=== PATIENT | male | born 1955 | race Caucasian/White ===

== ENCOUNTER 2023-10-25 12:51 | Observation (INO) | payer MEDICARE, SELFPAY ==
[2023-10-25 12:29] VITALS: BP 168/101; PULSE 71; TEMP 36.7; O2SAT 99; BMI 27.2
--- NOTE | 2023-10-25 13:00 | XR_ITS ---
[address] [address] Patient Name: ELVER MENA MRN: [id number] date: 1955 Sex: M Assigned Patient Location: ER Current Patient Location: ER Accession/Order Number: [id number] Exam Date: 10/25/2023 13:39 Report Date: 10/25/2023 14:30 At the request of: HANNAH PETERS Procedure: XR hip RT 2V w/ pelvis IMAGES REVIEWED: XR hip RT 2V w/ pelvis COMPARISON: None available. CLINICAL INDICATION: pain FINDINGS/IMPRESSION: 1. No radiographic evidence of acute osseous abnormality of the right hip/pelvis. 2. Mild degenerative change bilateral hips. Electronically authenticated by: DAVID JOSEPH Date: 10/25/2023 14:30
--- NOTE | 2023-10-25 13:46 | ED.GENADUL1 ---
HPI HPI - General Adult General Chief complaint: Fall Time Seen by Provider: 10/25/23 12:55 Source: patient Mode of arrival: ambulance History of Present Illness HPI narrative: Patient presents to ED complaining of right hip and pelvic pain. He has a history of Parkinson's for the past 15 years. He said his Parkinson's has been worsening recently and he has had multiple falls recently. He has had 3 falls in the past couple of days. He complains of right hip pain. He says he has not been medicated for his noon meds yet and his tremors are little bit worse right now. He is alert and oriented at this time. He also reports some constipation which is chronic but seems worse recently. He also has trouble urinating but this is also a chronic issue.No fever Related Data Home Medications ?Medication ?Instructions ?Recorded ?Confirmed carbidopa ER 25 mg-levodopa 100 mg tab PO 10/25/23 tablet,extended release Allergies Allergy/AdvReac Type Severity Reaction Status Date / Time No Known Drug Allergies Allergy Verified 10/25/23 12:31 Opioid HPI Opioid Management Most Recent Opioid Data: No Data to Display Review of Systems ROS Status of ROS 10 or more systems reviewed and unremarkable except as noted in history and below Exam Narrative Exam Narrative: General: alert, no acute distress Cardiovascular: regular rate and rhythm, normal peripheral perfusion. Respiratory: Lungs CTA, respirations non labored. Extremities: no deformity, Mild pain to palpation in the right hip mild pain with internal/external rotation right hip. Neurological: oriented x 4, LOC appropriate for age. Abdomen soft nontender nondistended no acute abdominal signs Constitutional Vital Signs, click to edit/add: Last Vital Signs Temp 98.1 F 10/25/23 12:29 Pulse 71 10/25/23 12:29 Resp 18 10/25/23 12:29 BP 168/101 H 10/25/23 12:29 Pulse Ox 99 10/25/23 12:29 O2 Del Method Room Air 10/25/23 12:29 Course Vital Signs Vital signs: Vital Signs Temperature 98.1 F 10/25/23 12:29 Pulse Rate 71 10/25/23 12:29 Respiratory Rate 18 10/25/23 12:29 Blood Pressure 168/101 H 10/25/23 12:29 Pulse Oximetry 99 10/25/23 12:29 Oxygen Delivery Method Room Air 10/25/23 12:29 Temperature 98.1 F 10/25/23 12:29 Pulse Rate 71 10/25/23 12:29 Respiratory Rate 18 10/25/23 12:29 Blood Pressure 168/101 H 10/25/23 12:29 Pulse Oximetry 99 10/25/23 12:29 Oxygen Delivery Method Room Air 10/25/23 12:29 Medical Decision Making MDM Narrative Medical decision making narrative: Patient reports that he is only in assisted living and they do not help him much at all. He is very tremorous and says he cannot take care of himself in the assisted living. He said he needs a higher level of care. He has had 3 or more falls in the past 24 hours. With the state of his tremors I do not think he should go home to try and care for himself. I spoke to Dr. Basilio who will admit him for PT eval and also possibly high school social studies teacher case management involvement for discharge planning. No acute fracture seen on x-ray. Patient is comfortable care plan for admission. Differential Diagnosis Differential Diagnosis: Multiple falls, fracture, strain, worsening Parkinson's Medical Records Medical records reviewed: Yes I reviewed the patient's medical records Discharge Plan Discharge Chief Complaint: Fall Clinical Impression: Fall, Parkinson disease Patient Disposition: Admitted as Observation Time of Disposition Decision: 15:22 Condition: Fair Prescriptions / Home Meds: No Action carbidopa-levodopa 25-100 mg tablet extended release PO Print Language: Faroese Referrals: ANDREA MCGUIRE DO [Primary Care Provider] - 1 week
[2023-10-25] MEDS: CARBIDOPA/LEVODOPA CR 25-100 MG TABLET 2 TAB PO ×3 (13:51→21:17)
[2023-10-25 15:16] LABS: Basophils Percent Auto 0.3 % (0.2-2.0); Eosinophils Absolute Auto 0.2 10^3/uL (0.0-0.7); Eosinophils Percent Auto 1.5 % (0.9-7.0); Hematocrit 42.1 % (42.0-54.0); Hemoglobin 14.4 g/dL (14.0-18.0); Immature Granulocytes Abs Auto 0.03 10^3/uL (0.00-0.03); Immature Granulocytes Pct Auto 0.3 % (0.0-0.5); Lymphocytes Absolute Auto 1.4 10^3/uL (1.2-3.8); Lymphocytes Percent Auto 12.7 % (20.5-60.0); Mean Corpuscular HGB Conc 34.2 g/dL (29.9-35.2); Mean Corpuscular Hemoglobin 32.9 pg (25.9-34.0); Mean Corpuscular Volume 96.1 fL (80.0-94.0); Monocytes Absolute Auto 0.9 10^3/uL (0.3-0.8); Monocytes Percent Auto 8.3 % (1.7-12.0); Neutrophils Absolute Auto 8.3 10^3/uL (1.4-6.5); Neutrophils Percent Auto 76.9 % (43.0-75.0); Platelet Count 222 10^3/uL (150-450); Red Blood Count 4.38 10^6/uL (4.70-6.10); Red Cell Distribution Width 12.1 % (11.0-15.0); White Blood Count 10.8 10^3/uL (4.0-11.0)
[2023-10-25 15:22] VITALS: BP 146/81; PULSE 64; O2SAT 94
[2023-10-25] MEDS: ACETAMINOPHEN 325 MG TABLET 650 MG PO (15:27)
[2023-10-25 15:30] LABS: Alanine Aminotransferase 9 U/L (16-63); Albumin Level 3.8 g/dL (3.4-5.0); Alkaline Phosphatase 74 U/L (46-116); Anion Gap 12.2; Aspartate Amino Transferase 14 U/L (15-37); BUN Creatinine Ratio 18.5; Bilirubin Total 0.7 mg/dL (0.2-1.0); Chloride 104 mmol/L (98-107); Estimated GFR (African America >60 (>=60); Estimated GFR (Non-African Ame >60 (>=60); Globulin 3.8 g/dL; Glucose 127 mg/dL (74-106); Potassium 4.2 mmol/L (3.5-5.1); Sodium 141 mmol/L (136-145); Total Protein 7.6 g/dL (6.4-8.2)
[2023-10-25 16:56] VITALS: BP 132/85; PULSE 72; TEMP 36.6; O2SAT 93; BMI 27.2
[2023-10-25] MEDS: BUSPIRONE HCL 10 MG TABLET 5 MG PO ×2 (18:19→21:16)
[2023-10-25] MEDS: ENTACAPONE 200 MG TABLET PO ×2 (18:19→21:16)
[2023-10-25] MEDS: ROPINIROLE HCL 1 MG TABLET PO ×2 (18:20→21:17)
[2023-10-25 21:25] VITALS: BP 105/57; PULSE 78; TEMP 35.9; O2SAT 91
[2023-10-26] MEDS: CARBIDOPA/LEVODOPA CR 25-100 MG TABLET 2 TAB PO ×6 (01:54→21:22)
[2023-10-26] MEDS: ROPINIROLE HCL 1 MG TABLET PO ×6 (01:54→21:22)
[2023-10-26] MEDS: BUSPIRONE HCL 10 MG TABLET 5 MG PO ×6 (01:54→21:21)
[2023-10-26] MEDS: ENTACAPONE 200 MG TABLET PO ×6 (01:54→21:22)
[2023-10-26 05:45] VITALS: BP 111/70; PULSE 60; TEMP 36.8; O2SAT 94
[2023-10-26 05:47] LABS: Basophils Percent Auto 0.4 % (0.2-2.0); Eosinophils Absolute Auto 0.2 10^3/uL (0.0-0.7); Hematocrit 40.1 % (42.0-54.0); Hemoglobin 13.3 g/dL (14.0-18.0); Immature Granulocytes Abs Auto 0.02 10^3/uL (0.00-0.03); Immature Granulocytes Pct Auto 0.3 % (0.0-0.5); Lymphocytes Absolute Auto 1.6 10^3/uL (1.2-3.8); Lymphocytes Percent Auto 19.4 % (20.5-60.0); Mean Corpuscular HGB Conc 33.2 g/dL (29.9-35.2); Mean Corpuscular Hemoglobin 32.6 pg (25.9-34.0); Mean Corpuscular Volume 98.3 fL (80.0-94.0); Mean Platelet Volume 9.5 fL (9.5-13.5); Monocytes Absolute Auto 0.8 10^3/uL (0.3-0.8); Monocytes Percent Auto 10.3 % (1.7-12.0); Neutrophils Absolute Auto 5.4 10^3/uL (1.4-6.5); Neutrophils Percent Auto 67.6 % (43.0-75.0); Platelet Count 189 10^3/uL (150-450); Red Blood Count 4.08 10^6/uL (4.70-6.10); Red Cell Distribution Width 12.5 % (11.0-15.0)
[2023-10-26 06:04] LABS: Anion Gap 11.7; BUN Creatinine Ratio 20.8; Calcium 8.7 mg/dL (8.5-10.1); Carbon Dioxide 27.2 mmol/L (21.0-32.0); Chloride 107 mmol/L (98-107); Estimated GFR (African America >60 (>=60); Estimated GFR (Non-African Ame >60 (>=60); Glucose 135 mg/dL (74-106); Potassium 3.9 mmol/L (3.5-5.1); Sodium 142 mmol/L (136-145)
[2023-10-26] MEDS: ESCITALOPRAM 10 MG TABLET 5 MG PO (08:35)
[2023-10-26] MEDS: PROPRANOLOL HCL 80 MG CAP.24H PO (08:35)
[2023-10-26] MEDS: KETOROLAC TROMETHAMINE 30 MG/ML VIAL IVP ×3 (11:13→23:37)
[2023-10-26] MEDS: ORPHENADRINE 60 MG/ 2 ML VIAL IV ×2 (11:13→23:37)
--- NOTE | 2023-10-26 11:40 | P.HP_ITS ---
HPI H&P: HPI History of Present Illness Chief complaint: PARKINSON FALLS Hip Pain Narrative: 68 y/o male with history of Parkinson's presents to ER with worsening symptoms and increased falls. Currently at assisted living and having a harder time. Parkinson's declining and patient with increased off episodes where legs don't work and can't move them. Falling more and has fallen 3 times in past day. Increased pain in hip and pelvis. C/o severe pain and spasms. To ER and x-ray normal. Patient not able to ambulate and admitted. At time of exam not able to move legs and severe tremor. Reports sometimes his medication doesn't work. C/o severe spasms. Opioid HPI Opioid Management Most Recent Opioid Data: Last Pain Scale 5 10/26/23 11:00 Last Pain Assessment 10/26/23 11:00 Last ORT Total Score 3 10/25/23 16:56 Last ORT Risk Category Low Risk 10/25/23 16:56 Review of Systems ROS Constitutional Denies: fever, chills or fatigue Cardiovascular Denies: chest pain, palpitations or edema Respiratory Denies: shortness of breath, cough or wheezing Gastrointestinal Denies: abdominal pain, nausea, vomiting or diarrhea Genitourinary Denies: painful urination Musculoskeletal Reports: muscle cramps PFSH PFSH Medical History (Updated 10/26/23 @ 09:23 by Pierre Cormier MD) Anxiety ?F41.9 - Anxiety disorder, unspecified (ICD-10) Depression ?F32.A - Depression, unspecified (ICD-10) GERD (gastroesophageal reflux disease) ?K21.9 - Gastro-esophageal reflux disease without esophagitis (ICD-10) Surgical History (Updated 10/25/23 @ 17:31 by Saloni Rodriguez) H/O hernia repair ?Z98.890 - Other specified postprocedural states (ICD-10) ?Z87.19 - Personal history of other diseases of the digestive system (ICD-10) History of bowel resection ?Z90.49 - Acquired absence of other specified parts of digestive tract (ICD- 10) Family History (Updated 10/25/23 @ 17:32 by Saloni Rodriguez) Father Family history of myocardial infarction Family history of hypertension Family history of cancer Family history of COPD (chronic obstructive pulmonary disease) Family history of CHF (congestive heart failure) Mother Family history of stroke Family history of hypertension Social History (Updated 10/25/23 @ 17:34 by Saloni Rodriguez) Within the past year, how often did you have a drink containing alcohol: 2-4 times a month Within the past year, how often did you have six or more drinks on one occasion: never Smoking status: Former smoker Non-prescribed substance use: denies use Previous occupational history: disabled Highest level of school completed/degree received: 11th grade Are you now , , , , never or living with a partner: Little interest or pleasure in doing things: not at all Feeling down, depressed, or hopeless: not at all Feel stressed/tense/nervous/anxious/difficulty sleeping: only a little Life stressor details: increased tremors are very bothersome Meds Home Medications and Allergies Home Medications ?Medication ?Instructions ?Recorded ?Confirmed ?Type buspirone 5 mg tablet 5 mg PO Q4H 10/25/23 10/25/23 History carbidopa ER 25 mg-levodopa 100 mg 2 tab PO Q4H 10/25/23 10/25/23 History tablet,extended release entacapone 200 mg tablet 200 mg PO Q4H 10/25/23 10/25/23 History escitalopram oxalate 5 mg tablet 5 mg PO DAILY 10/25/23 10/25/23 History (Lexapro) meclizine 25 mg tablet 25 mg PO Q8H PRN dizziness 10/25/23 10/25/23 History pimavanserin 34 mg capsule 34 mg PO Q24H 10/25/23 10/25/23 History (Nuplazid) propranolol 80 mg capsule,24 80 mg PO DAILY 10/25/23 10/25/23 History hr,extended release ropinirole 1 mg tablet 1 mg PO Q4H 10/25/23 10/25/23 History Allergies Allergy/AdvReac Type Severity Reaction Status Date / Time No Known Drug Allergies Allergy Verified 10/25/23 12:31 Exam Constitutional Vital Signs, click to edit/add: Last Vital Signs Temp 98.2 F 10/26/23 05:45 Pulse 60 10/26/23 05:45 Resp 18 10/26/23 05:45 BP 111/70 10/26/23 05:45 Pulse Ox 94 L 10/26/23 05:45 O2 Del Method Room Air 10/26/23 05:45 Documenting provider has reviewed patient's vital signs: yes Common normals: no apparent distress, oriented x3 and alert HENMT Common normals: normocephalic Eye Common normals: PERRL and EOMs intact bilaterally Respiratory Common normals: normal respiratory effort and clear to auscultation bilaterally Cardio Common normals: regular rate, regular rhythm, no gallops, no murmurs and no rub GI Common normals: Normal to inspection, nondistended, normoactive bowel sounds present and non-tender Extremity Common normals: no pedal edema Results Labs Labs: Short CBC 10/25/23 10/26/23 Range/Units 15:10 04:52 WBC 10.8 8.0 (4.0-11.0) 10^3/uL Hgb 14.4 13.3 L (14.0-18.0) g/dL Hct 42.1 40.1 L (42.0-54.0) % Plt Count 222 189 (150-450) 10^3/uL BMP 10/25/23 10/26/23 15:10 04:52 Sodium 141 142 Potassium 4.2 3.9 Chloride 104 107 Carbon Dioxide 29.0 27.2 BUN 17.0 20.0 H Creatinine 0.92 0.96 Glucose 127 H 135 H Calcium 9.0 8.7 Liver Function 10/25/23 Range/Units 15:10 Total Bilirubin 0.7 (0.2-1.0) mg/dL AST 14 L (15-37) U/L ALT 9 L (16-63) U/L Alkaline Phosphatase 74 (46-116) U/L Albumin 3.8 (3.4-5.0) g/dL Assessment and Plan Assessment and Plan (1) Acute right hip pain: (2) Fall: (3) Unsteady gait: (4) Parkinson disease: (5) High blood pressure: Plan Worsening Parkinson's symptoms and problems walking. Increased falls and pain in hip and pelvis. Reports pain from spasms and Parkinson's and not falls. Start toradol and norflex. Use tramadol PRN. Resume home medication. Start PT/OT. Consult high school social studies tutor.
[2023-10-26 13:11] VITALS: BP 126/73; PULSE 68; TEMP 36.6; O2SAT 94
[2023-10-26] MEDS: MECLIZINE HCL 12.5 MG TABLET 25 MG PO (20:16)
[2023-10-26] MEDS: TRAMADOL HCL 50 MG TABLET PO (20:17)
[2023-10-26 20:31] VITALS: BP 122/66; PULSE 81; TEMP 36.8; O2SAT 95
[2023-10-27] MEDS: ENTACAPONE 200 MG TABLET PO ×4 (01:22→14:20)
[2023-10-27] MEDS: CARBIDOPA/LEVODOPA CR 25-100 MG TABLET 2 TAB PO ×4 (01:22→14:19)
[2023-10-27] MEDS: BUSPIRONE HCL 10 MG TABLET 5 MG PO ×4 (01:22→14:19)
[2023-10-27] MEDS: ROPINIROLE HCL 1 MG TABLET PO ×4 (01:22→14:19)
[2023-10-27 04:23] VITALS: BP 134/76; PULSE 57; TEMP 36.7; O2SAT 94
[2023-10-27 05:07] LABS: Basophils Percent Auto 0.3 % (0.2-2.0); Eosinophils Absolute Auto 0.2 10^3/uL (0.0-0.7); Eosinophils Percent Auto 2.3 % (0.9-7.0); Hematocrit 37.4 % (42.0-54.0); Hemoglobin 12.6 g/dL (14.0-18.0); Immature Granulocytes Abs Auto 0.02 10^3/uL (0.00-0.03); Immature Granulocytes Pct Auto 0.3 % (0.0-0.5); Lymphocytes Absolute Auto 1.9 10^3/uL (1.2-3.8); Lymphocytes Percent Auto 27.1 % (20.5-60.0); Mean Corpuscular HGB Conc 33.7 g/dL (29.9-35.2); Mean Corpuscular Hemoglobin 33.1 pg (25.9-34.0); Mean Corpuscular Volume 98.2 fL (80.0-94.0); Mean Platelet Volume 9.6 fL (9.5-13.5); Monocytes Absolute Auto 0.7 10^3/uL (0.3-0.8); Monocytes Percent Auto 9.4 % (1.7-12.0); Neutrophils Absolute Auto 4.2 10^3/uL (1.4-6.5); Neutrophils Percent Auto 60.6 % (43.0-75.0); Platelet Count 174 10^3/uL (150-450); Red Blood Count 3.81 10^6/uL (4.70-6.10); Red Cell Distribution Width 12.6 % (11.0-15.0); White Blood Count 6.9 10^3/uL (4.0-11.0)
[2023-10-27 05:24] LABS: Anion Gap 10.9; BUN Creatinine Ratio 29.9; Calcium 8.6 mg/dL (8.5-10.1); Carbon Dioxide 28.9 mmol/L (21.0-32.0); Chloride 106 mmol/L (98-107); Estimated GFR (African America >60 (>=60); Estimated GFR (Non-African Ame >60 (>=60); Glucose 117 mg/dL (74-106); Potassium 3.8 mmol/L (3.5-5.1); Sodium 142 mmol/L (136-145)
[2023-10-27] MEDS: KETOROLAC TROMETHAMINE 30 MG/ML VIAL IVP ×2 (05:24→11:28)
[2023-10-27] MEDS: TRAMADOL HCL 50 MG TABLET PO ×2 (05:25→14:19)
[2023-10-27] MEDS: PROPRANOLOL HCL 80 MG CAP.24H PO (09:42)
[2023-10-27] MEDS: ACETAMINOPHEN 500 MG TABLET 1000 MG PO (09:42)
[2023-10-27] MEDS: ESCITALOPRAM 10 MG TABLET 5 MG PO (09:43)
--- NOTE | 2023-10-27 10:05 | SWNOTE1 ---
Pt is from [facility]. He is new to them. PITO did speak with Braden from [facility] and they are looking in to increasing his level of care at [facility] and they are trying to become familiar with pt and what ADL's pt can do and needs help with. Ana did request palliative consult due to pt's Parkinson's and tremors he has from Parkinson's. PITO updated case management who is with doctor.
--- NOTE | 2023-10-27 11:27 | CM.NOTE ---
Rounds made with Dr. Cormier. Dr. Cormier discussed progression of symptoms and potential need for increase in services at Assisted Living. Plan for discharge today.
[2023-10-27] MEDS: ORPHENADRINE 60 MG/ 2 ML VIAL IV (11:28)
--- NOTE | 2023-10-27 12:23 | PC.NURSE ---
Patient's niece, Valerie, called and patient gave verbal OK to speak with her. Valerie was made aware that patient would be going back to [facility] today with increased LOC. Can Coverer explained that patient's disease is unfortunately progressing and there is nothing more we can do inside the hospital for. She is understanding.
[2023-10-27 13:28] VITALS: BP 125/74; PULSE 90; TEMP 36.4; O2SAT 94
--- NOTE | 2023-10-27 14:15 | PC.NURSE ---
Load Planner called Devika at [facility] and gave phone report.
--- NOTE | 2023-10-27 14:21 | SWNOTE1 ---
[facility] is going to increase pt's level of care at the [facility] for now. They are able to accept him back. Nursing spoke with niece and niece is alright with him returning. PITO set up trips for 2:30 for pt to return to [facility]. PITO placed packet on med/surge floor. PITO sent over updates and dc med rec to [facility]. PITO informed [facility] of time.
--- NOTE | 2023-10-27 17:44 | PM.DS1 ---
DS: Providers Provider Date of admission: 10/25/23 16:50 Primary care physician: ANDREA MCGUIRE DO Consults: 10/25/23 Consult to Dietitian Routine Reason for consultation: poor appetite/ weight loss Has provider been notified: No 10/25/23 16:52 Occupational Therapy Eval and Treat Routine Reason for consultation: Unsteady gait, Parkinson's Physical Therapy Eval and Treat Routine Reason for consultation: Unsteady gait, Parkinson's DS: Diagnosis Discharge Diagnosis (1) Acute right hip pain: (2) Fall: (3) Unsteady gait: (4) Parkinson disease: (5) High blood pressure: DS: Summary Hospital Course Hospital Course: Reason for admission: See H&P for details. 68 y/o male with history of Parkinson's presents to ER with worsening symptoms and increased falls. Currently at assisted living and having a harder time. Parkinson's declining and patient with increased off episodes where legs don't work and can't move them. Falling more and has fallen 3 times in past day. Increased pain in hip and pelvis. C/o severe pain and spasms. To ER and x-ray normal. Patient not able to ambulate and admitted. Hospital course: C/o severe tremor and pain in hip. Severe spasms and reports this is related to worsening Parkinson's. Seen by PT and severe weakness. Gave tramadol and norflex but continued pain. coordinator of genetic services consulted and discussed with his AL facility. Patient stable and symptoms related to worsening Parkinson's. Discussed Palliative care with patient and he will consider. Transferred back to [facility] and patient's family arranged for additional services. Resume medication as directed. Need to follow up with neurology to possibly adjust medication. Time Spent with Patient Time attestation: Total time spent providing and/or coordinating discharge services: Time spent: greater than 30 minutes Exam Constitutional Vital Signs, click to edit/add: Last Vital Signs Temp 97.6 F 10/27/23 13:28 Pulse 90 10/27/23 13:28 Resp 16 10/27/23 13:28 BP 125/74 10/27/23 13:28 Pulse Ox 94 L 10/27/23 13:28 O2 Del Method Room Air 10/27/23 13:28 Documenting provider has reviewed patient's vital signs: yes Common normals: no apparent distress, oriented x3 and alert HENMT Common normals: normocephalic Eye Common normals: PERRL and EOMs intact bilaterally Respiratory Common normals: normal respiratory effort and clear to auscultation bilaterally Cardio Common normals: regular rate, regular rhythm, no gallops, no murmurs and no rub GI Common normals: Normal to inspection, nondistended, normoactive bowel sounds present and non-tender Extremity Common normals: no pedal edema DS: Data Data Completed and Pending Labs on day of discharge: Labs from last 24 hours 10/27/23 04:30 WBC 6.9 RBC 3.81 L Hgb 12.6 L Hct 37.4 L MCV 98.2 H MCH 33.1 MCHC 33.7 RDW 12.6 Plt Count 174 MPV 9.6 Neut % (Auto) 60.6 Lymph % (Auto) 27.1 [place] % (Auto) 9.4 Eos % (Auto) 2.3 Baso % (Auto) 0.3 Neut # (Auto) 4.2 Lymph # (Auto) 1.9 [place] # (Auto) 0.7 Eos # (Auto) 0.2 Baso # (Auto) 0.0 Abs Immat Gran (auto) 0.02 Imm/Tot Granulo (auto) 0.3 Sodium 142 Potassium 3.8 Chloride 106 Carbon Dioxide 28.9 Anion Gap 10.9 BUN 29.0 H Creatinine 0.97 Est GFR ( Amer) >60 Est GFR (Non-Af Amer) >60 BUN/Creatinine Ratio 29.9 Glucose 117 H Calcium 8.6 Discharge Plan Discharge Disposition: Home, Self-Care Condition: Fair Discharge Medications: Continued carbidopa-levodopa 25-100 mg tablet extended release 2 tab PO Q4H buspirone 5 mg tablet 5 mg PO Q4H entacapone 200 mg tablet 200 mg PO Q4H meclizine 25 mg tablet 25 mg PO Q8H PRN (Reason: dizziness) Nuplazid 34 mg capsule 34 mg PO Q24H propranolol 80 mg capsule,extended release 24 hr 80 mg PO DAILY ropinirole 1 mg tablet 1 mg PO Q4H escitalopram oxalate [Lexapro] 5 mg tablet 5 mg PO DAILY Activity: increase activity as tolerated Diet: advance to your usual diet Print Language: Bulgarian Patient Instructions: Parkinson Disease (DC) Wind Energy Mechanic/Environmental Services Specialist Instructions: Discharge back to [facility]. Forms: Portal Instructions Follow Up Appointments: Please follow up with physicians at [facility]. Keep already scheduled neurology appointment Discharge Date/Time: 10/27/23 14:25
== END 2023-10-27 14:25 | disposition home or self-care (01) ==
LOC: ER 15:22 → MS 16:55
PROVIDERS: Admitting Provider Family Medicine; Emergency Provider Emergency Medicine; PCP Family Medicine; Visit Provider Family Medicine
DX: M25.551 Pain in right hip (principal); G20.A1 Parkinson's disease without dyskinesia, without mention of fluctuations; R26.81 Unsteadiness on feet; I10 Essential (primary) hypertension; Z91.81 History of falling
CPT/HCPCS: 36415; 73502; 80048; 80053; 85025; 96374; 96375; 96376; 97161; 97165; 99285; G0378

== ENCOUNTER 2023-12-20 08:58 | Observation (INO) | payer MEDICARE, SELFPAY ==
[2023-12-20] VITALS (53 sets, daily range): BP systolic 82–125; BP diastolic 48–80; PULSE 48–74; TEMP 36.3–36.7; O2SAT 83–98; BMI 24.7; BMI 25.5
--- NOTE | 2023-12-20 09:01 | ECG_ITS ---
The [facility] Test Date: 2023-12-20 Pat Name: ELVER MENA Department: Room: - Gender: Male [employer]: : 1955 Requested By: ANDREA MCGUIRE Order Number: [id number] Reading MD: DIANA WARD Measurements Intervals Vida Rate: 62 P: 26 CO: 148 QRS: 33 QRSD: 86 T: 36 QT: 420 QTc: 425 Interpretive Statements 1100 Sinus rhythm 9110 normal ECG No previous ECG available for comparison Electronically Signed On 12-21-2023 18:24:32 EDT by DIANA WARD
--- NOTE | 2023-12-20 09:02 | XR_ITS ---
The [address] [address] Patient Name: ELVER MENA MRN: [id number] date: 1955 Sex: M Assigned Patient Location: ER Current Patient Location: ED.MAIN Accession/Order Number: [id number] Exam Date: 12/20/2023 09:23 Report Date: 12/20/2023 09:41 At the request of: WALESKA ARIZMENDI Procedure: XR chest 1V EXAMINATION: XR chest 1V, 12/20/2023 9:23 AM EDT HISTORY: Chest pain COMPARISON: None. TECHNIQUE: AP portable view of the chest performed. FINDINGS: Medical devices: None. Cardiomediastinal silhouette is within normal limits. Mild relatively streaky bilateral basilar opacity favored atelectasis. No large pleural effusion, or pneumothorax. XR/XR chest 1V IMPRESSION: 1. Mild streaky bilateral basilar opacity favored atelectasis, infiltrate technically not excluded. Electronically authenticated by: MALENA MILLARD Date: 12/20/2023 09:41
--- NOTE | 2023-12-20 09:03 | ED_ITS ---
HPI - Chest Pain General Chief Complaint: Chest Pain Stated Complaint: CHEST PAIN Time Seen by Provider: 12/20/23 08:59 History of Present Illness HPI narrative: 68-year-old male presents for chest pain which she has had for about 1-1/2 hours. It began about 730 this morning to the sternal area and it sharp. It is continuous and it goes to his shoulders. He had a stress test 11 years ago, he has never had a heart catheterization. He states his breathing is not bad. No trauma. Related Data Home Medications ?Medication ?Instructions ?Recorded ?Confirmed buspirone 5 mg tablet 10 mg PO TID 10/25/23 12/20/23 carbidopa ER 25 mg-levodopa 100 mg 2 tab PO Q4H 10/25/23 12/20/23 tablet,extended release entacapone 200 mg tablet 200 mg PO Q4H 10/25/23 12/20/23 escitalopram oxalate 5 mg tablet 5 mg PO DAILY 10/25/23 12/20/23 (Lexapro) meclizine 25 mg tablet 25 mg PO Q8H PRN dizziness 10/25/23 12/20/23 pimavanserin 34 mg capsule 34 mg PO Q24H 10/25/23 12/20/23 (Nuplazid) propranolol 80 mg capsule,24 60 mg PO BID 10/25/23 12/20/23 hr,extended release ropinirole 1 mg tablet 1 mg PO Q4H 10/25/23 12/20/23 baclofen 5 mg tablet 5 mg PO TID 12/20/23 12/20/23 famotidine 20 mg tablet 20 mg PO DAILY 12/20/23 12/20/23 quetiapine 25 mg tablet (Seroquel) 25 mg PO BID 12/20/23 12/20/23 Allergies Allergy/AdvReac Type Severity Reaction Status Date / Time No Known Drug Allergies Allergy Verified 10/25/23 12:31 Review of Systems ROS Narrative A ten point review of systems is negative except as noted above. [facility] Medical History (Updated 12/20/23 @ 12:49 by Phillip Sheets MD) Unsteady gait ?R26.81 - Unsteadiness on feet (ICD-10) High blood pressure ?I10 - Essential (primary) hypertension (ICD-10) Parkinson disease ?G20.A1 - Parkinson's disease without dyskinesia, without mention of fluctuations (ICD-10) Anxiety ?F41.9 - Anxiety disorder, unspecified (ICD-10) Depression ?F32.A - Depression, unspecified (ICD-10) GERD (gastroesophageal reflux disease) ?K21.9 - Gastro-esophageal reflux disease without esophagitis (ICD-10) Surgical History (Updated 10/25/23 @ 17:31 by Saloni Rodriguez) H/O hernia repair ?Z98.890 - Other specified postprocedural states (ICD-10) ?Z87.19 - Personal history of other diseases of the digestive system (ICD-10) History of bowel resection ?Z90.49 - Acquired absence of other specified parts of digestive tract (ICD- 10) Family History (Updated 10/25/23 @ 17:32 by Saloni Rodriguez) Father Family history of myocardial infarction Family history of hypertension Family history of cancer Family history of COPD (chronic obstructive pulmonary disease) Family history of CHF (congestive heart failure) Mother Family history of stroke Family history of hypertension Social History (Updated 10/25/23 @ 17:34 by Saloni Rodriguez) Within the past year, how often did you have a drink containing alcohol: 2-4 times a month Within the past year, how often did you have six or more drinks on one occasion: never Smoking status: Former smoker Non-prescribed substance use: denies use Previous occupational history: disabled Highest level of school completed/degree received: 11th grade Are you now , , , , never or living with a partner: Little interest or pleasure in doing things: not at all Feeling down, depressed, or hopeless: not at all Feel stressed/tense/nervous/anxious/difficulty sleeping: only a little Life stressor details: increased tremors are very bothersome Exam Narrative Exam Narrative: Nurses note and vital signs reviewed and patient is not hypoxic. General: The patient appears in no apparent distress. Patient is resting comfortably on cart. He seems to prefer to keep his eyes closed. Skin: Warm, dry, no pallor noted. There is no rash noted. Head: Normocephalic, atraumatic Eye: Normal conjunctiva, no drainage Ears, Nose, Mouth, and Throat: oral mucosa is moist. Nares patent. Cardiovascular: Regular Rate and Rhythm Respiratory: Patient is in no distress, no accessory muscle use, lungs are clear to auscultation, no wheezing, rales or rhonchi Back: non-tender GI: Soft and nontender Musculoskeletal: The patient has no evidence of calf tenderness, no pitting edema, symmetrical pulses noted bilaterally Neurological: Awake alert and oriented. He has continuous tremors. Psychiatric: Cooperative Constitutional Vital Signs, click to edit/add: Last Vital Signs Temp 97.9 F 12/20/23 08:58 Pulse 51 L 12/20/23 12:30 Resp 18 12/20/23 12:30 BP 110/55 12/20/23 12:30 Pulse Ox 94 L 12/20/23 12:30 O2 Del Method Room Air 12/20/23 09:10 Course Vital Signs Vital signs: Vital Signs Temperature 97.9 F 12/20/23 08:58 Pulse Rate 66 12/20/23 08:58 Respiratory Rate 14 12/20/23 08:58 Blood Pressure 102/58 12/20/23 08:58 Pulse Oximetry 95 12/20/23 08:58 Oxygen Delivery Method Room Air 12/20/23 08:58 Temperature 97.9 F 12/20/23 08:58 Pulse Rate 51 L 12/20/23 12:30 Respiratory Rate 18 12/20/23 12:30 Blood Pressure 110/55 12/20/23 12:30 Pulse Oximetry 94 L 12/20/23 12:30 Oxygen Delivery Method Room Air 12/20/23 09:10 MDM - Chest Pain MDM Narrative Medical decision making narrative: 2 troponins are negative. CTA shows no pulmonary embolism and shows coronary artery calcifications. He was given aspirin and nitroglycerin here and is being admitted. Findings are discussed with the patient. Differential Diagnosis Differential diagnosis: Likely pneumothorax, unstable angina pectoris, atypical chest pain, st elevation myocardial infarction, chest pain and other (Pulmonary embolus) Lab Data Attestation: I reviewed the patient's lab results. Labs: Lab Results 12/20/23 12/20/23 Range/Units 09:00 10:33 WBC 6.2 (4.0-11.0) 10^3/uL RBC 4.02 L (4.70-6.10) 10^6/uL Hgb 13.4 L (14.0-18.0) g/dL Hct 40.0 L (42.0-54.0) % MCV 99.5 H (80.0-94.0) fL MCH 33.3 (25.9-34.0) pg MCHC 33.5 (29.9-35.2) g/dL RDW 12.9 (11.0-15.0) % Plt Count 256 (150-450) 10^3/uL MPV 9.3 L (9.5-13.5) fL Neut % (Auto) 65.2 (43.0-75.0) % Lymph % (Auto) 20.9 (20.5-60.0) % Ross % (Auto) 10.5 (1.7-12.0) % Eos % (Auto) 2.8 (0.9-7.0) % Baso % (Auto) 0.3 (0.2-2.0) % Neut # (Auto) 4.0 (1.4-6.5) 10^3/uL Lymph # (Auto) 1.3 (1.2-3.8) 10^3/uL Ross # (Auto) 0.7 (0.3-0.8) 10^3/uL Eos # (Auto) 0.2 (0.0-0.7) 10^3/uL Baso # (Auto) 0.0 (0.0-0.1) 10^3/uL Abs Immat Gran (auto) 0.02 (0.00-0.03) 10^3/uL Imm/Tot Granulo (auto) 0.3 (0.0-0.5) % Sodium 140 (136-145) mmol/L Potassium 3.9 (3.5-5.1) mmol/L Chloride 103 (98-107) mmol/L Carbon Dioxide 29.7 (21.0-32.0) mmol/L Anion Gap 11.2 BUN 22.0 H (7.0-18.0) mg/dL Creatinine 0.81 (0.70-1.30) mg/dL Est GFR ( Amer) >60 (>=60) Est GFR (Non-Af Amer) >60 (>=60) BUN/Creatinine Ratio 27.2 Glucose 137 H (74-106) mg/dL Calcium 9.0 (8.5-10.1) mg/dL Troponin I High Sens 16.6 15.9 (4.0-76.1) pg/mL Imaging Data Chest x-ray: Radiologist's impression: ITS Impressions Chest X-Ray 12/20/23 09:02 IMPRESSION: 1. Mild streaky bilateral basilar opacity favored atelectasis, infiltrate technically not excluded. Electronically authenticated by: MALENA MILLARD Date: 12/20/2023 09:41 Chest CTA 12/20/23 10:40 IMPRESSION: There is no pulmonary embolus. Severe multivessel coronary calcifications. Mild aortic valvular calcification and mild atheromatous calcification along the thoracic aorta and splenic artery. Mild consolidation at both posterior costophrenic angles which most likely is atelectasis. The bony structures appear osteopenic. There is mild dextroscoliosis and kyphosis of the thoracic spine. There is mild loss of height of a few mid thoracic vertebral bodies which most likely is chronic. There are mild discogenic degenerative changes at numerous levels along the spine. Electronically authenticated by: SP ANDREW Date: 12/20/2023 12:16 ECG Data Attestation: I personally reviewed and interpreted this ECG as follows: (EKG on my interpretation shows sinus rhythm with no acute change and rate of 62.) Heart Score History: Highly Suspicious ECG: Normal Age: >65 years Risk Factors: 1 or 2 Risk Factors Troponin: <Normal Limit Total Heart Score Recommendations & Risks:: 5 Discharge Plan Discharge Chief Complaint: Chest Pain Clinical Impression: Chest pain Patient Disposition: Admitted as Observation Time of Disposition Decision: 12:49 Condition: Fair Prescriptions / Home Meds: No Action carbidopa-levodopa 25-100 mg tablet extended release 2 tab PO Q4H buspirone 5 mg tablet 10 mg PO TID entacapone 200 mg tablet 200 mg PO Q4H meclizine 25 mg tablet 25 mg PO Q8H PRN (Reason: dizziness) Nuplazid 34 mg capsule 34 mg PO Q24H propranolol 80 mg capsule,extended release 24 hr 60 mg PO BID ropinirole 1 mg tablet 1 mg PO Q4H escitalopram oxalate [Lexapro] 5 mg tablet 5 mg PO DAILY famotidine 20 mg tablet 20 mg PO DAILY baclofen 5 mg tablet 5 mg PO TID quetiapine [Seroquel] 25 mg tablet 25 mg PO BID Print Language: Mongolian Referrals: ANDREA MCGUIRE DO [Primary Care Provider] - 1 week
[2023-12-20] MEDS: NITROGLYCERIN 0.4 MG BOTTLE SL ×2 (09:29→12:37)
[2023-12-20] MEDS: ASPIRIN 81 MG TAB.CHEW 324 MG PO (09:29)
[2023-12-20 09:43] LABS: Basophils Percent Auto 0.3 % (0.2-2.0); Eosinophils Absolute Auto 0.2 10^3/uL (0.0-0.7); Eosinophils Percent Auto 2.8 % (0.9-7.0); Hemoglobin 13.4 g/dL (14.0-18.0); Immature Granulocytes Abs Auto 0.02 10^3/uL (0.00-0.03); Immature Granulocytes Pct Auto 0.3 % (0.0-0.5); Lymphocytes Absolute Auto 1.3 10^3/uL (1.2-3.8); Lymphocytes Percent Auto 20.9 % (20.5-60.0); Mean Corpuscular HGB Conc 33.5 g/dL (29.9-35.2); Mean Corpuscular Hemoglobin 33.3 pg (25.9-34.0); Mean Corpuscular Volume 99.5 fL (80.0-94.0); Mean Platelet Volume 9.3 fL (9.5-13.5); Monocytes Absolute Auto 0.7 10^3/uL (0.3-0.8); Monocytes Percent Auto 10.5 % (1.7-12.0); Neutrophils Percent Auto 65.2 % (43.0-75.0); Platelet Count 256 10^3/uL (150-450); Red Blood Count 4.02 10^6/uL (4.70-6.10); Red Cell Distribution Width 12.9 % (11.0-15.0); White Blood Count 6.2 10^3/uL (4.0-11.0)
[2023-12-20 09:58] LABS: Troponin I High Sensitivity 16.6 pg/mL (4.0-76.1)
[2023-12-20 10:05] LABS: Anion Gap 11.2; BUN Creatinine Ratio 27.2; Carbon Dioxide 29.7 mmol/L (21.0-32.0); Chloride 103 mmol/L (98-107); Estimated GFR (African America >60 (>=60); Estimated GFR (Non-African Ame >60 (>=60); Glucose 137 mg/dL (74-106); Potassium 3.9 mmol/L (3.5-5.1); Sodium 140 mmol/L (136-145)
--- NOTE | 2023-12-20 10:40 | CT_ITS ---
The [address] [address] Patient Name: ELVER MENA MRN: [id number] date: 1955 Sex: M Assigned Patient Location: ER Current Patient Location: ER Accession/Order Number: [id number] Exam Date: 12/20/2023 11:06 Report Date: 12/20/2023 12:16 At the request of: WALESKA ARIZMENDI Procedure: CT angio chest EXAM: CT angio chest HISTORY: Chest pain ; technologist notes state sternal chest pain since 0730 hours today. COMPARISON: None. TECHNIQUE: Routine CTA chest with intravenous contrast. FINDINGS: There is contrast within the pulmonary arteries. There is no pulmonary embolus. The pulmonary trunk is normal size measuring 2.3 cm. There is no right heart strain. The heart size is upper limits of normal. There is severe multivessel coronary calcifications. There is mild aortic valvular calcification. There is mild atheromatous calcification along the thoracic aorta. There is mild atheromatous calcification along the splenic artery. There is mild consolidation of both posterior costophrenic angles which most likely is atelectasis. There is no pleural effusion. There are no suspicious masses or nodules within the lungs. There are no pathologically enlarged lymph nodes. The trachea, esophagus and imaged portions of the thyroid gland are unremarkable. No acute findings within the upper abdomen. The bony structures appear osteopenic. There is mild dextroscoliosis and kyphosis of the thoracic spine. There is mild loss of height of a few mid thoracic vertebral bodies which most likely is chronic. There are mild discogenic degenerative changes at numerous levels along the spine. CT/CT angio chest IMPRESSION: There is no pulmonary embolus. Severe multivessel coronary calcifications. Mild aortic valvular calcification and mild atheromatous calcification along the thoracic aorta and splenic artery. Mild consolidation at both posterior costophrenic angles which most likely is atelectasis. The bony structures appear osteopenic. There is mild dextroscoliosis and kyphosis of the thoracic spine. There is mild loss of height of a few mid thoracic vertebral bodies which most likely is chronic. There are mild discogenic degenerative changes at numerous levels along the spine. Electronically authenticated by: SP ANDREW Date: 12/20/2023 12:16
[2023-12-20 11:13] LABS: Troponin I High Sensitivity 15.9 pg/mL (4.0-76.1)
--- OUTSIDE RECORDS SUMMARY | 2023-12-20 14:08 | XMS_ITS | CCD ---
Author Organization [facility] Care Team Providers Care Pharmacovigilance Scientist Name Role Phone Charli Barrett Unavailable Unavailable Unavailable Bogdan LAUREN, Cat[place] Primary [facility] Provi dayana Unknown, Referring Provider Unavailable Unav ailable Arnold TOLENTINO, Dr. Charli Dominguez Referring Unavailable McGuinn II, Dr. Charli Dominguez Primary Care Unavailable Danielitouinn II, Dr. Charli Dominguez Attending Unavailable Danielitouinn II, Dr. Charli Dominguez Referring Unavailable McGuinn II, Dr. Charli Dominguez Primary Care Unavailable McGuinn II, Dr. Charli Dominguez Attending Unavailable Isabelle Julian Primary Care Physician [phone] Lila Noel Unavailable Unavailable Jorge Peralta Unavailable Unavailable NONE, XXXX Primary Care Physician Unavailab Johnathon Butcher Attending Unavailable Charli Hall Attending Unavailable DO Jesu BERNAL Admitting Unavaillast lozano Washington, Bo Consulting Unavailable Washington, Bo Consulting Unavailable Washington, Bo Consulting Unavailable Washington, Bo Consulting Unavailable Washington, Bo Consulting Unavailable Washington, Bo Consulting Unavailable Washington, Bo Consulting Unavailable Washington, Bo Consulting Unavailable Washington, Bo Consulting Unavailable Alberto GRAY Admitting Unavailable Washington, Bo Consulting Unavailable Josse GOEL Attending Unavailable Washington, Bo Consulting Unavailable Washington, Bo Consulting Unavailable Washington, Bo Consulting Unavailable Washington, Bo Consulting Unavailable Washington, Bo Consulting Unavailable Washington, Bo Consulting Unavailable Washington, Bo Consulting Unavailable Washington, Bo Consulting Unavailable Rick Sanchez Attending Unavailable Ramon Sykes Attending Unavailable Johnathon SIEGEL Attending Unavailable Johnathon SIEGEL Admitting Unavailable Johnathon SIEGEL Attending Unavailable Rick Sanchez Attending Unavailable Johnathon SIEGEL Attending Unavailable EDENILSON LIND Attending Unavailable Medications Current Medications Medication Drug Class(es) Dates Sig (Normalized) Sig (Original) acetaminophen 325 mg oral tablet (8 sources) Start: 09-25-2023 take 2 tablets by mouth every six hours as needed for pain acetaminophen 325 mg Tab 650 mg = 2 tab(s), Oral, q6hr, PRN Pain, Refills(s) 0 Start Date: 09/25/23 Status: Ordered Start: 09-19-2023 take 2 tablets by [facility] every six hours as needed for pain acetaminophen 325 mg Tab 650 mg = 2 tab(s), Oral, q6hr, PRN Pain, Refills(s) 0 Start Date: 09/19/23 Status: Ordered busPIRone hydrochloride 5 mg oral tablet (11 sources) Start: 09-19-2023 take 1 tablet by mouth every four hours busPIRone 5 mg Tab 5 mg = 1 tab(s), Oral, q4hr, # 90 tab(s), Refills(s) 0, Pharmacy: [facility] #[id number], 175, cm, 09/17/23 21:04:00 EDT, Height/Length Dosing, 94.8, kg, 09/17/23 21:04:00 EDT, Weight Dosing Start Date: 09/19/23 Status: Ordered Start: 09-19-2023 take 2 tablets by [facility] every eight hours busPIRone 5 mg Tab 10 mg = 2 tab(s), Oral, q8hr, # 90 tab(s), Refills(s) 0, Pharmacy: [facility] #[id number], 175, cm, 09/17/23 21:04:00 EDT, Height/Length Dosing, 94.8, kg, 09/17/23 21:04:00 EDT, Weight Dosing Start Date: 09/19/23 Status: Ordered busPIRone HCl - 5 MG Oral Tablet tale 1 tablet 6 times daily Quantity: 0 Refills: 0 Ordered: 12-Oct-2021 DO Active carbidopa 25 mg / levodopa 100 mg extended release oral tablet (11 sources) Aromatic Amino Acid Decarboxylation Inhibitor, Aromatic Amino Acid Start: 02-22-2022 take 2 tablets by mouth every four hours carbidopa-levodopa 25 mg-100 mg ER Tab 2 tab(s), Oral, q4hr, Refill(s) 0 Start Date: 02/22/22 Status: Ordered Carbidopa-Levodo pa ER 25-100 MG Oral Tablet Extended Release TAKE 2 TABLETS 6 TIMES DAILY Quantity: 0 Refills: 0 Ordered: 12-Oct-2021 DO Active cyclobenzaprine hydrochloride 5 mg oral tablet (2 sources) Muscle Relaxant Start: 09-19-2023 take 1 tablet by mouth three times daily cyclobenzaprine 5 mg Tab 5 mg = 1 tab(s), Oral, TID, # 15 tab(s), Refills(s) 0, Pharmacy: [facility] #[id number], 175, cm, 09/17/23 21:04:00 EDT, Height/Length Dosing, 94.8, kg, 09/17/23 21:04:00 EDT, Weight Dosing Start Date: 09/19/23 Status: Ordered docusate sodium 100 mg oral capsule (1 source) Start: 09-25-2023 take 2 capsules by mouth once daily docusate sodium 100 mg Cap 200 mg = 2 cap(s), Oral, Daily, Refills(s) 0 Start Date: 09/25/23 Status: Ordered entacapone 200 mg oral tablet (11 sources) Wwgjehrj-X-Ajrk yltransferase Inhibitor Start: 09-19-2023 take 1 tablet by mouth every four hours entacapone 200 mg Tab 200 mg = 1 tab(s), Oral, q4hr, Refills(s) 0 Start Date: 09/19/23 Status: Ordered Entacapone 200 M G Oral Tablet take 1 tablet 6 times daily Quantity: 0 Refills: 0 Ordered: 12-Oct-2021 DO Active escitalopram 5 mg oral tablet (2 sources) Serotonin Reuptake Inhibitor Start: 10-15-2023 take 2 tablets by mouth once daily in the evening escitalopram 5 mg oral tablet 10 mg = 2 tab(s), Oral, qPM, Refills(s) 0 Start Date: 10/15/23 Status: Ordered Milk of Magnesia 8% Susp-Oral (2 sources) Start: 10-15-2023 take 2.4 g by mouth once daily Milk of Magnesia 8% Susp-Oral 2.4 gm, 30 mL, Oral, Daily constipation, Refill(s) 0 Start Date: 10/15/23 Status: Ordered pimavanserin 34 mg oral capsule (9 sources) Atypical Antipsychotic Start: 09-18-2023 take 1 capsule by mouth once daily pimavanserin 34 mg oral capsule 34 mg = 1 cap(s), Oral, Daily, Refills(s) 0 Start Date: 09/18/23 Status: Ordered take 1 capsule by mouth once dixon ly Nuplazid 34 MG Oral Capsule 1 ab daily Quantity: 0 Refills: 0 Ordered: 24-Sep-2022 DO Active 24 hr propranolol hydrochloride 60 mg extended release oral capsule (11 sources) beta-Adrenergic Cain Start: 10-15-2023 take 1 capsule by mouth twice daily propranolol 60 mg Cap-ER 60 mg = 1 cap(s), Oral, BID, Refills(s) 0 Start Date: 10/15/23 Status: Ordered Start: 03-14-2021 take 1 capsule by [facility] once daily propranolol 80 mg Cap-ER 80 mg = 1 cap(s), Oral, Daily, Refills(s) 0 Start Date: 04/22/21 Status: Ordered rOPINIRole 1 mg oral tablet (11 sources) Nonergot Dopamine Agonist Start: 04-16-2021 take 1 tablet by mouth every four hours Requip 1 mg Tab 1 mg = 1 tab(s), Oral, q4hr, Refills(s) 0 Start Date: 04/16/21 Status: Ordered Start: 04-16-2021 [address] [facility] once daily Requip 1 mg Tab 1 mg = 1 tab(s), Oral, 6x/Day, Refills(s) 0 Start Date: 04/16/21 Status: Ordered rOPINIRole HCl - 1 MG Oral Tablet take 1 tablet 6 times daily Quantity: 0 Refills: 0 Ordered: 12-Oct-2021 DO Active Problems Active Problems Problem Classification Problem Date Documented Date Episodic/Chronic Anxiety disorders (20 sources) Anxiety disorder; Translations: [Other specified anxiety disorders] Onset: 09-18-2023 Chronic Esophageal disorders (9 sources) Gastroesophageal reflux disease without esophagitis; Translations: [Gastro-esophageal reflux disease without esophagitis] Onset: 09-18-2023 Chronic Essential hypertension (15 sources) Hypertensive disorder; Translations: [Unspecified essential hypertension] Onset: 09-18-2023 Chronic Genitourinary symptoms and ill-defined conditions (8 sources) Urinary catheter in situ 04-22-2021 Chronic Malaise and fatigue (1 source) Asthenia; Translations: [Weakness] Onset: 10-10-2023 Episodic Mood disorders (1 source) Depressive disorder; Translations: [Depression, unspecified] Onset: 09-23-2023 Chronic Nutritional deficiencies (8 sources) Vitamin D deficiency 04-22-2021 Chronic Nutritional deficiencies (8 sources) Cobalamin deficiency 04-22-2021 Episodic Other aftercare (1 source) Long-term current use of drug therapy; Translations: [Other shelter (current) drug therapy] Onset: 09-18-2023 Episodic Other connective tissue disease (1 source) Other symptoms and signs involving the musculoskeletal system; Translations: [Other symptoms and signs involving the musculoskeletal system] Onset: 09-23-2023 Episodic Other hereditary and degenerative nervous system conditions (8 sources) Resting tremor 07-30-2013 Chronic Other hereditary and degenerative nervous system conditions (11 sources) Restless legs; Translations: [Restless legs syndrome] Onset: 09-29-2023 04-16-2021 Chronic Other nervous system disorders (1 source) Walking disability; Translations: [Difficulty in walking, not elsewhere classified] Onset: 10-10-2023 Chronic Other nervous system disorders (3 sources) Tremor; Translations: [Abnormal involuntary movements] Episodic Other nutritional; endocrine; and metabolic disorders (4 sources) Obesity; Translations: [Obesity, unspecified] Onset: 09-18-2023 Chronic Other nutritional; endocrine; and metabolic disorders (1 source) Overweight in adulthood with body mass index of 25 or more but less than 30; Translations: [Overweight] Episodic Other skin disorders (16 sources) Impaired skin integrity Resolved: 08-30-2015 08-30-2015 Episodic Comment on above: Problem added on doc umentation of skin impairments. Parkinson`s disease (17 sources) Symptomatic parkinsonism; Translations: [Paralysis agitans] Onset: 09-17-2023 Chronic Residual codes; unclassified (3 sources) Edema of lower extremity; Translations: [Edema] Episodic Residual codes; unclassified (3 sources) Patient encounter status; Translations: [Other specified health status] Onset: 09-17-2023 Episodic Residual codes; unclassified (8 sources) Current drinker 04-22-2021 Episodic Residual codes; unclassified (1 source) Procedure carried out on subject; Translations: [Encounter for prophylactic measures, unspecified] Onset: 09-23-2023 Episodic Spondylosis; intervertebral disc disorders; other back problems (1 source) Spinal stenosis of lumbar region; Translations: [Spinal stenosis, lumbar region without neurogenic claudication] Onset: 09-23-2023 Episodic Unclassified (2 sources) Parkinson's disease; Translations: [Parkinson's disease without dyskinesia, without mention of fluctuations] Onset: 09-23-2023 Chronic Past or Other Problems Problem Classification Problem Date Documented Da te Episodic/Chronic Unclassified (3 sources) Never smoked tobacco; Translations: [Never a smoker] Results Test Name Value Interpretation Reference Range Facility [facility] 11-11 [facility] [id number]# 1.00TIFF Normal [facility] 10-29 [facility] [id number]# 1.00TIFF Normal [facility] Family Medicine Office/Clini c Noteon 10-15-2023 Family Medicine Office/Clinic Note History of Present Illness TCU ADMIT from ED 10/09. Was recently here (see next paragraph) and discharged home 10/05. he has bad days where locks up and cannot take care of self. When he is good, he is not too bad. Comes to ED for placement where they take care of Parkinson's patients . 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 Neighbor has bailed him out many times but says he just can't take care of self anymore. [place] [facility] neighbor called 911 because of his inability to take care of self, increasing tremors. Was hospitalized 09/16?3 for similar issues, was in a frozen state, then had rather dramatic spontaneous recovery and wanted to go home. During his present admission neurology recommended OP visit at [facility] to consider DBS as is maxed out on medications. He did well in PT and is admitted for rehab stay. 10/09 Hb 14.6 CR 0.9 PMHx- PD, HTN, anxiety, depression, GERD, remote alcohol use PCP Dr. Julian however she has relayed that she has never seen this patient even though assigned to her in 2021? Pt states doesn't see primary care Neurology Dr. 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 Was on high doses medication then. Prior to this was here in 2016 after umbilical hernia repair. Pt also reports stays at [facility] and [facility] / Lives near [place]. Physical Exam Seated at side of bed this evening, actually looking quite good at this time. (Is his on time ) No tremor noted, movements fluid, speech clear and very talkative. Lungs CTA Ht RRR wo murmur No distal edema no cogwheeling, no hypertonicity at present [2] Assessment/Plan 1. Parkinsons (G20: Parkinson's disease) Has had since 2015. He was progressed to very maximal doses of Sinemet in the ER version and is getting shorter on time periods through the day. Local neurology has recommended he go to [facility] for evaluation for DBS. He comes at this time on the same medications, looking for some type of placement to assist in his inability to care for self. park services specialist is looking at local LTC and assisted living. Pt very particular about how, when takes his meds- q4 hrs ATC. Sets his alarm at night otherwise will wake up off' and unable to move and take his meds. Similarly is very specific about his buspirone, requip through trial and error. Pt relates he gets about an hour of 'on time' with each med cycle and in total this gives him about 6 hours 'on time' each 24 hour period. Previously related he found the Nuplazid very helpful in reducing his visual, auditory and tactile hallucinations. Very manageable now. 2. BETTY (generalized anxiety disorder) (F41.1: Generalized anxiety disorder) Complains of increased anxiety which interferes with his tremors, ability to open and take his medications etc. He once tried increasing BuSpar but felt it interfered with his on time . He took hydroxyzine for a while but felt that it gave him sweats. When he started the propranolol for HTN he found it also helpful in reducing his anxiety state. He feels it wears off going into the evening. He has plenty of BP and HR so I suggest we give him a second evening dose. Will change his current propranolol ER 80 daily to propranolol ER 60 mg 1 bid Start escitalopram 5 mg. Dose in the evening. 3. Restless leg syndrome (G25.81: Restless legs syndrome) Continues on Requip 1 mg every 4 hours as previous Patient notes he did receive Prevnar 20 at his last stay here. Is not yet showing up in [facility] Follow-up No qualifying data available Problem List/Past Medical History Ongoing Alcohol use Anxiety Chronic GERD Depression with anxiety Mclaughlin catheter status BETTY (generalized anxiety disorder) Hypertension Parkinsons Resting tremor Restless leg syndrome Vitamin B12 deficiency Vitamin D deficiency Historical No qualifying data Procedure/Surgical History Hernia repair. Medications acetaminophen 325 mg Tab, 650 mg= 2 tab(s), Oral, q6hr, PRN busPIRone 5 mg Tab, 5 mg= 1 tab(s), Oral, q4hr carbidopa-levodopa 25 mg-100 mg ER Tab, 2 tab(s), Oral, q4hr entacapone 200 mg Tab, 200 mg= 1 tab(s), Oral, q4hr escitalopram 5 mg oral tablet, 10 mg= 2 tab(s), Oral, qPM Milk of Magnesia 8% Susp-Oral, 2.4 gm= 30 mL, Oral, Daily, PRN pimavanserin 34 mg oral capsule, 34 mg= 1 cap(s), Oral, Daily propranolol 60 mg Cap-ER, 60 mg= 1 cap(s), Oral, BID Requip 1 mg Tab, 1 mg= 1 tab(s), Oral, q4hr Allergies No Known Allergies Social History Alcohol - Denies Alcohol Use, 06/18/2021 Current, Beer, 1-2 times per week, Alcohol use interferes with work or home: No. Drinks more than intended: No. Others hurt by drinking: No. Ready to change: No. Household alcohol concerns: No., 06/18/2021 Current, Beer, Daily, 08/25/2015 Substance Abuse - Denies Substance Abuse, 08/25/2015 IV drug use: No. Drug use interferes with work/home: No. Ready to change: No. Household substance abuse co (more content not included)... Normal [facility] Comment on above: Result Comment: Elec tronically Signed By: LESLY LAUREN, Johnathon\.br\Date and Time Signed: 10/15/23 18:13 EDT [facility] 10-12 [facility] [id number] #1.00TIFF Normal [facility] BMPon 10-10-2023 Anion gap [Moles/Vol] 10 mmol/L Normal 6-16 [facility] Comment on above: Performed By: #### 2 [id number] #### [facility] [address] [place] [address] Calcium [Mass/Vol] 8.8 mg/dL Low 8.9-11.1 [facility] Comment on above: Performed By: #### 2 [id number] #### [facility] [address] [place] [address] Chloride [Moles/Vol] 106 mmol/L Normal 101-111 [facility] Comment on above: Performed By: #### 2 [id number] #### [facility] [address] [place] [address] CO2 [Moles/Vol] 26 mmol/L Normal 21-[address] [facility] Comment on above: Performed By: #### 2 [id number] #### [facility] [address] [place] [address] Creatinine [Mass/Vol] 0.9 mg/dL Normal 0.5-1.3 [facility] Comment on above: Performed By: #### 2 [id number] #### [facility] [address] [place] [address] Glucose [Mass/Vol] 112 mg/dL Normal 55-199 [facility] Comment on above: Performed By: #### 2 [id number] #### [facility] [address] [place] [address] Potassium [Moles/Vol] 3.8 mmol/L Normal 3.5-5.3 [facility] Comment on above: Performed By: #### 2 [id number] #### [facility] [address] [place] [address] Sodium [Moles/Vol] 138 mmol/L Normal 135-145 [facility] Comment on above: Performed By: #### 2 [id number] #### [facility] [address] [place] [address] Urea nitrogen [Mass/Vol] 19 mg/dL Normal 5-21 [facility] Comment on above: Performed By: #### 2 [id number] #### [facility] [address] [place] [address] Urea nitrogen/Creatinine [Mass ratio] 21 No Units High 10-20 [facility] Comment on above: Performed By: #### 2 [id number] #### [facility] [address] [place] [address] CBC w/ Auto Diffon 4 Basophils/100 WBC (Bld) 0.9 % Normal 0.0-2.0 [facility] Comment on above: Performed By: #### 2 [id number] #### [facility] [address] [place] [address] Basophils/Leukocytes Auto (Bld) [Pure # fraction] 0.1 E9/L Normal 0.0-0.2 [facility] Comment on above: Performed By: #### 2 [id number] #### [facility] [address] [place] [address] Eosinophils (Bld) [#/Vol] 0.2 E9/L Normal 0.0-0.5 [facility] Comment on above: Performed By: #### 2 [id number] #### [facility] [address] [place] [address] Eosinophils/100 WBC (Bld) 3.0 % Normal 0.0-8.0 [facility] Comment on above: Performed By: #### 2 [id number] #### [facility] [address] [place] [address] Erythrocyte distribution width (RBC) [Ratio] 13.2 % Normal 10.9-14.2 [facility] Comment on above: Performed By: #### 2 [id number] #### [facility] [address] [place] [address] Hematocrit (Bld) [Volume fraction] 42.2 % Normal 37.7-49.0 [facility] Comment on above: Performed By: #### 2 [id number] #### [facility] [address] [place] [address] Hemoglobin (Bld) [Mass/Vol] 14.6 g/dL Normal 13.5-17.5 [facility] Comment on above: Performed By: #### 2 [id number] #### [facility] [address] [place] [address] Lymphocytes (Bld) [#/Vol] 1.4 E9/L Normal 1.0-4.0 [facility] Comment on above: Performed By: #### 2 [id number] #### [facility] [address] [place] [address] Lymphocytes/100 WBC (Bld) 20.3 % Normal 14.0-50.0 [facility] Comment on above: Performed By: #### 2 134792 #### [facility] [address] [place] [address] MCH (RBC) [Entitic mass] 33.5 pg Normal 27.0-34.0 [facility] Comment on above: Performed By: #### 2 [id number] #### [facility] [address] [place] [address] MCHC (RBC) [Mass/Vol] 34.7 g/dL Normal 31.4-36.0 [facility] Comment on above: Performed By: #### 2 [id number] #### [facility] [address] [place] [address] MCV (RBC) [Entitic vol] 96.7 fL Normal 80.0-100.0 [facility] Comment on above: Performed By: #### 2 [id number] #### [facility] [address] [place] [address] Monocytes (Bld) [#/Vol] 0.6 E9/L Normal 0.2-1.0 [facility] Comment on above: Performed By: #### 2 [id number] #### [facility] [address] [place] [address] Neutrophils (Bld) [#/Vol] 4.8 E9/L Normal 2.0-7.5 [facility] Comment on above: Performed By: #### 2 [id number] #### [facility] [address] [place] [address] Neutrophils/100 WBC (Bld) 67.7 % Normal 36.0-75.0 [facility] Comment on above: Performed By: #### 2 [id number] #### [facility] [address] [place] [address] Platelet 227.0 E9/L Normal 150.0-500.0 [facility] Comment on above: Performed By: #### 2 [id number] #### [facility] [address] [place] [address] Platelet mean volume (Bld) [Entitic vol] 7.0 fL Normal 6.4-10.8 [facility] Comment on above: Performed By: #### 2 [id number] #### [facility] [address] [place] [address] RBC (Bld) [#/Vol] 4.4 E12/L Normal 4.3-5.9 [facility] Comment on above: Performed By: #### 2 [id number] #### [facility] [address] [place] [address] WBC corrected for nucl RBC Auto (Bld) [#/Vol] 7.0 E9/L Normal 4.0-11.0 [facility] Comment on above: Performed By: #### 2 [id number] #### [facility] [address] [place] [address] CHEMISTRYOrdered By: SYSTEM SYSTEM on 10-10-2023 Anion gap [Moles/Vol] 10 mmol/L Normal 6 - 16 mEq/L R emisol Chem Calcium [Mass/Vol] 8.8 mg/dL Low 8.9 - 11. 1 mg/dL [facility] Chloride [Moles/Vol] 106 mmol/L Normal 101 - 1 11 mmol/L [facility] CO2 [Moles/Vol] 26 mmol/L Normal 21 - 31 mmol/L [facility] Creatinine [Mass/Vol] 0.9 mg/dL Normal 0.5 - 1.3 mg/dL [facility] eGFR 93 mL/min/1.73 m2 Normal >=59mL/min /1 .73 m2 [facility] Glucose [Mass/Vol] 112 mg/dL Normal 55 - 199 mg/dL [facility] Potassium [Moles/Vol] 3.8 mmol/L Normal 3.5 - 5.3 mmol/L [facility] Sodium [Moles/Vol] 138 mmol/L Normal 135 - 145 mmol/L [facility] Urea nitrogen [Mass/Vol] 19 mg/dL Normal 5 - 21 mg/dL [facility] Urea nitrogen/Creatinine [Mass ratio] 21 mg/mg High 10 - 20 [facility] Consent for Treatmenton 09-17 Consent for Treatment [id number]# 1.00TIFF Normal [facility] ED Clinical Summaryon 2023 ED Clinical Summary [address] [address] ED Clinical Summary Person Information Name: ELVER MENA [facility] Age: 68 Years : 1955 Sex: Male Language: Samoan PCP: NONE, XXXX Marital Status: Phone: [phone] Visit Id: Visit Reason: Activity of daily living (ADL) alteration; Medical problem - minor; PARKINSON[place] FLARE UP Speciality: Acuity: 3 Enc Type: Emergency Med Service: Emergency Arrival: 10/10/2023 12:30:08 Discharge: 10/10/2023 16:34:35 LOS: 000 04:04 Checkin: 10/10/2023 12:30:08 Checkout: 10/10/2023 16:34:35 Dispo Type: Inpt Rehab Fac EVENTS: Event Name Event Status Request Date/Time Start Date/Time Complete Date/Time Arrive Complete 10/10/2023 12:30:08 10/10/2023 12:30:08 10/10/2023 12:30:08 Document Home Meds Request 10/10/2023 12:30:08 Triage Complete 10/10/2023 12:30:08 10/10/2023 12:39:55 10/10/2023 12:39:55 Dr Exam Complete 10/10/2023 12:34:08 10/10/2023 12:34:08 10/10/2023 12:34:08 Registration Complete 10/10/2023 12:34:08 10/10/2023 12:34:22 10/10/2023 13:12:31 Bed Assign Complete 10/10/2023 12:34:22 10/10/2023 12:34:22 10/10/2023 12:34:22 RN Exam Complete 10/10/2023 12:34:22 10/10/2023 12:58:32 10/10/2023 12:58:32 30 Day Return Request 10/10/2023 12:39:56 Fall Risk Request 10/10/2023 12:58:32 Pending Labs Request 10/10/2023 13:02:24 Lab Complete 10/10/2023 13:02:24 10/10/2023 13:38:34 EKG Complete 10/10/2023 13:02:24 10/10/2023 13:13:37 Reg Complete Request 10/10/2023 13:12:31 Reg Bed Request Complete 10/10/2023 13:12:31 10/10/2023 13:12:31 10/10/2023 13:12:31 Pending Labs Complete 10/10/2023 13:16:12 10/10/2023 13:16:12 10/10/2023 13:38:34 Lab Complete 10/10/2023 13:16:12 10/10/2023 13:16:12 10/10/2023 13:38:34 Pending Labs Complete 10/10/2023 13:21:40 10/10/2023 13:21:40 10/10/2023 13:21:41 Meds Admin Complete 10/10/2023 15:34:26 10/10/2023 16:00:11 Discharge Complete 10/10/2023 16:35:40 10/10/2023 16:35:40 10/10/2023 16:35:40 Transfer Complete 10/10/2023 16:35:40 10/10/2023 16:35:40 10/10/2023 16:35:40 ADDRESS: [address] [place] [id number] PHYS DOC NOTES: MEDICAL INFORMATION: Prescriptions Given: Medications to Continue with No Changes Other Medications acetaminophen (acetaminophen 325 mg Tab) 2 Tablets By Mouth every 6 hours as needed Pain. busPIRone (busPIRone 5 mg Tab) 1 Tablets By Mouth every 4 hours. Refills: 0. carbidopa-levodopa (carbidopa-levodopa 25 mg-100 mg ER Tab) 2 Tablets By Mouth every 4 hours. entacapone (entacapone 200 mg Tab) 1 Tablets By Mouth every 4 hours. pimavanserin (pimavanserin 34 mg oral capsule) 1 Capsules By Mouth every day. propranolol (propranolol 80 mg Cap-ER) 1 Capsules By Mouth every day. ropinirole (Requip 1 mg Tab) 1 Tablets By Mouth every 4 hours. PATIENT EDUCATION INFORMATION: Instructions: Follow up: DIAGNOSIS: Ambulatory dysfunction; Generalized weakness; Parkinsons disease; Unable to care for self Normal [facility] ED Note-Nursingon 10-10-2023 ED Note-Nursing report called to ISABELLA , RN. pt to go to [facility] 617 Normal [facility] ED Note-Physicianon 10-10-19 ED Note-Physician Basic Information Time Seen: Rick Sanchez DO 10/10/2023 12:34 Chief Complaint Patient [facility] Fridayand has worsened Parkinsons symptoms and verbalized unable to care for self at home. pt verbalized hallucinations History of Present Illness 68-year-old male to the emergency department chief complaint of unable to care for self at home. Patient reports that he has a history of severe Parkinson's disease which is becoming refractory to therapies. He reports that he takes his medications on a very carefully time schedule. He has been taking his medications. No missed doses. He denies any falls or injuries. He says that his Parkinson's symptoms have become so severe that he can no longer care for himself. He denies any fever, sweats, chills, chest pain, shortness of breath, abdominal pain, nausea, vomiting, diarrhea. He would like placed somewhere that can take care of Parkinson's patients . Review of Systems A 10 point review of systems is negative except as noted above. Medical and Surgical History: Reviewed and noted Social history: Lives at home Tobacco: Denies Physical Exam Vitals & Measurements T: 36.8 ?C(Oral) HR: 80(Peripheral) RR: 18 BP: 156/88 SpO2: 99% HT: 172.7 cm WT: 90.4 kg BMI: 30.31 VITALS: I have reviewed the triage vital signs. GENERAL: Disheveled male in no distress NEURO: Alert and oriented x3. Moves all extremities. Face is symmetric and expressive. Tremor. Rigidity. EYES: PERRL. No scleral icterus or conjunctival injection. No discharge. HENT: Normocephalic, atraumatic. Hearing is grossly intact. Nares grossly patent and without discharge. Mucous membranes moist. NECK: No JVD. Patient moves neck without restriction. CARDIO: Rhythm regular. Normal rate. No murmur, rub, or gallop. Pulses equal bilaterally in the upper and lower extremity. No lower extremity edema. PULM: Lungs clear to auscultation in all rodriguez. No wheezes, rales, or rhonchi. No conversational dyspnea. No splinting, stridor, or accessory muscle use. GI/: Abdomen is soft and non-tender. Normoactive bowel sounds. EXTREMITIES: Symmetric muscle bulk. No joint swelling. No clubbing, cyanosis, or deformity. SKIN: Warm and dry. Normal turgor. No rash or lesions appreciated. PSYCH: Mood, affect, and interaction is appropriate to the setting. Medical Decision Making 68-year-old male to the emergency department chief complaint of unable to care for self. Vital stable, the patient is afebrile. He has no new medical complaints today otherwise he cannot care for himself and has not been doing well since discharge from TCU. He has a tremor and some rigidity in the room. Basic labs are ordered. He reports that he needs placement. No major abnormalities in the CBC or chemistry. He is appropriate for placement at this time. Case management was consulted. Handoff was given to Meds to be given at 4 PM. He is accepted back to TCU. Handoff given to Lanette at TCU. Assessment/Plan Ambulatory dysfunction (R26.2: Difficulty in walking, not elsewhere classified) Generalized weakness (R53.1: Weakness) Parkinsons disease (G20.A1: Parkinson's disease without dyskinesia, without mention of fluctuations) Unable to care for self (Z78.9: Other specified health status) Orders: Basic Metabolic Panel CBC w/ Auto Diff ECG 12 Lead Adult eGFR Extra Blue Tube Extra SST Tube UA with Cult Rflx Disposition Plan Patient Discharge Condition Stable Discharge Disposition Placed at TCU Discharge Prescription List Prescriptions No active prescription medications Follow-up No qualifying data available Problem List/Past Medical History Ongoing Alcohol use Anxiety Chronic GERD Depression with anxiety Mclaughlin catheter status BETTY (generalized anxiety disorder) Hypertension Parkinsons Resting tremor Restless leg syndrome Vitamin B12 deficiency Vitamin D deficiency Historical No qualifying data Procedure/Surgical History Hernia repair. Medications Inpatient No active inpatient medications Home acetaminophen 325 mg Tab, 650 mg= 2 tab(s), Oral, q6hr, PRN busPIRone 5 mg Tab, 5 mg= 1 tab(s), Oral, q4hr carbidopa-levodopa 25 mg-100 mg ER Tab, 2 tab(s), Oral, q4hr entacapone 200 mg Tab, 200 mg= 1 tab(s), Oral, q4hr pimavanserin 34 mg oral capsule, 34 mg= 1 cap(s), Oral, Daily propranolol 80 mg Cap-ER, 80 mg= 1 cap(s), Oral, Daily Requip 1 mg Tab, 1 mg= 1 tab(s), Oral, q4hr Allergies No Known Allergies Social History Alcohol - Denies Alcohol Use, 06/18/2021 Current, Beer, 1-2 times per week, Alcohol use interferes with work or home: No. Drinks more than intended: No. Others hurt by drinking: No. Ready to change: No. Household alcohol concerns: No., 06/18/2021 Current, Beer, Daily, 08/25/2015 Substance Abuse - Denies Substance Abuse, 08/25/2015 IV drug use: No. Drug use interferes with work/home: No. Ready to change: No. Household substance abuse concerns: No., 06/18/2021 Tobacco - (more content not included)... Normal [facility] Comment on above: Result Comment: Elec tronically Signed By: Rick Sanchez DO\.br\Date and Time Signed: 10/10/23 15:58 EDT ED Patient Education Noteon 10-10-2023 ED Patient Education Note Normal [facility] ED Patient Summaryon 024 ED Patient Summary [address] [address] Patient Discharge Instructions Person Information Name: ELVER MENA Age: 68 Years Arrival Date: 10/10/2023 12:30:08 Discharge Diagnosis: Ambulatory dysfunction; Generalized weakness; Parkinsons disease; Unable to care for self Primary Care Physician: NONE, XXXX Provider Information Primary Provider: Rick Sanchez DO Advanced Hand Packer:None The exam and treatment you received in the Emergency Department were for an urgent problem and are not intended as complete care. It is important that you follow up with a doctor, nurse practitioner, or physician?s title assistant for ongoing care. If your symptoms become worse or you do not improve as expected and you are unable to reach your usual health care provider, you should return to the Emergency Department. We are available 24 hours a day. ELVER MENA has been given the following list of patient education materials, prescriptions and follow-up instructions: Follow-up Instructions: In the event that this physician does not participate in your insurance network, please consult with your insurance company to find a nearby participating provider. Patient Education Materials: A MESSAGE TO ALL PATIENTS REGARDING OPIOIDS PRESCRIPTION OPIOIDS: WHAT YOU NEED TO KNOW Prescription opioids can be used to help relieve lcrmtmyl-ve-fxlrtp pain and are often prescribed following a surgery or injury, or for certain health conditions. These medications can be an important part of the treatment but also come with serious risks. It is important to work with your healthcare provider to make sure you are getting the safest, most effective care. WHAT ARE THE RISKS AND SIDE EFFECTS OF OPIOID USE? Prescription opioids carry serious risks of addiction and overdose, especially with prolonged use. An opioid overdose, often marked by slowed breathing, can cause sudden . The use of prescription opioids can have a number of side effects as well, even when taken as directed: ? Tolerance?meaning you might need to take more of the medication for the same pain relief ? Physical dependence?meaning you have symptoms of withdrawal when a medication is stopped ? Increased sensitivity to pain ? Constipation ? Nausea, vomiting, and dry mouth ? Sleepiness and dizziness ? Confusion ? Depression ? Low levels of testosterone that can result in lower sex drive, energy, and strength ? Itching and sweating RISKS ARE GREATER WITH: ? History of drug misuse, substance use disorder, or overdose ? Mental health conditions (such as depression or anxiety) ? Sleep apnea ? Older age (65 years and older) ? Avoid alcohol while taking prescription opioids. Also, unless specifically advised by your health care provider, medications to avoid include: ? Benzodiazepines (such as Xanax or Valium) ? Muscle relaxants (such as Soma or Flexeril) ? Hypnotics (such as Ambien or Lunesta) ? Other prescription opioids KNOW YOUR OPTIONS Talk to your health care provider about ways to manage your pain that don?t involve prescription opioids. Some of these options may actually work better and have fewer risks and side effects. Options may include: ? Pain relievers such as acetaminophen, ibuprofen, and naproxen ? Some medication that are also used for depression or seizures ? Physical therapy and exercise ? Cognitive behavioral therapy, a psychological, goal-directed approach, in which patients learn how to modify physical, behavioral, and emotional triggers of pain and stress. IF YOU ARE PRESCRIBED OPIOIDS FOR PAIN: ? Never take opioids in greater amounts or more often than prescribed. ? Follow up with your primary health care provider. o Work together to create a plan on how to manage your pain. o Talk about ways to help manage your pain that don?t involve prescription opioids. o Talk about any and all concerns and side effects. ? Help prevent misuse and abuse o Never sell or share prescription opioids. o Never use another person?s prescription opioids. ? Store prescription opioids in a secure place and out of reach of others (this may include visitors, children, friends, and family). ? Safely dispose of unused prescription opioids: Find your community drug take-back program or your pharmacy mail-back program, or flush them down the toilet, following guidance from the Food and Drug Administration (www.fda.gov/Drugs/Re sourcesForYou). ? Visit www.cdc.gov/drugoverd ose to learn about the risks of opioids abuse and overdose. ? If you believe you may be struggling with addiction, tell your health manager care and ask for guidance or call [facility]?S National Helpline at 2-783-698-HUAC. t Source: [place] Department of Health and Human Services/Center for Disease Control & Prevention [facility] Medicati (more content not included)... Normal [facility] HEMATOLOGYOrdered By: SYSTEM SYSTEM on 10-10-2023 Basophils/100 WBC (Bld) 0.9 % Normal 0.0 - 2.0 % Remisol Heme Basophils/Leukocytes Auto (Bld) [Pure # fraction] 0.1 E9/L Normal 0.0 - 0.2 E9/L Remisol Heme Eosinophils (Bld) [#/Vol] 0.2 E9/L Normal 0.0 - 0.5 E9/L Remisol Heme Eosinophils/100 WBC (Bld) 3.0 % Normal 0.0 - 8.0 % Remisol Heme Erythrocyte distribution width (RBC) [Ratio] 13.2 % Normal 10.9 - 14.2 % Remisol Heme Hematocrit (Bld) [Volume fraction] 42.2 % Normal 37.7 - 49.0 % Remisol Heme Hemoglobin (Bld) [Mass/Vol] 14.6 g/dL Normal 13.5 - 17.5 gm/dL Remisol Heme Lymphocytes (Bld) [#/Vol] 1.4 E9/L Normal 1.0 - 4.0 E9/L Remisol Heme Lymphocytes/100 WBC (Bld) 20.3 % Normal 14.0 - 50.0 % Remisol Heme MCH (RBC) [Entitic mass] 33.5 pg Normal 27.0 - 34.0 pg Remisol Heme MCHC (RBC) [Mass/Vol] 34.7 g/dL Normal 31.4 - 36.0 gm/dL Remisol Heme MCV (RBC) [Entitic vol] 96.7 fL Normal 80.0 - 100.0 fL Remisol Heme Monocytes (Bld) [#/Vol] 0.6 E9/L Normal 0.2 - 1.0 E9/L Remisol Heme Monocytes/100 WBC (Bld) 8.1 % Normal 4.0 - 14.0 % Remisol Heme Neutrophils (Bld) [#/Vol] 4.8 E9/L Normal 2.0 - 7.5 E9/L Remisol Heme Neutrophils/100 WBC (Bld) 67.7 % Normal 36.0 - 75.0 % Remisol Heme Platelet 227.0 E9/L Normal 150.0 - 500.0 E9/L Remisol Heme Platelet mean volume (Bld) [Entitic vol] 7.0 fL Normal 6.4 - 10.8 fL Remisol Heme RBC (Bld) [#/Vol] 4.4 E12/L Normal 4.3 - 5.9 E12/L Remisol Heme WBC corrected for nucl RBC Auto (Bld) [#/Vol] 7.0 E9/L Normal 4.0 - 11.0 E9/L Remisol Heme Interdisciplinary Note - Soc ial Workeron 10-10-2023 Interdisciplinary Note - Station Cashier Consult from ED received for placement at TCU for patient. Patient left TCU a few days prior and has discovered he is not able to care for himself as of yet. Referral was made to TCU and patient was accepted for admission from ED. PAS completed. ED staff notified. SW will remain available. Normal [facility] Pre-Arrival Noteon Pre-Arrival Note Pre-Arrival Summary Name: , DARWIN Current Date: 10/10/2023 12:40:49 EDT Gender: Male Date of : Age: 68 Pre-Arrival Type: EMS ETA: 10/10/2023 12:53:00 EDT Primary Care Physician: Presenting Problem: unable to care for self Pre-Arrival User: Kalia MARIANO, Nathan Cline Referring Source: Location: PA Completion Date/Time: 10/10/2023 12:23:00 [facility] Emergency Department Pre-Hospital Report Form Vital Signs: Pre-Hospital Report: Treatment in Route: Response to Treatment: Misc. Issues: Normal [facility] Pre-Arrival Note Pre-Arrival Summary Name: Sharron Montgomery [facility] Patricia/ Paola Current Date: 10/10/2023 12:30:57 EDT Gender: Female Date of : 03/21/1987 Age: 36 years Pre-Arrival Type: EMS ETA: 10/10/2023 09:46:00 EDT Primary Care Physician: Presenting Problem: in restraints/ hearing things Pre-Arrival User: Nathan Motta RN Referring Source: Location: NM Completion Date/Time: 10/10/2023 09:16:00 [facility] Emergency Department Pre-Hospital Report Form Vital Signs: Pre-Hospital Report: Treatment in Route: Response to Treatment: Misc. Issues: Normal [facility] eGFRon 10-10-2023 eGFR 93 mL/min/1.73 m2 Normal >=59 [facility] Comment on above: Order Comment: Order added by Discern Expert. Performed By: #### 1 [id number] #### [facility] [address] [place] [address] Family Medicine Office/Clini c Noteon 10-03-2023 Family Medicine Office/Clinic Note History of Present Illness TCU DISCHARGE after TCU admit [place] [facility] [place]. His neighbor called 911 because of his inability to take care for self and increasing tremors. He was hospitalized 09/16?09/18 for similar issues. He was in a frozen state at that time and then had a rather dramatic spontaneous recovery and wanted to go home. During his present admission, neurology recommended OP visit at [facility] to consider DBS as he is maxed out on medications. He did well in PT and was admitted for ST rehab stay. Patient completed ST rehab stay. Plan to discharge on 10/04/2023. He will be discharging with orders for rollator. After patient sees PCP then PCP office will send a referral to [facility] for PT and RN. Hb 14.1 CR 0.9 PMHx- PD, HTN, anxiety, depression, GERD, remote alcohol use PCP Dr. Julian however she relayed to hospitalist that she has never seen this patient even though assigned to her in 2021. Pt states doesn't see primary care Neurology Dr. 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 He was on high doses medications then. Prior to this, he was admitted in 2016 after umbilical hernia repair. Pt also reports stays at [facility] and [facility]. Physical Exam GENERAL - __yo male sitting in recliner, A+O x3 LUNGS - CTA CARDIAC - RRR, No murmur appreciated ABD - BSP, Non-distended, NT EXT - No edema noted MUSCULOSKELETAL - good county engineer/push/pull, good plantar/dorsi flexion noted Seated at side of bed this evening, actually looking quite good at this time. (Is his on time ) No tremor noted, movements fluid, speech clear and very talkative. Lungs CTA Ht RRR wo murmur No distal edema no cogwheeling, no hypertonicity at present Assessment/Plan He had Pneumovax 23 in 2016, would like to update now that is >65 y/o. He had a one-time dose of Prevnar 20 while in TCU. 1. Parkinsons (G20: Parkinson's disease) Patient notes he takes his medications q4 hrs [id number]. He sets his alarm at night otherwise will wake up off cycle and unable to move and take his medications. Similarly, he is very specific about his buspirone and Requip through trial and error. Patient relates he gets about an hour of 'on time' with each med cycle and in total this gives him about 6 hours 'on time' each 24 hour period. Neurology has recommended that he see [facility] for possible DBS. However, patient is more interested in some type of ultrasound treatment based on his internet research. Patient will need to follow-up Dr Lind for referral Completed rehab stay as planned His medications were reviewed in detail by Dr. Siegel and were set up in TCU to patient's preference. Patient stated that the Nuplazid is very helpful in reducing his visual, auditory and tactile hallucinations. Very manageable now. 2. BETTY (generalized anxiety disorder) (F41.1: Generalized anxiety disorder) Patient prefers to spread his BuSpar out as 5 mg every 4 hours. He is on propranolol ER 80mg from Dr. Barrett for HTN but he has found medication to be also helpful in reducing his anxiety state. 3. Restless leg syndrome (G25.81: Restless legs syndrome) Patient prefers to spreads his Requip out every 4 hours as well. Code status: Full code Patient has a mobility limitation that impairs his ability to complete 1 or more MRADLs, namely bathing, dressing, grooming, toileting. He can safely use the rollator and the mobility deficit can be resolved with use of rollator. Patient would benefit form having a seat due to diagnosis of Parkinson's. Portions of this record may have been created with voice recognition artificial intelligence software, specifically [employer], [employer] and or [employer]. Occasional wrong-word or ?tqann-e-itai? substitutions may have occurred due to the inherent limitations of voice recognition and artificial intelligence software. Follow-up No qualifying data available Problem List/Past Medical History Ongoing Alcohol use Anxiety Chronic GERD Depression with anxiety Mclaughlin catheter status BETTY (generalized anxiety disorder) Hypertension Parkinsons Resting tremor Restless leg syndrome Vitamin B12 deficiency Vitamin D deficiency Historical No qualifying data Procedure/Surgical History Hernia repair. Medications acetaminophen 325 mg Tab, 650 mg= 2 tab(s), Oral, q6hr, PRN busPIRone 5 mg Tab, 5 mg= 1 tab(s), Oral, q4hr carbidopa-levodopa 25 mg-100 mg ER Tab, 2 tab(s), Oral, q4hr entacapone 200 mg Tab, 200 mg= 1 tab(s), Oral, q4hr pimavanserin 34 mg oral capsule, 34 mg= 1 cap(s), Oral, Daily propranolol 80 mg Cap-ER, 80 mg= 1 cap(s), Oral, Daily Requip 1 mg Tab, 1 mg= 1 tab(s), Oral, q4hr Allergies No Known Allergies Social History Alcohol - Denies Alcohol Use, 06/18/2021 Current, Beer, 1-2 times per week, Alcohol use interferes with work or home: No. Drinks more than intended: No. Others hurt by drinking: No. Ready to change: N (more content not included)... Normal [facility] Comment on above: Result Comment: Elec tronically Signed By: Clingman LEG ASSEMBLER-BC, Ramon Vazquez.radha\Date and Time Signed: 10/03/23 12:27 EDT Family Medicine Office/Clini c Noteon 09-29-2023 Family Medicine Office/Clinic Note History of Present Illness [place] [facility] [place] neighbor called 911 because of his inability to take care of self, increasing tremors. Was hospitalized 09/16?3 for similar issues, was in a frozen state, then had rather dramatic spontaneous recovery and wanted to go home. During his present admission neurology recommended OP visit at [facility] to consider DBS as is maxed out on medications. He did well in PT and is admitted for ST rehab stay. Hb 14.1 CR 0.9 PMHx- PD, HTN, anxiety, depression, GERD, remote alcohol use PCP Dr. Julian however she relayed to hospitalist that she has never seen this patient even though assigned to her in 2021? Pt states doesn't see primary care Neurology Dr. 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 Was on high doses medications then. Prior to this was here in 2015 after umbilical hernia repair. Pt also reports stays at [facility] and [facility] Physical Exam Seated at side of bed this evening, actually looking quite good at this time. (Is his on time ) No tremor noted, movements fluid, speech clear and very talkative. Lungs CTA Ht RRR wo murmur No distal edema no cogwheeling, no hypertonicity at present Assessment/Plan prevnar 20 1. Parkinsons (G20: Parkinson's disease) Pt notes he takes his meds q4 hrs ATC. Sets his alarm at night otherwise will wake up off' and unable to move and take his meds. Similarly is very specific about his buspirone, requip through trial and error. Pt relates he gets about an hour of 'on time' with each med cycle and in total this gives him about 6 hours 'on time' each 24 hour period. neuro has rec'd he see [facility] for possible DBS. However, pt is more interested in somet ype of ultrasound treatment based on his internet research? Pt will need to f/u as OP with Dr Lind for referral ST rehab stay planned Have gone thru each of his meds in detail and set up as he prefers to take at home. relates found the Nuplazid very helpful in reducing his visual, auditory and tactile hallucinations. Very manageable now. 2. BETTY (generalized anxiety disorder) (F41.1: Generalized anxiety disorder) Prefers to spread buspar out as 5 mg q4, feels if takes 10 q8 it interferes with his on time . Is on propranolol ER [address] Barrett for HTN but he has found also helpful in reducing his anxiety state. 3. Restless leg syndrome (G25.81: Restless legs syndrome) spreads his requip out q4 as well He had Pneumovax 23 in 2016, would like to update now that is >65 y/o. Advised now doing one-time dose of Prevnar 20- he would like to do while here. Order placed. Follow-up No qualifying data available Problem List/Past Medical History Ongoing Alcohol use Anxiety Chronic GERD Depression with anxiety Mcalughlin catheter status BETTY (generalized anxiety disorder) Hypertension Parkinsons Resting tremor Restless leg syndrome Vitamin B12 deficiency Vitamin D deficiency Historical No qualifying data Procedure/Surgical History Hernia repair. Medications acetaminophen 325 mg Tab, 650 mg= 2 tab(s), Oral, q6hr, PRN busPIRone 5 mg Tab, 5 mg= 1 tab(s), Oral, q4hr carbidopa-levodopa 25 mg-100 mg ER Tab, 2 tab(s), Oral, q4hr entacapone 200 mg Tab, 200 mg= 1 tab(s), Oral, q4hr pimavanserin 34 mg oral capsule, 34 mg= 1 cap(s), Oral, Daily propranolol 80 mg Cap-ER, 80 mg= 1 cap(s), Oral, Daily Requip 1 mg Tab, 1 mg= 1 tab(s), Oral, q4hr Allergies No Known Allergies Social History Alcohol - Denies Alcohol Use, 06/18/2021 Current, Beer, 1-2 times per week, Alcohol use interferes with work or home: No. Drinks more than intended: No. Others hurt by drinking: No. Ready to change: No. Household alcohol concerns: No., 06/18/2021 Current, Beer, Daily, 08/25/2015 Substance Abuse - Denies Substance Abuse, 08/25/2015 IV drug use: No. Drug use interferes with work/home: No. Ready to change: No. Household substance abuse concerns: No., 06/18/2021 Tobacco - Denies Tobacco Use, 08/25/2015 Family History Pancreas: Father. Peripheral vascular disease: Father. Immunizations Vaccine Date Status Comments influenza virus vaccine, inactivated 02/24/2022 Given Other (see comment) SARS-CoV-2 (COVID-19) mRNA-1273 vaccine 05/04/2021 Recorded SARS-CoV-2 (COVID-19) mRNA-1273 vaccine 04/19/2021 Recorded Normal [facility] Comment on above: Result Comment: Elec tronically Signed By: LESLY LAUREN, Johnathon\.br\Date and Time Signed: 09/29/23 21:40 EDT Discharge Instructionson Discharge Instructions [id number]# 1.00TIFF Normal [facility] Discharge Note-Nursingon Discharge Note-Nursing ELVER MENA :1955 Visit Date:09/22/2023 Inpatient Discharge Instructions Your Care Team Admitting Physician - Alberto GRAY DO Consulting Physician - Bo Rossi MD Reason for Your Visit I woke up and I could not control my body movement. They were violently shaking, I was cold and shaking. Your Diagnosis Lower extremity weakness Parkinson disease Neuroforaminal stenosis of lumbar spine Unable to care for self Anxiety and depression Hypertension Obesity Encounter for deep vein thrombosis (DVT) prophylaxis Depression, unspecified Medical problem - minor Tests Performed XR Chest Single View This Is Your Medications List acetaminophen (acetaminophen 325 mg Tab) busPIRone (busPIRone 5 mg Tab) carbidopa-levodopa (carbidopa-levodopa 25 mg-100 mg ER Tab) cyclobenzaprine (cyclobenzaprine 5 mg Tab) docusate (docusate sodium 100 mg Cap) entacapone (entacapone 200 mg Tab) pimavanserin (pimavanserin 34 mg oral capsule) propranolol (propranolol 80 mg Cap-ER) ropinirole (Requip 1 mg Tab) Procedure History Hernia repair. Discharge Vitals Temperature (Axillary) 36.3 ?C Heart Rate (Monitored) 81 Respiratory Rate 22 Blood Pressure 127/62 Weight 86.8 kg What to do next Instructions From Your Doctor Event Name Event Result Discharge Activity Ambulate as tolerated, Activity as tolerated Discharge Diet(s) Regular Pending Diagnostic Test Results None Pharmacy Information [facility] New Follow Up Appointments after Discharge Follow Up with Isabelle Julian When: Within 3 to 5 days Comments: After D/C from SNF , will need referral to [facility] Where: [address], [address] [place] [address]- Business (1) Follow Up with Flo LAUREN, YADI Soriano When: Within 2 to 4 weeks Where: [facility] [address] [place] [address]- Medications What How Much When Instructions Next Dose New docusate (docusate sodium 100 mg Cap) 2 Capsules By Mouth Every day 09/27/23/ Unchanged acetaminophen (acetaminophen 325 mg Tab) 2 Tablets By Mouth Every 6 hours as needed for Pain Take every 6 hours as needed for pain Unchanged busPIRone (busPIRone 5 mg Tab) 2 Tablets By Mouth Every 8 hours 2pm Unchanged carbidopa-levodopa (carbidopa-levodopa 25 mg-100 mg ER Tab) 2 Tablets By Mouth Every 4 hours 12pm Unchanged cyclobenzaprine (cyclobenzaprine 5 mg Tab) 1 Tablets By Mouth 3 times a day 2pm Unchanged entacapone (entacapone 200 mg Tab) 1 Tablets By Mouth Every 4 hours 12pm Unchanged pimavanserin (pimavanserin 34 mg oral capsule) 1 Capsules By Mouth Every day 09/27/23 Unchanged propranolol (propranolol 80 mg Cap-ER) 1 Capsules By Mouth Every day 09/27/23 Unchanged ropinirole (Requip 1 mg Tab) 1 Tablets By Mouth 6 times a day 12pm Test Results CBC BMP WBC: 5.7 E9/L (09/23/23 04:47:00) Glucose Lvl: 123 mg/dL (09/23/23 04:47:00) RBC: 4.1 E12/L Low (09/23/23 04:47:00) BUN: 20 mg/dL (09/23/23 04:47:00) HGB: 13.4 gm/dL Low (09/23/23 04:47:00) Creatinine: 0.9 mg/dL (09/23/23 04:47:00) Hct: 39.5 % (09/23/23 04:47:00) BUN/Creat Ratio: 22 High (09/23/23 04:47:00) MCV: 96 fL (09/23/23 04:47:00) Sodium Lvl: 139 mmol/L (09/23/23 04:47:00) MCH: 32.6 pg (09/23/23 04:47:00) Potassium Lvl: 3.7 mmol/L (09/23/23 04:47:00) MCHC: 34 gm/dL (09/23/23 04:47:00) Chloride: 106 mmol/L (09/23/23 04:47:00) RDW: 13.3 % (09/23/23 04:47:00) CO2: 27 mmol/L (09/23/23 04:47:00) Platelet: 195 E9/L (09/23/23 04:47:00) AGAP: 10 mEq/L (09/23/23 04:47:00) MPV: 7.5 fL (09/23/23 04:47:00) Calcium Lvl: 8.7 mg/dL Low (09/23/23 04:47:00) Allergies No Known Allergies Problems Ongoing - Any problem that you are currently receiving treatment for. Alcohol use Anxiety Chronic GERD Depression with anxiety Mclaughlin catheter status BETTY (generalized anxiety disorder) HTN (hypertension) Hypertension Parkinsons Restless leg syndrome Vitamin B12 deficiency Vitamin D deficiency Historical - Any problem that you are no longer receiving treatment for. Parkinson's disease Resting tremor Education Materials Managing Anxiety, Adult After being diagnosed with anxiety, you may be relieved to know why you have felt or behaved a certain way. You may also feel overwhelmed about the treatment ahead and what it will mean for your life. With care and support, you can manage this condition. How to manage lifestyle changes Managing stress and anxiety Stress is your body's reaction to life changes and events, both good and bad. Most stress will last just a few hours, but stress can be ongoing and can lead to more than just stress. Although stress can play a major role in anxiety, it is not the same as anxiety. Stress is usually caused by something external, such as a deadline, test, or competition. Stress normally passes (more content not included)... Normal [facility] Interdisciplinary Note - Skip e Manageron 09-26-2023 Interdisciplinary Note - Deboning Team Leader CRM to room to discuss DC planning. Patient is awake, alert and oriented. Patient is here with Tremors / worse Parkinson symptoms. Patient signed medicare form and this gets reviewed daily . Patient verified PCP, home DME and insurance. Patient is assigned to Dr Goel see notes. PT/OT recs SNF. [facility] accepted. Patient would need a 3 M stay. He can DC 09/25. Patient was provided CRM contact, gatito board updated. CRM following Claim aide is on case and helping with medicaid. [facility] stay. Patient will DC to TCU today [facility] Comment on above: Result Comment: Elec tronically Signed By: Adele Vasquez\.br\Date and Time Signed: 09/26/23 08:36 EDT Message from Medicareon 09-16 Message from Medicare [id number]# 1.00TIFF Normal [facility] Transfer Documentson 024 Transfer Documents [id number]# 1.00TIFF Normal [facility] UA with Cult Rflxon 09-26-19 Bilirubin Ql (U) Negative Normal Negative [facility] Comment on above: Performed By: #### 4 [id number] ####[facility] [address] [place] [address] Clarity (U) Clear Normal Clear [facility] Comment on above: Performed By: #### 4 [id number] ####[facility] [address] [place] [address] Color (U) Yellow Normal Yellow [facility] Comment on above: Result Comment: Micr oscopic readings are only performed on those samples that meet specific criteria set forth by [facility]. Performed By: #### 4 [id number] ####[facility] [address] [place] [address] Glucose Ql (U) Negative Normal Negative [facility] Comment on above: Performed By: #### 4 [id number] ####[place] [address] [facility] [place] [address] Hemoglobin Auto test strip (U) [Mass/Vol] Negative Normal Negative [facility] Comment on above: Performed By: #### 4 [id number] ####[address] [place] [address] Ketones Auto test strip Ql (U) Negative Normal Negative [facility] Comment on above: Performed By: #### 4 [id number] ####[address] [address] Leukocyte esterase Auto test strip Ql (U) Negative Normal Negative [facility] Comment on above: Performed By: #### 4 [id number] ####[address] [address] Nitrite Auto test strip Ql (U) Negative Normal Negative [facility] Comment on above: Performed By: #### 4 [id number] ####[address] [address] pH (U) 5.0 [pH] Invalid Interpretation Code 5.0-9.0 [facility] Comment on above: Performed By: #### 4 [id number] ####[address] [address] Protein Ql (U) Negative Normal Negative [facility] Comment on above: Performed By: #### 4 [id number] ####[address] [address] Specific gravity (U) [Rel density] 1.014 Invalid Interpretation Code 1.005-1.030 [facility] Comment on above: Performed By: #### 4 [id number] ####[address] [address] Urobilinogen (U) [Mass/Vol] Negative Normal Negative [facility] Comment on above: Performed By: #### 4 [id number] ####[facility] [address] [place] [address] URINALYSISOrdered By: SYSTEM SYSTEM on 09-26-2023 Bilirubin Ql (U) Negative Normal Negativemg/ d L [facility] UA Auto SS Clarity (U) Clear (09/26/23 1:27 AM) Normal Clear [facility] UA Auto SS Color (U) Yellow 1 (09/26/23 1:27 AM) Normal Yellow [facility] UA Auto SS Comment on above: Interpretive Data: M icroscopic readings are only performed on those samples that meet specific criteria set forth by [facility]. Glucose Ql (U) Negative Normal Negativemg/d L [facility] UA Auto SS Hemoglobin Auto test strip (U) [Mass/Vol] Negative Normal Negativemg/d L [facility] UA Auto SS Ketones Auto test strip Ql (U) Negative Normal Negativemg/d L [facility] UA Auto SS Leukocyte esterase Auto test strip Ql (U) Negative Normal NegativeLeu/ uL [facility] UA Auto SS Nitrite Auto test strip Ql (U) Negative Normal Negativemg/d L [facility] UA Auto SS pH (U) 5.0 *NA* (09/26/23 1:27 AM) Invalid Interpretation Code 5.0 - 9.0 [facility] UA Auto SS Protein Ql (U) Negative Normal Negativemg/d L [facility] UA Auto SS Specific gravity (U) [Rel density] 1.014 *NA* (09/26/23 1:27 AM) Invalid Interpretation Code 1.005 - 1.030 [facility] UA Auto SS Urobilinogen (U) [Mass/Vol] Negative Normal Negativemg/d L [facility] UA Auto SS URINALYSISOrdered By: Sky GRAY on 09-26-2023 UA Spec Desc Random Urine (09/26/23 1:27 AM) Normal [facility] UA Auto SS GetWell Education Videoon GetWell Education Video Avoiding Infections in the Hospital Patient Yes Normal [facility] Inpatient Clinical Summaryon 09-25-2023 Inpatient Clinical Summary [address] [address] Clinical Summary Person Information: Name: ELVER MENA Age: 68 Years : 1955 Sex: Male PCP: [facility] DO Marital Status: Phone: [phone] Race: White Ethnicity: Non- or Language: Samoan Visit Id: Visit Reason: Medical problem - minor; TREMORS Speciality: Acuity: Enc Type: Inpatient Med Service: Medical Arrival: 09/22/2023 22:39:13 Discharge: Dispo Type: Admitted as IP to this Hosp Address: [address] [place] [id number] Provider Notes: Diagnosis: 1:Lower extremity weakness; 2:Parkinson disease; 3:Neuroforaminal stenosis of lumbar spine; 4:Unable to care for self; 5:Anxiety and depression; 6:Hypertension; 7:Obesity; 8:Encounter for deep vein thrombosis (DVT) prophylaxis; Depression, unspecified Problems Active Hypertension Depression with anxiety Vitamin B12 deficiency Vitamin D deficiency BETTY (generalized anxiety disorder) Mclaughlin catheter status Alcohol use Parkinsons Anxiety Restless leg syndrome Chronic GERD HTN (hypertension) Smoking Status: Former Smoker Functional Status: Sensory Deficits: History of Falls: Mobility Assistance Prior to Admission: ADLs: Independent Current Level of Assistance for Self-Care/Mobility: Cognitive Status: Oriented x 3 Allergies No Known Allergies Measurements: Height: 172.72 cm Weight: 86.7 kg Blood Pressure: 108 mmHg / 63 mmHg BMI: 28.26 kg/m2 Procedures No Procedures Documented Immunizations No Immunizations Documented This Visit Final Med List: acetaminophen (acetaminophen 325 mg Tab) 2 Tablets By Mouth every 6 hours as needed Pain. busPIRone (busPIRone 5 mg Tab) 2 Tablets By Mouth every 8 hours. Refills: 0. carbidopa-levodopa (carbidopa-levodopa 25 mg-100 mg ER Tab) 2 Tablets By Mouth every 4 hours. cyclobenzaprine (cyclobenzaprine 5 mg Tab) 1 Tablets By Mouth 3 times a day. Refills: 0. docusate (docusate sodium 100 mg Cap) 2 Capsules By Mouth every day. entacapone (entacapone 200 mg Tab) 1 Tablets By Mouth every 4 hours. pimavanserin (pimavanserin 34 mg oral capsule) 1 Capsules By Mouth every day. propranolol (propranolol 80 mg Cap-ER) 1 Capsules By Mouth every day. ropinirole (Requip 1 mg Tab) 1 Tablets By Mouth 6 times a day. Care Team Members: Attending Physician: Alberto GRAY DO Consulting Physician: Bo Rossi MD Referring Physician: Follow up: With: Address: When: [facility] [address] [place] [address] Business (1) Within 3 to 5 days Comments: After D/C from SNF , will need referral to [facility] to consider deep brain [facility] With: Address: When: Flo LAUREN, Bo, [facility] [address] [place] [address] Within 2 to 4 weeks Patient Education Information: Normal [facility] Inpatient Patient Summaryon 09-25-2023 Inpatient Patient Summary [address] [address] Patient Discharge Instructions PERSON INFORMATION Name: ELVER MENA Date of : 1955 Current Date: 09/25/2023 17:08:51 PHYSICIANS Admitting Physician: Alberto GRAY DO Primary Care Physician: [facility] DO PCP Comment: Discharge Diagnosis: 1:Lower extremity weakness; 2:Parkinson disease; 3:Neuroforaminal stenosis of lumbar spine; 4:Unable to care for self; 5:Anxiety and depression; 6:Hypertension; 7:Obesity; 8:Encounter for deep vein thrombosis (DVT) prophylaxis; Depression, unspecified Condition at Discharge: Improved ELVER MENA has been given the following list of follow-up instructions, prescriptions, and patient education materials: PATIENT FOLLOW-UP INFORMATION Diet: Regular Discharge Activity: Ambulate as tolerated, Activity as tolerated Discharge Restrictions: Wound Care Instructions: Remove Your Dressing In Days Call Your Doctor For: IF UNABLE TO CONTACT YOUR PHYSICIAN AND YOU FEEL IT IS AN EMERGENCY, GO TO THE NEAREST EMERGENCY ROOM OR CALL 911 Home Treatment: Devices/Equipment: None Special Services: Additional Instructions: Primary Care Physician to provide the following pending test results: None Follow up: With: Address: When: Isabelle Julian [address] [place] [address] Business (1) Within 3 to 5 days Comments: After D/C from SNF , will need referral to [facility] to [facility] deep [facility] With: Address: When: Flo LAUREN, YADI Soriano[place] [address] [place] [address] Within 2 to 4 weeks In the event that this physician does not participate in your insurance network, please consult with your insurance company to find a nearby participating provider. Comment: RAJESH Linton KRIS, have received the attached patient education materials/instruction s and have verbalized understanding: Patient Signature Date Clinican/Nurse Signature Date HERE ARE THE MEDICATION CHANGES THAT OCCURRED DURING YOUR HOSPITAL STAY New Medications Other Medications docusate (docusate sodium 100 mg Cap) 2 Capsules By Mouth every day. Last Dose: ____Next Dose: ____ Medications to Continue with No Changes Other Medications acetaminophen (acetaminophen 325 mg Tab) 2 Tablets By Mouth every 6 hours as needed Pain. Last Dose: ____Next Dose: ____ busPIRone (busPIRone 5 mg Tab) 2 Tablets By Mouth every 8 hours. Refills: 0. Last Dose: ____Next Dose: ____ carbidopa-levodopa (carbidopa-levodopa 25 mg-100 mg ER Tab) 2 Tablets By Mouth every 4 hours. Last Dose: ____Next Dose: ____ cyclobenzaprine (cyclobenzaprine 5 mg Tab) 1 Tablets By Mouth 3 times a day. Refills: 0. Last Dose: ____Next Dose: ____ entacapone (entacapone 200 mg Tab) 1 Tablets By Mouth every 4 hours. Last Dose: ____Next Dose: ____ pimavanserin (pimavanserin 34 mg oral capsule) 1 Capsules By Mouth every day. Last Dose: ____Next Dose: ____ propranolol (propranolol 80 mg Cap-ER) 1 Capsules By Mouth every day. Last Dose: ____Next Dose: ____ ropinirole (Requip 1 mg Tab) 1 Tablets By Mouth 6 times a day. Last Dose: ____Next Dose: ____ Comment: MEDICATION LIST PROVIDED FOR YOU IS A LIST OF YOUR CURRENT MEDICATIONS. PLEASE CARRY THIS WITH YOU AT ALL TIMES. acetaminophen (acetaminophen 325 mg Tab) 2 Tablets By Mouth every 6 hours as needed Pain. busPIRone (busPIRone 5 mg Tab) 2 Tablets By Mouth every 8 hours. Refills: 0. carbidopa-levodopa (carbidopa-levodopa 25 mg-100 mg ER Tab) 2 Tablets By Mouth every 4 hours. cyclobenzaprine (cyclobenzaprine 5 mg Tab) 1 Tablets By Mouth 3 times a day. Refills: 0. docusate (docusate sodium 100 mg Cap) 2 Capsules By Mouth every day. entacapone (entacapone 200 mg Tab) 1 Tablets By Mouth every 4 hours. pimavanserin (pimavanserin 34 mg oral capsule) 1 Capsules By Mouth every day. propranolol (propranolol 80 mg Cap-ER) 1 Capsules By Mouth every day. ropinirole (Requip 1 mg Tab) 1 Tablets By Mouth 6 times a day. Pharmacy Information: [facility] Comment: PATIENT EDUCATION INFORMATION Instructions: Medication Leaflets: You may receive a survey from [employer] asking you to rate your care experience. Your feedback is important and will help us understand what we do well and how we can improve the quality of care we provide to you, your loved ones and our community. It?s an honor to serve you. (more content not included)... [facility] Interdisciplinary Note - Skip e Manageron 09-25-2023 Interdisciplinary Note - Deboning Team Leader CRM to room to discuss DC planning. Patient is awake, alert and oriented. Patient is here with Tremors / worse Parkinson symptoms. Patient signed medicare form. Patient verified PCP, home DME and insurance. Patient is assigned to Dr Goel see notes. PT/OT recs SNF. [facility]CU accepted. Patient would need a 3 M stay. He can DC 09/25. Patient was provided CRM contact, white board updated. CRM following Claim aide is on case and helping with medicaid. [facility] after [facility] stay. on 09/25 206-will go to room 621 at D/C. [facility] Comment on above: Result Comment: Elec tronically Signed By: Adele Vasquez\.br\Date and Time Signed: 09/25/23 11:19 EDT Interdisciplinary Note - Soc ial Workeron 09-25-2023 Interdisciplinary Note - Station Cashier This SW met with patient regarding lack of a PCP. Patient stated that he is only willing to see a [facility] physician. Patient stated that due to his hallucinations, that it is difficult to keep clothes on for long. SW asked if mornings or afternoons were better to schedule an appointment, based on his hallucinations. Patient requested that an appointment be scheduled for late afternoon, around 10am. PITO informed the patient that the soonest appointment in [place] would be on October 08, 2023. Patient declined stating that this appointment is too soon, that he didn't plan on leaving the house for a while once discharged. SW provided the patient with another options, however patient kicked SW out of room stating that he believes having a PCP appointment is a waste of time and money. SW will remain available as needed. Normal [facility] Progress Note-Physicianon Progress Note-Physician Assessment/Plan 68-year-old male with history of Parkinson's disease, hypertension, anxiety, depression, obesity and GERD who was recently discharged from the hospital for generalized weakness from Parkinson's disease with recommendations for placement in SNF?however patient refused and was discharged home, presented again with complaints of worsening Parkinson's symptoms with increased tremors, generalized body aches and pains and weakness and inability to care for self at home. 1. Lower extremity weakness (R29.898: Other symptoms and signs involving the musculoskeletal system) Secondary to generalized debility and advanced Parkinson's disease. Seen by neurologist. Continue with physical therapy. Awaiting precertification for placement in a residential facility. Ordered: Sbsq Hospital Care/Day Moderate 35 Minutes [id number] 2. Parkinson disease (G20.A1: Parkinson's disease without dyskinesia, without mention of fluctuations) Continue on Parkinson's medications. Seen by neurologist?no further recommendations. Patient may benefit from deep brain stimulator evaluation as outpatient. Ordered: Sbsq Hospital Care/Day Moderate 35 Minutes [id number] 3. Neuroforaminal stenosis of lumbar spine (M48.061: Spinal stenosis, lumbar region without neurogenic claudication) Supportive care. Ordered: Sbsq Hospital Care/Day Moderate 35 Minutes [id number] 4. Unable to care for self (Z78.9: Other specified health status) Secondary to physical deconditioning. Seen by physical therapist and recommends residential facility. Ordered: Sbsq Hospital Care/Day Moderate 35 Minutes [id number] 5. Anxiety and depression (F41.9: Anxiety disorder, unspecified) Continue on buspirone and propranolol. 6. Hypertension (I10: Essential (primary) hypertension) Blood pressure controlled. Continue on propranolol. 7. Obesity (E66.9: Obesity, unspecified) Recommend therapeutic lifestyle modification changes. 8. Encounter for deep vein thrombosis (DVT) prophylaxis (Z29.9: Encounter for prophylactic measures, unspecified) Heparin. Disposition: To residential facility in am. I discussed the diagnosis and plan of care with the patient at the bedside. Moderate level of MDM based on addressing above issues. This documentation was transcribed using voice recognition software. Several attempts were made to ensure accuracy. However inadvertent computerized fish house worker errors may be present. Josse Goel. Hospitalist. Depression, unspecified (F32.A: Depression, unspecified) Subjective Seen and examined. Still has tactile stimuli. Critters are crawling all over his body. Tremors have improved. Objective Vitals & Measurements T: 36.7 ?C(Oral) TMIN: 36.3 ?C(Axillary) TMAX: 36.7 ?C(Oral) HR: 71(Peripheral) RR: 20 BP: 108/63 SpO2: 95% WT: 86.7 kg Intake & Output This visit (24 hour periods starting at 07:00 EDT) 09/25/23 * 09/24/23 09/23/23 Total Summary Intake mL -- 360 -- Output mL -- 700 1,100 Fluid Balance -- -340 -1,100 Intake (1) Oral Intake mL -- 360 -- Total -- 360 -- Output (1) Urine Voided mL -- 700 1,100 Total -- 700 1,100 Counts (0) * This column has not completed the indicated time period. Physical Exam General: alert, no acute distress, comfortable in bed and eating breakfast. Skin: warm, dry Head: no trauma, normocephalic Neck: Trachea midline, no adenopathy, no tenderness Eye: normal conjunctiva, sclera clear ENMT: TM's clear, oral mucosa moist, no pharyngeal erythema or exudate Cardiovascular: regular rate and rhythm, normal peripheral perfusion Respiratory: Lungs CTA, respirations non labored Chest wall: no deformity. Gastrointestinal: soft, non distended, no tenderness, no guarding. Bowel sounds intact. Obese. Back: No tenderness, Normal ROM, Normal alignment. Extremities: no deformity, no trauma Neurological: oriented x 4, LOC appropriate for age, CN II-XII intact, mild upper extremity resting tremors. Psychiatric: cooperative, affect appropriate for age, normal judgement, normal psychiatric thoughts. Lab Results No qualifying data available. Problem List/Past Medical History Ongoing Alcohol use Anxiety Chronic GERD Depression with anxiety Mclaughlin catheter status BETTY (generalized anxiety disorder) HTN (hypertension) Hypertension Parkinsons Restless leg syndrome Vitamin B12 deficiency Vitamin D deficiency Historical Parkinson's disease Resting tremor Medications Inpatient acetaminophen 325 mg Tab, 650 mg= 2 tab(s), Oral, q6hr, PRN busPIRone 5 mg Tab, 10 mg= 2 tab(s), Oral, TID carbidopa-levodopa 25 mg-100 mg ER Tab, 2 tab(s), Oral, q4hr cyclobenzaprine 10 mg Tab, 5 mg= 0.5 tab(s), Oral, TID enoxaparin 40 mg/0.4 mL SC Natalia, 40 mg= 0.4 mL, SubCutaneous, Daily entacapone 200 mg Tab, 200 mg= 1 tab(s), Oral, q4hr hydrALAZINE 20 mg/mL Inj, 10 mg= 0.5 mL, IV Push, q6hr, PRN pimavanseri (more content not included)... [facility] Comment on above: Result Comment: Elec tronically Signed By: TONY LAUREN, Josse\.br\Date and Time Signed: 09/25/23 09:33 EDT Interdisciplinary Note - Skip e Manageron 09-24-2023 Interdisciplinary Note - Deboning Team Leader CRM to room to discuss DC planning. Patient is awake, alert and oriented. Patient is here with Tremors / worse Parkinson symptoms. Patient signed medicare form. Patient verified PCP, home DME and insurance. Patient is assigned to Dr Goel see notes. PT/OT recs SNF. [facility] accepted. Patient would need a 3 M stay. He can DC 5/10. Patient was provided CRM contact, white board updated. CRM following CRM emailed claim aide about possible medicaid or LTC policy for patient [facility] Comment on above: Result Comment: Elec tronically Signed By: Adele Vasquez\.radha\Date and Time Signed: 09/24/23 08:18 EDT Monitor Recordon 09-24-2023 Monitor Record [id number]# 1.00TIFF Normal [facility] Monitor Record [id number]# 1.00TIFF Normal [facility] Progress Note-Physicianon Progress Note-Physician Assessment/Plan 68-year-old male with history of Parkinson's disease, hypertension, anxiety, depression, obesity and GERD who was recently discharged from the hospital for generalized weakness from Parkinson's disease with recommendations for placement in SNF?however patient refused and was discharged home, presented again with complaints of worsening Parkinson's symptoms with increased tremors, generalized body aches and pains and weakness and inability to care for self at home. 1. Lower extremity weakness (R29.898: Other symptoms and signs involving the musculoskeletal system) Secondary to generalized debility and advanced Parkinson's disease. Neurology consult reviewed by me. I appreciate and agree to recommendations. Seen by physical therapist. Recommend residential facility. Awaiting precertification. Ordered: [facility] Care/Day Moderate 35 Minutes 09352 2. Parkinson disease (G20.A1: Parkinson's disease without dyskinesia, without mention of fluctuations) Continue on Parkinson's medications. Seen by neurologist?no further recommendations. Patient may benefit from deep brain stimulator evaluation as outpatient. Ordered: [facility] Care/Day Moderate 35 Minutes 38266 3. Neuroforaminal stenosis of lumbar spine (M48.061: Spinal stenosis, lumbar region without neurogenic claudication) Supportive care. Or[facility]: [facility] Care/Day Moderate 35 Minutes 80246 4. Unable to care for self (Z78.9: Other specified health status) Secondary to physical deconditioning. Seen by physical therapist and recommends residential facility. Ordered: [facility] Care/Day Moderate 35 Minutes 66784 5. Anxiety and depression (F41.9: Anxiety disorder, unspecified) Continue on buspirone and propranolol. Ordered: [facility] Care/Day Moderate 35 Minutes [id number] 6. Hypertension (I10: Essential (primary) hypertension) Blood pressure controlled. Continue on propranolol. 7. Obesity (E66.9: Obesity, unspecified) Recommend therapeutic lifestyle modification changes. 8. Encounter for deep vein thrombosis (DVT) prophylaxis (Z29.9: Encounter for prophylactic measures, unspecified) Heparin. Disposition: To residential facility pending precertification. I discussed the diagnosis and plan of care with the patient at the bedside. Moderate level of MDM based on addressing above issues. This documentation was transcribed using voice recognition software. Several attempts were made to ensure accuracy. However inadvertent computerized fish house worker errors may be present. Josse Goel. Hospitalist. Orders: potassium chloride, 40 mEq = 2 tab(s), Tab-ER, Oral, Once, Stop date 09/23/23 8:00:00 EDT, Routine, Start date 09/23/23 8:00:00 EDT, 09/23/23 7:08:00 EDT Referral to Resource Center Subjective Seen and examined. Complains of tactile hallucinations.?Critt ers are holding onto his feet and wrapping around his back. Objective Vitals & Measurements T: 36.7 ?C(Oral) TMIN: 36.7 ?C(Oral) TMAX: 36.9 ?C(Axillary) HR: 97(Monitored) RR: 16 BP: 109/66 SpO2: 91% WT: 85.1 kg Intake & Output This visit (24 hour periods starting at 07:00 EDT) 09/24/23 * 09/23/23 09/22/23 Total Summary Intake mL -- -- -- Output mL -- 1,100 -- Fluid Balance -- -1,100 -- Intake (0) Output (1) Urine Voided mL -- 1,100 -- Total -- 1,100 -- Counts (0) * This column has not completed the indicated time period. Physical Exam General: alert, no acute distress, comfortable in a chair. Skin: warm, dry Head: no trauma, normocephalic Neck: Trachea midline, no adenopathy, no tenderness Eye: normal conjunctiva, sclera clear ENMT: TM's clear, oral mucosa moist, no pharyngeal erythema or exudate Cardiovascular: regular rate and rhythm, normal peripheral perfusion Respiratory: Lungs CTA, respirations non labored Chest wall: no deformity. Gastrointestinal: soft, non distended, no tenderness, no guarding. Bowel sounds intact. Back: No tenderness, Normal ROM, Normal alignment. Extremities: no deformity, no trauma Neurological: oriented x 4, LOC appropriate for age, CN II-XII intact, resting upper extremity tremors. Reduced strength bilateral lower extremity. Psychiatric: cooperative, affect appropriate for age, normal judgement, normal psychiatric thoughts. Lab Results No qualifying data available. Problem List/Past Medical History Ongoing Alcohol use Anxiety Chronic GERD Depression with anxiety Mclaughlin catheter status BETTY (generalized anxiety disorder) HTN (hypertension) Hypertension Parkinsons Restless leg syndrome Vitamin B12 deficiency Vitamin D deficiency Historical Parkinson's disease Resting tremor Medications Inpatient acetaminophen 325 mg Tab, 650 mg= 2 tab(s), Oral, q6hr, PRN busPIRone 5 mg Tab, 10 mg= 2 tab(s), Oral, TID carbidopa-levodopa 25 mg-100 mg ER Tab, 2 tab(s), Oral, q4hr cyclobenzaprine 10 mg Tab, 5 mg= (more content not included)... Normal [facility] Comment on above: Result Comment: Elec tronically Signed By: TONY LAUREN, Paulinofo\.br\Date and Time Signed: 09/24/23 08:31 EDT BMPon 09-23-2023 Anion gap [Moles/Vol] 10 mmol/L Normal 6-16 Fis her [facility] Comment on above: Performed By: #### 2 362285, 8173577, 5233890, 0680246, 41807801, 97530335, 6185677, 30822794 ####[facility] [address] [place] [address] Calcium [Mass/Vol] 8.7 mg/dL Low 8.9-11.1 [facility] Comment on above: Performed By: #### 2 760298, 5850380, 3317714, 0448577, 91796492, 23678881, 4649461, 31853618 ####[facility] [address] [place] [address] Chloride [Moles/Vol] 106 mmol/L Normal 101-111 Fish er [facility] Comment on above: Performed By: #### 2 144744, 6988163, 4468423, 8031314, 14590679, 39256232, 3801626, 29638650 ####[facility] [address] [place] [address] CO2 [Moles/Vol] 27 mmol/L Normal 21-[address] [facility] Comment on above: Performed By: #### 2 191019, 3522339, 0384363, 9699715, 72580746, 48320562, 4667061, 15894853 ####[facility] [address] [place] [address] Creatinine [Mass/Vol] 0.9 mg/dL Normal 0.5-1.3 [facility] Comment on above: Performed By: #### 2 115487, 1087353, 6798407, 3861155, 79691809, 74075878, 3895596, 55284669 ####[facility] [address] [place] [address] Glucose [Mass/Vol] 123 mg/dL Normal 55-199 [facility] Comment on above: Performed By: #### 2 551059, 3627446, 1311503, 6942981, 35708254, 04480728, 2950517, 40223547 ####[facility] [address] [place] [address] Potassium [Moles/Vol] 3.7 mmol/L Normal 3.5-5.3 [facility] Comment on above: Performed By: #### 2 644575, 6898094, 3111504, 7617276, 18406323, 99057948, 3671836, 76483607 ####[facility] [address] [place] [address] Sodium [Moles/Vol] 139 mmol/L Normal 135-145 [facility] Comment on above: Performed By: #### 2 962667, 4353920, 7557332, 3144841, 93586780, 51913512, 1235041, 71447399 ####[facility] [address] [place] [address] Urea nitrogen [Mass/Vol] 20 mg/dL Normal 5-21 [facility] Comment on above: Performed By: #### 2 053874, 8594356, 0553593, 5242816, 99122681, 59987063, 7655873, 87445890 ####[facility] [address] [place] [address] Urea nitrogen/Creatinine [Mass ratio] 22 No Units High 10-20 [facility] Comment on above: Performed By: #### 2 270058, 5045180, 8389506, 1457038, 94353982, 34333498, 5006469, 90838158 ####[facility] [address] [place] [address] CBC w/ Auto Diffon 4 Basophils/100 WBC (Bld) 0.3 % Normal 0.0-2.0 [facility] Comment on above: Performed By: #### 2 871018, 4111661, 7680398, 2758363, 40623948, 42779019, 8215823, 24118499 ####[facility] [address] [place] [address] Basophils/Leukocytes Auto (Bld) [Pure # fraction] 0.0 E9/L Normal 0.0-0.2 [facility] Comment on above: Performed By: #### 2 362218, 0048324, 0739693, 8457790, 00111634, 55834740, 5544015, 64613100 ####[facility] [address] [place] [address] Eosinophils (Bld) [#/Vol] 0.3 E9/L Normal 0.0-0.5 [facility] Comment on above: Performed By: #### 2 803390, 1491880, 9648394, 2483008, 43437813, 87988489, 2589545, 95518894 ####[facility] [address] [place] [address] Eosinophils/100 WBC (Bld) 4.8 % Normal 0.0-8.0 [facility] Comment on above: Performed By: #### 2 722497, 0462325, 6727174, 6417774, 49799201, 28800116, 9766703, 41812773 ####[facility] [address] [place] [address] Erythrocyte distribution width (RBC) [Ratio] 13.3 % Normal 10.9-14.2 [facility] Comment on above: Performed By: #### 2 782724, 9663987, 4791078, 4781770, 17607762, 14055606, 8079298, 30549692 ####[address] [place] [address] Hematocrit (Bld) [Volume fraction] 39.5 % Normal 37.7-49.0 [facility] Comment on above: Performed By: #### 2 507191, 7705115, 9069057, 4273224, 50038454, 95225264, 2718653, 08003833 ####[address] [place] [address] Hemoglobin (Bld) [Mass/Vol] 13.4 g/dL Low 13.5-17.5 [facility] Comment on above: Performed By: #### 2 144190, 9899697, 4289078, 4383762, 57658673, 99582116, 6207206, 39052803 ####[address] [place] [address] Lymphocytes (Bld) [#/Vol] 1.5 E9/L Normal 1.0-4.0 [facility] Comment on above: Performed By: #### 2 743587, 9113818, 5533706, 8901165, 01433827, 80588919, 0249832, 30036542 ####[facility] [address] [place] [address] Lymphocytes/100 WBC (Bld) 26.3 % Normal 14.0-50.0 [facility] Comment on above: Performed By: #### 2 828161, 2686878, 0902929, 2025219, 43832994, 48506424, 0916852, 73361654 ####[address] [place] [address] MCH (RBC) [Entitic mass] 32.6 pg Normal 27.0-34.0 [facility] Comment on above: Performed By: #### 2 127963, 4990050, 4892832, 4123908, 73030891, 50200933, 3910808, 40675365 ####[address] [address] MCHC (RBC) [Mass/Vol] 34.0 g/dL Normal 31.4-36.0 [facility] Comment on above: Performed By: #### 2 969490, 7374023, 9369780, 8394036, 43045115, 92251996, 1089397, 87113303 ####[address] [address] MCV (RBC) [Entitic vol] 96.0 fL Normal 80.0-100.0 [facility] Comment on above: Performed By: #### 2 697390, 6581948, 9169504, 4262774, 12728246, 98589266, 9147357, 40348804 ####[address] [address] Monocytes (Bld) [#/Vol] 0.5 E9/L Normal 0.2-1.0 [facility] Comment on above: Performed By: #### 2 812383, 7263542, 6129945, 0495977, 70619127, 73857232, 1820403, 05424211 ####[address] [address] Neutrophils (Bld) [#/Vol] 3.4 E9/L Normal 2.0-7.5 [facility] Comment on above: Performed By: #### 2 691044, 1085022, 9115250, 6707967, 98542463, 76907981, 5929278, 29444735 ####[facility] [address] [place] [address] Neutrophils/100 WBC (Bld) 59.3 % Normal 36.0-75.0 [facility] Comment on above: Performed By: #### 2 639842, 7390986, 9352434, 5660939, 24879373, 22590834, 2805386, 85026146 ####[address] [place] [address] Platelet mean volume (Bld) [Entitic vol] 7.5 fL Normal 6.4-10.8 [facility] Comment on above: Performed By: #### 2 864620, 7769311, 6349311, 7362083, 67922015, 40003487, 7524334, 61317903 ####[address] [address] Platelets (Bld) [#/Vol] 195.0 E9/L Normal 150.0-500.0 [facility] Comment on above: Performed By: #### 2 877445, 5775065, 2345705, 2194023, 10974998, 13058711, 8509497, 36171357 ####[address] [place] [address] RBC (Bld) [#/Vol] 4.1 E12/L Low 4.3-5.9 [facility] Comment on above: Performed By: #### 2 366750, 8710208, 4728162, 1587508, 24222265, 29827685, 6271809, 10789246 ####[address] [place] [address] WBC corrected for nucl RBC Auto (Bld) [#/Vol] 5.7 E9/L Normal 4.0-11.0 [facility] Comment on above: Performed By: #### 2 888492, 0337834, 2000857, 3049126, 71070055, 30208209, 6604106, 41468121 ####[facility] [place] [address] CHEMISTRYOrdered By: SYSTEM SYSTEM on 09-23-2023 Anion gap [Moles/Vol] 10 mmol/L Normal 6 - 16 mEq/L R emisol Chem Calcium [Mass/Vol] 8.7 mg/dL Low 8.9 - 11. 1 mg/dL Remisol Chem Chloride [Moles/Vol] 106 mmol/L Normal 101 - 1 11 mmol/L Remisol Chem CO2 [Moles/Vol] 27 mmol/L Normal 21 - 31 mmol/L [facility] Chem Creatinine [Mass/Vol] 0.9 mg/dL Normal 0.5 - 1.3 mg/dL Remisol Chem CRP [Mass/Vol] 0.2 mg/dL Normal <=1.9mg/dL Remisol Ch em eGFR 93 mL/min/1.73 m2 Normal >=59mL/min /1 .73 m2 [facility] Chem Glucose [Mass/Vol] 123 mg/dL Normal 55 - 199 mg/dL [facility] Chem Magnesium [Mass/Vol] 2.0 mg/dL Normal 1.3 - 2 .4 mg/dL [facility] Chem Potassium [Moles/Vol] 3.7 mmol/L Normal 3.5 - 5.3 mmol/L Rem[facility] Chem Sodium [Moles/Vol] 139 mmol/L Normal 135 - 145 mmol/L Remisol Chem Total CK 173 [iU]/d Normal 14 - 261 Int._Unit/L Rem[facility] Chem Troponin 5.00 pg/mL Low 15.90 - 38.40 pg/mL [facility] Comment on above: Interpretive Data: T he 95% CI (Confidence Interval) PPV (Positive Predictive Value) for myocardial infarction in females is 38 pg/mL, in males 51 pg/mL. The results should be used in conjunction with clinical conditions of myocardial infarction. (Access High Sensitivity Troponin I Instructions For Use, Dariusz Promise, December 2017) TSH Qn 1.73 m[IU]/L Normal 0.34 - 5.60 mcIU/mL Remisol Chem Urea nitrogen [Mass/Vol] 20 mg/dL Normal 5 - 21 mg/dL Rem[facility] Chem Urea nitrogen/Creatinine [Mass ratio] 22 mg/mg High 10 - 20 Rem[facility] Chem Troponin 5.40 pg/mL Low 15.90 - 38.40 pg/mL [facility] Comment on above: Interpretive Data: T he 95% CI (Confidence Interval) PPV (Positive Predictive Value) for myocardial infarction in females is 38 pg/mL, in males 51 pg/mL. The results should be used in conjunction with clinical conditions of myocardial infarction. (Access High Sensitivity Troponin I Instructions For Use, Dariusz Promise, December 2017) CKon 09-23-2023 Total CK 173 Int._Unit/L Normal 14-[address] [facility] Comment on above: Performed By: #### 2 233291, 6038295, 7646593, 5723285, 10690009, 34174600, 5623649, 72040943 ####[facility] [address] [place] [address] CRPon 09-23-2023 CRP [Mass/Vol] 0.2 mg/dL Normal <=1.9 [facility] Comment on above: Performed By: #### 2 667478, 8747499, 1579278, 8316069, 75320526, 84956393, 1442413, 64785562 ####[facility] [address] [place] [address] Consultation Noteon 09-23-19 24 Consultation Note Chief Complaint I woke up and I could not control my body movement. They were violently shaking, I was cold and shaking. Reason for Consultation increasing weakness (BL LEs) advanced parkinsons History of Present Illness A 68-year-old male who I was asked to see in neurological consultation for increased weakness due to parkinson's reported to the emergency department via squad with chief complaint of increasing tremors. Reports his Parkinson's is worsening. Reports he was here last week and was seen due to the same reason. Reports that he had to have his neighbor called 911 because he cannot care for himself. Does not seem to be exhibiting akathisia despite all the movements. He sometimes misses doses if he sleeps in too late and definitely notices negative consequences of doing so. And sometimes when the tremors get really bad he takes an extra dose of a medication and it does seem to benefit him. With all the medication he was on, he was getting some hallucinations, and he thinks the pimavanserin has helped with that. He seems to have reached his ceiling in terms of dopaminergic medications, not tolerating higher doses. Review of Systems GEN: No fevers or chills. CV/PULM: No chest pain. No shortness of breath. No palpitations. NEURO: No headaches. No loss of vision. No double vision. No dysphagia. No speech changes. No focal weakness. No sensory loss. Physical Exam Vitals & Measurements T: 36.4 ?C(Oral) TMIN: 36 ?C(Oral) TMAX: 36.5 ?C(Oral) HR: 76(Peripheral) HR: 74(Monitored) RR: 18 BP: 145/76 SpO2: 97% HT: 172.72 cm WT: 84.3 kg GEN: General appearance normal. Well-kempt. No distress. No visualized deformities or trauma. CARDIO/VASC: Limbs without significant edema and appear well-perfused. PULM: Normal work of breathing. SKIN: Visualized skin is intact and without lesions aside from age-related findings. MS: Affect is normal. Patient is alert. Normal attention. LANG: Speech is fluent and non-dysarthric. EYES: Pupils equal/reactive/consen sual. Ocular motility full. No pathologic nystagmus. CN: Facial sensation normal. Hearing acuity normal. Face without droop and with normal motor function. MOTOR: Muscle bulk normal. Muscle tone is acceptable. Muscle strength normal. Bilateral upper extremity resting tremors, significant amplitude, mildly worse on the right, and persisting as postural tremors to a lesser extent. REFLEXES: Reflexes normoactive throughout. No pathologic reflexes. SENSORY: Light touch normal. Vibratory sensation intact in distal extremities. CEREBELLAR: No limb ataxia. Assessment/Plan ASSESSMENT: 68-year-old man with Parkinson's disease, 16 years in and cognitively doing very well, but with significant and debilitating resting tremors despite maximal medical therapy. PLAN: 1. Continue the home carbidopa levodopa 50-200 mg extended release every 4 hours of the waking day 2. Continue the entacapone 200 mg with each dose of the carbidopa?levodopa 3. Continue the ropinirole 1 mg every 4 hours of the waking day 4. Continue the pimavanserin 5. I recommend a movement disorder outpatient consultation at the [facility], as he might be a candidate for focused ultrasound or deep brain stimulation given that he is effectively maximally medicated. He says his right tremors are little worse than the left, but he was initially left hand dominant and would prefer the left-sided tremors to go away. 6. No other recommendations at this time. 1. Lower extremity weakness (R29.898: Other symptoms and signs involving the musculoskeletal system) 2. Parkinson disease (G20.A1: Parkinson's disease without dyskinesia, without mention of fluctuations) 3. Neuroforaminal stenosis of lumbar spine (M48.061: Spinal stenosis, lumbar region without neurogenic claudication) 4. Unable to care for self (Z78.9: Other specified health status) 5. Anxiety and depression (F41.9: Anxiety disorder, unspecified) 6. Hypertension (I10: Essential (primary) hypertension) 7. Obesity (E66.9: Obesity, unspecified) 8. Encounter for deep vein thrombosis (DVT) prophylaxis (Z29.9: Encounter for prophylactic measures, unspecified) Depression, unspecified (F32.A: Depression, unspecified) Problem List/Past Medical History Ongoing Alcohol use Anxiety Chronic GERD Depression with anxiety Mclaughlin catheter status BETTY (generalized anxiety disorder) HTN (hypertension) Hypertension Parkinsons Restless leg syndrome Vitamin B12 deficiency Vitamin D deficiency Historical Parkinson's disease Resting tremor Procedure/Surgical History Hernia repair. Medications Inpatient acetaminophen 325 mg Tab, 650 mg= 2 tab(s), Oral, q6hr, PRN busPIRone 5 mg Tab, 10 mg= 2 tab(s), Oral, TID carbidopa-levodopa 25 mg-100 mg ER Tab, 2 tab(s), Oral, q4hr cyclobenzaprine 10 mg Tab, 5 mg= 0.5 tab(s), Oral, TID enoxaparin 40 mg/0.4 mL SC Natalia, 40 mg= 0.4 mL, SubCutaneous, Daily entacapone 200 mg Tab, 200 mg= 1 tab(s), Oral, q4hr hydrALAZIN (more content not included)... Normal [facility] Comment on above: Result Comment: Elec tronically Signed By: Nedra Montalvo RN\.br\Date and Time Signed: 09/23/23 07:10 EDT\.br\Electronically Co-Signed By: Jack Ga DO\.br\Date and Time Co-Signed: 09/23/23 10:27 EDT ED Clinical Summaryon 2023 ED Clinical Summary [address] [address] ED Clinical Summary Person Information Name: ELVER MENA/New_Harris Age: 68 Years : 1955 Sex: Male Language: Samoan PCP: Isabelle Julian DO Marital Status: Phone: [phone] Visit Id: Visit Reason: Medical problem - minor; TREMORS Speciality: Acuity: 3 Enc Type: Inpatient Med Service: Emergency Arrival: 09/22/2023 22:39:13 Discharge: LOS: 000 02:27 Checkin: 09/22/2023 22:39:13 Checkout: 09/23/2023 01:06:36 Dispo Type: Admitted as IP to this [facility] EVENTS: Event Name Event Status Request Date/Time Start Date/Time Complete Date/Time Arrive Complete 09/22/2023 22:39:13 09/22/2023 22:39:13 09/22/2023 22:39:13 Document Home Meds Request 09/22/2023 22:39:13 Triage Complete 09/22/2023 22:39:13 09/22/2023 22:54:18 09/22/2023 22:54:18 Bed Assign Complete 09/22/2023 22:39:13 09/22/2023 22:39:13 09/22/2023 22:39:13 Dr Exam Complete 09/22/2023 22:39:13 09/22/2023 22:41:08 09/22/2023 22:41:08 RN Exam Complete 09/22/2023 22:39:13 09/22/2023 23:09:40 09/22/2023 23:09:40 Registration Complete 09/22/2023 22:41:08 09/22/2023 22:42:35 09/22/2023 22:42:35 Reg Complete Request 09/22/2023 22:42:35 Reg Bed Request Complete 09/22/2023 22:42:35 09/22/2023 22:42:35 09/22/2023 22:42:35 Dr Exam Complete 09/22/2023 22:45:10 09/22/2023 22:45:10 09/22/2023 22:45:10 Registration Complete 09/22/2023 22:45:10 09/23/2023 00:37:23 09/23/2023 00:37:23 30 Day Return Request 09/22/2023 22:54:19 EKG Complete 09/22/2023 22:59:48 09/22/2023 23:10:24 Pending Labs Request 09/22/2023 22:59:48 Lab Complete 09/22/2023 22:59:48 09/22/2023 23:38:05 Patient Care Request 09/22/2023 22:59:48 X-Ray Complete 09/22/2023 22:59:48 09/22/2023 23:16:24 09/22/2023 23:22:19 Pending Labs Complete 09/22/2023 23:20:05 09/22/2023 23:20:05 09/22/2023 23:38:05 Lab Complete 09/22/2023 23:20:05 09/22/2023 23:20:05 09/22/2023 23:38:05 Wet Read Request 09/22/2023 23:22:19 Consult Request 09/23/2023 00:25:21 Hospitalist Consult Request 09/23/2023 00:25:21 Bed Request Request 09/23/2023 00:35:01 Reg Bed Request Complete 09/23/2023 00:35:01 09/23/2023 00:37:23 09/23/2023 00:37:23 Admit Request 09/23/2023 00:35:01 Patient Care Request 09/23/2023 00:37:23 Patient Care Request 09/23/2023 00:37:23 Patient Care Request 09/23/2023 00:37:24 Patient Care Request 09/23/2023 00:37:24 Patient Care Request 09/23/2023 00:37:24 Patient Care Request 09/23/2023 00:37:25 Consult Request 09/23/2023 00:51:41 ADDRESS: [address] [place] [phone] PHYS DOC NOTES: MEDICAL INFORMATION: Prescriptions Given: Medications to Continue with No Changes Other Medications acetaminophen (acetaminophen 325 mg Tab) 2 Tablets By Mouth every 6 hours as needed Pain. busPIRone (busPIRone 5 mg Tab) 2 Tablets By Mouth every 8 hours. Refills: 0. carbidopa-levodopa (carbidopa-levodopa 25 mg-100 mg ER Tab) 2 Tablets By Mouth every 4 hours. cyclobenzaprine (cyclobenzaprine 5 mg Tab) 1 Tablets By Mouth 3 times a day. Refills: 0. entacapone (entacapone 200 mg Tab) 1 Tablets By Mouth every 4 hours. pimavanserin (pimavanserin 34 mg oral capsule) 1 Capsules By Mouth every day. propranolol (propranolol 80 mg Cap-ER) 1 Capsules By Mouth every day. ropinirole (Requip 1 mg Tab) 1 Tablets By Mouth 6 times a day. PATIENT EDUCATION INFORMATION: Instructions: Follow up: DIAGNOSIS: Parkinson disease; Unable to care for self [facility] ED Note-Physicianon 09-23-19 ED Note-Physician Basic Information Time Seen: Juan MARQUEZ, Baldo Maradiaga 09/22/2023 22:41 Chief Complaint Pt. arrived by squad reports increasing tremors, hx of Parkinsons. Pt. was seen here last week due to same reason. Neighbor called 911 because pt cant take care of himself and needs helps or possible placement. History of Present Illness A 68-year-old male reports to the emergency department via squad with chief complaint of increasing tremors. Reports his Parkinson's is worsening. Reports he was here last week and was seen due to the same reason. Reports that he had to have his neighbor called 911 because he cannot care for himself. Reports bilaterally he was admitted, decision was made to do home health, was not able to get this set up. He states that he believes he needs to be going to a nursing facility. He reports no other symptoms at this time. Review of Systems A 10 point review of systems is negative except as noted above. Medical and Surgical History: Reviewed and noted Social history: Lives at home Family History: Reviewed. Tobacco: Denies Physical Exam Vitals & Measurements T: 36.5 ?C(Oral) HR: 75(Monitored) RR: 21 BP: 128/83 SpO2: 90% HT: 172 cm WT: 85 kg BMI: 28.73 General: The patient appears well and in no apparent distress. Patient is resting comfortably on bed. Skin: Warm, dry, no pallor noted. Head: Normocephalic, atraumatic Neck: No JVD Eye: PERRLA, EOMI ENT: Moist mucus membranes Cardiovascular: Regular rate normal peripheral perfusion Respiratory: No respiratory distress no accessory muscle use no obvious audible wheezing Chest Wall: no deformity Musculoskeletal: normal ROM, no deformity, no swelling GI: No obvious distention soft nontender nondistended no guarding rebounding or rigidity Neurological: A&O moves all extremities equal strength and symmetry. Tremors noted of all extremities Psychiatric: Cooperative and appropriate Medical Decision Making MEDICAL DECISION MAKING Number and Complexity of Problems Differential Diagnosis: MDM Data External documents reviewed: [] My EKG interpretation: Reviewed My CT interpretation: [] My X-ray interpretation: Reviewed My Ultrasound interpretation: [] Decision rules/scores evaluated: [] Discussed with: [] Treatment and Disposition ED Course: 68-year-old male reports to the emergency department chief complaint of increasing symptoms of his Parkinson's disease. Reports unable to care himself for himself at this time. Reports he was recently admitted, and decision was made to do home health. Was not able to get this set up. Reports still not able to care for himself. States that he believes he needs to go to the nursing facility. If concerns, did get some basic lab work. Lab reviewed and noted. No acute changes seen. Due to patient's symptoms, discussed case with the hospitalist, who is agreeable with admission. Shared decision making: [] Code status: [] Assessment/Plan Parkinson disease (G20.A1: Parkinson's disease without dyskinesia, without mention of fluctuations) Unable to care for self (Z78.9: Other specified health status) Orders: Basic Metabolic Panel CBC w/ Auto Diff ECG 12 Lead Adult eGFR Saline Lock Insert Troponin 0 Hr. Troponin 1 Hr. Troponin 3 Hr. Troponin 6 Hr. UA with Cult Rflx XR Chest Single View Disposition Plan Patient Discharge Condition Stable Discharge Disposition To be admitted Discharge Prescription List Prescriptions No active prescription medications Follow-up No qualifying data available Attestation Patient seen and evaluated by the physician title assistant. Attending physician was present in the emergency department and supervised care. This visit was performed by both the physician and an APC. I performed all aspects of the MDM as documented. This report was transcribed using voice recognition software. Every effort was made to ensure accuracy, however, inadvertently computerized fish house worker mistakes may be present. Appropriate healthcare PPE was used in evaluating this patient. The patient was placed in a mask. The healthcare provider was wearing mask, gloves, and utilizing proper hand hygiene. All equipment was properly cleansed. I performed a substantive part of the MDM during the patient?s E/M visit. I personally made or approved the documented management plan and acknowledge its risk of complications. (Independent Interpretation) My (EKG/X-Ray/US/CT as applicable) interpretation as above. (Discussion) Management/test interpretation discussed with APC. Problem List/Past Medical History Ongoing Alcohol use Anxiety Chronic GERD Depression with anxiety Mclaughlin catheter status BETTY (generalized anxiety disorder) HTN (hypertension) Hypertension Parkinsons Restless leg syndrome Vitamin B12 deficiency Vitamin D deficiency Historical Parkinson's disease Resting tremor Procedure/Surgical History Hernia repair. Medications (more content not included)... [facility] Comment on above: Result Comment: Elec tronically Signed By: Baldo Martinez PA-C\.br\Date and Time Signed: 09/23/23 00:20 EDT\.br\Electronically Co-Signed By: Rick Sanchez DO\.br\Date and Time Co-Signed: 09/23/23 02:51 EDT ED Patient Education Noteon 09-23-2023 ED Patient Education Note [facility] ED Patient Summaryon 024 ED Patient Summary [address] [address] Patient Discharge Instructions Person Information Name: ELVER MENA Age: 68 Years Arrival Date: 09/22/2023 22:39:13 Discharge Diagnosis: Parkinson disease; Unable to care for self Primary Care Physician: Isabelle Julian DO Provider Information Primary Provider: Rick Sanchez DO Advanced Hand Packer:None The exam and treatment you received in the Emergency Department were for an urgent problem and are not intended as complete care. It is important that you follow up with a doctor, nurse practitioner, or physician?s title assistant for ongoing care. If your symptoms become worse or you do not improve as expected and you are unable to reach your usual health care provider, you should return to the Emergency Department. We are available 24 hours a day. RAJESH ELVER has been given the following list of patient education materials, prescriptions and follow-up instructions: Follow-up Instructions: In the event that this physician does not participate in your insurance network, please consult with your insurance company to find a nearby participating provider. Patient Education Materials: A MESSAGE TO ALL PATIENTS REGARDING OPIOIDS PRESCRIPTION OPIOIDS: WHAT YOU NEED TO KNOW Prescription opioids can be used to help relieve opcrwccp-cj-vzjjah pain and are often prescribed following a surgery or injury, or for certain health conditions. These medications can be an important part of the treatment but also come with serious risks. It is important to work with your healthcare provider to make sure you are getting the safest, most effective care. WHAT ARE THE RISKS AND SIDE EFFECTS OF OPIOID USE? Prescription opioids carry serious risks of addiction and overdose, especially with prolonged use. An opioid overdose, often marked by slowed breathing, can cause sudden . The use of prescription opioids can have a number of side effects as well, even when taken as directed: ? Tolerance?meaning you might need to take more of the medication for the same pain relief ? Physical dependence?meaning you have symptoms of withdrawal when a medication is stopped ? Increased sensitivity to pain ? Constipation ? Nausea, vomiting, and dry mouth ? Sleepiness and dizziness ? Confusion ? Depression ? Low levels of testosterone that can result in lower sex drive, energy, and strength ? Itching and sweating RISKS ARE GREATER WITH: ? History of drug misuse, substance use disorder, or overdose ? Mental health conditions (such as depression or anxiety) ? Sleep apnea ? Older age (65 years and older) ? Avoid alcohol while taking prescription opioids. Also, unless specifically advised by your health care provider, medications to avoid include: ? Benzodiazepines (such as Xanax or Valium) ? Muscle relaxants (such as Soma or Flexeril) ? Hypnotics (such as Ambien or Lunesta) ? Other prescription opioids KNOW YOUR OPTIONS Talk to your health care provider about ways to manage your pain that don?t involve prescription opioids. Some of these options may actually work better and have fewer risks and side effects. Options may include: ? Pain relievers such as acetaminophen, ibuprofen, and naproxen ? Some medication that are also used for depression or seizures ? Physical therapy and exercise ? Cognitive behavioral therapy, a psychological, goal-directed approach, in which patients learn how to modify physical, behavioral, and emotional triggers of pain and stress. IF YOU ARE PRESCRIBED OPIOIDS FOR PAIN: ? Never take opioids in greater amounts or more often than prescribed. ? Follow up with your primary health care provider. o Work together to create a plan on how to manage your pain. o Talk about ways to help manage your pain that don?t involve prescription opioids. o Talk about any and all concerns and side effects. ? Help prevent misuse and abuse o Never sell or share prescription opioids. o Never use another person?s prescription opioids. ? Store prescription opioids in a secure place and out of reach of others (this may include visitors, children, friends, and family). ? Safely dispose of unused prescription opioids: Find your community drug take-back program or your pharmacy mail-back program, or flush them down the toilet, following guidance from the Food and Drug Administration (www.fda.gov/Drugs/Re sourcesForYou). ? Visit www.cdc.gov/drugoverd ose to learn about the risks of opioids abuse and overdose. ? If you believe you may be struggling with addiction, tell your health manager care and ask for guidance or call [facility]?S National Helpline at 6-860-375-ZSRF. h Source: US Department of Health and Human Services/Center for Disease Control & Prevention [facility] Medications Given: Medication Dose Route No (more content not included)... [facility] EMS Documentationon 09-23-19 EMS Documentation Please click on link to see report [facility] Comment on above: Result Comment: Miss cruz Attachment - attachment exceeds size limitation [email or web address] Can be viewed in source system HEMATOLOGYOrdered By: SYSTEM SYSTEM on 09-23-2023 Basophils/100 WBC (Bld) 0.3 % Normal 0.0 - 2.0 % Remisol Heme Basophils/Leukocytes Auto (Bld) [Pure # fraction] 0.0 E9/L Normal 0.0 - 0.2 E9/L Remisol Heme Eosinophils (Bld) [#/Vol] 0.3 E9/L Normal 0.0 - 0.5 E9/L Remisol Heme Eosinophils/100 WBC (Bld) 4.8 % Normal 0.0 - 8.0 % Remisol Heme Erythrocyte distribution width (RBC) [Ratio] 13.3 % Normal 10.9 - 14.2 % Remisol Heme Hematocrit (Bld) [Volume fraction] 39.5 % Normal 37.7 - 49.0 % Remisol Heme Hemoglobin (Bld) [Mass/Vol] 13.4 g/dL Low 13.5 - 17.5 gm/dL Remisol Heme Lymphocytes (Bld) [#/Vol] 1.5 E9/L Normal 1.0 - 4.0 E9/L Remisol Heme Lymphocytes/100 WBC (Bld) 26.3 % Normal 14.0 - 50.0 % Remisol Heme MCH (RBC) [Entitic mass] 32.6 pg Normal 27.0 - 34.0 pg Remisol Heme MCHC (RBC) [Mass/Vol] 34.0 g/dL Normal 31.4 - 36.0 gm/dL Remisol Heme MCV (RBC) [Entitic vol] 96.0 fL Normal 80.0 - 100.0 fL Remisol Heme Monocytes (Bld) [#/Vol] 0.5 E9/L Normal 0.2 - 1.0 E9/L Remisol Heme Monocytes/100 WBC (Bld) 9.3 % Normal 4.0 - 14.0 % Remisol Heme Neutrophils (Bld) [#/Vol] 3.4 E9/L Normal 2.0 - 7.5 E9/L Remisol Heme Neutrophils/100 WBC (Bld) 59.3 % Normal 36.0 - 75.0 % Remisol Heme Platelet mean volume (Bld) [Entitic vol] 7.5 fL Normal 6.4 - 10.8 fL Remisol Heme Platelets (Bld) [#/Vol] 195.0 E9/L Normal 150.0 - 500.0 E9/L Remisol Heme RBC (Bld) [#/Vol] 4.1 E12/L Low 4.3 - 5.9 E12/L Remisol Heme WBC corrected for nucl RBC Auto (Bld) [#/Vol] 5.7 E9/L Normal 4.0 - 11.0 E9/L Remisol Heme Interdisciplinary Note - Skip e Manageron 09-23-2023 Interdisciplinary Note - Deboning Team Leader CRM to room to discuss DC planning. Patient is awake, alert and oriented. Patient is here with Tremors / worse Parkinson symptoms. Patient signed medicare form. Patient verified PCP, home DME and insurance. Patient is assigned to Dr Goel see notes. patient needs evaluated by PT/OT . [facility] choice [facility]. Patient would need a 3 M stay. Patient was provided CRM contact, white board updated. CRM following TCU accepted [facility] Comment on above: Result Comment: Elec tronically Signed By: Adele Vasquez\.br\Date and Time Signed: 09/23/23 12:16 EDT Interdisciplinary Note - Jamie n 09-23-2023 Interdisciplinary Note - OT OT AM-PAC six clicks score: 03/11=SNF. Main barriers towards Pt's safe and functional performance are generalized weakness, poor coordination, pain, and tremors. Pt requires max A x2 to complete ADL functional transfers and total A for lower body self care at time of eval. OT to follow daily, progressing as tolerates. SNF recommended at this time due to current level of assist with all I/ADL tasks. [facility] Interdisciplinary Note - Soc ial Workeron 09-23-2023 Interdisciplinary Note - Station Cashier This SW responded to a consult on [address] regarding a positive SDOH for transportation. It was stated that the patient has trouble getting to medical appointments and obtaining medication, as well as, trouble getting to work or other necessities. Patient is admitted for tremors / worse Parkinson symptoms. Patient stated that after speaking to neuro that he would like to go to a movement center at the [facility] to assist with his Parkinson symptoms. SW informed CRM of this, as the patient stated that he saw neuro after speaking to [facility]. Patient stated that in terms of transportation that he voluntarily gave his truck away and quit driving upon his Parkinson getting worse. Patient stated that he does have a friend who assists with transportation, but does not transportation himself due to Parkinson and hallucinations. Patient stated that he is able to get to where he needs to be, but that due to the above he self medicates himself with marijuana in order to go to the doctor, as an example. Patient denied any further needs or concerns for SW at this time. SW will remain available as needed. [facility] Magnesiumon 09-23-2023 Magnesium [Mass/Vol] 2.0 mg/dL Normal 1.3-2.4 [facility] Comment on above: Performed By: #### 2 [id number] ####[facility] [address] [place] [address] Message from Medicareon Message from Medicare [id number]# 1.00TIFF [facility] Monitor Recordon 09-23-2023 Monitor Record [id number]# 1.00TIFF Normal [facility] Monitor Record [id number]# 1.00TIFF Normal [facility] Progress Note-Physicianon Progress Note-Physician Assessment/Plan 68-year-old male with history of Parkinson's disease, hypertension, anxiety, depression, obesity and GERD who was recently discharged from the hospital for generalized weakness from Parkinson's disease with recommendations for placement in SNF?however patient refused and was discharged home, presented again with complaints of worsening Parkinson's symptoms with increased tremors, generalized body aches and pains and weakness and inability to care for self at home.. 1. Lower extremity weakness (R29.898: Other symptoms and signs involving the musculoskeletal system) Secondary to generalized debility, advanced Parkinson's disease. And lumbar degenerative disc disease Physical therapy evaluation pending. Neurology consult pending. Ordered: [facility] Care/Day Moderate 35 Minutes 04104 2. Parkinson disease (G20.A1: Parkinson's disease without dyskinesia, without mention of fluctuations) Neurology consult pending. Continue on Parkinson's medications?Sinemet, Requip, entacapone, Pimavanserine Ordered: [facility] Care/Day Moderate 35 Minutes 49017 3. Neuroforaminal stenosis of lumbar spine (M48.061: Spinal stenosis, lumbar region without neurogenic claudication) Supportive care. Neurology to follow. Ordered: [facility] Care/Day Moderate 35 Minutes 79141 4. Unable to care for self (Z78.9: Other specified health status) Secondary to physical deconditioning. Physical therapy evaluation pending. Patient likely will benefit from inpatient physical therapy before safely discharged home. Ordered: [facility] Care/Day Moderate 35 Minutes 92782 5. Anxiety and depression (F41.9: Anxiety disorder, unspecified) Continue on BuSpar, propranolol. Ordered: [facility] Care/Day Moderate 35 Minutes 34516 6. Hypertension (I10: Essential (primary) hypertension) Blood pressure fairly controlled. Continue on propranolol. 7. Obesity (E66.9: Obesity, unspecified) Recommend therapeutic lifestyle modification changes. 8. Encounter for deep vein thrombosis (DVT) prophylaxis (Z29.9: Encounter for prophylactic measures, unspecified) Heparin. Disposition: Pending neurology consult and physical therapy evaluation. I discussed the diagnosis and plan of care with the patient at the bedside. Moderate level of MDM based on addressing above issues. This documentation was transcribed using voice recognition software. Several attempts were made to ensure accuracy. However inadvertent computerized fish house worker errors may be present. Josse Goel. Hospitalist. Orders: potassium chloride, 40 mEq = 2 tab(s), Tab-ER, Oral, Once, Stop date 09/23/23 8:00:00 EDT, Routine, Start date 09/23/23 8:00:00 EDT, 09/23/23 7:08:00 EDT Subjective Seen and examined. Complains of generalized body weakness and aches and pains from tremors. Denies any nausea, vomiting. Denies any fever. Objective Vitals & Measurements T: 36.4 ?C(Oral) TMIN: 36 ?C(Oral) TMAX: 36.5 ?C(Oral) HR: 76(Peripheral) HR: 74(Monitored) RR: 18 BP: 145/76 SpO2: 97% HT: 172.72 cm WT: 84.3 kg Intake & Output No qualifying data available. Physical Exam General: alert, no acute distress Skin: warm, dry Head: no trauma, normocephalic Neck: Trachea midline, no adenopathy, no tenderness Eye: normal conjunctiva, sclera clear ENMT: TM's clear, oral mucosa moist, no pharyngeal erythema or exudate Cardiovascular: regular rate and rhythm, normal peripheral perfusion Respiratory: Lungs CTA, respirations non labored Chest wall: no deformity. Gastrointestinal: soft, non distended, no tenderness, no guarding. Bowel sounds intact. Back: No tenderness, Normal ROM, Normal alignment. Extremities: no deformity, no trauma Neurological: oriented x 4, LOC appropriate for age, CN II-XII intact, resting bilateral upper extremity tremors. Psychiatric: cooperative, affect appropriate for age, normal judgement, normal psychiatric thoughts. Lab Results WBC: 5.7 E9/L (09/23/23 04:47:00) RBC: 4.1 E12/L Low (09/23/23 04:47:00) HGB: 13.4 gm/dL Low (09/23/23 04:47:00) Hct: 39.5 % (09/23/23 04:47:00) MCV: 96 fL (09/23/23 04:47:00) MCH: 32.6 pg (09/23/23 04:47:00) MCHC: 34 gm/dL (09/23/23 04:47:00) RDW: 13.3 % (09/23/23 04:47:00) Platelet: 195 E9/L (09/23/23 04:47:00) MPV: 7.5 fL (09/23/23 04:47:00) Neutro Auto: 59.3 % (09/23/23 04:47:00) Lymph Auto: 26.3 % (09/23/23 04:47:00) Harvey Auto: 9.3 % (09/23/23 04:47:00) Eos Auto: 4.8 % (09/23/23 04:47:00) Basophil Auto: 0.3 % (09/23/23 04:47:00) Neutro Absolute: 3.4 E9/L (09/23/23 04:47:00) Lymph Absolute: 1.5 E9/L (09/23/23 04:47:00) Harvey Absolute: 0.5 E9/L (09/23/23 04:47:00) Eos Absolute: 0.3 E9/L (09/23/23 04:47:00) Basophil Absolute: 0 E9/L (09/23/23 04:47:00) Glucose Lvl: 123 mg/dL (09/23/23 04:47:00) BUN: 20 mg/dL (09/23/23 04:47:00) Creatinine: 0.9 mg/dL (09/23/23 04:47:00) eGFR: 93 mL/min/1.73 m2 (09/23/23 04:47:00) BUN/Creat Ratio: 22 High (09/23/23 04:47:00) Sodi (more content not included)... Normal [facility] Comment on above: Result Comment: Elec tronically Signed By: TONY LAUREN, Paulinofo\.br\Date and Time Signed: 09/23/23 08:43 EDT TSH With T4fr Reflexon 09-22 TSH Qn 1.73 m[IU]/L Normal 0.34-5.60 [facility] Comment on above: Performed By: #### 2 [id number] ####[facility] [address] [place] [address] Troponin 1 Hr.on 09-23-2023 Troponin 4.20 pg/mL Low 15.90-38.40 [facility] Comment on above: Result Comment: The 95% CI (Confidence Interval) PPV (Positive Predictive Value) for myocardial infarction in females is 38 pg/mL, in males 51 pg/mL. The results should be used in conjunction with clinical conditions of myocardial infarction. (Access High Sensitivity Troponin I Instructions For Use, [employer], December 2017) Performed By: #### 1 [id number] ####[facility] [address] [place] [address] Troponin 3 Hr.on 09-23-2023 Troponin 5.40 pg/mL Low 15.90-38.40 [facility] Comment on above: Result Comment: The 95% CI (Confidence Interval) PPV (Positive Predictive Value) for myocardial infarction in females is 38 pg/mL, in males 51 pg/mL. The results should be used in conjunction with clinical conditions of myocardial infarction. (Access High Sensitivity Troponin I Instructions For Use, [employer], December 2017) Performed By: #### 1 [id number] ####[facility] [address] [place] [address] Troponin 6 Hr.on 09-23-2023 Troponin 5.00 pg/mL Low 15.90-38.40 [facility] Comment on above: Result Comment: The 95% CI (Confidence Interval) PPV (Positive Predictive Value) for myocardial infarction in females is 38 pg/mL, in males 51 pg/mL. The results should be used in conjunction with clinical conditions of myocardial infarction. (Aphria High Sensitivity Troponin I Instructions For Use, [employer], December 2017) Performed By: #### 2 [id number] ####[facility] [address] [place] [address] UA with Cult Rflxon 09-23-19 24 Type of Urine collection method Random Urine Normal [facility] Comment on above: Performed By: #### 4 [id number] ####[facility] [address] [place] [address] XR Chest Single Viewon 09-22 XR Chest Single View Exam Date/Time: 09/22/2023 23:22 EDT Reason for Exam: Shortness of breath (SOB) Report IMPRESSION: MINIMAL ATELECTASIS RIGHT BASE. NO EVIDENCE OF CONSOLIDATED AIRSPACE OPACIFICATION. CLINICAL HISTORY: Shortness of breath (SOB). COMPARISON: 02/21/2022. COMMENT: AP portable. The heart is normal in size. The mediastinum is unremarkable. There is minimal atelectasis at the right lung base. No consolidated airspace opacification nor pleural effusion is evident. Ordering Provider: Baldo Martinez FINAL REPORT Dictated: 09/23/2023 10:52 am Charli Alexander M.D. Signed (Electronic Signature): 09/23/2023 10:52 am Signed by: Charli Alexander M.D. Transcribed by: KENNY Technologist: INDIRA Technical Comments Radiation Dose: Ka,r in mGy = na DAP = na Normal [facility] eGFRon 09-23-2023 eGFR 93 mL/min/1.73 m2 Normal >=59 [facility] Comment on above: Order Comment: Order added by Discern Expert. Performed By: #### 2 725448, 3991370, 2264068, 0421506, [id number], [id number], 8656521, [id number] ####[facility] [address] [place] [address] BMPon 09-22-2023 Anion gap [Moles/Vol] 9 mmol/L Normal 6-16 [facility] Comment on above: Performed By: #### 2 820289, 9573751, 75083176, [id number] ####[facility] [address] [place] [address] Calcium [Mass/Vol] 8.9 mg/dL Normal 8.9-11.1 [facility] Comment on above: Performed By: #### 2 820133, 2151059, 35207287, 10858113 ####[facility] [address] [place] [address] Chloride [Moles/Vol] 106 mmol/L Normal 101-111 [facility] Comment on above: Performed By: #### 2 687176, 0415221, 35575541, 24976027 ####[facility] [address] [place] [address] CO2 [Moles/Vol] 27 mmol/L Normal 21-[address] [facility] Comment on above: Performed By: #### 2 823019, 3209549, 96862716, 65086642 ####[facility] [address] [place] [address] Creatinine [Mass/Vol] 0.9 mg/dL Normal 0.5-1.3 [facility] Comment on above: Performed By: #### 2 236382, 1768349, 36253153, 25896751 ####[facility] [address] [place] [address] Glucose [Mass/Vol] 118 mg/dL Normal 55-199 [facility] Comment on above: Performed By: #### 2 427615, 7007367, 26052967, 47836458 ####[facility] [address] [place] [address] Potassium [Moles/Vol] 3.8 mmol/L Normal 3.5-5.3 [facility] Comment on above: Performed By: #### 2 487598, 0329336, 00393504, 50771141 ####[facility] [address] [place] [address] Sodium [Moles/Vol] 138 mmol/L Normal 135-145 [facility] Comment on above: Performed By: #### 2 947040, 1204546, 00921601, 58185857 ####[facility] [address] [place] [address] Urea nitrogen [Mass/Vol] 21 mg/dL Normal 5-21 [facility] Comment on above: Performed By: #### 2 236103, 2857669, 69573596, 34326026 ####[facility] [address] [place] [address] Urea nitrogen/Creatinine [Mass ratio] 23 No Units High 10-20 [facility] Comment on above: Performed By: #### 2 107709, 0644214, 25512620, 63019602 ####[address] [address] CBC w/ Auto Diffon 4 Basophils/100 WBC (Bld) 0.6 % Normal 0.0-2.0 [facility] Comment on above: Performed By: #### 2 487032, 6315661, 63709439, 07478279 ####[facility] [address] [place] [address] Basophils/Leukocytes Auto (Bld) [Pure # fraction] 0.0 E9/L Normal 0.0-0.2 [facility] Comment on above: Performed By: #### 2 512515, 9616845, 60937993, 72572188 ####[address] [place] [address] Eosinophils (Bld) [#/Vol] 0.3 E9/L Normal 0.0-0.5 [facility] Comment on above: Performed By: #### 2 769220, 7533012, 70029529, 18665667 ####[address] [address] Eosinophils/100 WBC (Bld) 3.9 % Normal 0.0-8.0 [facility] Comment on above: Performed By: #### 2 873718, 3799084, 09841863, 98653584 ####[address] [address] Erythrocyte distribution width (RBC) [Ratio] 13.3 % Normal 10.9-14.2 [facility] Comment on above: Performed By: #### 2 466127, 3917771, 62076962, 61268187 ####[address] [address] Hematocrit (Bld) [Volume fraction] 41.6 % Normal 37.7-49.0 [facility] Comment on above: Performed By: #### 2 686162, 9129497, 78134746, 82017313 ####[address] [address] Hemoglobin (Bld) [Mass/Vol] 14.1 g/dL Normal 13.5-17.5 [facility] Comment on above: Performed By: #### 2 222068, 0520576, 76063420, 78044240 ####[address] [address] Lymphocytes (Bld) [#/Vol] 1.4 E9/L Normal 1.0-4.0 [facility] Comment on above: Performed By: #### 2 156185, 5276975, 53974853, 16407262 ####[address] [address] Lymphocytes/100 WBC (Bld) 21.0 % Normal 14.0-50.0 [facility] Comment on above: Performed By: #### 2 705857, 0732666, 06942362, 11275177 ####[facility] [address] [place] [address] MCH (RBC) [Entitic mass] 32.8 pg Normal 27.0-34.0 [facility] Comment on above: Performed By: #### 2 196920, 6775976, 67330668, 54147711 ####[facility] [address] [place] [address] MCHC (RBC) [Mass/Vol] 34.0 g/dL Normal 31.4-36.0 [facility] Comment on above: Performed By: #### 2 852301, 4646993, 84231055, 33817489 ####[address] [address] MCV (RBC) [Entitic vol] 96.5 fL Normal 80.0-100.0 [facility] Comment on above: Performed By: #### 2 783116, 7347480, 59933082, 24884191 ####[address] [address] Monocytes (Bld) [#/Vol] 0.5 E9/L Normal 0.2-1.0 [facility] Comment on above: Performed By: #### 2 709663, 3322635, 60873419, 24434942 ####[facility] [address] [place] [address] Neutrophils (Bld) [#/Vol] 4.3 E9/L Normal 2.0-7.5 [facility] Comment on above: Performed By: #### 2 503473, 4305216, 73914008, 03028657 ####[address] [address] Neutrophils/100 WBC (Bld) 66.4 % Normal 36.0-75.0 [facility] Comment on above: Performed By: #### 2 126336, 2806624, 00940869, 67451433 ####[facility] [address] [place] [address] Platelet 203.0 E9/L Normal 150.0-500.0 [facility] Comment on above: Performed By: #### 2 455107, 7271269, 99653146, 30528907 ####[address] [place] [address] Platelet mean volume (Bld) [Entitic vol] 7.1 fL Normal 6.4-10.8 [facility] Comment on above: Performed By: #### 2 444927, 3104926, 98906013, 49020542 ####[address] [address] RBC (Bld) [#/Vol] 4.3 E12/L Normal 4.3-5.9 [facility] Comment on above: Performed By: #### 2 956516, 0314622, 86722573, 14848071 ####[address] [address] WBC corrected for nucl RBC Auto (Bld) [#/Vol] 6.5 E9/L Normal 4.0-11.0 [facility] Comment on above: Performed By: #### 2 448424, 7594710, 90571243, 32558230 ####[address] [address] CHEMISTRYOrdered By: SYSTEM SYSTEM on 09-22-2023 Troponin 4.20 pg/mL Low 15.90 - 38.40 pg/mL [facility] Comment on above: Interpretive Data: T he 95% CI (Confidence Interval) PPV (Positive Predictive Value) for myocardial infarction in females is 38 pg/mL, in males 51 pg/mL. The results should be used in conjunction with clinical conditions of myocardial infarction. (Access High Sensitivity Troponin I Instructions For Use, [employer], December 2017) Anion gap [Moles/Vol] 9 mmol/L Normal 6 - 16 mEq/L R emisol Chem Calcium [Mass/Vol] 8.9 mg/dL Normal 8.9 - 11. 1 mg/dL [facility] Chloride [Moles/Vol] 106 mmol/L Normal 101 - 1 11 mmol/L [facility] CO2 [Moles/Vol] 27 mmol/L Normal 21 - 31 mmol/L [facility] Creatinine [Mass/Vol] 0.9 mg/dL Normal 0.5 - 1.3 mg/dL [facility] eGFR 93 mL/min/1.73 m2 Normal >=59mL/min /1 .73 m2 [facility] Glucose [Mass/Vol] 118 mg/dL Normal 55 - 199 mg/dL [facility] Potassium [Moles/Vol] 3.8 mmol/L Normal 3.5 - 5.3 mmol/L [facility] Sodium [Moles/Vol] 138 mmol/L Normal 135 - 145 mmol/L [facility] Urea nitrogen [Mass/Vol] 21 mg/dL Normal 5 - 21 mg/dL [facility] Urea nitrogen/Creatinine [Mass ratio] 23 mg/mg High 10 - 20 [facility] Consent for Treatmenton Consent for Treatment [id number] .[id number] Normal [facility] HEMATOLOGYOrdered By: SYSTEM SYSTEM on 09-22-2023 Basophils/100 WBC (Bld) 0.6 % Normal 0.0 - 2.0 % [facility] Basophils/Leukocytes Auto (Bld) [Pure # fraction] 0.0 E9/L Normal 0.0 - 0.2 E9/L [facility] Eosinophils (Bld) [#/Vol] 0.3 E9/L Normal 0.0 - 0.5 E9/L [facility] Eosinophils/100 WBC (Bld) 3.9 % Normal 0.0 - 8.0 % [facility] Erythrocyte distribution width (RBC) [Ratio] 13.3 % Normal 10.9 - 14.2 % [facility] Hematocrit (Bld) [Volume fraction] 41.6 % Normal 37.7 - 49.0 % [facility] Hemoglobin (Bld) [Mass/Vol] 14.1 g/dL Normal 13.5 - 17.5 gm/dL [facility] Lymphocytes (Bld) [#/Vol] 1.4 E9/L Normal 1.0 - 4.0 E9/L [facility] Lymphocytes/100 WBC (Bld) 21.0 % Normal 14.0 - 50.0 % [facility] MCH (RBC) [Entitic mass] 32.8 pg Normal 27.0 - 34.0 pg [facility] MCHC (RBC) [Mass/Vol] 34.0 g/dL Normal 31.4 - 36.0 gm/dL [facility] MCV (RBC) [Entitic vol] 96.5 fL Normal 80.0 - 100.0 fL [facility] Monocytes (Bld) [#/Vol] 0.5 E9/L Normal 0.2 - 1.0 E9/L [facility] Monocytes/100 WBC (Bld) 8.1 % Normal 4.0 - 14.0 % [facility] Neutrophils (Bld) [#/Vol] 4.3 E9/L Normal 2.0 - 7.5 E9/L [facility] Neutrophils/100 WBC (Bld) 66.4 % Normal 36.0 - 75.0 % [facility] Platelet 203.0 E9/L Normal 150.0 - 500.0 E9/L [facility] Platelet mean volume (Bld) [Entitic vol] 7.1 fL Normal 6.4 - 10.8 fL [facility] RBC (Bld) [#/Vol] 4.3 E12/L Normal 4.3 - 5.9 E12/L [facility] WBC corrected for nucl RBC Auto (Bld) [#/Vol] 6.5 E9/L Normal 4.0 - 11.0 E9/L [facility] Pre-Arrival Noteon 4 Pre-Arrival Note Pre-Arrival Summary Name: , [facility] Current Date: 09/22/2023 22:39:41 EDT Gender: Male Date of : Age: 68 Pre-Arrival Type: EMS ETA: 09/22/2023 22:33:00 EDT Primary Care Physician: Presenting Problem: tremors Pre-Arrival User: Argentina Aden RN Referring Source: Location: [place] Completion Date/Time: 09/22/2023 22:29:00 [facility] Emergency Department Pre-Hospital Report Form Vital Signs:142/87 84 20 96%-room air Pre-Hospital Report:pt has parkinson's and tremors are worsening, pt lives alone and not able to care for himself Treatment in Route:20g L wrist Response to Treatment: Misc. Issues: Normal [facility] Troponin 0 Hr.on 09-22-2023 Troponin 4.20 pg/mL Low 15.90-38.40 [facility] Comment on above: Result Comment: The 95% CI (Confidence Interval) PPV (Positive Predictive Value) for myocardial infarction in females is 38 pg/mL, in males 51 pg/mL. The results should be used in conjunction with clinical conditions of myocardial infarction. (Access High Sensitivity Troponin I Instructions For Use, [employer], December 2017) Performed By: #### 2 556117, 4271314, 95922545, [id number] ####[facility] [address] [place] [address] eGFRon 09-22-2023 eGFR 93 mL/min/1.73 m2 Normal >=59 [facility] Comment on above: Order Comment: Order added by Discern Expert. Performed By: #### 2 384564, 1638730, 78187724, 90041400 ####[facility] [address] [place] [address] Discharge Instructionson Discharge Instructions [id number] Normal [facility] CHEMISTRYOrdered By: SYSTEM SYSTEM on 09-19-2023 Anion gap [Moles/Vol] 9 mmol/L Normal 6 - 16 mEq/L R emisol Chem Chloride [Moles/Vol] 106 mmol/L Normal 101 - 1 11 mmol/L [facility] CO2 [Moles/Vol] 28 mmol/L Normal 21 - 31 mmol/L [facility] Potassium [Moles/Vol] 3.8 mmol/L Normal 3.5 - 5.3 mmol/L [facility] Sodium [Moles/Vol] 139 mmol/L Normal 135 - 145 mmol/L [facility] Discharge Note-Nursingon Discharge Note-Nursing ELVER MENA :1955 Visit Date:09/17/2023 Inpatient Discharge Instructions Your Care Team Admitting Physician - Jesu BERNAL DO Consulting Physician - Bo Rossi MD Reason for Your Visit worsening parkinsons symptoms for last three months. auditory, visual, and tactile hallucinations. is also feeling anxious. pain in all my muscles and all my joints . came in he feels like parkinsons meds werent working Your Diagnosis Parkinsons disease Unable to care for self Anxiety HTN (hypertension) Chronic GERD Depression with anxiety Obesity On deep vein thrombosis (DVT) prophylaxis Anxiety Medical problem - minor Tests Performed MRI Spine Lumbar w/o Contrast MRI Spine Thoracic w/o Contrast This Is Your Medications List acetaminophen (acetaminophen 325 mg Tab) busPIRone (busPIRone 5 mg Tab) carbidopa-levodopa (carbidopa-levodopa 25 mg-100 mg ER Tab) cyclobenzaprine (cyclobenzaprine 5 mg Tab) entacapone (entacapone 200 mg Tab) pimavanserin (pimavanserin 34 mg oral capsule) propranolol (propranolol 80 mg Cap-ER) ropinirole (Requip 1 mg Tab) [Image Removed: STOP]Stop taking these medications hydrOXYzine (hydrOXYzine hydrochloride 25 mg Tab) Procedure History Hernia repair. Discharge Vitals Temperature (Axillary) 36.8 ?C Heart Rate (Monitored) 75 Blood Pressure 124/69 Weight 84.9 kg What to do next Instructions From Your Doctor Event Name Event Result Discharge Activity Ambulate as tolerated, Activity as tolerated Discharge Restrictions No driving Discharge Diet(s) Regular, Fat Modified- 50 gram, Low Sodium- 2000 mg Pending Diagnostic Test Results None Pharmacy Information [facility] Discharge Instructions Follow up appts as writtenPlease consider outpt. OPPT - if you change your mind please discuss with your PCP New Follow Up Appointments after Discharge Follow Up with Isabelle Julian When: Within 2 to 4 days Where: [address], [address] [place] [address]- Business (1) Follow Up with Flo LAUREN, YADI Soriano When: Within 2 to 4 weeks Where: [facility] [address] [place] [address]- Medications What How Much When Instructions Next Dose New acetaminophen (acetaminophen 325 mg Tab) 2 Tablets By Mouth Every 6 hours as needed for Pain 09/18 New cyclobenzaprine (cyclobenzaprine 5 mg Tab) 1 Tablets By Mouth 3 times a day [facility]up at [id number] 09/18 Changed busPIRone (busPIRone 5 mg Tab) 2 Tablets By Mouth Every 8 hours Pickup at [facility] #[id number] 09/18 @ 6pm Changed entacapone (entacapone 200 mg Tab) 1 Tablets By Mouth Every 4 hours 09/18 @ noon Unchanged carbidopa-levodopa (carbidopa-levodopa 25 mg-100 mg ER Tab) 2 Tablets By Mouth Every 4 hours 09/18 @ noon Unchanged pimavanserin (pimavanserin 34 mg oral capsule) 1 Capsules By Mouth Every day 09/19 @ 9am Unchanged propranolol (propranolol 80 mg Cap-ER) 1 Capsules By Mouth Every day 09/19 @ 9am Unchanged ropinirole (Requip 1 mg Tab) 1 Tablets By Mouth 6 times a day 09/18 @ noon Pharmacy Information [facility] #[id number]: [address] [place] [place], [place] [id number] [phone] What How Much When Comments Stop Taking hydrOXYzine (hydrOXYzine hydrochloride 25 mg Tab) 1 Tablets By Mouth 3 times a day as needed for Anxiety Test Results CBC BMP WBC: 5.8 E9/L (09/17/23 21:22:00) Glucose Lvl: 117 mg/dL (09/17/23 21:22:00) RBC: 4.3 E12/L (09/17/23 21:22:00) BUN: 26 mg/dL High (09/17/23 21:22:00) HGB: 14.4 gm/dL (09/17/23 21:22:00) Creatinine: 1 mg/dL (09/17/23 21:22:00) Hct: 42.4 % (09/17/23 21:22:00) BUN/Creat Ratio: 26 High (09/17/23 21:22:00) MCV: 97.5 fL (09/17/23 21:22:00) Sodium Lvl: 139 mmol/L (09/19/23 05:49:00) MCH: 33.1 pg (09/17/23:22:00) Potassium Lvl: 3.8 mmol/L (09/19/23 05:49:00) MCHC: 34 gm/dL (09/17/23:22:00) Chloride: 106 mmol/L (09/19/23 05:49:00) RDW: 13.2 % (09/17/23:22:00) CO2: 28 mmol/L (09/19/23 05:49:00) Platelet: 229 E9/L (09/17/23:22:00) AGAP: 9 mEq/L (09/19/23 05:49:00) MPV: 7.5 fL (09/17/23 21:22:00) Calcium Lvl: 9.1 mg/dL (09/17/23 21:22:00) Allergies No Known Allergies Problems Ongoing - Any problem that you are currently receiving treatment for. Alcohol use Anxiety Chronic GERD Depression with anxiety Mclaughlin catheter status BETTY (generalized anxiety disorder) HTN (hypertension) Hypertension Parkinsons Restless leg syndrome Vitamin B12 deficiency Vitamin D deficiency Historical - Any problem that you are no longer receiving treatment for. Parkinson's disease Resting tremor Education Materials Parkinson's Disease Parkinson's disease causes problems with movements. It makes it harder for you to walk or control your body. It is a long-term condition. It gets worse over time. What are the causes? This condition is caused by a loss of brain cells (more content not included)... Normal [facility] Inpatient Clinical Summaryon 09-19-2023 Inpatient Clinical Summary [address] [address] Clinical Summary Person Information: Name: ELVER MENA Age: 68 Years : 1955 Sex: Male PCP: Isabelle Julian DO Marital Status: Phone: [phone] Race: White Ethnicity: Non- or Language: Samoan Visit Id: Visit Reason: Medical problem - minor; Anxiety; ANXIETY Speciality: Acuity: Enc Type: Inpatient Med Service: Medical Arrival: 09/17/2023 20:56:13 Discharge: Dispo Type: Admitted as IP to this Hosp Address: [address] [place] [phone] Provider Notes: Diagnosis: 1:Parkinsons disease; 2:Unable to care for self; 3:Anxiety; 4:HTN (hypertension); 5:Chronic GERD; 6:Depression with anxiety; 7:Obesity; 8:On deep vein thrombosis (DVT) prophylaxis Problems Active Hypertension Depression with anxiety Vitamin B12 deficiency Vitamin D deficiency BETTY (generalized anxiety disorder) Mclaughlin catheter status Alcohol use Parkinsons Anxiety Restless leg syndrome Chronic GERD HTN (hypertension) Smoking Status: Never Smoker Functional Status: Sensory Deficits: History of Falls: Within last one year Mobility Assistance Prior to Admission: Independent ADLs: Moderate assistance Current Level of Assistance for Self-Care/Mobility: Cognitive Status: Oriented x 3 Allergies No Known Allergies Measurements: Height: 172.72 cm Weight: 84.9 kg Blood Pressure: 124 mmHg / 69 mmHg BMI: 30.24 kg/m2 Procedures No Procedures Documented Immunizations No Immunizations Documented This Visit Final Med List: acetaminophen (acetaminophen 325 mg Tab) 2 Tablets By Mouth every 6 hours as needed Pain. busPIRone (busPIRone 5 mg Tab) 2 Tablets By Mouth every 8 hours. Refills: 0. carbidopa-levodopa (carbidopa-levodopa 25 mg-100 mg ER Tab) 2 Tablets By Mouth every 4 hours. cyclobenzaprine (cyclobenzaprine 5 mg Tab) 1 Tablets By Mouth 3 times a day. Refills: 0. entacapone (entacapone 200 mg Tab) 1 Tablets By Mouth every 4 hours. pimavanserin (pimavanserin 34 mg oral capsule) 1 Capsules By Mouth every day. propranolol (propranolol 80 mg Cap-ER) 1 Capsules By Mouth every day. ropinirole (Requip 1 mg Tab) 1 Tablets By Mouth 6 times a day. Care Team Members: Attending Physician: Jesu BERNAL DO Consulting Physician: Bo Rossi MD Referring Physician: Follow up: With: Address: When: Isabellealvaro Julian [address] [place] [address] Business (1) Within 2 to 4 days With: Address: When: Bo Rossi MD, [facility] [address] [place] [address] Within 2 to 4 weeks Patient Education Information: Parkinson's Disease, Bkbl-oh-Ccpg Normal [facility] Inpatient Patient Summaryon 09-19-2023 Inpatient Patient Summary [address] [address] Patient Discharge Instructions PERSON INFORMATION Name: ELVER MENA Date of : 1955 Current Date: 09/19/2023 11:05:44 PHYSICIANS Admitting Physician: Jesu BERNAL DO Primary Care Physician: Isabelle Julian DO PCP Comment: Discharge Diagnosis: 1:Parkinsons disease; 2:Unable to care for self; 3:Anxiety; 4:HTN (hypertension); 5:Chronic GERD; 6:Depression with anxiety; 7:Obesity; 8:On deep vein thrombosis (DVT) prophylaxis Condition at Discharge: Stable ELVER MENA has been given the following list of follow-up instructions, prescriptions, and patient education materials: PATIENT FOLLOW-UP INFORMATION Diet: Regular, Fat Modified- 50 gram, Low Sodium- 2000 mg Discharge Activity: Ambulate as tolerated, Activity as tolerated Discharge Restrictions: No driving Wound Care Instructions: Remove Your Dressing In Days Call Your Doctor For: IF UNABLE TO CONTACT YOUR PHYSICIAN AND YOU FEEL IT IS AN EMERGENCY, GO TO THE NEAREST EMERGENCY ROOM OR CALL 911 Home Treatment: Devices/Equipment: Cane Special Services: Additional Instructions: Follow up appts as written Please consider outpt. OPPT - if you change your mind please discuss with your PCP Primary Care Physician to provide the following pending test results: None Follow up: With: Address: When: Isabelle Julian [address] [place] [address] Business (1) Within 2 to 4 days With: Address: When: Flo LAUREN, Bo [facility] [address] [place], [facility] Within 2 to 4 weeks In the event that this physician does not participate in your insurance network, please consult with your insurance company to find a nearby participating provider. Comment: RAJESH Linton KRIS, have received the attached patient education materials/instruction s and have verbalized understanding: Patient Signature Date Clinican/Nurse Signature Date HERE ARE THE MEDICATION CHANGES THAT OCCURRED DURING YOUR HOSPITAL STAY New Medications [facility] #[id number], [address] [place] [phone], [phone] cyclobenzaprine (cyclobenzaprine 5 mg Tab) 1 Tablets By Mouth 3 times a day. Refills: 0. Last Dose: ____Next Dose: ____ Other Medications acetaminophen (acetaminophen 325 mg Tab) 2 Tablets By Mouth every 6 hours as needed Pain. Last Dose: ____Next Dose: ____ Medications to Continue Taking That Have Changed [facility] [facility] [id number], [address] [place] [phone], [phone] START: busPIRone (busPIRone 5 mg Tab) 2 Tablets By Mouth every 8 hours. Refills: 0. Last Dose: ____Next Dose: ____ STOP: busPIRone (busPIRone 10 mg Tab) 0.5 Tablets By Mouth every 4 hours. STOP: busPIRone (busPIRone 5 mg Tab) 1 Tablets By Mouth every 4 hours. Other Medications START: entacapone (entacapone 200 mg Tab) 1 Tablets By Mouth every 4 hours. Last Dose: ____Next Dose: ____ STOP: entacapone (entacapone 200 mg Tab) 1 Tablets By Mouth 6 times a day. Medications to Continue with No Changes Other Medications carbidopa-levodopa (carbidopa-levodopa 25 mg-100 mg ER Tab) 2 Tablets By Mouth every 4 hours. Last Dose: ____Next Dose: ____ pimavanserin (pimavanserin 34 mg oral capsule) 1 Capsules By Mouth every day. Last Dose: ____Next Dose: ____ propranolol (propranolol 80 mg Cap-ER) 1 Capsules By Mouth every day. Last Dose: ____Next Dose: ____ ropinirole (Requip 1 mg Tab) 1 Tablets By Mouth 6 times a day. Last Dose: ____Next Dose: ____ No Longer Take the Following Medications hydrOXYzine (hydrOXYzine hydrochloride 25 mg Tab) 1 Tablets By Mouth 3 times a day as needed Anxiety. Comment: MEDICATION LIST PROVIDED FOR YOU IS A LIST OF YOUR CURRENT MEDICATIONS. PLEASE CARRY THIS WITH YOU AT ALL TIMES. acetaminophen (acetaminophen 325 mg Tab) 2 Tablets By Mouth every 6 hours as needed Pain. busPIRone (busPIRone 5 mg Tab) 2 Tablets By Mouth every 8 hours. Refills: 0. carbidopa-levodopa (carbidopa-levodopa 25 mg-100 mg ER Tab) 2 Tablets By Mouth every 4 hours. cyclobenzaprine (cyclobenzaprine 5 mg Tab) 1 Tablets By Mouth 3 times a day. Refills: 0. entacapone (entacapone 200 mg Tab) 1 Tablets By Mouth every 4 hours. pimavanserin (pimavanserin 34 mg oral capsule) 1 Capsules By Mouth every day. propranolol (propranolol 80 mg Cap-ER) 1 Capsules By Mouth every day. ropinirole (Requip 1 mg Tab) 1 Tablets By Mouth 6 times a day. Pharmacy Information: [facility] (more content not included)... [facility] Interdisciplinary Note - Skip e Manageron 09-19-2023 Interdisciplinary Note - Deboning Team Leader CRM spoke with patient in room. Patient is alert and oriented and participates in discharge planning. No family in room. Patient white board updated, and CRM contact information provided. Discussed CRM spoke with Karissa ALVAREZ who saw patient earlier today and was waiting PT recommendations today as he was up in room with walker alone and doing well. Per PT H/H at this time. Patient is agreeable and will cancel SNF referral to TCU. Discussed H/H agencies and he [place] [facility] [place] [facility] if [facility]. Will dc today. Patient denies any other needs at discharge. friend will transport. Reviewed Medicare rights, he denies any questions. Gave him a copy of signed form. [facility] had no opening until Friday, referral sent to [facility] H/h and patient is aware but does not want to wait for acceptance. CRM will call him with once known if [facility] accepts. 1203- [facility] H/H accepts and RN made aware. Patient was already discharged. CRM attempted to landon patient to let him know [facility] H/H accepted, no answer and left a voice message with this information and CRM contact #. [facility] Comment on above: Result Comment: Elec tronically Signed By: Khris MARIANO, Suha\.br\Date and Time Signed: 09/19/23 13:35 EDT Interdisciplinary Note - Deboning Team Leader CRM to room to discuss DC planning. Patient is awake, alert and oriented. Patient is here with Anxiety/ worse Parkinson symptoms. Patient signed medicare form. Patient verified PCP, home DME and insurance. Patient is assigned to Karissa LINEN FOLDER, see notes. Per Karissa med adjustments with neuro today. patient was evaluated by PT/OT with SNF recs. Patient choice is TCU. Patient was provided CRM contact, white board updated. CRM following Normal [facility] Comment on above: Result Comment: Elec tronically Signed By: Adele Vasquez\.br\Date and Time Signed: 09/19/23 07:17 EDT [place] 09-19-2023 Anion gap [Moles/Vol] 9 mmol/L Normal 6-16 [facility] Comment on above: Performed By: #### [id number] ####[facility] [address] [place] [address] Chloride [Moles/Vol] 106 mmol/L Normal 101-111 [facility] Comment on above: Performed By: #### 2 [id number] ####[facility] [address] [place] [address] CO2 [Moles/Vol] 28 mmol/L Normal 21-[address] [facility] Comment on above: Performed By: #### 2 [id number] ####[facility] [address] [place] [address] Potassium [Moles/Vol] 3.8 mmol/L Normal 3.5-5.3 [facility] Comment on above: Performed By: #### 2 [id number] ####[facility] [address] [place] [address] Sodium [Moles/Vol] 139 mmol/L Normal 135-145 [facility] Comment on above: Performed By: #### 2 [id number] ####[facility] [address] [place] [address] CHEMISTRYOrdered By: SYSTEM SYSTEM on 09-18-2023 Folate [Mass/Vol] 19.2 ng/mL Normal >=6.7ng/mL Remisol Chem Consultation Noteon 09-18-19 24 Consultation Note Chief Complaint worsening parkinsons symptoms for last three months. auditory, visual, and tactile hallucinations. is also feeling anxious. pain in all my muscles and all my joints . came in he feels like parkinsons meds werent working Reason for Consultation Exacerbation Parkinsons History of Present Illness Patient is a 68-year-old male who I was asked to see in neurological consultation for exacerbation Parkinsons. The patient has a past medical history of neurodegenerative disease diagnosis Parkinson's disease for the past 16 years, hypertension, and history of alcohol use. The patient sees Dr. Lind in the adult outpatient neurology clinic. The patient recently has had some adjustments to his medication. The patient currently takes Sinemet and Comtan 6 times daily in addition to Requip 6 times daily. The patient reports auditory, visual, and tactile hallucinations which have been improved with Nuplazid. The patient states that over the past 2 days he has had difficulty with ambulating due to loss of coordination and volitional movement of his legs. The patient does have a history of degenerative spine disease and history of compression fractures in the cervical spine. The patient denies any bowel or bladder symptoms. The patient denies any significant worsening of his tremors. The patient does have significant bilateral tremors. Review of Systems Constitutional: no fever, no chills, no sweats, no weakness Respiratory: no shortness of breath, no cough, no orthopnea, no wheezing Cardiovascular: no chest pain, no palpitations, no edema Additional ROS info: Except as noted in the above Review of Systems and in the History of Present Illness all other systems have been reviewed and are negative or noncontributory. Physical Exam Vitals & Measurements T: 36.3 ?C(Oral) TMIN: 36.3 ?C(Oral) TMAX: 36.6 ?C(Oral) HR: 72(Monitored) RR: 18 BP: 143/76 SpO2: 97% HT: 172.72 cm WT: 90.2 kg The patient is awake and alert. The patient is oriented x3. Language is intact including comprehension and fluency, fund of knowledge is intact, memory is intact. Cranial nerves: Pupils are equal round and reactive to light and accommodation, extraocular movements intact, visual rodriguez are full to confrontation, face is symmetric bilaterally, sensations intact in the face, palate elevates bilaterally, tongue protrudes midline, hearing is intact to finger rub, shoulder shrug is symmetric. Motor exam: Strength testing is 5 out of 5 MRC scale strength in all 4 extremities. Deep tendon reflexes are absent to the lower extremities 0 and symmetric. Tone is normal throughout. Plantar reflexes flexor bilaterally. Sensory exam: Sensations intact to light touch and pinprick sensation in all 4 extremities. Cerebellar exam: [id number] reveals no ataxia. Gait is deferred. Assessment/Plan The patient is a 68-year-old male with advanced Parkinson's disease on multiple medications for control of extraparametal symptoms who has developed increasing difficulty with ambulation predominantly due to incoordination with the lower extremities. The patient has absent reflexes in the lower extremities possibly due to a peripheral nerve process such as polyradiculopathy. The patient does have reported history of degenerative lumbar spine disease. I am concerned about an intraspinal canal lesion in the lumbar spine contributing to his current symptoms superimposed upon extraparametal symptoms with increased difficulty ambulating. I recommend obtaining an MRI of the lumbar spine to assess for degenerative spine disease. I will consider an MRI of the thoracic spine to assess for an intraspinal canal lesion which may affect the lower extremities. The patient would benefit from evaluation by physical therapy and Occupational Therapy to assess for therapy and rehab needs. I will continue the patient's current medications at the current doses. I will make further recommendations based upon clinical course and the above evaluation. 1. Parkinsons disease (G20: Parkinson's disease) 2. Unable to care for self (Z78.9: Other specified health status) 3. Anxiety (F41.9: Anxiety disorder, unspecified) 4. HTN (hypertension) (I10: Essential (primary) hypertension) 5. On deep vein thrombosis (DVT) prophylaxis (Z79.899: Other shelter (current) drug therapy) Problem List/Past Medical History Ongoing Alcohol use Anxiety Chronic GERD Depression with anxiety Mclaughlin catheter status BETTY (generalized anxiety disorder) HTN (hypertension) Hypertension Parkinsons Restless leg syndrome Vitamin B12 deficiency Vitamin D deficiency Historical Parkinson's disease Resting tremor Procedure/Surgical History Hernia repair. Medications Inpatient acetaminophen 325 mg Tab, 650 mg= 2 tab(s), Oral, q6hr, PRN Benadryl 25 mg Cap, 25 mg= 1 cap(s), Oral, q6hr, PRN busPIRone 5 mg Tab, 10 mg= 2 tab(s), Oral, q8hr carbidopa-levodopa 25 mg-100 mg ER Tab, 2 tab(s), Oral, q4hr cyclobenzaprine 10 mg T (more content not included)... Normal [facility] Comment on above: Result Comment: Elec tronically Signed By: Marta Delarosa RN\.br\Date and Time Signed: 09/18/23 11:18 EDT\.br\Electronically Co-Signed By: Bo Rossi MD\.br\Date and Time Co-Signed: 09/18/23 12:33 EDT ED Clinical Summaryon 2023 ED Clinical Summary [address] [address] ED Clinical Summary Person Information Name: ELVER MENA/[facility] Age: 68 Years : 1955 Sex: Male Language: Samoan PCP: Isabelle Julian DO Marital Status: Phone: [phone] Visit Id: Visit Reason: Medical problem - minor; Anxiety; ANXIETY Speciality: Acuity: 3 Enc Type: Inpatient Med Service: Emergency Arrival: 09/17/2023 20:56:13 Discharge: LOS: 000 03:30 Checkin: 09/17/2023 20:56:13 Checkout: 09/18/2023 00:26:26 Dispo Type: Admitted as IP to this [facility] EVENTS: Event Name Event Status Request Date/Time Start Date/Time Complete Date/Time Arrive Complete 09/17/2023 20:56:13 09/17/2023 20:56:13 09/17/2023 20:56:13 Document Home Meds Request 09/17/2023 20:56:13 Triage Complete 09/17/2023 20:56:13 09/17/2023 21:04:48 09/17/2023 21:04:48 Bed Assign Complete 09/17/2023 20:56:13 09/17/2023 20:56:13 09/17/2023 20:56:13 Dr Exam Complete 09/17/2023 20:56:13 09/17/2023 20:58:45 09/17/2023 20:58:45 RN Exam Complete 09/17/2023 20:56:13 09/17/2023 21:09:51 09/17/2023 21:09:51 Registration Complete 09/17/2023 20:58:45 09/17/2023 21:04:49 09/17/2023 21:04:49 Dr Exam Complete 09/17/2023 21:02:27 09/17/2023 21:02:27 09/17/2023 21:02:27 Reg Complete Request 09/17/2023 21:04:49 Reg Bed Request Complete 09/17/2023 21:04:50 09/17/2023 21:04:50 09/17/2023 21:04:50 Fall Risk Request 09/17/2023 21:09:52 Patient Care Complete 09/17/2023 21:10:15 09/17/2023 21:32:36 Pending Labs Complete 09/17/2023 21:10:15 09/17/2023 21:47:10 Lab Complete 09/17/2023 21:10:15 09/17/2023 21:47:10 Pending Labs Complete 09/17/2023 21:28:07 09/17/2023 21:28:07 09/17/2023 21:47:10 Lab Complete 09/17/2023 21:28:07 09/17/2023 21:28:07 09/17/2023 21:47:10 Pending Labs Complete 09/17/2023 21:29:03 09/17/2023 21:29:03 09/17/2023 21:29:04 Pending Labs Cancel 09/17/2023 22:22:33 09/17/2023 22:58:52 Lab Cancel 09/17/2023 22:22:33 09/17/2023 22:58:52 Meds Admin Complete 09/17/2023 22:22:59 09/17/2023 22:39:27 Consult Request 09/17/2023 22:53:19 Hospitalist Consult Request 09/17/2023 22:53:19 Pending Labs Cancel 09/17/2023 22:54:27 09/17/2023 22:58:52 Lab Cancel 09/17/2023 22:54:27 09/17/2023 22:58:52 Bed Request Request 09/17/2023 22:56:08 Reg Bed Request Complete 09/17/2023 22:56:08 09/17/2023 23:04:03 09/17/2023 23:04:03 Admit Request 09/17/2023 22:56:08 Pending Labs Complete 09/17/2023 23:00:07 09/17/2023 23:00:07 09/17/2023 23:51:20 Lab Complete 09/17/2023 23:00:07 09/17/2023 23:00:07 09/17/2023 23:51:20 Patient Care Request 09/17/2023 23:04:03 Patient Care Request 09/17/2023 23:04:03 Patient Care Request 09/17/2023 23:04:03 Patient Care Request 09/17/2023 23:04:04 Patient Care Request 09/17/2023 23:04:04 Patient Care Request 09/17/2023 23:04:04 Meds Admin Request 09/17/2023 23:16:18 ADDRESS: [address] [place] [phone] [facility] DOC NOTES: MEDICAL INFORMATION: Prescriptions Given: Medications to Continue with No Changes Other Medications busPIRone (busPIRone 10 mg Tab) 0.5 Tablets By Mouth every 4 hours. carbidopa-levodopa (carbidopa-levodopa 25 mg-100 mg ER Tab) 2 Tablets By Mouth every 4 hours. entacapone (entacapone 200 mg Tab) 1 Tablets By Mouth 6 times a day. hydrOXYzine (hydrOXYzine hydrochloride 25 mg Tab) 1 Tablets By Mouth 3 times a day as needed Anxiety. propranolol (propranolol 80 mg Cap-ER) 1 Capsules By Mouth every day. ropinirole (Requip 1 mg Tab) 1 Tablets By Mouth 6 times a day. PATIENT EDUCATION INFORMATION: Instructions: Follow up: DIAGNOSIS: 1:Parkinsons disease; 2:Unable to care for self Normal [facility] ED Note-Physicianon 09-18-19 ED Note-Physician Basic Information Time Seen: Sabrina Bermudez PA-C 09/17/2023 20:58 Chief Complaint worsening parkinsons symptoms for last three months. auditory, visual, and tactile hallucinations. is also feeling anxious. pain in all my muscles and all my joints . came in he feels like parkinsons meds werent working History of Present Illness 68-year-old male past medical history of Parkinson's disease presents by squad because his medications did not last long enough and he is in a frozen episode earlier than expected. He states that this created anxiety. He states that he can only move his left arm not his right arm or legs. He states usually when he is in an unfrozen episode, he can move all extremities. He does suffer from hallucinations. He is not having any new symptoms. He sees Dr. Lind for neurologist. Denies weakness, abdominal or back pain, n/v/d, dysuria, shortness of breath or chest pain Review of Systems Review of systems negative unless otherwise stated in HPI Physical Exam Vitals & Measurements T: 36.6 ?C(Oral) HR: 75(Peripheral) RR: 18 BP: 122/83 SpO2: 91% HT: 175 cm WT: 94.8 kg BMI: 30.96 GENERAL: ALERT, NO ACUTE DISTRESS, talking in full complete sentences SKIN: WARM, DRY, INTACT; NO CYANOSIS, NO RASH HEAD: NORMOCEPHALIC, ATRAUMATIC ENT: EYE: PERRL, EOMI, NORMAL CONJUNCTIVA, NO DISCHARGE, NO NYSTAGMUS NOSE: NARES PATENT MOUTH: ORAL MUCOSA MOIST THROAT: NO STRIDOR NECK: SUPPLE, TRACHEA MIDLINE, FROM without pain CARDIOVASCULAR: RRR, NO MURMUR, +S1, +S2 RESPIRATORY: LUNGS CTA, NON-LABORED RESPIRATIONS, BS EQUAL, SYMMETRICAL EXPANSION, NO RHONCHI, WHEEZES, RALES, NO STRIDOR, NO RETRACTIONS EXTREMITIES: FROM LUE, resting tremor NEUROLOGICAL: A&OX3 PSYCHIATRIC: COOPERATIVE, APPROPRIATE MOOD AND AFFECT Medical Decision Making No significant lab normalities. Patient states that he usually just sits at home until the freezing episodes wear off. He states that since his medications arent allowing him to have off periods, he cannot take care of himself and wishes to be admitted to the hospitalist. Case discussed with the hospitalist who will come down and see the patient prior to accepting. Hospitalist accepts patient for admission. Vitamin B12 and magnesium pending at time of admission. Assessment/Plan 1. Parkinsons disease (G20: Parkinson's disease) 2. Unable to care for self (Z78.9: Other specified health status) Orders: ketorolac, 15 mg = 1 mL, Injection, IV Push, Once, Stop date 09/17/23 22:22:00 EDT, STAT, Start date 09/17/23 22:22:00 EDT, 09/17/23 22:22:00 EDT orphenadrine, 60 mg = 2 mL, Injection, IV Push, Once, Stop date 09/17/23 22:22:00 EDT, STAT, Start date 09/17/23 22:22:00 EDT, 09/17/23 22:22:00 EDT Basic Metabolic Panel CBC w/ Auto Diff ED Physician consult Hospitalist for continued care eGFR Extra Blue Tube Extra SST Tube Saline Lock Insert Vitamin B12 Level Medications Administered Given ketorolac 15 mg/mL Inj, 15 mg, IV Push orphenadrine 30 mg/mL Inj, 60 mg, IV Push Disposition Plan Patient Discharge Condition Stable Discharge Disposition Admit to hospitalist Discharge Prescription List Prescriptions No active prescription medications Follow-up No qualifying data available Attestation I performed a substantive part of the MDM during the patient?s E/M visit. I personally made or approved the documented management plan and acknowledge its risk of complications. (Independent Interpretation) My (EKG/X-Ray/US/CT) interpretation as above. (Discussion) Management/test interpretation discussed with APC. Problem List/Past Medical History Ongoing Alcohol use Anxiety Chronic GERD Depression with anxiety Mclaughlin catheter status BETTY (generalized anxiety disorder) HTN (hypertension) Hypertension Parkinsons Restless leg syndrome Vitamin B12 deficiency Vitamin D deficiency Historical Parkinson's disease Resting tremor Procedure/Surgical History Hernia repair. Medications Inpatient No active inpatient medications Home busPIRone 10 mg Tab, 5 mg= 0.5 tab(s), Oral, q4hr carbidopa-levodopa 25 mg-100 mg ER Tab, 2 tab(s), Oral, q4hr entacapone 200 mg Tab, 200 mg= 1 tab(s), Oral, 6x/Day hydrOXYzine hydrochloride 25 mg Tab, 25 mg= 1 tab(s), Oral, TID, PRN propranolol 80 mg Cap-ER, 80 mg= 1 cap(s), Oral, Daily Requip 1 mg Tab, 1 mg= 1 tab(s), Oral, 6x/Day Allergies No Known Allergies Social History Alcohol - Denies Alcohol Use, 06/18/2021 Current, Beer, 1-2 times per week, Alcohol use interferes with work or home: No. Drinks more than intended: No. Others hurt by drinking: No. Ready to change: No. Household alcohol concerns: No., 06/18/2021 Current, Beer, Daily, 08/25/2015 Substance Abuse - Denies Substance Abuse, 08/25/2015 IV drug use: No. Drug use interferes with work/home: No. Ready to change: No. Household substance abuse concerns: No., 06/18/2021 Tobacco - Denies Tobacco Use, 08/25/2015 Family History Pancreas: (more content not included)... Normal [facility] Comment on above: Result Comment: Elec tronically Signed By: Sabrina Bermudez PA-C\.br\Date and Time Signed: 09/17/23 22:54 EDT\.br\Electronically Co-Signed By: Sabrina Bermudez PA-C\.br\Date and Time Co-Signed: 09/17/23 22:54 EDT\.br\Electronically Co-Signed By: Marisela Rachel DO\.br\Date and Time Co-Signed: 09/18/23 02:12 EDT ED Patient Education Noteon 09-18-2023 ED Patient Education Note Normal [facility] ED Patient Summaryon 024 ED Patient Summary [place] [address] Patient Discharge Instructions Person Information Name: ELVER MENA Age: 68 Years Arrival Date: 09/17/2023 20:56:13 Discharge Diagnosis: 1:Parkinsons disease; 2:Unable to care for self Primary Care Physician: Isabelle Julian DO Provider Information Primary Provider: Marisela Rachel DO Advanced Hand Packer:None The exam and treatment you received in the Emergency Department were for an urgent problem and are not intended as complete care. It is important that you follow up with a doctor, nurse practitioner, or physician?s title assistant for ongoing care. If your symptoms become worse or you do not improve as expected and you are unable to reach your usual health care provider, you should return to the Emergency Department. We are available 24 hours a day. ELVER MENA has been given the following list of patient education materials, prescriptions and follow-up instructions: Follow-up Instructions: In the event that this physician does not participate in your insurance network, please consult with your insurance company to find a nearby participating provider. Patient Education Materials: A MESSAGE TO ALL PATIENTS REGARDING OPIOIDS PRESCRIPTION OPIOIDS: WHAT YOU NEED TO KNOW Prescription opioids can be used to help relieve ozlrabno-no-eqlijc pain and are often prescribed following a surgery or injury, or for certain health conditions. These medications can be an important part of the treatment but also come with serious risks. It is important to work with your healthcare provider to make sure you are getting the safest, most effective care. WHAT ARE THE RISKS AND SIDE EFFECTS OF OPIOID USE? Prescription opioids carry serious risks of addiction and overdose, especially with prolonged use. An opioid overdose, often marked by slowed breathing, can cause sudden . The use of prescription opioids can have a number of side effects as well, even when taken as directed: ? Tolerance?meaning you might need to take more of the medication for the same pain relief ? Physical dependence?meaning you have symptoms of withdrawal when a medication is stopped ? Increased sensitivity to pain ? Constipation ? Nausea, vomiting, and dry mouth ? Sleepiness and dizziness ? Confusion ? Depression ? Low levels of testosterone that can result in lower sex drive, energy, and strength ? Itching and sweating RISKS ARE GREATER WITH: ? History of drug misuse, substance use disorder, or overdose ? Mental health conditions (such as depression or anxiety) ? Sleep apnea ? Older age (65 years and older) ? Avoid alcohol while taking prescription opioids. Also, unless specifically advised by your health care provider, medications to avoid include: ? Benzodiazepines (such as Xanax or Valium) ? Muscle relaxants (such as Soma or Flexeril) ? Hypnotics (such as Ambien or Lunesta) ? Other prescription opioids KNOW YOUR OPTIONS Talk to your health care provider about ways to manage your pain that don?t involve prescription opioids. Some of these options may actually work better and have fewer risks and side effects. Options may include: ? Pain relievers such as acetaminophen, ibuprofen, and naproxen ? Some medication that are also used for depression or seizures ? Physical therapy and exercise ? Cognitive behavioral therapy, a psychological, goal-directed approach, in which patients learn how to modify physical, behavioral, and emotional triggers of pain and stress. IF YOU ARE PRESCRIBED OPIOIDS FOR PAIN: ? Never take opioids in greater amounts or more often than prescribed. ? Follow up with your primary health care provider. o Work together to create a plan on how to manage your pain. o Talk about ways to help manage your pain that don?t involve prescription opioids. o Talk about any and all concerns and side effects. ? Help prevent misuse and abuse o Never sell or share prescription opioids. o Never use another person?s prescription opioids. ? Store prescription opioids in a secure place and out of reach of others (this may include visitors, children, friends, and family). ? Safely dispose of unused prescription opioids: Find your community drug take-back program or your pharmacy mail-back program, or flush them down the toilet, following guidance from the Food and Drug Administration (www.fda.gov/Drugs/Re sourcesForYou). ? Visit www.cdc.gov/drugoverd ose to learn about the risks of opioids abuse and overdose. ? If you believe you may be struggling with addiction, tell your health manager care and ask for guidance or call [facility] National Helpline at 8-849-972-SPBO. e Source: US Department of Health and Human Services/Center for Disease Control & Prevention [facility] Medications Given: Medication Dose Rout (more content not included)... Normal [facility] Folateon 09-18-2023 Folate [Mass/Vol] 19.2 ng/mL Normal >=6.7 [facility] Comment on above: Performed By: #### 2 [id number] ####[facility] [address] [place] [address] MRI Spine Lumbar w/o Contras ton 09-18-2023 MRI Spine Lumbar w/o Contrast Exam Date/Time: 09/18/2023 14:47 EDT Reason for Exam: Other (please specify) Report IMPRESSION: L3 SPONDYLOLYSIS, GRADE 1 ANTEROLISTHESIS AND DEGENERATIVE CHANGES AT L3-4, WHICH RESULTS IN MODERATE TO MARKED BILATERAL NEURAL FORAMINAL NARROWING, GREATER ON THE LEFT. MILD LUMBAR SPONDYLOSIS AND DEGENERATIVE DISC DISEASE ELSEWHERE, DESCRIBED IN DETAIL. EXAM: MRI Spine Lumbar w/o Contrast DATE: 09/18/2023 1:18 PM CLINICAL HISTORY: Lower extremity weakness. COMPARISON: Lumbar spine radiographs 06/19/[address] abdomen and pelvis according 2016. TECHNIQUE: Multiplanar MR imaging of the lumbar spine was performed without contrast. FINDINGS: The spine is visualized from T11-12 through S2, on the diagnostic sagittal sequences. Alignment: Lumbar lordosis is maintained. L3 spondylolysis with approximately 7 to 8 mm of anterolisthesis of L3 over L4, similar to the prior studies. Vertebral body heights and remaining alignment are within normal limits. Bone marrow signal/fracture: Mild degenerative endplate changes, predominantly at L3-4. Otherwise, unremarkable Conus: The conus is within normal limits of signal intensity and morphology. Paraspinal soft tissues: Paraspinal soft tissues are unremarkable. Lower thoracic spine: Visualized lower thoracic canal and foramina are without significant narrowing. T12-L1: Mild diffuse disc bulge mild hypertrophic facet and ligamentum flavum changes, which results in mild central spinal stenosis and neural foraminal narrowing. L1-2: Approximately 5 to 6 mm right subarticular zone disc protrusion/extrusion and mild hypertrophic facet changes, which results in mild to moderate lateral recess narrowing and mild central spinal stenosis. L2-3: Mild diffuse disc bulging with annular tear inferiorly and mild hypertrophic facet and ligamentum flavum changes, which results in mild central spinal stenosis Report and mild to moderate neural foraminal narrowing, more prominently on the left. L3-4: L3 spondylolysis, grade 1 anterolisthesis, marked disc space narrowing, mild posterolateral endplate osteophytosis with associated broad-based disc protrusion, and moderate hypertrophic facet and ligamentum flavum changes, which results in borderline central spinal stenosis and moderate to marked bilateral neural foraminal narrowing, greater on the left. L4-5: Moderate diffuse disc bulge and mild to moderate hypertrophic facet and ligamentum flavum changes, which results in moderate neural foraminal narrowing, greater on the right. L5-1: Mild to moderate diffuse disc bulge and hypertrophic facet changes, with central spinal stenosis or significant neural foraminal narrowing. Sacrum and iliac wings: Unremarkable. Ordering Provider: Bo Rossi FINAL REPORT Dictated: 09/18/2023 3:21 pm Clifton Neely MD Signed (Electronic Signature): 09/18/2023 3:21 pm Signed by: Clifton Neely MD Transcribed by: KENNY Technologist: QUYNH Technical Comments None Normal [facility] MRI Spine Thoracic w/o Contr svetlana 09-18-2023 MRI Spine Thoracic w/o Contrast Exam Date/Time: 09/18/2023 14:47 EDT Reason for Exam: Other (please specify) Report IMPRESSION: LITTLE INTERVAL CHANGE FROM 06/20/2021, NOTED. EXAM: MRI Spine Thoracic w/o Contrast DATE: 09/18/2023 1:18 PM CLINICAL HISTORY: Lower extremity weakness. COMPARISON: 06/20/2021. TECHNIQUE: Multiplanar MR imaging of the thoracic spine was performed. FINDINGS: Mild degenerative endplate changes haven't progressed in the mid to lower levels since 06/20/2021, without other significant changes identified. Small right subarticular zone disc osteophyte complex T1-2 with mild to moderate lateral recess narrowing. There is no central spinal stenosis, neural foraminal narrowing, or other significant disc protrusions, subluxation, compression fracture, or paraspinous soft tissue abnormalities identified. The visualized spinal cord and conus medullaris remain normal in position, signal and caliber. Ordering Provider: Bo Rossi FINAL REPORT Dictated: 09/18/2023 3:00 pm Clifton Neely MD Signed (Electronic Signature): 09/18/2023 3:00 pm Signed by: Clifton Neely MD Transcribed by: KENNY Technologist: QUYNH Technical Comments None Normal [facility] Message from Medicareon Message from Medicare [id number]# 1.00TIFF Normal [facility] Progress Note-Physicianon Progress Note-Physician Assessment/Plan 1. Parkinsons disease (G20: Parkinson's disease) Concern for worsening tremors, ED notes hallucination - pt. states he has those chronically w/ flares -Denies hallucinations at present -Consult neuro: pending -Buspirone, sinemet, entacapone, propranolol, ropinirole -Nursing to call family to bring in pimavanserin 2. Unable to care for self (Z78.9: Other specified health status) 2/2 above -PT/OT - pending 3. Anxiety (F41.9: Anxiety disorder, unspecified) Stable this a.m., he states he has terrible anxiety attacks magalie. during is frozen moments -Meds as above 4. HTN (hypertension) (I10: Essential (primary) hypertension) -Propanolol 5. Chronic GERD (K21.9: Gastro-esophageal reflux disease without esophagitis) -No PPI on med list 6. Depression with anxiety (F41.8: Other specified anxiety disorders) -Meds as above 7. Obesity (E66.9: Obesity, unspecified) BMI 30 -Educated on need for lifestyle modifications with goal of weight loss as obesity has a negative impact on co-morbid conditions. 8. On deep vein thrombosis (DVT) prophylaxis (Z79.899: Other director long term care (current) drug therapy) -Lovenox Orders: ropinirole, 1 mg = 1 tab(s), Tab, Oral, 6x/Day, Routine, Start date 09/18/23 12:00:00 EDT, 09/18/23 10:07:00 EDT Communication Order Physician to Nursing -Plan discussed w/ patient, nursing staff and CRM. This report was transcribed using voice recognition software. Every effort was made to ensure accuracy, however, inadvertently computerized fish house worker mistakes may be present. Subjective No acute events overnight. Patient states that his Parkinson is the worst it has every been and it is causing self care deficits. He denies CP, pressure, palpitations, N/V, SOB or paresthesia. Review of Systems -Last BM: 09/16 Additional ROS info: Except as noted in the above Review of Systems and in the History of Present Illness all other systems have been reviewed and are negative or noncontributory Objective Vitals & Measurements T: 36.3 ?C(Oral) TMIN: 36.3 ?C(Oral) TMAX: 36.6 ?C(Oral) HR: 72(Monitored) RR: 18 BP: 143/76 SpO2: 97% HT: 172.72 cm WT: 90.2 kg Intake & Output This visit (24 hour periods starting at 07:00 EDT) 09/18/23 * 09/17/23 09/16/23 Total Summary Intake mL -- 553 -- Output mL -- -- -- Fluid Balance -- 553 -- Intake (3) Oral Intake mL -- 550 -- ketorolac mL -- 1 -- orphenadrine mL -- 2 -- Total -- 553 -- Output (0) Counts (1) Urine Count -- 1 -- * This column has not completed the indicated time period. Physical Exam General: Calm, able to communicate needs, NAD Head: Normocephalic/atrauma tic Eyes: Pupils equal, round, Conjunctivae and sclerae normal, HEENT: Mucous membrane moist. Tongue normal Neck: Trachea midline, neck supple, Chest: No chest wall deformity, no chest wall tenderness Lungs: CTA rodriguez, no wheezing or coughing Cardio: Normal rate, apical is regular, no edema. Pulses: Normal capillary refill Abdomen: Soft, non-distended, non-tender, normal BS Musculoskeletal: No deformity or scoliosis noted. Significant tremors in all 4 ext. minimal ROM in all ext. w/ exception of RUE. Integumentary: Warm, dry, Extremity: No clubbing, Neurologic: Alert, oriented x4, follows commands, whispers when speaking Mental status: Pleasant & cooperative, flat. affect, Lab Results WBC: 5.8 E9/L (09/17/23::00) RBC: 4.3 E12/L (09/17/23::00) HGB: 14.4 gm/dL (09/17/23::00) Hct: 42.4 % (09/17/23::00) MCV: 97.5 fL (09/17/23:22:00) MCH: 33.1 pg (09/17/23::00) MCHC: 34 gm/dL (09/17/23::00) RDW: 13.2 % (09/17/23::00) Platelet: 229 E9/L (09/17/23::00) MPV: 7.5 fL (09/17/23:22:00) Neutro Auto: 56.8 % (09/17/23:22:00) Lymph Auto: 26.4 % (05/01/24 21:22:00) Harvey Auto: 11 % (09/17/23 21:22:00) Eos Auto: 5.2 % (09/17/23:22:00) Basophil Auto: 0.6 % (09/17/23:22:00) Neutro Absolute: 3.3 E9/L (09/17/23:22:00) Lymph Absolute: 1.5 E9/L (09/17/23:22:00) Harvey Absolute: 0.6 E9/L (09/17/23:22:00) Eos Absolute: 0.3 E9/L (09/17/23:22:00) Basophil Absolute: 0 E9/L (09/17/23:22:00) Glucose Lvl: 117 mg/dL (09/17/23:22:00) BUN: 26 mg/dL High (09/17/23:22:00) Creatinine: 1 mg/dL (09/17/23:22:00) eGFR: 82 mL/min/1.73 m2 (09/17/23:22:00) BUN/Creat Ratio: 26 High (09/17/23:22:00) Sodium Lvl: 136 mmol/L (09/17/23:22:00) Potassium Lvl: 4.8 mmol/L (09/17/23:22:00) Chloride: 103 mmol/L (09/17/23:22:00) CO2: 28 mmol/L (09/17/23:22:00) AGAP: 10 mEq/L (09/17/23:22:00) Calcium Lvl: 9.1 mg/dL (09/17/23:22:00) Magnesium: 2.3 mg/dL (09/17/23:22:00) Vitamin B12 Lvl: 482 pg/mL (09/17/23:22:00) Diagnostic Results No qualifying data available. Attestation Case reviewed/discussed w/ Dr. Hall who is in agreement with POC. Problem List/Past Medical Hist (more content not included)... Normal [facility] Comment on above: Result Comment: Elec tronically Signed By: EVELYN RECINOS-WHITLEYKarissa\.br\Date and Time Signed: 09/18/23 10:18 EDT\.br\Electronically Co-Signed By: Charli Hall DO.br\Date and Time Co-Signed: 09/18/23 11:48 EDT RAD - MRI Screening Formon 0 09-18-2023 RAD - MRI Screening Form [id number]#1 .00TIFF Normal [facility] BMPon 09-17-2023 Anion gap [Moles/Vol] 10 mmol/L Normal 6-16 [facility] Comment on above: Performed By: #### 2 285792, 7358103, 5347930, 9352649, [id number] ####[facility] [address] [place] [address] Calcium [Mass/Vol] 9.1 mg/dL Normal 8.9-11.1 [facility] Comment on above: Performed By: #### 2 937872, 7028195, 2837741, 5308993, 46319404 ####[facility] [address] [place] [address] Chloride [Moles/Vol] 103 mmol/L Normal 101-111 [facility] Comment on above: Performed By: #### 2 501949, 3228673, 0341082, 2720044, 59936075 ####[facility] [address] [place] [address] CO2 [Moles/Vol] 28 mmol/L Normal 21-[address] [facility] Comment on above: Performed By: #### 2 737540, 5798192, 9104404, 6982927, 80144605 ####[facility] [address] [place] [address] Creatinine [Mass/Vol] 1.0 mg/dL Normal 0.5-1.3 [facility] Comment on above: Performed By: #### 2 883703, 7167790, 5154446, 1746769, 80180067 ####[facility] [address] [place] [address] Glucose [Mass/Vol] 117 mg/dL Normal 55-199 [facility] Comment on above: Performed By: #### 2 589752, 0796101, 3035369, 7283578, 98302577 ####[facility] [address] [place] [address] Potassium [Moles/Vol] 4.8 mmol/L Normal 3.5-5.3 [facility] Comment on above: Performed By: #### 2 035337, 5634078, 1769032, 0066692, 41545638 ####[facility] [address] [place] [address] Sodium [Moles/Vol] 136 mmol/L Normal 135-145 [facility] Comment on above: Performed By: #### 2 298879, 4766471, 8791321, 3804096, 51570868 ####[facility] [address] [place] [address] Urea nitrogen [Mass/Vol] 26 mg/dL High 5-21 [facility] Comment on above: Performed By: #### 2 525515, 2428826, 0767522, 3650191, 75262707 ####[facility] [address] [place] [address] Urea nitrogen/Creatinine [Mass ratio] 26 No Units High 10-20 [facility] Comment on above: Performed By: #### 2 651441, 5585079, 9038515, 3511468, 78128030 ####[facility] [address] [place] [address] CBC w/ Auto Diffon 4 Basophils/100 WBC (Bld) 0.6 % Normal 0.0-2.0 [facility] Comment on above: Performed By: #### 2 933672, 3543179, 4019045, 2883840, 18203700 ####[facility] [address] [place] [address] Basophils/Leukocytes Auto (Bld) [Pure # fraction] 0.0 E9/L Normal 0.0-0.2 [facility] Comment on above: Performed By: #### 2 088790, 9674873, 1092827, 2589265, 47211004 ####[address] [place] [address] Eosinophils (Bld) [#/Vol] 0.3 E9/L Normal 0.0-0.5 [facility] Comment on above: Performed By: #### 2 767861, 9421203, 4021953, 8039651, 22189922 ####[address] [address] Eosinophils/100 WBC (Bld) 5.2 % Normal 0.0-8.0 [facility] Comment on above: Performed By: #### 2 244737, 7082542, 4390488, 0429911, 80714253 ####[address] [address] Erythrocyte distribution width (RBC) [Ratio] 13.2 % Normal 10.9-14.2 [facility] Comment on above: Performed By: #### 2 812452, 1275926, 6735194, 9840046, 32324136 ####[address] [address] Hematocrit (Bld) [Volume fraction] 42.4 % Normal 37.7-49.0 [facility] Comment on above: Performed By: #### 2 727752, 3126374, 4048055, 4278218, 61720440 ####[address] [address] Hemoglobin (Bld) [Mass/Vol] 14.4 g/dL Normal 13.5-17.5 [facility] Comment on above: Performed By: #### 2 809027, 8936301, 1949362, 6061407, 99855016 ####[address] [address] Lymphocytes (Bld) [#/Vol] 1.5 E9/L Normal 1.0-4.0 [facility] Comment on above: Performed By: #### 2 254101, 2547164, 7228062, 4492940, 72314475 ####[address] [address] Lymphocytes/100 WBC (Bld) 26.4 % Normal 14.0-50.0 [facility] Comment on above: Performed By: #### 2 001150, 3782695, 8831657, 9723297, 48455149 ####[address] [address] MCH (RBC) [Entitic mass] 33.1 pg Normal 27.0-34.0 [facility] Comment on above: Performed By: #### 2 320375, 9949675, 8925150, 5691565, 21469575 ####[address] [address] MCHC (RBC) [Mass/Vol] 34.0 g/dL Normal 31.4-36.0 [facility] Comment on above: Performed By: #### 2 917492, 4626375, 6808669, 2049301, 52104474 ####[address] [address] MCV (RBC) [Entitic vol] 97.5 fL Normal 80.0-100.0 [facility] Comment on above: Performed By: #### 2 817191, 5142279, 8212807, 7121371, 20362558 ####[address] [address] Monocytes (Bld) [#/Vol] 0.6 E9/L Normal 0.2-1.0 [facility] Comment on above: Performed By: #### 2 974293, 3503294, 0538294, 9404831, 36144464 ####[address] [address] Neutrophils (Bld) [#/Vol] 3.3 E9/L Normal 2.0-7.5 [facility] Comment on above: Performed By: #### 2 015859, 2829088, 5570733, 7917380, 17812664 ####[address] [address] Neutrophils/100 WBC (Bld) 56.8 % Normal 36.0-75.0 [facility] Comment on above: Performed By: #### 2 691914, 2515862, 6043933, 2118196, 25025386 ####[address] [address] Platelet 229.0 E9/L Normal 150.0-500.0 [facility] Comment on above: Performed By: #### 2 375163, 7607125, 4282628, 0004432, 11882991 ####[address] [address] Platelet mean volume (Bld) [Entitic vol] 7.5 fL Normal 6.4-10.8 [facility] Comment on above: Performed By: #### 2 207954, 6049453, 1415974, 7009895, 25790159 ####[address] [address] RBC (Bld) [#/Vol] 4.3 E12/L Normal 4.3-5.9 [facility] Comment on above: Performed By: #### 2 251800, 9974572, 0952173, 7800701, 48691744 ####[address] [address] WBC corrected for nucl RBC Auto (Bld) [#/Vol] 5.8 E9/L Normal 4.0-11.0 [facility] Comment on above: Performed By: #### 2 472962, 1762407, 2996125, 0015762, 78918890 ####[address] [address] CHEMISTRYOrdered By: SYSTEM SYSTEM on 09-17-2023 Anion gap [Moles/Vol] 10 mmol/L Normal 6 - 16 mEq/L R emisol Chem Calcium [Mass/Vol] 9.1 mg/dL Normal 8.9 - 11. 1 mg/dL Remisol Chem Chloride [Moles/Vol] 103 mmol/L Normal 101 - 1 11 mmol/L Rem[facility] Chem CO2 [Moles/Vol] 28 mmol/L Normal 21 - 31 mmol/L [facility] Cobalamin (Vitamin B12) [Mass/Vol] 482 pg/mL Normal 50 - 1500 pg/mL Remisol Chem Creatinine [Mass/Vol] 1.0 mg/dL Normal 0.5 - 1.3 mg/dL Remisol Chem eGFR 82 mL/min/1.73 m2 Normal >=59mL/min /1 .73 m2 Remisol Chem Glucose [Mass/Vol] 117 mg/dL Normal 55 - 199 mg/dL [facility] Magnesium [Mass/Vol] 2.3 mg/dL Normal 1.3 - 2 .4 mg/dL [facility] Chem Potassium [Moles/Vol] 4.8 mmol/L Normal 3.5 - 5.3 mmol/L Rem[facility] Chem Sodium [Moles/Vol] 136 mmol/L Normal 135 - 145 mmol/L [facility] Urea nitrogen [Mass/Vol] 26 mg/dL High 5 - 21 mg/dL [facility] Urea nitrogen/Creatinine [Mass ratio] 26 mg/mg High 10 - 20 Remisol Chem Consent for Treatmenton Consent for Treatment [id number] .00TIFF Normal [facility] ED Note-Nursingon 09-17-2023 ED Note-Nursing Pt medicated for hillary n and muscle stiffness at this time. Dr. Bernal at bedside speaking with pt. Pt denies any other needs at this time. Normal [facility] HEMATOLOGYOrdered By: SYSTEM SYSTEM on 09-17-2023 Basophils/100 WBC (Bld) 0.6 % Normal 0.0 - 2.0 % Remisol Heme Basophils/Leukocytes Auto (Bld) [Pure # fraction] 0.0 E9/L Normal 0.0 - 0.2 E9/L Remisol Heme Eosinophils (Bld) [#/Vol] 0.3 E9/L Normal 0.0 - 0.5 E9/L Remisol Heme Eosinophils/100 WBC (Bld) 5.2 % Normal 0.0 - 8.0 % Remisol Heme Erythrocyte distribution width (RBC) [Ratio] 13.2 % Normal 10.9 - 14.2 % Remisol Heme Hematocrit (Bld) [Volume fraction] 42.4 % Normal 37.7 - 49.0 % Remisol Heme Hemoglobin (Bld) [Mass/Vol] 14.4 g/dL Normal 13.5 - 17.5 gm/dL Remisol Heme Lymphocytes (Bld) [#/Vol] 1.5 E9/L Normal 1.0 - 4.0 E9/L Remisol Heme Lymphocytes/100 WBC (Bld) 26.4 % Normal 14.0 - 50.0 % Remisol Heme MCH (RBC) [Entitic mass] 33.1 pg Normal 27.0 - 34.0 pg Remisol Heme MCHC (RBC) [Mass/Vol] 34.0 g/dL Normal 31.4 - 36.0 gm/dL Remisol Heme MCV (RBC) [Entitic vol] 97.5 fL Normal 80.0 - 100.0 fL Remisol Heme Monocytes (Bld) [#/Vol] 0.6 E9/L Normal 0.2 - 1.0 E9/L Remisol Heme Monocytes/100 WBC (Bld) 11.0 % Normal 4.0 - 14.0 % Remisol Heme Neutrophils (Bld) [#/Vol] 3.3 E9/L Normal 2.0 - 7.5 E9/L Remisol Heme Neutrophils/100 WBC (Bld) 56.8 % Normal 36.0 - 75.0 % Remisol Heme Platelet 229.0 E9/L Normal 150.0 - 500.0 E9/L Remisol Heme Platelet mean volume (Bld) [Entitic vol] 7.5 fL Normal 6.4 - 10.8 fL Remisol Heme RBC (Bld) [#/Vol] 4.3 E12/L Normal 4.3 - 5.9 E12/L Remisol Heme WBC corrected for nucl RBC Auto (Bld) [#/Vol] 5.8 E9/L Normal 4.0 - 11.0 E9/L Remisol Heme Magnesiumon 09-17-2023 Magnesium [Mass/Vol] 2.3 mg/dL Normal 1.3-2.4 [facility] Comment on above: Performed By: #### 2 028653, 1607502, 5642703, 1356214, 12848495 ####[facility] [address] [place] [address] Pre-Arrival Noteon Pre-Arrival Note Pre-Arrival Summary Name: , Current Date: 09/17/2023 20:57:01 EDT Gender: Male Date of : Age: 58 Pre-Arrival Type: EMS ETA: 09/17/2023 21:16:00 EDT Primary Care Physician: Presenting Problem: parkinsons, med prob evaluation Pre-Arrival User: Lucas Tamayo RN Referring Source: Location: Completion Date/Time: 09/17/2023 20:47:00 [facility] Emergency Department Pre-Hospital Report Form Vital Signs: 159/73, hr85, 98%. sx progressingg Pre-Hospital Report: Treatment in Route: Response to Treatment: Misc. Issues: Normal [facility] Vit B12on 09-17-2023 Cobalamin (Vitamin B12) [Mass/Vol] 482 pg/mL Normal 50-1500 [facility] Comment on above: Performed By: #### 2 280189, 2390615, 1513934, 4633260, 20486055 ####[facility] [address] [place] [address] eGFRon 09-17-2023 eGFR 82 mL/min/1.73 m2 Normal >=59 [facility] Comment on above: Order Comment: Order added by Discern Expert. Performed By: #### 2 699229, 5712255, 5031722, 1583080, 08636196 ####[facility] [address] [place] [address] Office Visit (Cardiology)on 09-24-2022 Follow-up visit Diagnoses/Problems Assessed Hypertension (401.9) (I10) Symptomatic Parkinson disease (332.0) (G20) Lower extremity edema (782.3) (R60.0) Tremor (781.0) (R25.1) Overweight with body mass index (BMI) of 29 to 29.9 in adult (278.02,V85.25) (E66.3,Z68.29) Never a smoker Orders Hypertension Renew: Propranolol HCl ER 80 MG Oral Capsule Extended Release 24 Hour; TAKE ONE CAPSULE BY MOUTH EVERY DAY Overweight with body mass index (BMI) of 29 to 29.9 in adult Healthy Weight Tips; Status:Complete - Retrospective Authorization; Done: 24Sep2022 Some eating tips that can help you lose weight.; Status:Complete - Retrospective Authorization; Done: 24Sep2022 SocHx: Never a smoker Tobacco Use Screening; Status:Complete; Done: 24Sep2022 Patient Instructions Please bring all medicines, vitamins, and herbal supplements with you when you come to the office. Prescriptions will not be filled unless you are compliant with your follow up appointments or have a follow up appointment scheduled as per instruction of your physician. Refills should be requested at the time of your visit. Follow up in 1 year. Chief Complaint ELVER MENA is being seen for an annual follow-up of. History of Present Illness Patient returns in follow-up of problems as noted. He is done well. He lost 17 pounds and we note that his blood pressure is lower. He is interested in a reduction in medical therapy we discussed options and he prefers to wean off of his propranolol. Because of that we provided specific guidance. He otherwise appears to be doing well. He denies angina dyspnea or arrhythmia symptomatology. He has no orthostatic complaints. His previous problems of leg edema resolved with diet and salt restriction but also a change in sleeping. Specifically he had previously been sleeping in a chair with his feet down and now he is sleeping supine in bed and the leg edema that he previously experienced is completely gone. We discussed in detail his Parkinson's disease and treatment. He had a pretty good control and is happy with it. He notes he experiences some mild hallucinations brought about by his pharmacologic therapy but he finds these hallucinations acceptable to the severity of his untreated Parkinson's disease. As before we did advocate the merits of weight loss. Surgical History Problems History of Hernia repair Current Meds Medication NameInstruction busPIRone HCl - 5 MG Oral Tablettale 1 tablet 6 times daily Carbidopa-Levodopa ER 25-100 MG Oral Tablet Extended ReleaseTAKE 2 TABLETS 6 TIMES DAILY Entacapone 200 MG Oral Tablettake 1 tablet 6 times daily Nuplazid 34 MG Oral Capsule1 ab daily Propranolol HCl ER 80 MG Oral Capsule Extended Release 24 HourTAKE ONE CAPSULE BY MOUTH EVERY DAY rOPINIRole HCl - 1 MG Oral Tablettake 1 tablet 6 times daily Patient did not bring medication list or bottles. Updated verbally with patient Allergies Medication No Known Drug Allergies Recorded By: Shivani Gottlieb; 03/14/2021 8:50:31 AM Social History Problems Consumes alcohol (V49.89) (Z78.9) 1 beer daily Never a smoker No caffeine use No illicit drug use Review of Systems Constitutional: not feeling tired. Eyes: no eyesight problems. ENT: no hearing loss and no nosebleeds. Cardiovascular: no intermittent leg claudication and as noted in HPI. Respiratory: no chronic cough and no shortness of breath. Gastrointestinal: no change in bowel habits and no blood in stools. Genitourinary: no urinary frequency and no hematuria. Skin: no skin rashes. Neurological: no seizures and no frequent falls. Psychiatric: no depression and not suicidal. All other systems have been reviewed and are negative for complaint. Vitals Vital Signs Recorded: 24Sep2022 09:47AM Heart Rate66, L Radial Tesmqhjz397, LUE, Sitting Ywevpnnfq48, LUE, Sitting Height5 ft 9 in Bpwamu157 lb BMI Rgszenjfff47.39 kg/m2 BSA Calculated2.06 Tobacco Useb) No PHQ-2 #1. Over the last 2 weeks have you felt down, depressed or hopeless? (If yes, answer PHQ-9 below)No PHQ-2 #2. Over the last 2 weeks have you felt little interest or pleasure in doing things? (If yes, answer PHQ-9 below)No Falls Screening (Age 18+)a) No falls within the last year Physical Exam Constitutional: alert and in no acute distress. Eyes: no erythema, swelling or discharge from the eye . Neck: neck is supple, symmetric, trachea midline, no masses and no thyromegaly . Pulmonary: no increased work of breathing or signs of respiratory distress and lungs clear to auscultation. Cardiovascular: carotid pulses 2+ bilaterally with no bruit , JVP was normal, no thrills , regular rhythm, normal S1 and S2, no murmurs , pedal pulses 2+ bilaterally and no edema . Abdomen: abdomen non-tender, no masses and no hepatomegaly . Skin: skin warm and dry, normal skin turgor . Psychiatric judgment and insight is normal and oriented to person, place and time . Signatures Electronicall (more content not included)... Normal [employer] Tobacco Screening.on 023 Adult depression screening assessment No [facility] [employer] [address] DO Work Phone: Fall risk assessment a) No falls within the last year [facility] [employer] 600 DO Work Phone: Tobacco use status [facility] b) No [facility] [employer] [address] DO Work Phone: Office Visit (Cardiology)on 10-12-2021 Follow-up visit Diagnoses/Problems Assessed Hypertension (401.9) (I10) Symptomatic Parkinson disease (332.0) (G20) Tremor (781.0) (R25.1) Never a smoker Lower extremity edema (782.3) (R60.0) Class 1 obesity with body mass index (BMI) of 31.0 to 31.9 in adult (278.00,V85.31) (E66.9,Z68.31) Orders Class 1 obesity with body mass index (BMI) of 31.0 to 31.9 in adult Healthy Weight Tips; Status:Complete - Retrospective Authorization; Done: [id number] SocHx: Never a smoker Tobacco Use Screening; Status:Complete; Done: [id number] Patient Instructions By signing my name below, I, Renee Li LPN, Scribe, attest that this documentation has been prepared under the direction and in the presence of Dr. Charli Barrett MD. All medical record entries made by the Scribe were at my direction and personally dictated by me. I have reviewed the chart and agree that the record accurately reflects my personal performance of the history, physical exam, discussion and plan. Please bring all medicines, vitamins, and herbal supplements with you when you come to the office. Prescriptions will not be filled unless you are compliant with your follow up appointments or have a follow up appointment scheduled as per instruction of your physician. Refills should be requested at the time of your visit Patient to decrease his sodium intake, elevate his legs whenever possible. Follow up in 1 year. Chief Complaint ELVER MENA is being seen for an annual follow-up of. History of Present Illness Patient returns in follow-up of problems as noted. He is done well in regards to his blood pressure. He is tolerating the propranolol well and he believes it does helps his tremor and because of this she will continue it. His only observation and her complaint today is lower extremity edema. I believe it is probably on the basis of fluid and/or salt intake, leg dependency, and also possible mild neuropathy associated with his Parkinson's disease. We discussed diuretic therapy but he declines. Because of this he was educated to keep his legs up as much as possible and also restrict and to reduce salt and free water intake. He was educated regarding of the symptoms watch for and encouraged to call if they arise. Surgical History Problems History of Hernia repair Current Meds Medication NameInstruction busPIRone HCl - 5 MG Oral Tablettale 1 tablet 6 times daily Carbidopa-Levodopa ER 25-100 MG Oral Tablet Extended ReleaseTAKE 2 TABLETS 6 TIMES DAILY Entacapone 200 MG Oral Tablettake 1 tablet 6 times daily Propranolol HCl ER 80 MG Oral Capsule Extended Release 24 HourTAKE ONE CAPSULE BY MOUTH EVERY DAY rOPINIRole HCl - 1 MG Oral Tablettake 1 tablet 6 times daily Allergies Medication No Known Drug Allergies Recorded By: Shivani Gottlieb; 03/14/2021 8:50:31 AM Social History Problems Consumes alcohol (V49.89) (Z72.89) 1 beer daily Never a smoker No caffeine use No illicit drug use Review of Systems Constitutional: not feeling tired. Eyes: no eyesight problems. ENT: no hearing loss and no nosebleeds. Cardiovascular: no intermittent leg claudication and as noted in HPI. Respiratory: no chronic cough and no shortness of breath. Gastrointestinal: no change in bowel habits and no blood in stools. Genitourinary: no urinary frequency and no hematuria. Skin: no skin rashes. Neurological: no seizures and no frequent falls. Psychiatric: no depression and not suicidal. All other systems have been reviewed and are negative for complaint. Vitals Vital Signs Recorded: 12Oct2021 08:50AM Heart Rate67, L Radial [id number], LUE, Sitting [id number], LUE, Sitting Height5 ft 9 in [id number] lb BMI Rjfwipwruw73.9 kg/m2 BSA Calculated2.13 Tobacco Useb) No PHQ-2 #1. Over the last 2 weeks have you felt down, depressed or hopeless? (If yes, answer PHQ-9 below)No PHQ-2 #2. Over the last 2 weeks have you felt little interest or pleasure in doing things? (If yes, answer PHQ-9 below)No Fall Screeninga) No falls within the last year Physical Exam Constitutional: alert and in no acute distress. Eyes: no erythema, swelling or discharge from the eye . Neck: neck is supple, symmetric, trachea midline, no masses and no thyromegaly . Pulmonary: no increased work of breathing or signs of respiratory distress and lungs clear to auscultation. Cardiovascular: carotid pulses 2+ bilaterally with no bruit , JVP was normal, no thrills , regular rhythm, normal S1 and S2, no murmurs , pedal pulses 2+ bilaterally and no edema . Abdomen: abdomen non-tender, no masses and no hepatomegaly . Skin: skin warm and dry, normal skin turgor . Psychiatric judgment and insight is normal and oriented to person, place and time . Signatures Electronically signed by : Charli Barrett MD; Oct 12 2021 9:23AM EST (Author) Normal [facility] Tobacco Screening.on 022 Adult depression screening assessment No [facility] 600 DO Work Phone: Fall risk assessment a) No falls within the last year [facility] 600 DO Work Phone: Tobacco use status [facility] b) No [facility] 600 DO Work Phone: Vital Signs Date Time Vital Sign Value Performing Clinician Lala beckett 10-10-2023 16:08-0400 Diastolic blood pressure 90 mm[Hg] Rick Sanchez [facility] 10-10-2023 16:08-0400 Heart rate 80 /min Rick Sanchez [facility] 10-10-2023 16:08-0400 Mean blood pressure 103 mm[Hg] Rick Daniel [facility] 10-10-2023 16:08-0400 Respiratory rate 16 /min Rick Daniel [facility] 10-10-2023 16:08-0400 SaO2% (BldA) [Mass fraction] 98 % Rick Daniel [facility] 10-10-2023 16:08-0400 Systolic blood pressure 130 mm[Hg] Rick Daniel [facility] 10-10-2023 15:00-0400 Diastolic blood pressure 67 mm[Hg] Rick Daniel [facility] 10-10-2023 15:00-0400 Heart rate 78 /min Rick Daniel [facility] 10-10-2023 15:00-0400 Mean blood pressure 86 mm[Hg] Rick Daniel [facility] 10-10-2023 15:00-0400 SaO2% (BldA) [Mass fraction] 97 % Rick Daniel [facility] 10-10-2023 15:00-0400 Systolic blood pressure 125 mm[Hg] Rick Daniel [facility] 10-10-2023 14:00-0400 Diastolic blood pressure 69 mm[Hg] Rick Daniel [facility] 10-10-2023 14:00-0400 Heart rate 76 /min Rick Daniel [facility] 10-10-2023 14:00-0400 Mean blood pressure 90 mm[Hg] Rick Daniel [facility] 10-10-2023 14:00-0400 Systolic blood pressure 131 mm[Hg] Rick Sanchez [facility] 10-10-2023 12:51-0400 gluc 112 mg/dL Rick Sanchez [facility] 10-10-2023 12:51-0400 gluc Rick Sanchez [facility] 10-10-2023 12:35-0400 Body temperature 98.24 [degF] Rick Sanchez [facility] 10-10-2023 12:35-0400 Heart rate 80 /min Rick Sanchez [facility] 09-26-2023 10:35-0400 Hourly Rounding Albertochavez LOCKWOODSLIN [facility] 09-26-2023 10:35-0400 Promise to Return Alberto ISAAC [facility] 09-26-2023 09:35-0400 Hourly Rounding Alberto ISAAC [facility] 09-26-2023 09:35-0400 Promise to Return Alberto ISAAC [facility] 09-26-2023 08:35-0400 Hourly Rounding Alberto ISAAC [facility] 09-26-2023 08:35-0400 Promise to Return Alberto ISAAC [facility] 09-26-2023 08:04-0400 Heart rate 81 /min Alberto ISAAC [facility] 09-26-2023 08:04-0400 SaO2% (BldA) [Mass fraction] 96 % Alberto ISAAC [facility] 09-26-2023 08:02-0400 Diastolic blood pressure 62 mm[Hg] Albertochavez [facility] 09-26-2023 08:02-0400 Mean blood pressure 84 mm[Hg] Albertochavez [facility] 09-26-2023 08:02-0400 Systolic blood pressure 127 mm[Hg] Albertochavez [facility] 09-26-2023 08:02-0400 Body temperature 97.34 [degF] Albertochavez [facility] 09-26-2023 00:20-0400 Body temperature 97.34 [degF] Albertochavez [facility] 09-26-2023 00:20-0400 Diastolic blood pressure 76 mm[Hg] Albertochavez [facility] 09-26-2023 00:20-0400 Heart rate 69 /min Albertochavez [facility] 09-26-2023 00:20-0400 Mean blood pressure 95 mm[Hg] Albertochavez [facility] 09-26-2023 00:20-0400 SaO2% (BldA) [Mass fraction] 96 % Albertochavez [facility] 09-26-2023 00:20-0400 Systolic blood pressure 133 mm[Hg] Albertochavez [facility] 09-25-2023 19:56-0400 Heart rate 78 /min Albertochavez [facility] 09-25-2023 19:56-0400 SaO2% (BldA) [Mass fraction] 96 % Albertochavez [facility] 09-25-2023 19:53-0400 Body temperature 97.34 [degF] Alberto ISAAC [facility] 09-25-2023 19:53-0400 Diastolic blood pressure 66 mm[Hg] Alberto ISAAC [facility] 09-25-2023 19:53-0400 Mean blood pressure 86 mm[Hg] Alberto ISAAC [facility] 09-25-2023 19:53-0400 Systolic blood pressure 127 mm[Hg] Alberto ISAAC [facility] 09-25-2023 16:00-0400 Body temperature 97.88 [degF] Alberto ISAAC [facility] 09-25-2023 16:00-0400 Respiratory rate 22 /min Albertochavez [facility] 09-25-2023 00:00-0400 Body temperature 98.06 [degF] Alberto ISAAC [facility] 09-25-2023 00:00-0400 Heart rate 71 /min Alberto ISAAC [facility] 09-25-2023 00:00-0400 Respiratory rate 20 /min Alberto ISAAC [facility] 09-24-2023 19:56-0400 Blood Pressure Location Alberto ISAAC [facility] 09-24-2023 19:56-0400 Heart rate 72 /min Alberto ISAAC [facility] 09-24-2023 19:56-0400 Respiratory rate 19 /min Alberto ISAAC [facility] 09-24-2023 17:04-0400 Body temperature 97.52 [degF] Alberto GRAY [facility] 09-24-2023 11:11-0400 Mean blood pressure 80 mm[Hg] Alberto GRAY [facility] 09-23-2023 06:30-0400 Heart rate 76 /min Alberto GRAY [facility] 09-23-2023 06:30-0400 Mean blood pressure 99 mm[Hg] Alberto GRAY [facility] 09-22-2023 23:30-0400 Respiratory rate 21 /min Alberto GRAY [facility] 09-19-2023 08:35-0400 Hourly Rounding Ronobir DOLORES [facility] 09-19-2023 08:35-0400 Promise to Return Ronobir DOLORES [facility] 09-19-2023 08:21-0400 SaO2% (BldA) [Mass fraction] 95 % Ronobir DOLORES [facility] 09-19-2023 08:00-0400 Hourly Rounding Ronobir DOLORES [facility] 09-19-2023 07:56-0400 Heart rate 75 /min Ronobir DOLORES [facility] 09-19-2023 07:56-0400 SaO2% (BldA) [Mass fraction] 97 % Ronobir DOLORES [facility] 09-19-2023 07:56-0400 Diastolic blood pressure 69 mm[Hg] Ronobir DOLORES [facility] 09-19-2023 07:56-0400 Mean blood pressure 88 mm[Hg] Ronobir DOLORES [facility] 09-19-2023 07:56-0400 Systolic blood pressure 124 mm[Hg] Ronobir DOLORES [facility] 09-19-2023 07:54-0400 Body temperature 98.24 [degF] Ronobir DOLORES [facility] 09-19-2023 07:35-0400 Hourly Rounding Ronobir DOLORES [facility] 09-19-2023 07:35-0400 Promise to Return Ronobir DOLORES [facility] 09-19-2023 06:40-0400 Promise to Return Ronobir DOLORES [facility] 09-18-2023 23:54-0400 Blood Pressure Location Ronobir DOLORES [facility] 09-18-2023 23:54-0400 Body temperature 98.42 [degF] Ronobir DOLORES [facility] 09-18-2023 23:54-0400 Diastolic blood pressure 61 mm[Hg] Ronobir DOLORES [facility] 09-18-2023 23:54-0400 Heart rate 72 /min Ronobir DOLORES [facility] 09-18-2023 23:54-0400 Mean blood pressure 75 mm[Hg] Ronobir DOLORES [facility] 09-18-2023 23:54-0400 SaO2% (BldA) [Mass fraction] 96 % Ronobir DOLORES [facility] 09-18-2023 23:54-0400 Systolic blood pressure 103 mm[Hg] Ronobir DOLORES [facility] 09-18-2023 19:37-0400 Heart rate 67 /min Ronobir DOLORES [facility] 09-18-2023 19:36-0400 Diastolic blood pressure 68 mm[Hg] Ronobir DOLORES [facility] 09-18-2023 19:36-0400 Mean blood pressure 87 mm[Hg] Ronobir DOLORES [facility] 09-18-2023 19:36-0400 Systolic blood pressure 123 mm[Hg] Ronobir DOLORES [facility] 09-18-2023 19:36-0400 Body temperature 97.52 [degF] Ronobir DOLORES [facility] 09-18-2023 11:00-0400 Body temperature 98.06 [degF] Ronobir DOLORES [facility] 09-18-2023 03:25-0400 Heart rate 71 /min Ronobir DOLORES [facility] 09-18-2023 03:25-0400 Mean blood pressure 83 mm[Hg] Ronobir DOLORES [facility] 09-18-2023 03:25-0400 Respiratory rate 18 /min Ronobir DOLORES [facility] 09-18-2023 01:30-0400 Heart rate 67 /min Ronobir DOLORES [facility] 09-18-2023 01:30-0400 Respiratory rate 18 /min Ronobir DOLORES [facility] 09-18-2023 01:23-0400 Mean blood pressure 106 mm[Hg] Ronobir DOLORES [facility] 09-18-2023 01:23-0400 Body temperature 97.88 [degF] Ronobir DOLORES [facility] 09-18-2023 00:06-0400 Mean blood pressure 92 mm[Hg] Ronobir DOLORES [facility] 09-18-2023 00:06-0400 Respiratory rate 21 /min Ronobir DOLORES [facility] 09-17-2023 23:30-0400 Respiratory rate 13 /min Ronobir DOLORES [facility] 09-17-2023 20:57-0400 Heart rate 75 /min Ronobir DLOORES [facility] 09-17-2023 20:57-0400 Respiratory rate 18 /min Ronobir DOLORES [facility] 09-24-2022 09:47-0400 Body height 175.26 cm Referring Provider Unknown [facility] 600 DO Work Phone: 09-24-2022 09:47-0400 Body mass index (BMI) [Ratio] 29.39 kg/m2 Referring Provider Unknown [facility] 600 DO Work Phone: 09-24-2022 09:47-0400 Body surface area Derived from formula 2.06 m2 [address] Provider Unknown [facility] 600 DO Work Phone: 09-24-2022 09:47-0400 Body weight 90.27 kg Referring Provider Unknown [facility] 600 DO Work Phone: 09-24-2022 09:47-0400 Diastolic blood pressure 76 mm[Hg] Referring Provider Unknown [facility] 600 DO Work Phone: 09-24-2022 09:47-0400 Heart rate 66 /min Referring Provider Unknown [facility] 600 DO Work Phone: 09-24-2022 09:47-0400 Systolic blood pressure 122 mm[Hg] Referring Provider Unknown [facility] 600 DO Work Phone: 10-12-2021 08:50-0400 Body height 175.26 cm Charli Barrett Work Phone: [facility] 600 DO Work Phone: 10-12-2021 08:50-0400 Body mass index (BMI) [Ratio] 31.9 kg/m2 Charli Barrett Work Phone: [facility] 600 DO Work Phone: 10-12-2021 08:50-0400 Body surface area Derived from formula 2.13 m2 Charli Barrett Work Phone: [facility] 600 DO Work Phone: 10-12-2021 08:50-0400 Body weight 97.98 kg Charli Barrett Work Phone: [facility] 600 DO Work Phone: 10-12-2021 08:50-0400 Diastolic blood pressure 60 mm[Hg] Charli Barrett Work Phone: [facility] 600 DO Work Phone: 10-12-2021 08:50-0400 Heart rate 67 /min Charli Barrett Work Phone: [facility] 600 DO Work Phone: 10-12-2021 08:50-0400 Systolic blood pressure 122 mm[Hg] Charli Barrett Work Phone: [facility] 600 DO Work Phone: Encounters Encounter Date Encounter Type Care Provider Facility Start: 12-17-2023 End: 12-17-2023 ambulatory EDENILSON LIND Not Available Start: 10-15-2023 End: 10-15-2023 ambulatory Johnathon SIEGEL [facility] Start: 10-15-2023 End: 10-15-2023 Off-Site John[facility]IEG[facility] Start: 10-10-2023 End: 10-22-2023 ambulatory Johnathon SEVERY [place] [place]: 10-10-2023 End: 10-22-2023 Evaluation and management of inpatient Johnathonmalathi SIEGEL [facility] Start: 10-10-2023 End: 10-10-2023 Emergency department patient visit Rick Sanchez [facility] Start: 10-03-2023 End: 10-03-2023 ambulatory Ramon Sykes Facility[facility] Start: 10-03-2023 End: 10-03-2023 Off-Site Ramon Britney [facility] Start: 09-29-2023 End: 09-29-2023 ambulatory Johnathon SEVERY Facility: [facility] Start: 09-29-2023 End: 09-29-2023 Off-Site Johnathon SIEGEL [facility] Start: 09-26-2023 End: 10-06-2023 ambulatory Johnathon SEVERY [place] Start: 09-26-2023 End: 10-06-2023 Evaluation and management of inpatient Johnathonmalathi SIEGEL [facility] Start: 09-23-2023 End: 09-26-2023 Evaluation and management of inpatient Alberto A ISAAC [place] Start: 09-22-2023 End: 09-26-2023 Evaluation and management of inpatient Alberto A ISAAC [facility] Start: 09-17-2023 End: 09-19-2023 Evaluation and management of inpatient Charli McknightDeisi Hall [place] Start: 09-17-2023 End: 09-19-2023 Evaluation and management of inpatient Jesu BERNAL [facility] Start: 09-24-2022 Office outpatient vi sit 25 minutes Referring Provider Unknown [facility] 600 DO Work Phone: Start: 09-24-[address] Charli Barrett II Facility: Start: 04-25-2022 Rx Renewal Charli Lovell inn Work Phone: [facility] 250 DO Work Phone: Start: 03-06-2022 Patient encounter procedure Jessica Bacon PA-C Work Phone: [facility] Start: 03-06-2022 Progress Note Jessica Bacon PA-C Work Phone: [facility] Start: 03-04-2022 Patient encounter procedure Jessica Bacon PA-C Work Phone: [facility] Start: 03-04-2022 Progress Note Jessica Bacon PA-C Work Phone: [facility] Start: 03-01-2022 Patient encounter procedure Jessica Bacon PA-C Work Phone: [facility] Start: 03-01-2022 Progress Note Jessica PERSON-Vaishali Work Phone: [facility] [employer] [employer] [facility] Start: 02-27-2022 Patient encounter procedure Itri A Sedrick Work Phone: [facility] Start: 02-27-2022 Progress Note Itri A Sedrick Work Phone: [facility] Start: 10-12-2021 Office outpatient vi sit 15 minutes Charli Barrett Work Phone: [facility] 600 DO Work Phone: Start: 10-12-[address] Charli Barrett II Facility: Procedures Date Procedure Procedure Detail Performing Clinician Hernia repair Charli coker Work Phone: Hernia repair Jesu Tan Plan of Treatment Date Care Activity Detail Author Start: 09-23-2023 FUV, Provider: Charli Barrett, Status: Pen, Time: 9:10 AM [facility], Provider: Charli Barrett, Status: Pen, [facility]: Start: 09-24-2022 FUV, Provider: Charli Barrett, Status: Pen, Time: 9:40 AM [facility]UV, Provider: Charli Barrett, Status: Pen, Time: 9:40 AM [facility] Work [facility]: Immunizations Immunization Date Immunization Notes Care Provider Staci cobb 02-24-2022 influenza, high dose seasonal, preservative-free Jesu BERNAL [facility] Comment on above: Reason for Medicatio n: Other (see comment) 02-24-2022 Fluzone High-Dose Quadrivalent 0.7 ML Intramuscular Suspension Prefilled Syringe [facility] Work Phone: 05-04-2021 Moderna COVID-19 Vac cine 100 MCG/0.5ML Intramuscular Suspension Charli Barrett Work Phone: [facility] 04-19-2021 influenza, high dose seasonal, preservative-free Charli Barrett Work Phone: [facility] 600 DO Work Phone: 04-19-2021 Moderna COVID-19 Vac cine 100 MCG/0.5ML Intramuscular Suspension [facility] 02-17-2016 pneumococcal vaccine , unspecified formulation Charli Barrett Work Phone: -[facility] 600 DO Work Phone: Payers Date Payer Category Payer Unknown [id number] 2021 Medicare MEDICARE MEDICAR E A AND B [id number] 2021-Present [phone] [address] [address] [place] [address] Medicare [id number] [facility] AARP SUPPLEMENT [id number] 2021-Present [phone] [address] [place] [address] Indemnity [id number] 2019 Medicare [id number] 1955 Unknown [id number] 1955 Unknown [id number] .356 1955 Unknown [id number] 1955 Unknown [id number] [id number] .727 1955 Unknown [id number] .727 1955 Unknown [id number] [id number] .727 1955 Unknown [id number] [id number] .727 1955 Unknown [id number] [id number] .727 1955 Unknown [id number] [id number] .727 1955 Unknown [id number] [id number] .727 1955 Unknown [id number] 1955 Unknown [id number] Unknown Social History Date Type Detail Facility Consumes alcohol Consumes alcohol -[facility] 600 DO Work Phone: Comment on above: 1 beer daily; Tobacco smoking status COIS Tobacco smoking consumption unknown [facility] Start: 1955 Sex Assigned At Not on file C [facility] Tobacco [facility] Comment on above: denies Tobacco smoking status No Smoking Status Entered [facility] Sex Assigned At Male [facility] Functional Status Date Assessment Result Facility 10-10-2023 Functional Status N/A [facility] 09-23-2023 Functional Status N/A [facility] 09-22-2023 Functional Status [facility] 09-17-2023 Functional Status N/A [facility] Clinical Notes 06-21-2021 to 10-10-2023 Note Date & Type Note Facility 10-10-2023 Evaluation + Plan note Extrac bela from: Title:ED Note Author:Rick Sanchez DO Date: Ambulatory dysfunction (R26. 2: Difficulty in walking, not elsewhere classified) Generalized weakness (R53.1: Weakness) Parkinsons disease (G20.A1: Parkinson's disease without dyskinesia, without mention of fluctuations) Unable to care for self (Z78.9: Other specified health status) Orders: Basic Metabolic Panel CBC w/ Auto Diff ECG 12 Lead Adult eGFR Extra Blue Tube Extra SST Tube UA with Cult Rflx [facility]05-10-2024 Evaluation + Plan noteExtracted from: Title:Discharge Note Author:Josse GOEL MD D ate:09/26/23 Stable Discharge To, Anticipated II - [facility] To [facility]CU Discharge Diet(s): Regular (09/25/23 17:07:00) Prescriptions busPIRone 5 mg Tab, 10 mg= 2 tab(s), Oral, q8hr cyclobenzaprine 5 mg Tab, 5 mg= 1 tab(s), Oral, TID Home acetaminophen 325 mg Tab, 650 mg= 2 tab(s), Oral, q6hr, PRN carbidopa-levodopa 25 mg-100 mg ER Tab, 2 tab(s), Oral, q4hr docusate sodium 100 mg Cap, 200 mg= 2 cap(s), Oral, Daily entacapone 200 mg Tab, 200 mg= 1 tab(s), Oral, q4hr pimavanserin 34 mg oral capsule, 34 mg= 1 cap(s), Oral, Daily propranolol 80 mg Cap-ER, 80 mg= 1 cap(s), Oral, Daily Requip 1 mg Tab, 1 mg= 1 tab(s), Oral, 6x/Day With When Contact Information Isabelle Julian Within 3 to 5 days [address] Haji, Carmelo C, [address] [address]- Business (1) Additional Instructions: After D/C from SNF , will need referral to [facility] to consider deep brain stimulation Flo LAUREN, YADI Soriano Within 2 to 4 weeks [place] [address] [address]- Additional Instructions: Managing Anxiety, Adult Extracted from: Title:APSO Note Author:Josse GOEL MD Date: 68-year-old male with histor y of Parkinson's disease, hypertension, anxiety, depression, obesity and GERD who was recently discharged from the hospital for generalized weakness from Parkinson's disease with recommendations for placement in SNF however patient refused and was discharged home, presented again with complaints of worsening Parkinson's symptoms with increased tremors, generalized body aches and pains and weakness and inability to care for self at home. 1. Lower extremity weakness (R29.898: Other symptoms and signs involving the musculoskeletal system) Secondary to generalized debility and advanced Parkinson's disease. Seen by neurologist. Continue with physical therapy. Awaiting precertification for placement in a residential facility. Ordered: [facility] Care/Day Moderate 35 Minutes [id number] 2. Parkinson disease (G20.A1: Parkinson's disease without dyskinesia, without mention of fluctuations) Continue on Parkinson's medications. Seen by neurologist no further recommendations. Patient may benefit from deep brain stimulator evaluation as outpatient. [facility] Moderate 35 Minutes [id number] 3. Neuroforaminal stenosis of lumbar spine (M48.061: Spinal stenosis, lumbar region without neurogenic claudication) Supportive care. Or[facility]Day Moderate 35 Minutes [id number] 4. Unable to care for self (Z78.9: Other specified health status) Secondary to physical deconditioning. Seen by physical therapist and recommends residential facility. [facility]Day Moderate 35 Minutes [id number] 5. Anxiety and depression (F41.9: Anxiety disorder, unspecified) Continue on buspirone and propranolol. 6. Hypertension (I10: Essential (primary) hypertension) Blood pressure controlled. Continue on propranolol. 7. Obesity (E66.9: Obesity, unspecified) Recommend therapeutic lifestyle modification changes. 8. Encounter for deep vein thrombosis (DVT) prophylaxis (Z29.9: Encounter for prophylactic measures, unspecified) Heparin. Disposition: To residential facility in am. I discussed the diagnosis and plan of care with the patient at the bedside. Moderate level of MDM based on addressing above issues. This documentation was transcribed using voice recognition software. Several attempts were made to ensure accuracy. However inadvertent computerized fish house worker errors may be present. Josse Goel. Hospitalist. Depression, unspecified (F32.A: Depression, unspecified) Extracted from: Title:APSO Note Author:TONY LAUREN, Josse Date: 68-year-old male with histor y of Parkinson's disease, hypertension, anxiety, depression, obesity and GERD who was recently discharged from the hospital for generalized weakness from Parkinson's disease with recommendations for placement in SNF however patient refused and was discharged home, presented again with complaints of worsening Parkinson's symptoms with increased tremors, generalized body aches and pains and weakness and inability to care for self at home. 1. Lower extremity weakness (R29.898: Other symptoms and signs involving the musculoskeletal system) Secondary to generalized debility and advanced Parkinson's disease. Neurology consult reviewed by me. I appreciate and agree to recommendations. Seen by physical therapist. Recommend residential facility. Awaiting precertification. Ordered: [facility] Care/Day Moderate 35 Minutes [id number] 2. Parkinson disease (G20.A1: Parkinson's disease without dyskinesia, without mention of fluctuations) Continue on Parkinson's medications. Seen by neurologist no further recommendations. Patient may benefit from deep brain stimulator evaluation as outpatient. Ordered: [facility] Care/Day Moderate 35 Minutes [id number] 3. Neuroforaminal stenosis of lumbar spine (M48.061: Spinal stenosis, lumbar region without neurogenic claudication) Supportive care. Ordered: [facility] Care/Day Moderate 35 Minutes [id number] 4. Unable to care for self (Z78.9: Other specified health status) Secondary to physical deconditioning. Seen by physical therapist and recommends residential facility. Ordered: [facility] Care/Day Moderate 35 Minutes [id number] 5. Anxiety and depression (F41.9: Anxiety disorder, unspecified) Continue on buspirone and propranolol. Ordered: [facility]/Day Moderate 35 Minutes [id number] 6. Hypertension (I10: Essential (primary) hypertension) Blood pressure controlled. Continue on propranolol. 7. Obesity (E66.9: Obesity, unspecified) Recommend therapeutic lifestyle modification changes. 8. Encounter for deep vein thrombosis (DVT) prophylaxis (Z29.9: Encounter for prophylactic measures, unspecified) Heparin. Disposition: To residential facility pending precertification. I discussed the diagnosis and plan of care with the patient at the bedside. Moderate level of MDM based on addressing above issues. This documentation was transcribed using voice recognition software. Several attempts were made to ensure accuracy. However inadvertent computerized fish house worker errors may be present. Josse Goel. Hospitalist. Orders: potassium chloride, 40 mEq = 2 tab(s), Tab-ER, Oral, Once, Stop date 09/23/23 8:00:00 EDT, Routine, Start date 09/23/23 8:00:00 EDT, 09/23/23 7:08:00 EDT Referral to Resource Center Extracted from: Title:APSO Note Author:Josse GOEL MD Date: 68-year-old male with histor y of Parkinson's disease, hypertension, anxiety, depression, obesity and GERD who was recently discharged from the hospital for generalized weakness from Parkinson's disease with recommendations for placement in SNF however patient refused and was discharged home, presented again with complaints of worsening Parkinson's symptoms with increased tremors, generalized body aches and pains and weakness and inability to care for self at home.. 1. Lower extremity weakness (R29.898: Other symptoms and signs involving the musculoskeletal system) Secondary to generalized debility, advanced Parkinson's disease. And lumbar degenerative disc disease Physical therapy evaluation pending. Neurology consult pending. Ordered: [facility] Care/Day Moderate 35 Minutes [id number] 2. Parkinson disease (G20.A1: Parkinson's disease without dyskinesia, without mention of fluctuations) Neurology consult pending. Continue on Parkinson's medications Sinemet, Requip, entacapone, Pimavanserine Ordered: [facility] Care/Day Moderate 35 Minutes [id number] 3. Neuroforaminal stenosis of lumbar spine (M48.061: Spinal stenosis, lumbar region without neurogenic claudication) Supportive care. Neurology to follow. Ordered: [facility] Care/Day Moderate 35 Minutes [id number] 4. Unable to care for self (Z78.9: Other specified health status) Secondary to physical deconditioning. Physical therapy evaluation pending. Patient likely will benefit from inpatient physical therapy before safely discharged home. Ordered: [facility] Care/Day Moderate 35 Minutes [id number] 5. Anxiety and depression (F41.9: Anxiety disorder, unspecified) Continue on BuSpar, propranolol. Ordered: [facility] Care/Day Moderate 35 Minutes [id number] 6. Hypertension (I10: Essential (primary) hypertension) Blood pressure fairly controlled. Continue on propranolol. 7. Obesity (E66.9: Obesity, unspecified) Recommend therapeutic lifestyle modification changes. 8. Encounter for deep vein thrombosis (DVT) prophylaxis (Z29.9: Encounter for prophylactic measures, unspecified) Heparin. Disposition: Pending neurology consult and physical therapy evaluation. I discussed the diagnosis and plan of care with the patient at the bedside. Moderate level of MDM based on addressing above issues. This documentation was transcribed using voice recognition software. Several attempts were made to ensure accuracy. However inadvertent computerized fish house worker errors may be present. Josse Goel. Hospitalist. Orders: potassium chloride, 40 mEq = 2 tab(s), Tab-ER, Oral, Once, Stop date 09/23/23 8:00:00 EDT, Routine, Start date 09/23/23 8:00:00 EDT, 09/23/23 7:08:00 EDT Extracted from: Title:Consult Note- Neurology Author:Nedra Montalvo RN Date:09/23/23 ASSESSMENT: 68-year-old man with Parkinson's disease, 16 years in and cognitively doing very well, but with significant and debilitating resting tremors despite maximal medical therapy. PLAN: 1. Continue the home carbidopa levodopa 50-200 mg extended release every 4 hours of the waking day 2. Continue the entacapone 200 mg with each dose of the carbidopa levodopa 3. Continue the ropinirole 1 mg every 4 hours of the waking day 4. Continue the pimavanserin 5. I recommend a movement disorder outpatient consultation at the [facility], as he might be a candidate for focused ultrasound or deep brain stimulation given that he is effectively maximally medicated. He says his right tremors are little worse than the left, but he was initially left hand dominant and would prefer the left-sided tremors to go away. 6. No other recommendations at this time. 1. Lower extremity weakness (R29.898: Other symptoms and signs involving the musculoskeletal system) 2. Parkinson disease (G20.A1: Parkinson's disease without dyskinesia, without mention of fluctuations) 3. Neuroforaminal stenosis of lumbar spine (M48.061: Spinal stenosis, lumbar region without neurogenic claudication) 4. Unable to care for self (Z78.9: Other specified health status) 5. Anxiety and depression (F41.9: Anxiety disorder, unspecified) 6. Hypertension (I10: Essential (primary) hypertension) 7. Obesity (E66.9: Obesity, unspecified) 8. Encounter for deep vein thrombosis (DVT) prophylaxis (Z29.9: Encounter for prophylactic measures, unspecified) Depression, unspecified (F32.A: Depression, unspecified) Extracted from: Title:Admission H & P Author:Alberto GRAY DO Date:09/23/23 1. Lower extremity weakness (R29.898: Other symptoms and signs involving the musculoskeletal system) Potentially multifactorial influences including advanced Parkinson's disease see below, deconditioning, note per review of clinicians notes on recent hospitalization with dramatic improvement ( with the initial intent on patient go to a residential facility on the date of discharge was able to ambulate without walking assistance device ) conversion disorder was considered as a potential influencing condition. I feel it is challenging to determine the predominant influence ,particularly with patient's advanced Parkinson's disease on higher doses of his medications. ? Unlikely dramatic improvement prior to discharge on his recent hospitalization, due to pimavanserin not being on formulary and awaiting availability from home versus other med effects. Note per recommendation of neurology, patient did have an MRI of the lumbar spine demonstrating bilateral neuroforaminal stenosis. Patient is now open to consideration of residential facility. Will reconsult physical and Occupational Therapy, consult neurology with all the above- mentioned potential influences including medication effect dosing timing etc. will continue to monitor patient's vital signs which are stable. Check a UA to rule out other entities contributing in addition to thyroid function studies, CRP and CPK Ordered: C-Reactive Protein Creatine Kinase TSH With T4fr Reflex UA with Cult Rflx 2. Parkinson disease (G20.A1: Parkinson's disease without dyskinesia, without mention of fluctuations) Will continue his carbidopa levodopa, Requip and entacapone to receive 6 times per day. Patient's hallucinations were reported to have improved on pimavanserin which we will continue pending neurology's recommendations 3. Neuroforaminal stenosis of lumbar spine (M48.061: Spinal stenosis, lumbar region without neurogenic claudication) Consult with neurology in light of above 4. Unable to care for self (Z78.9: Other specified health status) Patient now accepts previous recommendations on recent hospitalization for residential facility prior to dramatic improvement on a date of discharge 5. Anxiety and depression (F41.9: Anxiety disorder, unspecified) Continue BuSpar, Inderal which will also help with tremors and anxiety 6. Hypertension (I10: Essential (primary) hypertension) Continue Inderal 7. Obesity (E66.9: Obesity, unspecified) 8. Encounter for deep vein thrombosis (DVT) prophylaxis (Z29.9: Encounter for prophylactic measures, unspecified) Heparin subcutaneous Orders: acetaminophen, 650 mg = 2 tab(s), Tab, Oral, q6hr PRN Pain, Routine, Start date 09/23/23 3:31:00 EDT, 09/23/23 3:31:00 EDT busPIRone, 10 mg = 2 tab(s), Tab, Oral, q8hr, Routine, Start date 09/23/23 4:00:00 EDT, 09/23/23 3:26:00 EDT carbidopa-levodopa, 2 tab(s), Tab-ER, Oral, q4hr, Routine, Start date 09/23/23 4:00:00 EDT cyclobenzaprine, 5 mg = 0.5 tab(s), Tab, Oral, TID, Routine, Start date 09/23/23 8:00:00 EDT, 09/23/23 3:26:00 EDT enoxaparin, 40 mg = 0.4 mL, Injection, SubCutaneous, Daily for 30 day(s), Stop date 10/23/23 8:59:00 EDT, Routine, Start date 09/23/23 9:00:00 EDT, 09/23/23 3:31:00 EDT entacapone, 200 mg = 1 tab(s), Tab, Oral, q4hr, Routine, Start date 09/23/23 4:00:00 EDT, 09/23/23 3:26:00 EDT hydrALAZINE, 10 mg = 0.5 mL, Injection, IV Push, q6hr PRN Other (see comment), Routine, Start date 09/23/23 3:31:00 EDT, 09/23/23 3:31:00 EDT ondansetron, 4 mg = 2 mL, Injection, IV Push, q6hr PRN Nausea, Routine, Start date 09/23/23 3:31:00 EDT, 09/23/23 3:31:00 EDT Patient Specific Meds, pimavanserine, Normal Patient Dose, Each, Oral, Daily, Routine, Start date 09/23/23 9:00:00 EDT propranolol, 80 mg = 1 cap(s), Cap-ER, Oral, Daily, Routine, Start date 09/23/23 9:00:00 EDT, 09/23/23 3:26:00 EDT ropinirole, 1 mg = 1 tab(s), Tab, Oral, 6x/Day, Routine, Start date 09/23/23 4:00:00 EDT, 09/23/23 3:26:00 EDT Basic Metabolic Panel Bedside Commode Cardiac Monitoring CBC w/ Auto Diff Communication Order Education Fall Risk Magnesium Level Notify Provider Vital Signs Notify Provider Vital Signs Occupational Therapy Evaluate Patient, Develop a Plan of Care and Implement Plan Physical Therapy Evaluate Patient, Develop a Plan of Care and Implement Plan Place in Status Precautions Precautions Regular Diet Resuscitation Status - Full Vital Signs Weight Admit patient as general inpatient with anticipation he will require greater than 2 midnight stay Extracted from: Title:ED Note Author:Baldo Martinez PA-C te:09/23/23 Parkinson disease (G20.A1: P arkinson's disease without dyskinesia, without mention of fluctuations) Unable to care for self (Z78.9: Other specified health status) Orders: Basic Metabolic Panel CBC w/ Auto Diff ECG 12 Lead Adult eGFR Saline Lock Insert Troponin 0 Hr. Troponin 1 Hr. Troponin 3 Hr. Troponin 6 Hr. UA with Cult Rflx XR Chest Single View Future Appointments Appointment Date:09/29/2023 03:40:00 PM Scheduled Provider:Johnathon SIEGEL MD Location:Extended Care Appointment Type:[facility]05[facility]10[facility]24 Hospital Discharge instructions Patient Education 09/26/2023 08:47:45 Managing Anxiety, Adult Managing Anxiety, Adult After being diagnosed with anxiety, you may be relieved to know why you have felt or behaved a certain way. You may also feel overwhelmed about the treatment ahead and what it will mean for your life. With care and support, you can manage this condition. How to manage lifestyle changes Managing stress and anxiety Stress is your body's reaction to life changes and events, both good and bad. Most stress will lastjust a few hours, but stress can be ongoing and can lead to more than just stress. Although stress can play a major role in anxiety, it is not the same as anxiety. Stress is usually caused by something external, such as a deadline, test, or competition. Stress normally passes after the triggering event has ended. Anxiety is caused by something internal, such as imagining a terrible outcome or worrying that something will go wrong that will devastate you. Anxiety often does not go away even after the triggering event is over, and it can become long-term (chronic) worry. It is important to understand the differences between stress and anxiety and to manage your stress effectively so that it does not lead cici anxious response. Talk with your health care provider or a counselor to learn more about reducing anxiety and stress.He or she may suggest tension reduction techniques, such as: Music therapy. Spend time creating or listening to music that you enjoy and that inspires you. Mindfulness-based meditation. Practice being aware of your normal breaths while not trying to control your breathing. It can be done while sitting or walking. Centering prayer. This involves focusing on a word, phrase, or sacred image that means something toyou and brings you peace. Deep breathing. To do this, expand your stomach and inhale slowly through your nose. Hold your breath for 3 5 seconds. Then exhale slowly, letting your stomach muscles relax. Self-talk. Learn to notice and identify thought patterns that lead to anxiety reactions and change those patterns to thoughts that feel peaceful. Muscle relaxation. Taking time to tense muscles and then relax them. Choose a tension reduction technique that fits your lifestyle and personality. These techniques take time and practice. Set aside 5 15 minutes a day to do them. Therapists can offer counseling and training in these techniques. The training to help with anxiety may be covered by some insurance plans. Other things you can do to manage stress and anxiety include: Keeping a stress diary. This can help you learn what triggers your reaction and then learn ways to manage your response. Thinking about how you react to certain situations. You may not be able to control everything, but you can control your response. Making time for activities that help you relax and not feeling guilty about spending your time in this way. Doing visual imagery. This involves imagining or creating mental pictures to help you relax. Practicing yoga. Through yoga poses, you can lower tension and promote relaxation. Medicines Medicines can help ease symptoms. Medicines for anxiety include: Antidepressant medicines. These are usually prescribed for long-term daily control. Anti-anxiety medicines. These may be added in severe cases, especially when panic attacks occur. Medicines will be prescribed by a health care provider. When used together, medicines, psychotherapy, and tension reduction techniques may be the most effective treatment. Relationships Relationships can play a big part in helping you recover. Try to spend more time connecting with trusted friends and family members. Consider going to couples counseling if you have a partner, taking family education classes, or going to family therapy. Therapy can help you and others better understand your condition. How to recognize changes in your anxiety Everyone responds differently to treatment for anxiety. Recovery from anxiety happens when symptomsdecrease and stop interfering with your daily activities at home or work. This may mean that you will start to: Have better concentration and focus. Worry will interfere less in your daily thinking. Sleep better. Be less irritable. Have more energy. Have improved memory. It is also important to recognize when your condition is getting worse. Contact your health care provider if your symptoms interfere with home or work and you feel like your condition is not improving. Follow these instructions at home: Activity Exercise. Adults should do the following: ?Exercise for at least 150 minutes each week. The exercise should increase your heart rate and makeyou sweat (moderate-intensity exercise). ?Strengthening exercises at least twice a week. Get the right amount and quality of sleep. Most adults need 7 9 hours of sleep each night. Lifestyle Eat a healthy diet that includes plenty of vegetables, fruits, whole grains, low-fat dairy products, and lean protein. ?Do not eat a lot of foods that are high in fats, added sugars, or salt (sodium). Make choices that simplify your life. Do not use any products that contain nicotine or tobacco. These products include cigarettes, chewing tobacco, and vaping devices, such as e-cigarettes. If you need help quitting, ask your health careprovider. Avoid caffeine, alcohol, and certain elqe-atw-lswltia cold medicines. These may make you feel worse. Ask your pharmacist which medicines to avoid. General instructions Take xayv-jed-bijuktm and prescription medicines only as told by your health care provider. Keep all follow-up visits. This is important. Where to find support You can get help and support from these sources: Self-help groups. Online and community organizations. A trusted spiritual leader. Couples counseling. Family education classes. Family therapy. Where to find more information You may find that joining a support group helps you deal with your anxiety. The following sources can help you locate counselors or support groups near you: Mental Health [place]: www.mentalhealth[place].net Anxiety and Depression Association of [place] (ADAA): www.adaa.org National [place] [employer] Mental Illness ([place]): www.[place].org Contact a health care provider if: You have a hard time staying focused or finishing daily tasks. You spend many hours a day feeling worried about everyday life. You become exhausted by worry. You start to have headaches or frequently feel tense. You develop chronic nausea or diarrhea. Get help right away if: You have a racing heart and shortness of breath. You have thoughts of hurting yourself or others. If you ever feel like you may hurt yourself or others, or have thoughts about taking your own life,get help right away. Go to your nearest emergency department or: Call your local emergency services (448 in the [place] Call a suicide crisis helpline, such as the National Suicide Prevention Lifeline at or 669 in the [place] This is open 24 hours a day in the [place] Text the Crisis Text Line at 336135 (in the [place] Summary Taking steps to learn and use tension reduction techniques can help calm you and help prevent triggering an anxiety reaction. When used together, medicines, psychotherapy, and tension reduction techniques may be the most effective treatment. Family, friends, and partners can play a big part in supporting you. This information is not intended to replace advice given to you by your health care provider. Make sure you discuss any questions you have with your health care provider. Document Revised: 11/28/2021 Document Reviewed: 08/26/2021 REEL Qualified Patient Education 2022 [employer]. Follow Up Care 09/22/2023 22:39:40 With:Isabelle Julian Address: [facility] [address] , [facility] [address] [place] [address]- Business (1) When:3 to 5 days Comments:After D/C from SNF , will need referral to [facility] to consider deep brain stimulation With:Bo Rossi MD, NEU Address: [facility] [address] [address]- When:2 to 4 weeks [facility]05-10-2024 NoteSpoke to Albina MARIANO @ TCU. Discharge summary, med rec, and SBAR faxed down to facility. Originals copies to accompany patient when transferred down to facility. Patient has one specific med from home with him to be taken down. Celeste updated on POC.[facility] 09-26-2023 NoteAdmission and Discharge Information Admit Date/Time:09/23/2023 00:34 Admitting Physician - Alberto GRAY DO Consulting Physician - Bo Rossi MD Admitting Diagnoses: Discharge Order Date Discharge Patient - Ordered -- 09/26/23 8:59:00 EDT, TCU Discharge Diagnoses 1. Lower extremity weakness, 09/23/2023 2. Parkinson disease, 09/23/2023 3. Neuroforaminal stenosis of lumbar spine, 09/23/2023 4. Unable to care for self, 09/23/2023 5. Anxiety and depression, 09/23/2023 6. Hypertension, 09/23/2023 7. Obesity, 09/23/2023 8. Encounter for deep vein thrombosis (DVT) prophylaxis, 09/23/2023 Depression, unspecified, 09/23/2023 Medical problem - minor, 09/22/2023 Procedure History Hernia repair. Hospital Course 68-year-old male with history of Parkinson's disease, hypertension, anxiety, depression, obesity, GERD who was recently discharged from the hospital for generalized weakness from Parkinson's disease presented again with complaints of worsening Parkinson's symptoms with increased tremors, generalized body aches and pains, tactile hallucination and weakness and inability to care for himself at home. He was subsequently admitted to [facility] with inability to care for self at home, bilateral lower extremity weakness, increased tremors secondary to Parkinson's disease and lumbarneuroforaminal stenosis. He was seen in consultation by the neurologist who recommended outpatient visit at [facility] to consider deep brain stimulation to help control his Parkinson's tremors. Patient is already on maximum oral medical therapy for Parkinson's disease. He participated well in physical therapy and was found to have need for placement in a residential facility. Arrangements have been made for this. He was seen prior to discharge and remained in an improved and stable condition for discharge and was subsequently discharged to TCU. He will follow-up with the neurologist and eventually be referred to [facility] neurology for deep brain stimulation. He will also follow-up with his PCP. Discharge time: 32 minutes. I spent 32 minutes in seeing, evaluating, educating patient on his conditions, coordinating care plan, medication reconciliation, speaking with wedding consultant, nursing staff and case management. Services Consulted Consult to Neurology - Ordered -- 09/23/23 3:35:00 EDT, increasing weakness (B/L LEs) advanced parkinsons, Consult and Co-manage Consult to Blind Cleaner - Completed -- 09/23/23 0:51:00 EDT, PLACEMENT, Other Physical Exam Vitals & Measurements T: 36.3 ?C(Axillary) TMIN: 36.3 ?C(Axillary) TMAX: 36.6 ?C(Oral) HR: 81(Monitored) RR: 22 BP: 127/62 SpO2: 96% WT: 86.8 kg General: alert, no acute distress Skin: warm, dry Head: no trauma, normocephalic Neck: Trachea midline, no adenopathy, no tenderness Eye: normal conjunctiva, sclera clear ENMT: TM's clear, oral mucosa moist, no pharyngeal erythema or exudate Cardiovascular: regular rate and rhythm, normal peripheral perfusion Respiratory: Lungs CTA, respirations non labored Chest wall: no deformity. Gastrointestinal: soft, non distended, no tenderness, no guarding. Back: No tenderness, Normal ROM, Normal alignment. Extremities: no deformity, no trauma Neurological: oriented x 4, LOC appropriate for age, CN II-XII intact, resting tremors of upper extremities. Speech is normal. Psychiatric: cooperative, affect appropriate for age, normal judgement, normal psychiatric thoughts. Tests Performed XR Chest Single View Discharge Plan Patient Discharge Condition Stable Discharge Disposition Discharge To, Anticipated II - [facility] To TCU Discharge Diet Discharge Diet(s): Regular (09/25/23 17:07:00) Discharge Medication List Prescriptions busPIRone 5 mg Tab, 10 mg= 2 tab(s), Oral, q8hr cyclobenzaprine 5 mg Tab, 5 mg= 1 tab(s), Oral, TID Home acetaminophen 325 mg Tab, 650 mg= 2 tab(s), Oral, q6hr, PRN carbidopa-levodopa 25 mg-100 mg ER Tab, 2 tab(s), Oral, q4hr docusate sodium 100 mg Cap, 200 mg= 2 cap(s), Oral, Daily entacapone 200 mg Tab, 200 mg= 1 tab(s), Oral, q4hr pimavanserin 34 mg oral capsule, 34 mg= 1 cap(s), Oral, Daily propranolol 80 mg Cap-ER, 80 mg= 1 cap(s), Oral, Daily Requip 1 mg Tab, 1 mg= 1 tab(s), Oral, 6x/Day Follow-up With When Contact Information Isabelle Julian Within 3 to 5 days [address], [address], [address] [place] [address]- Business (1) Additional Instructions: After D/C from SNF , will need referral to [facility] to consider deep brain stimulation Flo LAUREN, YADI Soriano Within 2 to 4 weeks [facility] [address] [place] [address]- Additional Instructions: Patient Education Managing Anxiety, [facility] FoundationComment on above:Result Comment: Electronically Signed By: TONY LAUREN, Josse\.br\Date and Time Signed: 09/26/23 09:06 [id number] NoteConsult for placement received. Patient is being followed by CRM for appropriate d/c planning. Patient agreeable to SNF and referral was sent to TCU. TCU has accepted. SW will remain available.[facility]05-07-2024 NotePT Evaluation done this date. Pt. with 03/11 on AM-PAC today. Max Ax2 with bed mobility and transfers with use of gait belt for sit to stand. Attempted sidestepping but pt. with significant difficulty doing this. Recommend SNF.[facility]05-07-2024 NoteBasic Information Admit Date/Time:09/23/2023 00:34 Chief Complaint I woke up and I could not control my body movement. They were violently shaking, I was cold and shaking. History of Present Illness Patient is an obese 68-year-old male with a past medical history significant for Parkinson's disease, prior history of alcohol use, hypertension, GERD, anxiety and depression who was recently admitted on 16 September. His complaint at that time where that he was having worsening Parkinson's symptoms for 3months he was also complaining of auditory visual and tactile hallucinations. He was described as being able to move only his right upper extremity on presentation at the time of that admission. It was acknowledged that prior to that admission ,patient did have intensification of multiple anti-Parkinson's meds including Requip, Comtan and Sinemet 6 times per day. Neurology had commented that patient's hallucinations had responded to pimavanserin which was brought in from home. Patient was seen by neurology with lack of reflexes there was consideration of polyneuropathy and recommendation was made for MRI of the lumbar and thoracic spine. MRI of the lumbar spine had demonstrated grade 1 anterior listhesis degenerative changes at L3-L4 with moderate to marked bilateral neuroforaminal stenosis left greater than right. There is no acute pathology per review of the MRI of the lumbar spine. Patient was continued on his anti-Parkinson's meds. Was seen by physical therapy with the initial plan for patient to be mated to a residential facility. However it is noted per review of the chartthe patient had a miraculous recovery on his date of discharge which was 3 September after reassessmentwas no longer felt to require a residential facility that home health was to be arranged. Therewas ingestion of consideration of conversion disorder with the remarkable improvement. Patient presented the emergency department this evening with below Patient states that he has had return of his symptoms includes increased tremors also states he hashad increased weakness. I asked patient to sit forward to auscultate his lungs, he states he was unable to and required assistance from the nurse. He had minimal movement of his lower extremities. Hestates because of the increased tremors this had worsened his anxiety and he was worried that he would be he implied due to the stress of this. He states he had contacted his neighbor with theuse of Joann with then called EMS for patient be brought into the hospital. Patient has little insight in regards to his similar symptoms on a recent hospitalization with dramatic improvement and thenagain return of symptoms. He was denying any fevers or chills, no chest pain or lightheadedness. Hedenies missing any of his Parkinson's meds. Review of Systems Constitutional: no fever, no chills, mild sweats, moderate weakness Skin: no Jaundice, no rash, no lesions, nopetechiae ENMT: no ear pain, no sore throat, no congestion, no hoarseness Respiratory: no shortness of breath, no cough, no orthopnea, no wheezing Cardiovascular: no chest pain, no palpitations, no edema Gastrointestinal: no nausea, no vomiting, no diarrhea, no GI bleeding Genitourinary: no dysuria, Musculoskeletal: no back pain, no trauma Neurologic: no headache, no dizziness, no numbness, moderate weakness especially of his lower extremities Psychiatric: Patient states that he does have tremors as he is about to go to sleep and when he awakens his tremors are severe , no irritability, no mood swings/depression. Heme/Lymph: no bleeding tendency, no bruising tendency, no petechiae, no swollen nodes Allergy/Immunologic: no seasonal allergies, no food allergies, no recurrent infections, no impairedimmunity Additional ROS info: Except as noted in the above Review of Systems and in the History of Present Illness all other systems have been reviewed and are negative or noncontributory. Scoring Kennedy Fall Risk Score: 85 High (09/23/23) Physical Exam Vitals & Measurements T: 36.4 ?C(Oral) TMIN: 36.4 ?C(Oral) TMAX: 36.5 ?C(Oral) HR: 76(Peripheral) RR: 18 BP: 165/78 SpO2:100% HT: 172.72 cm WT: 84.3 kg General: alert, no acute distress Skin: warm, dry Head: no trauma, normocephalic Neck: Trachea midline, no adenopathy, no tenderness Eye: normal conjunctiva, sclera clear ENMT: TM's clear, oral mucosa moist, no pharyngeal erythema or exudate Cardiovascular: regular rate and rhythm, normal peripheral perfusion Respiratory: Lungs CTA, respirations non labored Chest wall: no deformity. Gastrointestinal: soft, non distended, no tenderness, no guarding. Osteopathic exam - Pt was examined in supine and seated positions. Pt with diminished lumbar lordosis, increased thoracic kyphosis. No profound scoliosis. Extremities: no deformity, no trauma, no edema Neurological: oriented x 4, LOC appropriate for age, , motor strength patient appeared to have adequate hand grasp strength (more content not included)... [facility] CenterComment on above:Result Comment: Electronically Signed By: Alberto GRAY DO\Date and Time Signed: 09/23/23 03:34 EDT 09-19-2023 NoteAdmission and Discharge Information Admit Date/Time:09/17/2023 22:56 Admitting Physician - Jesu BERNAL DO Consulting Physician - Bo Rossi MD Admitting Diagnoses: Discharge Diagnoses 1. Parkinsons disease, 09/17/2023 2. Unable to care for self, 09/17/2023 3. Anxiety, 09/18/2023 4. HTN (hypertension), 09/18/2023 5. Chronic GERD, 09/18/2023 6. Depression with anxiety, 09/18/2023 7. Obesity, 09/18/2023 8. On deep vein thrombosis (DVT) prophylaxis, 09/18/2023 Please refer to my progress note for in-depth information regarding each individual diagnosis -Patient had a quicker than anticipated recovery. Procedure History Hernia repair. Hospital Course 68-year-old male with PMH of Parkinson's disease, HTN, anxiety, depression, GERD, obesity. -Patient presented to the ED secondary to worsening Parkinson symptoms x 3 months, auditory, visualand tactile hallucinations and feeling anxious. He stated he is was in a frozen state. -MRI thoracic spine: Little interval change from 06/2021 -MRI Lumbar spine: L3 spondylolisthesis, grade 1 anterior lithiasis and degenerative changes at L3-4 which results in moderate to marked bilateral neural foraminal narrowing, greater on the left. Mild lumbar spondylosis and degenerative disc disease elsewhere, refer to report. -Patient has no intentions to follow-up with orthospine for further evaluation. -Patient presented with what he described as a frozen state with minimal movement in extremities with exception of RUE, he was seen and evaluated by neurology and underwent diagnostic testing as above. This a.m. patient is ambulating without difficulty without assistive device in the room, he states that he feels miraculous and is wanting to leave as soon as possible. Patient was seen by neurology who re-evaluated patient this morning, september discharge from neurology standpoint and follow-up in neuro clinic. Patient was placed back on his buspirone with significant improvement. I suspect conversion disorder component. Discussed ongoing management of medications with the patient, recommended mental health services however patient is not agreeable at this time. -Patient was seen by PT this a.m., recommendation for SNF discontinued, recommend home health care,outpatient physical therapy if patient would be agreeable. information assurance manager aware and will set up. -I spoke with Dr. Sherley Julian to provide signout however patient has not been seen in their office, she will see patient in follow-up as he has been assigned to her office since 2021 but has not been seen. -Patient states that all admitting symptoms have significantly improved and/or resolved. Patient iseating and drinking without complaints, denies being SOB, chest pain, pressure, palpitations or difficulty with voiding.Patient is eager to be discharged to home. --Other chronic medical conditions as outlined in note. Refer to d/c plan below: -Case reviewed and discussed with Dr. Hall who is in agreement with current d/c plan. Case will be reviewed and discussed with PCP or transitions rn care coordinator MD once the hospital bender machine operator is able to reach him/her.I spent a lengthy amount of time with the patient and/or family (teach back method) reviewing discharge instructions, medications, medication use. Patient to follow-up with PCP and specialty providers as scheduled on discharge. Patient being discharged in medically/hemodynamically stable cond. withinstructions to return to the hospital if symptoms worsen or recur. This report was transcribed using voice recognition software. Every effort was made to ensure accuracy, however, inadvertently computerized fish house worker mistakes may be present. Significant Findings MRI Spine Lumbar w/o Contrast 09/18/23 15:24:58 IMPRESSION: L3 SPONDYLOLYSIS, GRADE 1 ANTEROLISTHESIS AND DEGENERATIVE CHANGES AT L3-4, WHICH RESULTS IN MODERATE TO MARKED BILATERAL NEURAL FORAMINAL NARROWING, GREATER ON THE LEFT. MILD LUMBAR SPONDYLOSIS AND DEGENERATIVE DISC DISEASE ELSEWHERE, DESCRIBED IN DETAIL. EXAM: MRI Spine Lumbar w/o Contrast DATE: 09/18/2023 1:18 PM CLINICAL HISTORY: Lower extremity weakness. COMPARISON: Lumbar spine radiographs 06/19/[address] abdomen and pelvis according 2015. TECHNIQUE: Multiplanar MR imaging of the lumbar spine was performed without contrast. FINDINGS: The spine is visualized from T11-12 through S2, on the diagnostic sagittal sequences. Alignment: Lumbar lordosis is maintained. L3 spondylolysis with approximately 7 to 8 mm of anterolisthesis of L3 over L4, similar to the prior studies. Vertebral body heights and remaining alignment are within normal limits. Bone marrow signal/fracture: Mild degenerative endplate changes, predominantly at L3-4. Otherwise, unremarkable Conus: The conus is within normal limits of signal intensity and morphology. Paraspinal soft tissues: Paraspinal soft tissues are unremarkable. Lower thoracic spine: Visualized lower thoracic canal and whitney (more content not included)...[facility] Center[facility] on above:Result Comment: Electronically Signed By: Karissa MCCANN\.br\Date and Time Signed: 09/19/23 11:34 EDT\.br\Electronically Co-Signed By: Karissa MCCANN\.br\Date and Time Co-Signed: 09/19/23 11:35 EDT\.br\Electronically Co- Signed By: Charli Hall DO\.br\Date and Time Co-Signed:09/19/23 14:53 EDT 09-19-2023 Evaluation + Plan noteExtracted from: Title:Discharge Note Author:Kathi MCCANN Date:09/19/23 Hemodynamically stable condi tion Discharge Status: Improved Discharge Instructions Given: To patient Discharge disposition: Home Prescriptions reviewed with Patient 47 minutes spent in discharge time with patient, neurology, collaborating MD, nursing staff, CRM, Discharge Diet(s): Regular, Fat Modified- 50 gram, Low Sodium- 2000 mg (09/19/23 11:02:00) Prescriptions busPIRone 5 mg Tab, 10 mg= 2 tab(s), Oral, q8hr cyclobenzaprine 5 mg Tab, 5 mg= 1 tab(s), Oral, TID Home acetaminophen 325 mg Tab, 650 mg= 2 tab(s), Oral, q6hr, PRN carbidopa-levodopa 25 mg-100 mg ER Tab, 2 tab(s), Oral, q4hr entacapone 200 mg Tab, 200 mg= 1 tab(s), Oral, q4hr pimavanserin 34 mg oral capsule, 34 mg= 1 cap(s), Oral, Daily propranolol 80 mg Cap-ER, 80 mg= 1 cap(s), Oral, Daily Requip 1 mg Tab, 1 mg= 1 tab(s), Oral, 6x/Day With When Contact Information Isabelle Julian Within 2 to 4 days [address], [address], [address] [place] [address]- Business (1) Additional Instructions: Flo LAUREN, YADI Soriano Within 2 to 4 weeks [facility] [address] [place] [address]- Additional Instructions: Parkinson's Disease, [id number] Extracted from: Title:APSO Note- Neurology Author:Sterling Montalvo RN Date:09/19/23 The patient is a 68-year-old male with advanced Parkinson's disease on multiple medications for control of extrapyramidal symptoms who has developed increasing difficulty with ambulation predominantly due to incoordination with the lower extremities. The patient has absent reflexes in the lower extremities possibly due to a peripheral nerve process such as polyradiculopathy. The patient does have reported history of degenerative lumbar spine disease. I am concerned about an intraspinal canal lesion in the lumbar spine contributing to his current symptoms superimposed upon extrapyramidal symptoms with increased difficulty ambulating. Patient states that his lower extremity incoordination and weakness has improved. I have reviewed the patient's MRI of the lumbar spine which reveals degenerative spine disease with foraminal stenosis. I have reviewed the patient's MRI of the thoracic spine which does not reveal evidence of an acute or chronic intraspinal canal lesion contributing to his symptoms The patient would benefit from evaluation by physical therapy and Occupational Therapy to assess for therapy and rehab needs. I will continue the patient's current medications at the current doses. The patient could follow-up in the adult outpatient neurology clinic 1. Parkinsons disease (G20: Parkinson's disease) 2. Unable to care for self (Z78.9: Other specified health status) 3. Anxiety (F41.9: Anxiety disorder, unspecified) 4. HTN (hypertension) (I10: Essential (primary) hypertension) 5. Chronic GERD (K21.9: Gastro-esophageal reflux disease without esophagitis) 6. Depression with anxiety (F41.8: Other specified anxiety disorders) 7. Obesity (E66.9: Obesity, unspecified) 8. On deep vein thrombosis (DVT) prophylaxis (Z79.899: Other director long term care (current) drug therapy) Extracted from: Title:APSO Note Author:Karissa MCCANN ate:09/18/23 1. Parkinsons disease (G20: Parkinson's disease) Concern for worsening tremors, ED notes hallucination - pt. states he has those chronically w/ flares -Denies hallucinations at present -Consult neuro: pending -Buspirone, sinemet, entacapone, propranolol, ropinirole -Nursing to call family to bring in pimavanserin 2. Unable to care for self (Z78.9: Other specified health status) 2/2 above -PT/OT - pending 3. Anxiety (F41.9: Anxiety disorder, unspecified) Stable this a.m., he states he has terrible anxiety attacks magalie. during is frozen moments -Meds as above 4. HTN (hypertension) (I10: Essential (primary) hypertension) -Propanolol 5. Chronic GERD (K21.9: Gastro-esophageal reflux disease without esophagitis) -No PPI on med list 6. Depression with anxiety (F41.8: Other specified anxiety disorders) -Meds as above 7. Obesity (E66.9: Obesity, unspecified) BMI 30 -Educated on need for lifestyle modifications with goal of weight loss as obesity has a negative impact on co-morbid conditions. 8. On deep vein thrombosis (DVT) prophylaxis (Z79.899: Other shelter (current) drug therapy) -Lovenox Orders: ropinirole, 1 mg = 1 tab(s), Tab, Oral, 6x/Day, Routine, Start date 09/18/23 12:00:00 EDT, 09/18/23 10:07:00 EDT Communication Order Physician to Nursing -Plan discussed w/ patient, nursing staff and CRM. This report was transcribed using voice recognition software. Every effort was made to ensure accuracy, however, inadvertently computerized fish house worker mistakes may be present. Extracted from: Title:Consult Note-neurology Author:Jacy Delarosa RN Date:09/18/23 The patient is a 68-year-old male with advanced Parkinson's disease on multiple medications for control of extraparametal symptoms who has developed increasing difficulty with ambulation predominantly due to incoordination with the lower extremities. The patient has absent reflexes in the lower extremities possibly due to a peripheral nerve process such as polyradiculopathy. The patient does have reported history of degenerative lumbar spine disease. I am concerned about an intraspinal canal lesion in the lumbar spine contributing to his current symptoms superimposed upon extraparametal symptoms with increased difficulty ambulating. I recommend obtaining an MRI of the lumbar spine to assess for degenerative spine disease. I will consider an MRI of the thoracic spine to assess for an intraspinal canal lesion which may affect the lower extremities. The patient would benefit from evaluation by physical therapy and Occupational Therapy to assess for therapy and rehab needs. I will continue the patient's current medications at the current doses. I will make further recommendations based upon clinical course and the above evaluation. 1. Parkinsons disease (G20: Parkinson's disease) 2. Unable to care for self (Z78.9: Other specified health status) 3. Anxiety (F41.9: Anxiety disorder, unspecified) 4. HTN (hypertension) (I10: Essential (primary) hypertension) 5. On deep vein thrombosis (DVT) prophylaxis (Z79.899: Other director long term care (current) drug therapy) Extracted from: Title:Admission H & P Author:Jesu BERNAL DO Date:09/17/23 1. Parkinsons disease (G20: Parkinson's disease) Patient appears to be having worsening of his symptoms of Parkinson's disease. Will admit patient to hospital overnight and ask neurology to see patient. Plan will be to resume patient's home medications once they have been reconciled. 2. Unable to care for self (Z78.9: Other specified health status) Will ask physical therapy and Occupational Therapy to evaluate patient. 3. Anxiety (F41.9: Anxiety disorder, unspecified) Resume home medications once reconciled. 4. HTN (hypertension) (I10: Essential (primary) hypertension) Resume home medications once reconciled. Hydralazine iv prn. see orders. 5. On deep vein thrombosis (DVT) prophylaxis (Z79.899: Other shelter (current) drug therapy) SCD, enoxaparin Orders: acetaminophen, 650 mg = 2 tab(s), Tab, Oral, q6hr PRN Pain, Routine, Start date 09/18/23 1:01:00 EDT, 09/18/23 1:01:00 EDT diphenhydrAMINE, 25 mg = 1 cap(s), Cap, Oral, q6hr PRN Itching, Routine, Start date 09/18/23 1:01:00 EDT, 09/18/23 1:01:00 EDT enoxaparin, 40 mg = 0.4 mL, Injection, SubCutaneous, Daily for 30 day(s), Stop date 10/18/23 8:59:00 EDT, Routine, Start date 09/18/23 9:00:00 EDT, 09/18/23 1:01:00 EDT hydrALAZINE, 10 mg = 0.5 mL, Injection, IV Push, q6hr PRN Other (see comment), Routine, Start date 09/18/23 1:01:00 EDT, 09/18/23 1:01:00 EDT ibuprofen, 800 mg = 1 tab(s), Tab, Oral, TID PRN Pain, Routine, Start date 09/18/23 1:01:00 EDT, 09/18/23 1:01:00 EDT morphine, 2 mg = 1 mL, Injection, IV Push, q3hr PRN Pain for 5 day(s), Stop date 09/22/23 23:15:00 EDT, Routine, Start date 09/17/23 23:16:00 EDT, 09/17/23 23:16:00 EDT ondansetron, 4 mg = 2 mL, Injection, IV Push, q6hr PRN Nausea, Routine, Start date 09/18/23 1:01:00 EDT, 09/18/23 1:01:00 EDT Ambulate with Assistance Below the Knee Intermittent Pneumatic Compression Device Consult to Neurology Folate Level Notify Provider Vital Signs Notify Provider Vital Signs Occupational Therapy Evaluate Patient, Develop a Plan of Care and Implement Plan Oxygen Protocol Physical Therapy Evaluate Patient, Develop a Plan of Care and Implement Plan Place in Status Precautions Regular Diet Resuscitation Status - Full Saline Lock Convert From IV Vital Signs Weight Anticipated stay greater than 2 midnights due to above Extracted from: Title:ED Note Author:Sabrina Bermudez PA-C Date :09/17/23 1. Parkinsons disease (G20: Parkinson's disease) 2. Unable to care for self (Z78.9: Other specified health status) Orders: ketorolac, 15 mg = 1 mL, Injection, IV Push, Once, Stop date 09/17/23 22:22:00 EDT, STAT, Start date 09/17/23 22:22:00 EDT, 09/17/23 22:22:00 EDT orphenadrine, 60 mg = 2 mL, Injection, IV Push, Once, Stop date 09/17/23 22:22:00 EDT, STAT, Start date 09/17/23 22:22:00 EDT, 09/17/23 22:22:00 EDT Basic Metabolic Panel CBC w/ Auto Diff ED Physician consult Hospitalist for continued care eGFR Extra Blue Tube Extra SST Tube Saline Lock Insert Vitamin B12 Level [facility]05-03-2024 Hospital Discharge instructions Patient Education 09/19/2023 11:03:51 Parkinson's Disease, [id number] Parkinson's Disease Parkinson's disease causes problems with movements. It makes it harder for you to walk or control your body. It is a long-term condition. It gets worse over time. What are the causes? This condition is caused by a loss of brain cells called neurons. These brain cells make a chemicalcalled dopamine, which is needed to control body movement. It is not known what causes the brain cells to . What increases the risk? Being male. Being age 60 or older. Having family members who had Parkinson's disease. Having had an injury to the brain. Being around things that are harmful or poisonous, such as pesticides. Being very sad (depressed). What are the signs or symptoms? Symptoms of this condition can vary. The main symptoms can be seen in your movement. These include: Shaking or tremors that you cannot control. This happens while you are resting. Stiffness in your neck, arms, and legs. Trouble making small movements that are needed to button your clothing or brush your teeth. Losing facial expressions. Walking in a way that is not normal. You may walk with short, shuffling steps. Loss of balance when standing. You may sway, fall backward, or have trouble making turns. Other symptoms include: Being very sad or worried. Having false beliefs (delusions). Seeing, hearing, or feeling things that are not real. Trouble speaking or swallowing. Having a hard time pooping (constipation). Needing to pee right away, peeing often, or not being able to control when you pee or poop. Sleep problems. How is this treated? There is no cure for this disease. The goal of treatment is to manage your symptoms. Treatment may include: Medicines. Therapy to help with talking or movement. Surgery to reduce shaking and other movements that you cannot control. Follow these instructions at home: Medicines Take [id number] and prescription medicines only as told by your doctor. Avoid taking pain or sleeping medicines. These medicines affect your thinking. Eating and drinking Follow instructions from your doctor about what you cannot eat or drink. Do not drink alcohol. Activity Ask your doctor if it is safe for you to drive. Do exercises as told by your doctor. Lifestyle Put in grab bars and railings in your home, especially in the toilet and shower. These help to prevent falls. Do not smoke or use any products that contain nicotine or tobacco. If you need help quitting, ask your doctor. Join a support group. General instructions Talk with your doctor to know the type of help that you need at home. Ask your doctor about ways tostay safe. Keep all follow-up visits. These include going to see a physical therapist, speech therapist, or occupational therapist. Where to find more information National [place] of Neurological Disorders and Stroke: www.ninds.nih.gov Parkinson's Foundation: www.parkinson.org Contact a doctor if: Medicines do not help your symptoms. You keep losing your balance. You fall at home. You need more help at home. You have trouble swallowing. You have a very hard time pooping. You have a lot of side effects from your medicines. You feel very sad, worried, or confused. You see, hear, or feel things that are not real. Get help right away if: You were hurt in a fall. You cannot swallow without choking. You have chest pain or trouble breathing. You do not feel safe at home. You have thoughts about hurting yourself or other people. These symptoms may be an emergency. Get help right away. Call your local emergency services (780 int [place] Do not wait to see if the symptoms will go away. Do not drive yourself to the hospital. Get help right away if you feel like you may hurt yourself or others, or have thoughts about takingyour own life. Go to your nearest emergency room or: Call your local emergency services (175 in the [place] Call the National Suicide Prevention Lifeline at or 632 in the [place] This is open 24 hours a day. Text the Crisis Text Line at 199663. Summary Parkinson's disease causes problems with movements. It is a long-term condition. It gets worse over time. There is no cure. Treatment focuses on managing your symptoms. Talk with your doctor to know the type of help that you need at home. Ask your doctor about ways tostay safe. Keep all follow-up visits. This information is not intended to replace advice given to you by your health care provider. Make sure you discuss any questions you have with your health care provider. Document Revised: 11/28/2021 Document Reviewed: 08/20/2021 REEL Qualified Patient Education 2022 [employer]. Follow Up Care 09/17/2023 20:57:00 With:Bo Rossi MD, NEU [facility] [address] [place] [address]- When:2 to 4 weeks Comments:Call for followup appointment due to the Doctor's office is closed on Friday. With:Isabelle Julian Address: [address], [facility] [address] [place] [address]- Business (1) When:2 to 4 days [facility]05-03-2024 NoteBasic Information Patient is a 68-year-old male who I was asked to see in neurological consultation for exacerbation Parkinsons. The patient has a past medical history of neurodegenerative disease diagnosis Parkinson's disease for the past 16 years, hypertension, and history of alcohol use. The patient sees Dr. Lind in the adult outpatient neurology clinic. The patient recently has had some adjustments to his medication. The patient currently takes Sinemet and Comtan 6 times daily in addition to Requip 6 timesdaily. The patient reports auditory, visual, and tactile hallucinations which have been improved with Nuplazid. The patient states that over the past 2 days he has had difficulty with ambulating due to loss of coordination and volitional movement of his legs. The patient does have a history of degenerative spine disease and history of compression fractures in the cervical spine. The patient denies any bowel or bladder symptoms. The patient denies any significant worsening of his tremors. The pat ient does have significant bilateral tremors. [1] Assessment/Plan The patient is a 68-year-old male with advanced Parkinson's disease on multiple medications for control of extrapyramidal symptoms who has developed increasing difficulty with ambulation predominantly due to incoordination with the lower extremities. The patient has absent reflexes in the lower extremities possibly due to a peripheral nerve process such as polyradiculopathy. The patient does havereported history of degenerative lumbar spine disease. I am concerned about an intraspinal canal lesion in the lumbar spine contributing to his current symptoms superimposed upon extrapyramidal symptoms with increased difficulty ambulating. Patient states that his lower extremity incoordination and weakness has improved. I have reviewed the patient's MRI of the lumbar spine which reveals degenerative spine disease withforaminal stenosis. I have reviewed the patient's MRI of the thoracic spine which does not reveal evidence of an acute or chronic intraspinal canal lesion contributing to his symptoms The patient would benefit from evaluation by physical therapy and Occupational Therapy to assess for therapy and rehab needs. I will continue the patient's current medications at the current doses. The patient could follow-up in the adult outpatient neurology clinic 1. Parkinsons disease (G20: Parkinson's disease) 2. Unable to care for self (Z78.9: Other specified health status) 3. Anxiety (F41.9: Anxiety disorder, unspecified) 4. HTN (hypertension) (I10: Essential (primary) hypertension) 5. Chronic GERD (K21.9: Gastro-esophageal reflux disease without esophagitis) 6. Depression with anxiety (F41.8: Other specified anxiety disorders) 7. Obesity (E66.9: Obesity, unspecified) 8. On deep vein thrombosis (DVT) prophylaxis (Z79.899: Other director long term care (current) drug therapy) Subjective Review of Systems Constitutional: no fever, no chills, no sweats, no weakness Respiratory: no shortness of breath, no cough, no orthopnea, no wheezing Cardiovascular: no chest pain, no palpitations, no edema Additional ROS info: Except as noted in the above Review of Systems and in the History of Present Illness all other systems have been reviewed and are negative or noncontributory. [2] Objective Vitals & Measurements T: 36.9 ?C(Oral) TMIN: 36.4 ?C(Axillary) TMAX: 36.9 ?C(Oral) HR: 72(Monitored) BP: 103/61 SpO2: 96%WT: 84.9 kg Intake & Output This visit (24 hour periods starting at 07:00 EDT) 09/19/23 * 09/18/23 09/17/23 Total Summary Intake mL -- 1 553 Output mL -- 750 -- Fluid Balance -- -749 553 Intake (3) Oral Intake mL -- -- 550 ketorolac mL -- 1 1 orphenadrine mL -- -- 2 Total -- 1 553 Output (1) Urine Voided mL -- 750 -- Total -- 750 -- Counts (1) Urine Count -- -- 1 * This column has not completed the indicated time period. Physical Exam The patient is awake and alert. The patient is oriented x3. Language is intact including comprehension and fluency, fund of knowledge is intact, memory is intact. Cranial nerves: Pupils are equal round and reactive to light and accommodation, extraocular movements intact, visual rodriguez are full to confrontation, face is symmetric bilaterally, sensations intactin the face, palate elevates bilaterally, tongue protrudes midline, hearing is intact to finger rub, shoulder shrug is symmetric. Motor exam: Strength testing is 5 out of 5 MRC scale strength in all 4 extremities. Deep tendon reflexes are absent to the lower extremities 0 and symmetric. Tone is normal throughout. Plantar reflexes flexor bilaterally. Sensory exam: Sensations intact to light touch and pinprick sensation in all 4 extremities. Cerebellar exam: [id number] reveals no ataxia. Gait is deferred. [3] Lab Results Sodium Lvl: 139 mmol/L (09/19/23 05:49:00) Potassium Lvl: 3.8 mmol/L (09/19/23 05 (more content not included)...[facility]:Result Comment: Electronically Signed By: Nedra Montalvo RN\.br\Date and Time Signed: 09/19/23 07:22 EDT\.br\Electronically Co-Signed By: Bo Rossi MD\.br\Date and Time Co- Signed: 09/18/2409:10 [id number] NoteOT [facility] six clicks score 16/24 = SNF. Patient requires CGA/MIN a w/ transfers and standing adls/Iadls. Inpatient OT services to follow daily to progress as tolerates as pt lives alone.[facility]05-[facility] NotePT Evaluation Completed with an AMPA score of 1424. Pt was able to perform bed mobility with Min A and transfers sit to stand with Min A as well. Pt was able to ambulate, but had difficulty with increased freezing episodes. Will follow daily. Recommending SNF for [facility] rehabilitation[facility] NoteBasic Information Admit Date/Time:09/17/2023 22:56 Chief Complaint worsening parkinsons symptoms for last three months. auditory, visual, and tactile hallucinations. is also feeling anxious. pain in all my muscles and all my joints . came in bc he feels like parkinsons meds werent working History of Present Illness Patient is a 68-year-old male with past medical history as noted below comes in with above-stated chief complaint. Patient states that he has been having intermittent worsening of his Parkinson symptoms over the past 3 months. Patient recently had his outpatient medication dose increased to 6 timesper day. However over the last 1 to 2 days he has been having episodes where he is unable to move his limbs. Typically these episodes are self-limited and resolve after he takes his oral medications.However on day of admission patient took his medicine without relief of his symptoms therefore called his neighbors for assistance. At that time squad was called and patient was brought to the ED for evaluation. When I see patient he still can only move his right arm. Patient does have sensation inhis bilateral lower extremities and left arm but he is unable to move them actively. Patient does have subjective fevers. This is normal for patient and no worse than baseline. Patient does also complain of some dysphagia. Patient denies any recent cough, dysuria, diarrhea, abdominal pain. Review of Systems 14 Systems reviewed and negative except as noted in HPI. Scoring Kennedy Fall Risk Score: 85 High (09/17/23) Physical Exam Vitals & Measurements T: 36.6 ?C(Oral) HR: 63(Monitored) RR: 21 BP: 133/72 SpO2: 98% HT: 175 cm WT: 94.8 kg General: alert, no acute distress Skin: warm, dry Head: no trauma, normocephalic Neck: Trachea midline, no adenopathy, no tenderness Eye: normal conjunctiva, sclera clear ENMT: oral mucosa moist, no pharyngeal erythema or exudate. hearing grossly intact Cardiovascular: regular rate and rhythm, no murmur/gallop/rub Respiratory: Lungs CTA, respirations non labored , no w/r/r Gastrointestinal: Positive bowel sound, soft, non distended, no tenderness, no guarding. Extremities: no deformity, no trauma Osteopathic: Deferred due to being noncontributory to current case. Neurological: oriented x 4, LOC appropriate for age, CN II-XII intact, resting tremor most persistent in left upper extremity, right lower extremity, left lower extremity. Grossly patient has sensation in all 4 extremities. Patient is unable to move his left upper extremity, left lower extremity, right lower extremity. Patient has full range of motion of right upper extremity. Psychiatric: cooperative, flat affect, normal judgement, normal psychiatric thoughts. Lab Results WBC: 5.8 E9/L (09/17/23 21:22:00) RBC: 4.3 E12/L (09/17/23:22:00) HGB: 14.4 gm/dL (09/17/23:22:00) Hct: 42.4 % (09/17/23 21:22:00) MCV: 97.5 fL (09/17/23 21:22:00) MCH: 33.1 pg (09/17/23:22:00) MCHC: 34 gm/dL (09/17/23:22:00) RDW: 13.2 % (09/17/23:22:00) Platelet: 229 E9/L (09/17/23:22:00) MPV: 7.5 fL (09/17/23 21:22:00) Neutro Auto: 56.8 % (09/17/23 21:22:00) Lymph Auto: 26.4 % (09/17/23 21:22:00) Harvey Auto: 11 % (09/17/23 21:22:00) Eos Auto: 5.2 % (09/17/23 21:22:00) Basophil Auto: 0.6 % (09/17/23 21:22:00) Neutro Absolute: 3.3 E9/L (09/17/23 21:22:00) Lymph Absolute: 1.5 E9/L (09/17/23 21:22:00) Harvey Absolute: 0.6 E9/L (09/17/23 21:22:00) Eos Absolute: 0.3 E9/L (09/17/23 21:22:00) Basophil Absolute: 0 E9/L (09/17/23::00) Glucose Lvl: 117 mg/dL (09/17/23:22:00) BUN: 26 mg/dL High (09/17/23::00) Creatinine: 1 mg/dL (09/17/23::00) eGFR: 82 mL/min/1.73 m2 (09/17/23::00) BUN/Creat Ratio: 26 High (09/17/23::) Sodium Lvl: 136 mmol/L (09/17/23::00) Potassium Lvl: 4.8 mmol/L (09/17/23::00) Chloride: 103 mmol/L (09/17/23::) CO2: 28 mmol/L (09/17/23::) AGAP: 10 mEq/L (09/17/23::00) Calcium Lvl: 9.1 mg/dL (09/17/23::) Magnesium: 2.3 mg/dL (09/17/23::00) Vitamin B12 Lvl: 482 pg/mL (09/17/23::00) Assessment/Plan 1. Parkinsons disease (G20: Parkinson's disease) Patient appears to be having worsening of his symptoms of Parkinson's disease. Will admit patient to hospital overnight and ask neurology to see patient. Plan will be to resume patient's home medications once they have been reconciled. 2. Unable to care for self (Z78.9: Other specified health status) Will ask physical therapy and Occupational Therapy to evaluate patient. 3. Anxiety (F41.9: Anxiety disorder, unspecified) Resume home medications once reconciled. 4. HTN (hypertension) (I10: Essential (primary) hypertension) Resume home medications once reconciled. Hydralazine iv prn. see orders. 5. On deep vein thrombosis (DVT) prophylaxis (Z79.899: Other director long term care (current) drug therapy) SCD, enoxaparin Orders: acetaminophen, 650 mg = 2 tab(s), Tab, Oral, q6hr PRN Pain, Routine, (more content not included)...[facility] CenterComment on above:Result Comment: Electronically Signed By: Jesu BERNAL DO\Date and Time Signed: 09/18/23 01:10 [id number] NoteHNO ID: [id number] Author: Jessica Bacon PA-C Service: ? Author Type: Physician Certified Surgical Technician Type: Progress Notes Filed: 03/07/2022 12:09 PM Note Text: [facility] NOTE NAME: ALBER MENA NO.: [id number] DATE OF SERVICE: 03/06/2022 [facility] DATE OF : 1955 CHIEF COMPLAINT: Skilled follow up visit for discharge. SUBJECTIVE FINDINGS: The patient was seen in his room sitting up in his reclining chair at [facility]. He feels that his tremors are slightly improved. He is participating well with therapy and ambulating with the use of a walker independently. There are no documented fever or chills. He denies any bowel or bladder issues. REVIEW OF SYSTEMS: Please see above. MEDICATIONS: For discharge as follows, ropinirole 1 mg every 4 hours for restless legs, carbidopa/levodopa ER 25/100 mg 2 tablets p.o. every 4 hours, entacapone 200 mg 1 tablet p.o. every 4 hours, buspirone 10 mg one-half tablet every 4 hours, hydroxyzine 25 mg 1 p.o. every 8 hours p.r.n., propranolol 80 mg once daily. PHYSICAL EXAMINATION: Temp 98.2, pulse 68, respirations 16, BP 134/93, pulse ox 95%. Examination revealed a rather chronically ill-appearing, elderly man, sitting up in his reclining chair. He has tremors in both upper extremities. Facies with mask. HEENT: Mucosa moist. Heart: Regular rate and rhythm. Lungs: Clear. Abdomen: Obese, soft, no tenderness. Lower Extremities: No significant edema. ASSESSMENT AND PLAN: 1. Parkinson's disease with difficulty caring for self. He is stable for discharge to home and improved over his baseline on admission to the facility. He will be set up with home health PT, OT, RN and aide. He is also scheduled to follow up with neurology as an outpatient. Staff is currently working to set the patient up with a primary care physician as he relates that he does not have a PCP at this time. 2. Hypertension. Blood pressure is stable on propranolol, which he is also utilizing for the tremors. Continue same. 3. Anxiety, continue current regimen. 4. Weakness related to Parkinson's and deconditioning, please see above. Greater than 31 minutes spent in the discharge process on this patient. DICTATED BY: Jessica Bacon PA-C PG/Clarence JOB# [id number] cc:[facility]??[facility]10-19-2022 History of Present illness Narrative* Jessica Bacon PA-C - 03/06/2022 12:00 AM EDT [facility] NOTE NAME: ALBER MENA NO.: [id number] DATE OF SERVICE: 03/06/2022 [facility] DATE OF : 1955 CHIEF COMPLAINT: Skilled follow up visit for discharge. SUBJECTIVE FINDINGS: The patient was seen in his room sitting up in his reclining chair at [facility]. He feels that his tremors are slightly improved. He is participating well with therapy and ambulating with the use of a walker independently. There are no documented fever or chills. He denies any bowel or bladder issues. REVIEW OF SYSTEMS: Please see above. MEDICATIONS: For discharge as follows, ropinirole 1 mg every 4 hours for restless legs, carbidopa/levodopa ER 25/100 mg 2 tablets p.o. every 4 hours, entacapone 200 mg 1 tablet p.o. every 4 hours, buspirone 10 mg one-half tablet every 4 hours, hydroxyzine 25 mg 1 p.o. every 8 hours p.r.n., propranolol 80 mg once daily. PHYSICAL EXAMINATION: Temp 98.2, pulse 68, respirations 16, BP 134/93, pulse ox 95%. Examination revealed a rather chronically ill-appearing, elderly man, sitting up in his reclining chair. He has tremors in both upper extremities. Facies with mask. HEENT: Mucosa moist. Heart: Regular rate and rhythm. Lungs: Clear. Abdomen: Obese, soft, no tenderness. Lower Extremities: No significant edema. ASSESSMENT AND PLAN: 1. Parkinson's disease with difficulty caring for self. He is stable for discharge to home and improved over his baseline on admission to the facility. He will be set up with home health PT, OT, RN and aide. He is also scheduled to follow up with neurology as an outpatient. Staff is currently working to set the patient up with a primary care physician as he relates that he does not have a PCP at this time. 2. Hypertension. Blood pressure is stable on propranolol, which he is also utilizing for the tremors. Continue same. 3. Anxiety, continue current regimen. 4. Weakness related to Parkinson's and deconditioning, please see above. Greater than 31 minutes spent in the discharge process on this patient. DICTATED BY: Jessica Bacon PA-C PG/Acrogerio JOB# [id number] cc:[facility] documented in this encounterS[facility]10-17-2022 NoteHNO ID: [id number] Author: Jessica Bacon PA-C Service: ? Author Type: Physician Certified Surgical Technician Type: Progress Notes Filed: 03/05/2022 12:19 PM Note Text: [facility] NOTE NAME: ALBER MENA NO.: [id number] DATE [facility]: [facility] 1955 CHIEF COMPLAINT: Skilled follow up for Parkinson's disease and weakness. SUBJECTIVE FINDINGS: The patient was seen in his room sitting up in his recliner at [facility]. He had no new complaints for me today. He feels that his tremors are slightly improved. He does seem to be participating well with therapy. He is mildly anxious, but this does seem to be his baseline. There are no documented fever or chills. He seems to be eating and drinking well and there are no bowel or bladder issues. REVIEW OF SYSTEMS: See above. MEDICATIONS: Reviewed in the halfway record. CODE STATUS: Full code. PHYSICAL EXAMINATION: Temp 98.1, pulse 88, respirations 20, blood pressure 140/77, pulse ox 95%. Examination revealed a rather chronically ill-appearing, elderly man, sitting up in his reclining chair. He had positive tremors in both upper extremities. HEENT: Mucosa moist. Heart: Regular rate and rhythm. Lungs: Clear. Abdomen: Soft, no tenderness. Lower Extremities: No significant edema. ASSESSMENT AND PLAN: 1. Parkinson's disease with inability to care for self. We will continue current regimen. He will follow up with Neurology as an outpatient. 2. Hypertension. Blood pressure is stable on propranolol, which he is also utilizing for the tremors. 3. Anxiety. Continue buspirone and hydroxyzine. 4. Weakness. Continue PT and OT. DICTATED BY: Jessica Bacon PA-C PG/Acusis JOB# [id number] cc:Denny??efrain Gerard [facility]10-17-2022 History of Present illness Narrative* Jessica Bacon PA-C - 03/04/2022 12:00 AM EDT [facility] NOTE NAME: ALBER MEAN NO.: [id number] DATE OF SERVICE: 03/04/2022 [facility] DATE OF : 1955 CHIEF COMPLAINT: Skilled follow up for Parkinson's disease and weakness. SUBJECTIVE FINDINGS: The patient was seen in his room sitting up in his recliner at [facility]. He had no new complaints for me today. He feels that his tremors are slightly improved. He does seem to be participating well with therapy. He is mildly anxious, but this does seem to be his baseline. There are no documented fever or chills. He seems to be eating and drinking well and there are no bowel or bladder issues. REVIEW OF SYSTEMS: See above. MEDICATIONS: Reviewed in the halfway record. CODE STATUS: Full code. PHYSICAL EXAMINATION: Temp 98.1, pulse 88, respirations 20, blood pressure 140/77, pulse ox 95%. Examination revealed a rather chronically ill-appearing, elderly man, sitting up in his reclining chair. He had positive tremors in both upper extremities. HEENT: Mucosa moist. Heart: Regular rate and rhythm. Lungs: Clear. Abdomen: Soft, no tenderness. Lower Extremities: No significant edema. ASSESSMENT AND PLAN: 1. Parkinson's disease with inability to care for self. We will continue current regimen. He will follow up with Neurology as an outpatient. 2. Hypertension. Blood pressure is stable on propranolol, which he is also utilizing for the tremors. 3. Anxiety. Continue buspirone and hydroxyzine. 4. Weakness. Continue PT and OT. DICTATED BY: Jessica Bacon PA-C PG/Acusiefrain JOB# [id number] cc:Admiral efrain Gerard documented in this encounterShelby [facility] Hospital10-14-2022 NoteHNO ID: [id number] Author: Jessica Bacon PA-C Service: ? Author Type: Physician Certified Surgical Technician Type: Progress Notes Filed: 03/04/2022 11:49 AM Note Text: [facility] NOTE NAME: ALBER MENA NO.: [id number] DATE OF SERVICE: 03/01/2022 micah Rajani DATE OF : 1955 CHIEF COMPLAINT: Skilled follow up visit for Parkinson's disease, hypertension, and weakness. SUBJECTIVE FINDINGS: The patient was seen in his room sitting up in his reclining chair. He was complaining about the timing of his Parkinson's medications. He is having significant upper extremity tremors. He is starting to participate with therapy. He is somewhat anxious, but relates that this is controlled with medications. His goal is to be able to ambulate so that he may return to his home where he resides alone. REVIEW OF SYSTEMS: The patient denies any chest pain, shortness of breath, fever, chills, or cough. He is not eating and drinking well. He denied any bowel issues, melena, or hematochezia. He does not seem to be having any urinary issues. MEDICATIONS: Reviewed in the halfway record. CODE STATUS: Full code. PHYSICAL EXAMINATION: Temp 98.7, pulse 72, respirations 16, BP 118/69, pulse ox 96%. Examination revealed a quite chronically ill appearing elderly man sitting up in his chair. He was mildly anxious. He had significant constant tremors in both upper extremities. HEENT: Facies masked. Neck: No JVD. Heart: Regular rate and rhythm. Lungs: Clear. Abdomen: Soft. No tenderness, guarding, or rebound. Lower extremities: No significant edema. Neuro exam: Tremor as noted above. ASSESSMENT AND PLAN: 1. Parkinson's disease with weakness and inability to care for himself in part due to noncompliance with medications. He will follow up with neurology as an outpatient. We will continue PT and OT. 2. Hypertension. Blood pressure stable. Continue propranolol. 3. Anxiety. Continue buspirone and hydroxyzine. 4. Generalized weakness. Continue therapies as per above. DICTATED BY: Jessica Bacon PA-C PG/Acrogerio JOB# [id number] cc:Denny??efrain Gerard [facility]10-14-2022 History of Present illness Narrative* Jessica Bacon PA-C - 03/01/2022 12:00 AM EDT [facility] NOTE NAME: ALBER MENA NO.: [id number] DATE OF SERVICE: 03/01/2022 Ajith Gerard DATE OF : 1955 CHIEF COMPLAINT: Skilled follow up visit for Parkinson's disease, hypertension, and weakness. SUBJECTIVE FINDINGS: The patient was seen in his room sitting up in his reclining chair. He was complaining about the timing of his Parkinson's medications. He is having significant upper extremity tremors. He is starting to participate with therapy. He is somewhat anxious, but relates that this is controlled with medications. His goal is to be able to ambulate so that he may return to his home where he resides alone. REVIEW OF SYSTEMS: The patient denies any chest pain, shortness of breath, fever, chills, or cough.He is not eating and drinking well. He denied any bowel issues, melena, or hematochezia. He does not seem to be having any urinary issues. MEDICATIONS: Reviewed in the halfway record. CODE STATUS: Full code. PHYSICAL EXAMINATION: Temp 98.7, pulse 72, respirations 16, BP 118/69, pulse ox 96%. Examination revealed a quite chronically ill appearing elderly man sitting up in his chair. He was mildly anxious.He had significant constant tremors in both upper extremities. HEENT: Facies masked. Neck: No JVD. Heart: Regular rate and rhythm. Lungs: Clear. Abdomen: Soft. No tenderness, guarding, or rebound. Lower extremities: No significant edema. Neuro exam: Tremor as noted above. ASSESSMENT AND PLAN: 1. Parkinson's disease with weakness and inability to care for himself in part due to noncompliancewith medications. He will follow up with neurology as an outpatient. We will continue PT and OT. 2. Hypertension. Blood pressure stable. Continue propranolol. 3. Anxiety. Continue buspirone and hydroxyzine. 4. Generalized weakness. Continue therapies as per above. DICTATED BY: Jessica Bacon PA-C PG/Clarence JOB# [id number] cc:Admiral efrain Gerard [facility]22 NoteHNO ID: [id number] Author: Shane Dubose Service: ? Author Type: Physician Type: Progress Notes Filed: 02/28/2022 5:28 PM Note Text: [facility] NOTE NAME: ALBER MENA NO.: [id number] DATE OF SERVICE: 02/27/2022 Ajith Gerard DATE OF : 1955 New patient history and physical HISTORY OF PRESENT ILLNESS: The patient is a 66-year-old male who is admitted to us from [facility] with a diagnosis of inability to walk and total self-care deficit, severe left shoulder pain, electrolyte imbalance with hyponatremia and hypokalemia, noncompliance with medications, Parkinson's disease, restless leg syndrome, hypertension, anxiety and depression, chronic GERD, vitamin D deficiency, previous hernia repair, and generalized weakness. He initially presented to the hospital after developing severe left shoulder pain and increased tremors and generalized weakness with inability to care for himself. Evaluation in the hospital revealed electrolyte imbalance with hyponatremia and hypokalemia, for which he was given appropriate supplementation. X-ray of the left shoulder was unremarkable and his pain did eventually resolve. His inability to walk and care for himself was felt to be related to his noncompliance with medications. His condition was stabilized and improved then he is now admitted to our facility for continued therapy prior to returning back to his home where he lives by himself. REVIEW OF SYSTEMS: He is currently up in his room. He is alert and responsive. He states he is feeling better. He currently denies any left shoulder pain. He denies any recent trauma or falls. He has had no change in his vision or hearing or actual syncope. He denies being short of breath. No history of chronic obstructive pulmonary disease, asthma, bronchitis or recent pneumonia. He does not smoke. He is not aware of any heart conditions. He has had no chest pain or angina, palpitations, previous heart attacks, heart surgeries or pacemakers. He does have hypertension. His appetite has been good. No bleeding ulcers, hepatitis, or melena. No prior strokes or seizures, diabetes mellitus, bleeding problems or blood clots. Once again, he does have Parkinson's disease, and restless leg syndrome. FAMILY HISTORY: Significant for hypertension. SOCIAL/FUNCTIONAL HISTORY: He does not smoke or abuse alcohol. 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 He has been living at home by himself. MEDICATIONS: BuSpar 5 mg q.4 hours, Sinemet 25/100 two tablets every 4 hours, entacapone 200 mg q.4 hours, hydroxyzine 25 mg q.8 hours p.r.n., propranolol 80 mg daily, and ropinirole 1 mg q.4 hours. ALLERGIES: No known drug allergies. EXAMINATION: Afebrile, his vital signs are stable. He is in no distress. He appears chronically ill. He is quite anxious. HEENT: Extraocular movements intact, sclerae nonicteric. Ears intact. Lungs are clear. Heart: Regular. Abdomen: Soft, nontender. Slightly distended. Extremities with trace edema. No calf tenderness or palpable cords. No ischemias or cyanosis. He does have generalized weakness. Significant constant tremor present in bilateral upper extremities. IMPRESSION: 1. Symptomatic Parkinson's with inability to care for himself in part related to noncompliance with medications. We will continue with current regimen, monitor his neurologic symptoms closely. He will follow up with Neurology Service as an outpatient as indicated. 2. Electrolyte imbalance with hyponatremia and hypokalemia - he was given appropriate supplementation. We will obtain follow up BMP and monitor electrolytes closely. 3. Hypertension - monitor blood pressure and make adjustments as needed. He currently has only a propranolol. This is also in part to treat his tremors. 4. Functional assessment - once again he does have significant weakness and debility. He will be receiving rehab services for overall strengthening and conditioning. His overall condition and prognosis is somewhat guarded. We will obtain follow up labs including CBC and BMP. His goal is to return back home. DICTATED BY: MD TAM Lucia/Clarence JOB# [id number] cc:Denny??[facility] of Present illness Narrative* Shane Dubose - 02/27/2022 12:00 AM EDT [facility] NOTE NAME: VIKKI MENAMINDI NO.: [id number] DATE OF SERVICE: 02/27/2022 Ajith Gerard DATE OF : 1955 New patient history and physical HISTORY OF PRESENT ILLNESS: The patient is a 66-year-old male who is admitted to us from [facility] with a diagnosis of inability to walk and total self-care deficit, severe left shoulder pain, electrolyte imbalance with hyponatremia and hypokalemia, noncompliance with medications,Parkinson's disease, restless leg syndrome, hypertension, anxiety and depression, chronic GERD, vitamin D deficiency, previous hernia repair, and generalized weakness. He initially presented to the hospital after developing severe left shoulder pain and increased tremors and generalized weakness with inability to care for himself. Evaluation in the hospital revealed electrolyte imbalance with hypo natremia and hypokalemia, for which he was given appropriate supplementation. X- ray of the left shoulder was unremarkable and his pain did eventually resolve. His inability to walk and care for himself was felt to be related to his noncompliance with medications. His condition was stabilized and improved then he is now admitted to our facility for continued therapy prior to returning back to his home where he lives by himself. REVIEW OF SYSTEMS: He is currently up in his room. He is alert and responsive. He states he is feeling better. He currently denies any left shoulder pain. He denies any recent trauma or falls. He hashad no change in his vision or hearing or actual syncope. He denies being short of breath. No history of chronic obstructive pulmonary disease, asthma, bronchitis or recent pneumonia. He does not smoke. He is not aware of any heart conditions. He has had no chest pain or angina, palpitations, previous heart attacks, heart surgeries or pacemakers. He does have hypertension. His appetite has been good. No bleeding ulcers, hepatitis, or melena. No prior strokes or seizures, diabetes mellitus, bleeding problems or blood clots. Once again, he does have Parkinson's disease, and restless leg syndrome. FAMILY HISTORY: Significant for hypertension. SOCIAL/FUNCTIONAL HISTORY: He does not smoke or abuse alcohol. 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 MEDICATIONS: BuSpar 5 mg q.4 hours, Sinemet 25/100 two tablets every 4 hours, entacapone 200 mg q.4hours, hydroxyzine 25 mg q.8 hours p.r.n., propranolol 80 mg daily, and ropinirole 1 mg q.4 hours. ALLERGIES: No known drug allergies. EXAMINATION: Afebrile, his vital signs are stable. He is in no distress. He appears chronically ill. He is quite anxious. HEENT: Extraocular movements intact, sclerae nonicteric. Ears intact. Lungs are clear. Heart: Regular. Abdomen: Soft, nontender. Slightly distended. Extremities with trace edema. No calf tenderness or palpable cords. No ischemias or cyanosis. He does have generalized weakness.Significant constant tremor present in bilateral upper extremities. IMPRESSION: 1. Symptomatic Parkinson's with inability to care for himself in part related to noncompliance withmedications. We will continue with current regimen, monitor his neurologic symptoms closely. He will follow up with Neurology Service as an outpatient as indicated. 2. Electrolyte imbalance with hyponatremia and hypokalemia - he was given appropriate supplementation. We will obtain follow up BMP and monitor electrolytes closely. 3. Hypertension - monitor blood pressure and make adjustments as needed. He currently has only a propranolol. This is also in part to treat his tremors. 4. Functional assessment - once again he does have significant weakness and debility. He will be receiving rehab services for overall strengthening and conditioning. His overall condition and prognosis is somewhat guarded. We will obtain follow up labs including CBC and BMP. His goal is to return back home. DICTATED BY: MD TAM Lucia/Clraence JOB# [id number] cc:Admiral efrain Gerard documented in this encounterShelby [facility]03-01-2022 NoteHNO ID: [id number] Author: Aaron Sheets APRN.STOCK CONTROL SUPERVISOR Service: ? Author Type: Nurse Specialist Type: Progress Notes Filed: 07/19/2021 8:39 AM Note Text: [facility] NOTE NAME: ALBER MENA NO.: [id number] DATE OF SERVICE: 07/17/2021 [facility] DATE OF : 1955 REASON FOR VISIT: The patient is a resident of [facility]. This is a skilled visit for Parkinson's disease. For the patient's assessment, found the patient dressed and standing by the door. Staff reports the patient is leaving now. The patient was scheduled to be discharged later this week. The patient states that the baclofen was helping for his muscle cramps, but needed something for anxiety and requested Xanax. The patient states continues to have tremors. The patient has voiced concerns that he was not getting his medications in a timely manner causing this Parkinson's to worsen. The patient states late dose of medication today caused him to freeze up. The patient states he has no cough, no shortness of breath. No fever, chills, or nausea. MEDICATIONS: Medications have been reviewed. EXAMINATION: Temp 97.8, blood pressure 142/70, pulse 81, respirations 18, pulse ox 98% on room air. Weight 200.2 pounds. Respiratory: Respirations are easy and unlabored with the patient at rest. Lung sounds are clear. Heart: Heart rate and rhythm are regular. Abdomen: Soft, nontender with palpation. Bowel sounds present x4. Extremities: Non-edematous. Neurologic: The patient is calm, alert. The patient is noted to have mild tremors to bilateral upper extremities. IMPRESSION AND PLAN: 1. Parkinson disease. The patient will follow with Dr. Lind services. Continue with entacapone, carbidopa - levodopa, propranolol. The patient will continue with baclofen. The patient does have ropinirole. 2. Anxiety. The patient was given a prescription Xanax for anxiety. The patient does take hydroxyzine. 3. Benign prostatic hyperplasia without retention. No urinary symptoms were identified. The patient did have urinary retention with this flareups of Parkinson's disease. DICTATED BY: KIM Huggins/Clarence JOB# [id number] cc:[facility]02-22-2022 NoteHNO ID: [id number] Author: Aaron Sheets APRN.STOCK CONTROL SUPERVISOR Service: ? Author Type: Nurse Specialist Type: Progress Notes Filed: 07/12/2021 7:19 AM Note Text: [facility] NOTE NAME: ALBER MENA NO.: [id number] DATE OF SERVICE: 07/10/2021 [facility] DATE OF : 1955 REASON FOR VISIT: The patient is a resident of [facility]. This is a skilled visit for Parkinson's and other medical concerns. Upon entering the room found the patient in semi Tee's position in bed. The patient is noted to have coarse tremors at this time. The patient states continues to have tremors. The patient states does develop muscle spasms and feels as though he is having urinary retention secondary to the tremors. The patient states he would like to have Tylenol routine q. 4 hours. Did express to patient that he exceeds the maximum dose that I am comfortable giving. In discussion with patient did discuss possible muscle relaxer. The patient states is willing to try a muscle relaxer. The patient states he is able to relieve himself and pass urine. The patient states he does drink as much as he can between tremors. The patient states does eat as much as he can during the tremors. The patient states no cough, shortness of breath. No fever, chills, or nausea. The patient states bowels have been moving. MEDICATIONS: Have been reviewed. PHYSICAL EXAM: Temp 97.8, blood pressure 142/70, pulse 81, respirations 18, pulse ox 95% on room air. Weight 200.2 pounds. Respiratory: Respirations are easy and unlabored with patient at rest. Lung sounds are clear. Heart: Heart rate and rhythm regular. Abdomen: Soft, nontender with palpation. Bowel sounds present x4. Extremities: Not edematous. Neurologic: The patient is noted to have coarse tremors more so of all extremities. IMPRESSION AND PLAN: 1. Parkinson's disease. The patient does take ropinirole, Capoten, carbidopa/levodopa, hydroxyzine. We will attempt baclofen to help patient with comfort measures due to the spasms. The patient does have Tylenol every 12 hours and p.r.n., not to exceed 4000 mg in the 24-hour period. 2. Anxiety. The patient will continue with hydroxyzine. 3. Benign prostatic hypertrophy with urinary obstruction. The patient is able to pass urine. 4. Generalized weakness. The patient will continue with therapy services. DICTATED BY: KIM Huggins JOB# [id number] cc:[facility]02-16-2022 NoteHNO ID: [id number] Author: Jessica Bacon PA-C Service: ? Author Type: Physician Certified Surgical Technician Type: Progress Notes Filed: 07/05/2021 12:39 PM Note Text: [facility] NOTE NAME: ALBER MENA NO.: [id number] DATE OF SERVICE: 07/04/2021 [facility] DATE OF : 1955 CHIEF COMPLAINT: Skilled followup visit for Parkinson's disease, anxiety, and other medical issues. SUBJECTIVE FINDINGS: The patient was seen in his room, sitting up in bed, at [facility]. The patient continued with significant tremors of his upper extremities. He had ongoing concerns in regard to the timing of his medications and states that he has concerns with taking citalopram along with buspirone as he is concerned about serotonin syndrome. He has no signs of serotonin syndrome. He states that initially citalopram was not in stock when he arrived to the facility and now that it is available. He prefers to refuse this. Other than that he had no new concerns for me today. He related that he was eating and drinking well. He denied any chest pain, shortness of breath, fever, chills, or cough. He requires assistance with eating due to his tremors. He denied any bowel issues and related that he was voiding well. He has been participating well with therapy. REVIEW OF SYSTEMS: Please see above. MEDICATIONS: Medications reviewed in the halfway record. CODE STATUS: Code status is full code. PHYSICAL EXAMINATION: Temp 97.9, pulse 76, respirations 16, BP 134/74, pulse ox 97% on room air. Examination revealed a chronically ill-appearing, middle-aged man, sitting up in bed. He was having significant tremors of both upper extremities at rest. Skin turgor is fair. HEENT: Mucosa moist. Heart: Regular rate and rhythm. Lungs: Clear. Abdomen: Soft, no tenderness. Lower extremities: No edema or calf tenderness. ASSESSMENT AND PLAN: 1. Parkinson's disease. The patient remains on carbidopa-levodopa, propranolol, hydroxyzine, entacapone, and ropinirole. We will continue same. 2. Anxiety. The patient remains on buspirone and he is not interested in taking Celexa. Advised him that we will notify Dr. Lind's office to clarify his medication list. I later received a phone call from the nursing staff that the patient will not take Celexa at all, so went ahead and discontinued this medication. 3. Benign prostatic hyperplasia with history of obstruction. He is voiding well. We will continue to monitor for urinary retention. 4. Weakness. Continue ongoing therapies. DICTATED BY: Jessica Bacon PA-C PG/Clarence JOB# [id number] cc:[facility]02-11-2022 NoteHNO ID: [id number] Author: Aaron Sheets APRN.STOCK CONTROL SUPERVISOR Service: ? Author Type: Nurse Specialist Type: Progress Notes Filed: 07/04/2021 12:19 PM Note Text: [facility] NOTE NAME: ALBER MENA NO.: [id number] DATE OF SERVICE: 06/29/2021 [facility] DATE OF : 1955 REASON FOR VISIT: The patient is a resident of [facility]. This is a skilled visit for Parkinson's. Upon entering, found the patient sitting up in bed. The patient is known to have tremors. Tremors are not as severe as they were previous visit. The patient does not appear to be in distress or discomfort. The patient states just completed therapy services. The patient states he does have some tensing in the muscles that creates cramping. The patient does request Tylenol and staff was notified. The patient states aside from the tremors and the discomfort that they bring, he has no other complaint. No cough, shortness of breath, no fever, chills, or nausea. He states he has been eating well. Bowels have been moving. He states he has been drinking fluids. Denies urinary symptoms. MEDICATIONS: Medications have been reviewed. EXAMINATION: Temp 97.8, blood pressure 134/74, pulse 76, respirations 16, pulse ox 96% on room air. Weight 198.1 pounds. Respiratory: Respirations are easy and unlabored with the patient arrest. Lung sounds are clear. Heart: Heart rate and rhythm regular. Abdomen: Soft, nontender with palpation. Bowel sounds present x4. Extremities: Nonedematous. Neurologic: The patient is calm, alert, and cooperative with examination. Coarse tremors are noted at the bilateral upper bilateral extremities. IMPRESSION AND PLAN: 1. Parkinson's disease. The patient currently takes Capoten, carbidopa - levodopa, propranolol. Continues acetaminophen as needed for pain. The patient does follow with Neurology services. Continue with therapy services. 2. Anxiety. The patient does have episodes of anxiety, takes buspirone and Vistaril. 3. Benign prostatic hypertrophy without obstruction. The patient has no urinary complaints at this time. 4. Hypertension. The patient has good blood pressure control. 5. Generalized weakness. Continue therapy services. DICTATED BY: KIM Huggins JOB# [id number] cc:[facility] NoteHNO ID: [id number] Author: Aaron Sheets APRN.STOCK CONTROL SUPERVISOR Service: ? Author Type: Nurse Specialist Type: Progress Notes Filed: 07/01/2021 8:39 AM Note Text: [facility] NOTE NAME: ALBER MENA NO.: [id number] DATE OF SERVICE: 06/26/2021 [facility] DATE OF : 1955 REASON FOR VISIT: The patient is a resident of [facility]. This is a skilled visit for Parkinson's disease. Upon entering the room found the patient sitting in high Tee's position. The patient is noted to have coarse tremors to the upper body. The patient states this occurs on occasion and states timing is the factor when receiving medication. The patient states does have pain when this occurs. He takes pain is 10/10 and requests Tylenol. Staff was notified of the need for Tylenol and within half hour he stated he just received his medication and within a half hour tremor should start subsiding. The patient states has been up with therapy services prior this morning. Patient states did well with therapy services. The patient states was eating and drinking well. The patient states has not been able to eat this afternoon meal due to his tremors. The patient states no cough, shortness of breath. No fever, chills, or nausea. The patient states bowels have been moving. States has been drinking fluids. Denies urinary symptoms. MEDICATIONS: Have been reviewed. PHYSICAL EXAM: Temp 97.8, blood pressure 134/74, pulse 76, respirations 16, pulse ox 98% on room air. Weight 199 pounds. Respiratory: Respirations are easy and unlabored with patient at rest. Lung sounds clear. Heart: Heart rate and rhythm regular. Abdomen: Soft, nontender with palpation. Bowel sounds present x4. Extremities: Not edematous. IMPRESSION AND PLAN: 1. Parkinson's disease. The patient does take carbidopa-levodopa, propranolol, hydroxyzine, Entacapone, ropinirole. The patient will continue with Tylenol as needed for pain. The patient will continue to follow with therapy services. 2. Benign prostatic hypertrophy without obstruction. The patient has no urinary complaints at this time. Continue monitoring for urinary retention. Patient states does on occasion have episodes of bowel retention. 3. Hypertension. The patient has good blood pressure control. Continue propranolol. 4. Generalized weakness. Continue therapy services. DICTATED BY: KIM Huggins JOB# [id number] cc:[facility]02-03-2022 NoteHNO ID: [id number] Author: Shane Dubose Service: ? Author Type: Physician Type: Progress Notes Filed: 06/25/2021 5:29 PM Note Text: [facility] NOTE NAME: ALBER MENA NO.: [id number] DATE OF SERVICE: 06/21/2021 [facility] DATE OF : 1955 NEW PATIENT HISTORY AND PHYSICAL HISTORY OF PRESENT ILLNESS: Patient is a 66-year-old male, who was admitted to us from [facility] with a diagnoses of symptomatic Parkinson's disease with acute freezing episode, chronic anxiety, history of depression, generalized anxiety disorder, hypertension, restless legs syndrome, vitamin D and B12 deficiency, previous hernia repair and generalized weakness. He was initially admitted to the hospital after experiencing an acute freezing episode [place] the bank. He was unable to move his lower extremities. Evaluation in the hospital did reveal findings consistent with symptomatic Parkinson's. He is also known to have lower extremity swelling which responded to conservative management. There is no evidence of deep venous thrombosis. His condition was stabilized and he is now admitted to our facility for continued therapy prior to returning back to his home where he lives by himself. REVIEW OF SYSTEMS: He is currently resting in bed. He is alert and oriented. His main concern is that he believes that he is having some difficulty urinating and emptying his bladder. This apparently has been a problem in the past. He is not sure if he has an enlarged prostate. He was recently treated for a urinary tract infection. While in the hospital he was seen by the neurology service and did undergo MRI of his thoracic and cervical spine, which was reportedly negative for acute abnormalities. There has been no change in his vision or hearing or actual syncope. He denies being short of breath. No history of COPD, asthma, bronchitis or recent pneumonia. He does not smoke. He is not aware of any heart problems. No chest pain, angina, palpitations, previous heart attacks, heart surgeries or pacemakers. He does have hypertension. No thyroid problems. His appetite has been fair. No bleeding ulcers, hepatitis or melena. No prior strokes or seizures, diabetes mellitus, bleeding problems or blood clots. FAMILY HISTORY: Significant for hypertension. SOCIAL/FUNCTIONAL HISTORY: He does not smoke or abuse alcohol. However, hospital records indicates that he does have a history of alcohol use. 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 He has been living at home by himself. MEDICATIONS: BuSpar 10 mg t.i.d., carbidopa/levodopa ER 25/100 two tablets 5 times a day, citalopram 10 mg daily, cyanocobalamin 1 mg daily, entacapone 200 mg 4 times a day, hydroxyzine 25 mg q.6 hours, propranolol ER 80 mg daily, ropinirole 1 mg 4 times a day. ALLERGIES: No known drug allergies. EXAMINATION: Afebrile, vital signs stable. He is in no distress. He appears quite anxious. HEENT: Extraocular movements intact. Sclerae nonicteric. Ears intact. Lungs: Clear. Heart: Regular. Abdomen: Soft, somewhat distended, nontender. Extremities with trace edema. No calf tenderness or palpable cords. No ischemia or cyanosis. He does have generalized weakness. He does have significant bilateral upper extremity tremors with some rigidity. IMPRESSION: 1. Symptomatic Parkinson's with acute freezing episode-we will maintain current Parkinson's medications. Patient will follow up with neurology service as an outpatient. 2. Possible urinary retention-we will check postvoid residual. Patient will need to follow up with urology as an outpatient. He may also have some obstructive benign prostatic hypertrophy with obstructive uropathy. 3. Hypertension-monitor blood pressure to make adjustments as needed. 4. Functional assessment-he does have generalized weakness. He will be receiving rehab services for overall strengthening and conditioning. Overall condition and prognosis is somewhat guarded. We will obtain follow up labs including CBC and BMP. He will be returning home upon completion of his therapy. DICTATED BY: MD TAM Lucia/Clarence JOB# [id number] cc:[facility] Present illness NarrativePatient returns in follow-up of problems as noted. He is done well in regards to his blood pressure. He is tolerating the propranolol well and he believes it does helps his tremor and because of thisshe will continue it. His only observation and her complaint today is lower extremity edema. I believe it is probably on the basis of fluid and/or salt intake, leg dependency, and also possible mild neuropathy associated with his Parkinson's disease. We discussed diuretic therapy but he declines. Be cause of this he was educated to keep his legs up as much as possible and also restrict and to reduce salt and free water intake. He was educated regarding of the symptoms watch for and encouraged tocall if they arise.-[facility] [employer] DO Work Phone: History of Present illness Narrative* Patient returns in follow-up of problems as noted. He is done well. He lost 17 pounds and we note that his blood pressure is lower. He is interested in a reduction in medical therapy we discussed options and he prefers to wean off of his propranolol. Because of that we provided specific guidance. He otherwise appears to be doing well. He denies angina dyspnea or arrhythmia symptomatology. He has no orthostatic complaints. His previous problems of leg edema resolved with diet and salt restriction but also a change in sleeping. Specifically he had previously been sleeping in a chair with his feet down and now he is sleeping supine in bed and the leg edema that he previously experienced is completely gone. * We discussed in detail his Parkinson's disease and treatment. He had a pretty good control and is happy with it. He notes he experiences some mild hallucinations brought about by his pharmacologic therapy but he finds these hallucinations acceptable to the severity of his untreated Parkinson's disea se. As before we did advocate the merits of weight loss. [facility] [address] DO Work Phone: Hospital course Narrative No data available for this section [facility] No data available for this section [facility] Progress note No data available for this section [facility] Chief Complaint ELVER MENA is being seen for an annual follow-up of.ELVER MENA is being seen for an annual follow-up of. Family History No Family History Records FoundUnknown Family Member Name Dates Details Family history of acute myoc ardial infarction: Father(V17.3, Z82.49) Comments: at 74; Status:Active Family history of aortic ane urysm: Mother(V17.49, Z82.49) Comments: at 72; Status:Active Unknown Family Member Name Dates Details Family history of acute myoc ardial infarction: Father(V17.3, Z82.49) Comments: at 74; Status:Active Family history of aortic ane urysm: Mother(V17.49, Z82.49) Comments: at 72; Status:Active Unknown Family Member Name Dates Details Family history of acute myoc ardial infarction: Father(V17.3, Z82.49) Comments: at 74; Status:Active Family history of aortic ane urysm: Mother(V17.49, Z82.49) Comments: at 72; Status:Active Summary Purpose Advance Directives No Advanced Directives Records FoundNo Advanced Directives Records FoundNo Advanced Directives Records FoundNo Advanced Directives Records FoundNo Advanced Directives Records FoundNo Advanced Directives Records FoundNo Advanced Directives Records FoundNo Advanced Directives Records Found Additional Source Comments Source Comments (unrecognize d section and content) In the event this informatio n is protected by the Federal Confidentiality of Alcohol and Drug Abuse Patient Records regulations: The Federal rules restrict any use of the information to criminally investigate or prosecute any alcohol or drug abuse patient.[facility] the event this information is protected by the Federal Confidentiality of Alcohol and Drug Abuse Patient Records regulations: The Federal rules restrict any use of the information to criminally investigate or prosecute any alcohol or drug abuse patient.[facility] Hospital[facility] the event this information is protected by the Federal Confidentiality of Alcohol and Drug Abuse Patient Records regulations: The Federal rules restrict any use of the information to criminally investigate or prosecute any alcohol or drug abuse patient.[facility] HospitalIn the event this information is protected by the Federal Confidentiality of Alcohol and Drug Abuse Patient Records regulations: The Federal rules restrict any use of the information to criminally investigate or prosecute any alcohol or drug abuse patient.[facility] Care Teams (unrecognized sec tion and content) Pharmacovigilance Scientist Relationship Specialty Start Date End Date Catracho Mcfadden MD PCP - General Family Medicine 05/19/15 (unrecognized sect ion and content) No Status Records FoundNo Status Records FoundNo Status Records FoundNo Status Records FoundNo Status Records FoundNo Status Records FoundNo Status Records FoundNo Status Records Found INFORMATION SOURCE (unrecogn ized section and content) DATE CREATED AUTHOR 03/09/2022 [facility] DATE CREATED AUTHOR AUTHOR'S ORGANIZ ATION 09/25/2022 [facility] DATE CREATED AUTHOR AUTHOR'S ORGANIZ ATION 09/26/2022 [employer] DATE CREATED AUTHOR AUTHOR'S ORGANIZ ATION 10/12/2023 [facility] DATE CREATED AUTHOR AUTHOR'S ORGANIZ ATION [facility]/2023 [facility] DATE CREATED AUTHOR AUTHOR'S ORGANIZ ATION [facility]2023 [facility] DATE CREATED AUTHOR AUTHOR'S ORGANIZ ATION 12/19/2023 [facility] FOR RECORDS PERTAINING TO PATIENTS WHO ARE OR HAVE BEEN ENROLLED IN A CHEMICAL DEPENDENCY/SUBSTANCEABUSE PROGRAM, SOME INFORMATION MAY BE OMITTED. This clinical summary was aggregated from multiple sources. Caution should be exercised in using it in the provision of clinical care. This summary normalizes information from multiple sources, and as a consequence, information in this document may materially change the coding, format and clinical context of patient data. In addition, data may be omitted in some cases. CLINICAL DECISIONS SHOULD BE BASED ON THE PRIMARY CLINICAL RECORDS. [facility]. provides no warranty or guarantee of the accuracy or completeness of information in this document.
--- OUTSIDE RECORDS SUMMARY | 2023-12-20 14:09 | XMS_ITS ---
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 Charli Dominguez Referring Unavailable Danielitouinnoelle II, Dr. Charli Dominguez Primary Care Unavailable Arnold II, Dr. Charli Dominguez Attending Unavailable Arnold II, Dr. Charli Dominguez Referring Unavailable Danielitouinnoelle II, Dr. Charli Dominguez Primary Care Unavailable McGuinn II, Dr. Charli Dominguez Attending Unavailable Isabelle Julian Primary Care Physician [phone] Lila Noel Unavailable Unavailable Jorge Peralta Unavailable Unavailable NONE, XXXX Primary Care Physician Unavailab Johnathon Butcher Attending Unavailable Charli Hall Attending Unavailable DO Jesu BERNAL Admitting Unavaillast lozano [place], Bo Consulting Unavailable [place], Bo Consulting Unavailable [place], Bo Consulting Unavailable [place], Bo Consulting Unavailable [place], Bo Consulting Unavailable [place], Bo Consulting Unavailable [place], Bo Consulting Unavailable [place], Bo Consulting Unavailable [place], Bo Consulting Unavailable Alberto GRAY Admitting Unavailable [place], Bo Consulting Unavailable Josse GOEL Attending Unavailable [place], Bo Consulting Unavailable [place], Bo Consulting Unavailable [place], Bo Consulting Unavailable [place], Bo Consulting Unavailable [place], Bo Consulting Unavailable [place], Bo Consulting Unavailable [place], Bo Consulting Unavailable [place], Bo Consulting Unavailable Rick Sanchez Attending Unavailable Ramon Sykes Attending Unavailable Johnathon SIEGEL Attending Unavailable Johnathon SIEGEL Admitting Unavailable Johnathon SIEGEL Attending Unavailable Rick Sanchez Attending Unavailable LESLY, Johnathon Attending Unavailable EDENILSON LIND Attending Unavailable Encounters Encounter Date Encounter Type Care Provider Facility Start: 12-17-2023 End: 12-17-2023 ambulatory EDENILSON LIND Not Available Start: 10-15-2023 End: 10-15-2023 ambulatory [facility] Facility: Extended Care Start: 10-15-2023 End: 10-15-2023 Off-Site [facility] Start: 10-10-2023 End: 10-22-2023 ambulatory [facility] Facility:[facility] Start: 10-10-2023 End: 10-22-2023 Evaluation and management of inpatient [facility] Start: 10-10-2023 End: 10-10-2023 Emergency department patient visit Rick Sanchez [facility] Start: 10-03-2023 End: 10-03-2023 ambulatory Ramon Sykes Facility: Extended Care Start: 10-03-2023 End: 10-03-2023 Off-Site Ramon Sykes [facility] Start: 09-29-2023 End: 09-29-2023 ambulatory [facility] Facility: Extended Care Start: 09-29-2023 End: 09-29-2023 Off-Site [facility] Start: 09-26-2023 End: 10-06-2023 ambulatory [facility] Facility:[facility] Start: 09-26-2023 End: 10-06-2023 Evaluation and management of inpatient [facility] Start: 09-23-2023 End: 09-26-2023 Evaluation and management of inpatient Alberto GRAY Facility:[facility] Start: 09-22-2023 End: 09-26-2023 Evaluation and management of inpatient Alberto GRAY [facility] Start: 09-17-2023 End: 09-19-2023 Evaluation and management of inpatient Charli Hall Facility:[facility] Start: 09-17-2023 End: 09-19-2023 Evaluation and management of inpatient Jesu BERNAL [facility] Start: 09-24-2022 Office outpatient vi sit 25 minutes Referring Provider Unknown [facility] 600 DO Work Phone: Start: 09-24-[address] Charli Barrett II Facility: Start: 04-25-2022 Rx Renewal Charli Lovell inn Work Phone: [facility] 250 DO Work Phone: Start: 03-06-2022 Patient encounter procedure Jessica Bacon PA-C Work Phone: [facility] Start: 03-06-2022 Progress Note Jessica Bacon PA-C Work Phone: [facility] [employer] Start: 03-04-2022 Patient encounter procedure Jessica Bacon PA-C Work Phone: [facility] Start: 03-04-2022 Progress Note Jessica Bacon PA-C Work Phone: [facility] [employer] Start: 03-01-2022 Patient encounter procedure Jessica Bacon PA-C Work Phone: [facility] Start: 03-01-2022 Progress Note Jessica Bacon PA-C Work Phone: [facility] Start: 02-27-2022 Patient encounter procedure Shane Dubose Work Phone: [facility] Start: 02-27-2022 Progress Note Shane Dubose Work Phone: [facility] Start: 10-12-2021 Office outpatient vi sit 15 minutes Charli Barrett [facility] Phone: [facility] DO Work Phone: Start: 10-12-[address] Charli Barrett II Facility: Immunizations Immunization Date Immunization Notes Care Provider Staci cobb 02-24-2022 influenza, high dose seasonal, preservative-free Amandinahgillian BERNAL [facility] Comment on above: Reason for Medicatio n: Other (see comment) 02-24-2022 Fluzone High-Dose Quadrivalent 0.7 ML Intramuscular Suspension Prefilled Syringe Referring Provider Unknown [facility] 600 DO Work Phone: 05-04-2021 Moderna COVID-19 Vac cine 100 MCG/0.5ML Intramuscular Suspension Charli Barrett Work Phone: [facility] 04-19-2021 influenza, high dose seasonal, preservative-free Charli Barrett Work Phone: [facility] 600 DO Work Phone: 04-19-2021 Moderna COVID-19 Vac cine 100 MCG/0.5ML Intramuscular Suspension Charli Barrett Work Phone: [facility] 02-17-2016 pneumococcal vaccine , unspecified formulation [facility] Work Phone: Medications Current Medications Medication Drug Class(es) Dates Sig (Normalized) Sig (Original) acetaminophen 325 mg oral tablet (8 sources) Start: 09-25-2023 take 2 tablets by mouth every six hours as needed for pain acetaminophen 325 mg Tab 650 mg = 2 tab(s), Oral, q6hr, PRN Pain, Refills(s) 0 Start Date: 09/25/23 Status: Ordered Start: 09-19-2023 take 2 tablets by [facility] every six hours as needed for pain acetaminophen 325 mg Tab 650 mg = 2 tab(s), Oral, q6hr, PRN Pain, Refills(s) 0 Start Date: 09/19/23 Status: Ordered busPIRone hydrochloride 5 mg oral tablet (11 sources) Start: 09-19-2023 take 1 tablet by mouth every four hours busPIRone 5 mg Tab 5 mg = 1 tab(s), Oral, q4hr, # 90 tab(s), Refills(s) 0, Pharmacy: [facility] #[id number], 175, cm, 09/17/23 21:04:00 EDT, Height/Length Dosing, 94.8, kg, 09/17/23 21:04:00 EDT, Weight Dosing Start Date: 09/19/23 Status: Ordered Start: 09-19-2023 take 2 tablets by [facility] every eight hours busPIRone 5 mg Tab 10 mg = 2 tab(s), Oral, q8hr, # 90 tab(s), Refills(s) 0, Pharmacy: [id number], 175, cm, 09/17/23 21:04:00 EDT, Height/Length Dosing, [...] TID, # 15 tab(s), Refills(s) 0, Pharmacy: [facility] #[id number], 175, cm, 09/17/23 21:04:00 EDT, Height/Length Dosing, 94.8, kg, 09/17/23 21:04:00 EDT, Weight Dosing Start Date: 09/19/23 Status: Ordered docusate sodium 100 mg oral capsule (1 source) Start: 09-25-2023 take 2 capsules by mouth once daily docusate sodium 100 mg Cap 200 mg = 2 cap(s), Oral, Daily, Refills(s) 0 Start Date: 09/25/23 Status: Ordered entacapone 200 mg oral tablet (11 sources) Slnlcaxf-V-Zfwe yltransferase Inhibitor Start: 09-19-2023 take 1 tablet [...] Ordered Start: 03-14-2021 take 1 capsule by mo [facility] once daily propranolol 80 mg Cap-ER 80 [...] Ordered Start: 04-16-2021 take 1 tablet by urmila once daily Requip 1 mg Tab 1 mg = 1 tab(s), Oral, 6x/Day, Refills(s) 0 Start Date: 04/16/21 Status: Ordered rOPINIRole HCl - 1 MG Oral Tablet take 1 tablet 6 times daily Quantity: 0 Refills: 0 Ordered: 12-Oct-2021 DO Active Payers Date Payer Category Payer Unknown [id number] 2021 Medicare MEDICARE MEDICAR E A AND B [id number] 2021-Present [phone] [place] [address] Medicare [id number] 2021 Private Health Insurance [facility] AAR SUPPLEMENT [id number] 2021-Present [phone] [address] [place] [address] Indemnity [id number] 2019 Medicare [id number] 1955 Unknown [id number] .356 1955 Unknown [id number] [id number] .356 1955 Unknown [id number] 2.16.840.1.532449.3.579.2 .727 1955 Unknown [id number] 2.16.840.1.004316.3.579.2 .727 1955 Unknown [id number] 2.16.840.1.987953.3.579.2 .72 1955 Unknown [id number] 2.16.840.1.115992.3.579.2 .727 1955 Unknown [id number] 2.16.840.1.605399.3.579.2 .727 1955 Unknown [id number] 2.16.840.1.073723.3.579.2 .727 1955 Unknown [id number] 2.16.840.1.642597.3.579.2 .727 1955 Unknown [id number] 2.16.840.1.430600.3.579.2 .727 1955 Unknown [id number] 2.16.840.1.235272.3.579.2 .727 1955 Unknown [id number] [id number] .1259 Unknown Plan of Treatment Date Care Activity Detail Author Start: 09-23-2023 FUV, Provider: Charli Barrett, Status: Leo, Time: 9:10 AM FUV, Provider: Charli Barrett, Status: Leo, Time: 9:10 AM [place] [address] DO Work Phone: Start: 09-24-2022 FUV, Provider: Charli Barrett, Status: Pen, Time: 9:40 AM FUV, Provider: Charli Barrett, Status: Pen, Time: 9:40 AM [facility] 600 DO Work Phone: Problems Active Problems Problem Classification Problem Date [...] current use of drug therapy; Translations: [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] they take care of Parkinson's patients . 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 Neighbor has bailed him out many times but says he just can't take care of self anymore. Last hospitalization here at [facility]- 09/22?10 neighbor called 911 because of his inability to take care of self, increasing tremors. Was hospitalized 09/16?3 for similar issues, was in a frozen state, then had rather dramatic spontaneous recovery and wanted to go home. During his present admission neurology recommended OP visit at [facility] to consider DBS as is maxed out [...] hernia repair. Pt also reports stays at [facility] and [facility] / Lives near [place]. Physical Exam Seated at side of bed this evening, actually looking quite good at this time. (Is his on time ) No tremor noted, movements fluid, speech clear and very talkative. Lungs CTA Ht RRR wo murmur No distal edema no cogwheeling, no hypertonicity at present [2] Assessment/Plan 1. Parkinsons (G20: Parkinson's disease) Has had since 2016. He was progressed to very maximal doses of Sinemet in the ER version and is getting shorter on time periods through the day. Local neurology has recommended he go to [facility] for evaluation for DBS. He comes at this time on the same medications, looking for some type of placement to assist in his inability to care for self. 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 Is not yet showing up in HIE Follow-up No qualifying data available Problem List/Past [...] abuse co (more content not included)... Normal [facility] Comment on above: Result Comment: Elec tronically Signed By: LESLY LAUREN, Johnathon\.br\Date and Time Signed: 10/15/23 18:13 EDT [facility] 10-12 [facility] [id number] #1.00TIFF Normal [facility] BMPon 10-10-2023 Anion gap [Moles/Vol] 10 mmol/L Normal 6-16 [facility] Comment on above: Performed By: #### 2 [id number] #### [facility] [address] [place] [address] Calcium [Mass/Vol] 8.8 mg/dL Low 8.9-11.1 [facility] Comment on above: Performed By: #### 2 [id number] #### [facility] [address] [place] [address] Chloride [Moles/Vol] 106 mmol/L Normal 101-111 Fish er [facility] Comment on above: Performed By: #### 2 [id number] #### [facility] [address] [place] [address] CO2 [Moles/Vol] 26 mmol/L Normal 21-31 [facility] Comment on above: Performed By: #### 2 [id number] #### [facility] [address] [place] [address] Creatinine [Mass/Vol] 0.9 mg/dL Normal 0.5-1.3 [facility] Comment on above: Performed By: #### 2 [id number] #### [facility] [address] [place] [address] Glucose [Mass/Vol] 112 mg/dL Normal 55-199 [facility] Comment on above: Performed By: #### 2 [id number] #### [facility] [address] [place] [address] Potassium [Moles/Vol] 3.8 mmol/L Normal 3.5-5.3 [facility] Comment on above: Performed By: #### 2 [id number] #### [facility] [address] [place] [address] Sodium [Moles/Vol] 138 mmol/L Normal 135-145 [facility] Comment on above: Performed By: #### 2 [id number] #### [facility] [address] [place] [address] Urea nitrogen [Mass/Vol] 19 mg/dL Normal 5-21 [facility] Comment on above: Performed By: #### 2 569076 #### [facility] [address] [place] [address] Urea nitrogen/Creatinine [Mass ratio] 21 No Units High 10-20 [facility] Comment on above: Performed By: #### 2 [id number] #### [facility] [address] [place] [address] CBC w/ Auto Diffon 4 Basophils/100 WBC (Bld) 0.9 % Normal 0.0-2.0 [facility] Comment on above: Performed By: #### 2 [id number] #### [facility] [address] [place] [address] Basophils/Leukocytes Auto (Bld) [Pure # fraction] 0.1 E9/L Normal 0.0-0.2 [facility] Comment on above: Performed By: #### 2 [id number] #### [facility] [address] [place] [address] Eosinophils (Bld) [#/Vol] 0.2 E9/L Normal 0.0-0.5 [facility] Comment on above: Performed By: #### 2 036286 #### [facility] [address] [place] [address] Eosinophils/100 WBC (Bld) 3.0 % Normal 0.0-8.0 [facility] Comment on above: Performed By: #### 2 386602 #### [facility] [address] [place] [address] Erythrocyte distribution width (RBC) [Ratio] 13.2 % Normal 10.9-14.2 [facility] Comment on above: Performed By: #### 2 [id number] #### [facility] [address] [place] [address] Hematocrit (Bld) [Volume fraction] 42.2 % Normal 37.7-49.0 [facility] Comment on above: Performed By: #### 2 [id number] #### [facility] [address] [place] [address] Hemoglobin (Bld) [Mass/Vol] 14.6 g/dL Normal 13.5-17.5 [facility] Comment on above: Performed By: #### 2 147275 #### [facility] [address] [place] [address] Lymphocytes (Bld) [#/Vol] 1.4 E9/L Normal 1.0-4.0 [facility] Comment on above: Performed By: #### 2 974153 #### [facility] [address] [place] [address] Lymphocytes/100 WBC (Bld) 20.3 % Normal 14.0-50.0 [facility] Comment on above: Performed By: #### 2 627205 #### [facility] [address] [place] [address] MCH (RBC) [Entitic mass] 33.5 pg Normal 27.0-34.0 [facility] Comment on above: Performed By: #### 2 794110 #### [facility] [address] [place] [address] MCHC (RBC) [Mass/Vol] 34.7 g/dL Normal 31.4-36.0 [facility] Comment on above: Performed By: #### 2 [id number] #### [facility] [address] [place] [address] MCV (RBC) [Entitic vol] 96.7 fL Normal 80.0-100.0 [facility] Comment on above: Performed By: #### 2 [id number] #### [facility] [address] [place] [address] Monocytes (Bld) [#/Vol] 0.6 E9/L Normal 0.2-1.0 [facility] Comment on above: Performed By: #### 2 [id number] #### [facility] [address] [place] [address] Neutrophils (Bld) [#/Vol] 4.8 E9/L Normal 2.0-7.5 [facility] Comment on above: Performed By: #### 2 473133 #### [facility] [address] [place] [address] Neutrophils/100 WBC (Bld) 67.7 % Normal 36.0-75.0 [facility] Comment on above: Performed By: #### 2 438550 #### [facility] [address] [place] [address] Platelet 227.0 E9/L Normal 150.0-500.0 [facility] Comment on above: Performed By: #### 2 531269 #### [facility] [address] [place] [address] Platelet mean volume (Bld) [Entitic vol] 7.0 fL Normal 6.4-10.8 [facility] Comment on above: Performed By: #### 2 445779 #### [facility] [address] [place] [address] RBC (Bld) [#/Vol] 4.4 E12/L Normal 4.3-5.9 [facility] Comment on above: Performed By: #### 2 948117 #### [facility] [address] [place] [address] WBC corrected for nucl RBC Auto (Bld) [#/Vol] 7.0 E9/L Normal 4.0-11.0 [facility] Comment on above: Performed By: #### 2 [id number] #### [facility] [address] [place] [address] CHEMISTRYOrdered By: SYSTEM SYSTEM on 10-10-2023 Anion [...] Normal 0.5 - 1.3 mg/dL Remisol Chem Glucose [Mass/Vol] 112 mg/dL Normal [...] for Treatmenton 09-17 Consent for Treatment [id number] [facility] [id number]# 1.00TIFF Normal [facility] ED Clinical Summaryon 2023 ED Clinical Summary [address] [address] ED Clinical Summary Person Information Name: ELVER MENA [facility]ie[facility] Age: 68 Years : 1955 Sex: Male Language: Emirati PCP: NONE, XXXX Marital Status: Phone: [phone] Visit Id: Visit Reason: Activity of daily [...] 10/10/2023 16:35:40 10/10/2023 16:35:40 10/10/2023 16:35:40 ADDRESS: [address] [place] [id number] [facility] DOC NOTES: MEDICAL INFORMATION: Prescriptions Given: Medications [...] disease; Unable to care for self Normal [facility] ED Note-Nursingon 10-10-2023 ED Note-Nursing report called to GARCÍA MASON. pt to go to [facility] Normal [facility] ED Note-Physicianon 10-10-19 ED Note-Physician Basic Information Time Seen: Rick Sanchez DODeisi 10/10/2023 12:34 Chief Complaint Patient presents after DC from TCU on Fridayand has worsened Parkinsons symptoms and [...] Tobacco - (more content not included)... Normal [facility] Comment on above: Result Comment: Elec tronically Signed By: Rick Sanchez DO\.br\Date and Time Signed: 10/10/23 15:58 EDT ED Patient Education Noteon 10-10-2023 ED Patient Education Note Normal [facility] ED Patient Summaryon 024 ED Patient Summary [place] [address] Patient Discharge Instructions Person Information Name: ELVER MENA Age: 68 Years Arrival Date: 10/10/2023 12:30:08 Discharge Diagnosis: Ambulatory dysfunction; Generalized weakness; Parkinsons disease; Unable to care for self Primary Care Physician: NONE, XXXX Provider Information Primary Provider: Rick Sanchez DO Advanced Supervisor Grinding:None The exam and treatment you received in the Emergency Department were for an urgent problem and are not intended as complete care. It is important that you follow up with a doctor, nurse practitioner, or physician?s cafeteria assistant for ongoing care. If your symptoms [...] opioids can be used to help relieve qfignlci-th-aiulni pain and are often prescribed following a [...] be struggling with addiction, tell your health managed care director and ask for guidance or call [facility] National Helpline at 6-233-017-YBOO. s Source: [place] Department of Health and Human Services/Center for Disease Control & Prevention [facility] Medicati (more content not included)... Normal [facility] HEMATOLOGYOrdered By: SYSTEM SYSTEM on 10-10-2023 Basophils/100 [...] Soc ial Workeron 10-10-2023 Interdisciplinary Note - Quality Improvement Coordinator (Rn) Consult from ED received for placement at TCU for patient. Patient left TCU a few days prior and has discovered he is not able to care for himself as of yet. Referral was made to TCU and patient was accepted for admission from ED. PAS completed. ED staff notified. SW will remain available. Normal [facility] Pre-Arrival Noteon Pre-Arrival Note Pre-Arrival Summary Name: Sharron Montgomery [place] [facility] Assisted/ [place] Current Date: 10/10/2023 12:30:57 EDT Gender: Female Date of : 03/21/1987 Age: 36 years Pre-Arrival Type: EMS ETA: 10/10/2023 09:46:00 EDT Primary Care Physician: Presenting Problem: in restraints/ hearing things Pre-Arrival User: Nathan Motta RN Referring Source: Location: [place] Completion Date/Time: 10/10/2023 09:16:00 [facility] Emergency Department Pre-Hospital Report Form Vital Signs: Pre-Hospital Report: Treatment in Route: Response to Treatment: Misc. Issues: Normal [facility] Pre-Arrival Note Pre-Arrival Summary Name: DARWIN Current Date: 10/10/2023 12:40:49 EDT Gender: Male Date of : Age: 68 Pre-Arrival Type: EMS ETA: 10/10/2023 12:53:00 EDT Primary Care Physician: Presenting Problem: unable to care for self Pre-Arrival User: Nathan Motta RN Referring Source: Location: [place] Completion Date/Time: 10/10/2023 12:23:00 [facility] Emergency Department Pre-Hospital Report Form Vital Signs: Pre-Hospital Report: Treatment in Route: Response to Treatment: Misc. Issues: Normal [facility] eGFROrdered By: SYSTEM MADAY Quesada on 10-10-2023 eGFR 93 mL/min/1.73 m2 Normal >=59 Remisol Chem Comment on above: Order Comment: Order added by Discern Expert. Performed By: #### 1 [id number] #### [facility] [address] [place] [address] Family Medicine Office/Clini c Noteon 10-03-2023 Family Medicine Office/Clinic Note History of Present Illness TCU DISCHARGE after TCU admit Inpatient [facility] 09/22?09/25. His neighbor called 911 because of his inability to take care for self and increasing tremors. He was hospitalized 09/16?09/18 for similar issues. He was in a frozen state at that time and then had a rather dramatic spontaneous recovery and wanted to go home. During his present admission, neurology recommended OP visit at [facility] to consider DBS as he is maxed out on medications. He did well in PT and was admitted for rehab stay. Patient completed rehab stay. Plan to discharge on 10/04/2023. He will be discharging with orders for rollator. After patient sees PCP then PCP office will send a referral to [facility] for PT and RN. Hb 14.1 [...] hernia repair. Pt also reports stays at [facility] and [facility]. 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 He sets his alarm at night otherwise [...] with voice recognition artificial intelligence software, specifically [employer] and or [employer] Occasional wrong-word or ?lqfbd-n-uwdq? substitutions may have occurred due to the [...] change: N (more content not included)... Normal [facility] Comment on above: Result Comment: Elec tronically Signed By: Onel RIVERS, Ramon Tan\.br\Date and Time Signed: 10/03/23 12:27 EDT Family Medicine Office/Clini c Noteon 09-29-2023 Family Medicine Office/Clinic Note History of Present Illness TCU ADMIT from [facility] 09/22?10 neighbor called 911 because of his inability to take care of self, increasing tremors. Was hospitalized 09/16?3 for similar issues, was in a frozen state, then had rather dramatic spontaneous recovery and wanted to go home. During his present admission neurology recommended OP visit at [facility] to consider DBS as is maxed out on medications. He did well in PT and is admitted for rehab stay. Hb 14.1 CR 0.9 PMHx- [...] hernia repair. Pt also reports stays at [facility] and [facility] Physical Exam Seated at side of bed [...] SARS-CoV-2 (COVID-19) mRNA-1273 vaccine 04/19/2021 Recorded Normal [facility] Comment on above: Result Comment: Elec tronically Signed By: LESLY LAUREN, Johnathon\.br\Date and Time Signed: 09/29/23 21:40 EDT Discharge Instructionson Discharge Instructions [id number]# 1.00TIFF Normal [facility] Discharge Note-Nursingon Discharge Note-Nursing ELVER MENA :1955 [...] Pending Diagnostic Test Results None Pharmacy Information [facility] New Follow Up Appointments after Discharge Follow Up with Isabelle Julian When: Within 3 to 5 days Comments: After D/C from SNF , [facility] need referral to [facility] Where: [address], [address]elo C, [facility] [address] [place] [address]- Business (1) Follow Up with Flo LAUREN, YADI Soriano When: Within 2 to 4 weeks Where: [facility] [address] [place] [address]- Medications What How Much When Instructions Next [...] Stress normally passes (more content not included)... [facility] Interdisciplinary Note - Skip e Manageron 09-26-2023 Interdisciplinary Note - Fabricator Foam Rubber CRM to room to discuss DC planning. [...] stay. Patient will DC to TCU today [facility] Comment on above: Result Comment: Elec tronically Signed By: Adele Vasquez\.br\Date and Time Signed: 09/26/23 08:36 EDT Message from Medicareon 09-16 Message from Medicare ..[id number]# 1.00TIFF [facility] Transfer Documentson 024 Transfer Documents [id number]# 1.00TIFF [facility] UA with Cult RflxOrdered By: SYSTEM SYSTEM on 09-26-2023 Bilirubin Ql (U) Negative Normal Negative [facility] UA Auto SS Comment on above: Performed By: #### 4 [id number] ####[address] [address] Glucose Ql (U) Negative Normal Negative [facility] UA Au to SS Comment on above: Performed By: #### 4 [id number] ####[address] [address] Hemoglobin Auto test strip (U) [Mass/Vol] Negative Normal Negative [facility] UA Aut o SS Comment on above: Performed By: #### 4 [id number] ####[address] [address] Ketones Auto test strip Ql (U) Negative Normal Negative [facility] UA Auto SS Comment on above: Performed By: #### 4 [id number] ####[address] [address] Leukocyte esterase Auto test strip Ql (U) Negative Normal Negative [facility] UA Auto SS Comment on above: Performed By: #### 4 [id number] ####[address] [address] Nitrite Auto test strip Ql (U) Negative Normal Negative [facility] UA Auto SS Comment on above: Performed By: #### 4 [id number] ####[address] [address] Protein Ql (U) Negative Normal Negative [facility]A Au to SS Comment on above: Performed By: #### 4 [id number] ####[address] [address] Urobilinogen (U) [Mass/Vol] Negative Normal Negative FT UA Auto SS Comment on above: Performed By: #### 4 [id number] ####[address] [address] UA with Cult Rflxon 09-26-19 24 Clarity (U) Clear Normal Clear [facility] Comment on above: Performed By: #### 4 [id number] ####[address] [address] Color (U) Yellow Normal Yellow [facility] Comment on above: Result Comment: Micr oscopic readings are only performed on those samples that meet specific criteria set forth by [facility] Laboratory. Performed By: #### 4 [id number] ####[facility] [address] [place] [address] pH (U) 5.0 [pH] Invalid Interpretation Code 5.0-9.0 [facility] Comment on above: Performed By: #### 4 [id number] ####[facility] [address] [place] [address] Specific gravity (U) [Rel density] 1.014 Invalid Interpretation Code 1.005-1.030 [facility] Comment on above: Performed By: #### 4 [id number] ####[facility] [address] [place] [address] URINALYSISOrdered By: SYSTEM SYSTEM on 09-26-2023 Clarity (U) Clear (09/26/23 1:27 AM) Normal Clear [facility] UA Auto SS Color (U) Yellow 1 (09/26/23 1:27 AM) Normal Yellow [facility] UA Auto SS Comment on above: Interpretive Data: M icroscopic readings are only performed on those samples that meet specific criteria set forth by [facility]. pH (U) 5.0 *NA* (09/26/23 1:27 AM) Invalid Interpretation Code 5.0 - 9.0 [facility] UA Auto SS Specific gravity (U) [Rel density] 1.014 *NA* (09/26/23 1:27 AM) Invalid Interpretation Code 1.005 - 1.030 [facility] UA Auto SS URINALYSISOrdered By: Sky GRAY on 09-26-2023 UA Spec Desc Random Urine (09/26/23 1:27 AM) Normal [facility] UA Auto SS StandardNine Education Videoon [facility] Institute[facility] Education Video Avoiding Infections in the Hospital Patient Yes Normal [facility] Inpatient Clinical Summaryon 09-25-2023 Inpatient Clinical Summary [address] [address] Clinical Summary Person Information: Name: ELVER MENA Age: 68 Years : 1955 Sex: Male PCP: Isabelle Julian DO Marital Status: Phone: [phone] Race: White Ethnicity: Non- or Language: Emirati Visit Id: Visit Reason: Medical problem - minor; TREMORS Speciality: Acuity: Enc Type: Inpatient Med Service: Medical Arrival: 09/22/2023 22:39:13 Discharge: Dispo Type: Admitted as IP to this Hosp Address: [address] [place] [id number] Provider Notes: Diagnosis: 1:Lower extremity weakness; 2:Parkinson [...] Follow up: With: Address: When: Isabelle Julian [facility] [address] C, [facility] [address] [place] [address] Business (1) Within 3 to 5 days Comments: After D/C from SNF , will need referral to [facility] With: Address: When: Bo Rossi MD, [facility] [address] [place] [address] Within 2 to 4 weeks Patient Education Information: Normal [facility] Inpatient Patient Summaryon 09-25-2023 Inpatient Patient Summary [address] [address] Patient Discharge Instructions PERSON INFORMATION [...] None Follow up: With: Address: When: Isabelle Parisker [address], [address] [place] [address] Business (1) Within 3 to 5 days Comments: After D/C from SNF , will need referral to [facility] consider deep [facility] With: Address: When: Flo LAUREN, YADI Soriano-[place] [address] [place] [address] Within 2 to 4 weeks In the [...] Leaflets: You may receive a survey from [employer] asking you to rate your care experience. Your feedback is important and will help us understand what we do well and how we can improve the quality of care we provide to you, your loved ones and our community. It?s an honor to serve you. (more content not included)... [facility] Interdisciplinary Note - Skip e Manageron 09-25-2023 Interdisciplinary Note - Fabricator [employer] CRM to room to discuss DC planning. [...] 206-will go to room 621 at D/C. [facility] Comment on above: Result Comment: Elec tronically Signed By: Adele Vasquez\.br\Date and Time Signed: 09/25/23 11:19 EDT Interdisciplinary Note - Soc ial Workeron 09-25-2023 Interdisciplinary Note - Quality Improvement Coordinator (Rn) This SW met with patient regarding lack of a PCP. Patient stated that he is only willing to see a [facility] physician. Patient stated that due to his hallucinations, that it is difficult to keep clothes on for long. SW asked if mornings or afternoons were better to schedule an appointment, based on his hallucinations. Patient requested that an appointment be scheduled for late afternoon, around 10am. SW informed the patient that the soonest appointment in [place] would be on October 08, 2023. Patient [...] SW will remain available as needed. Normal [facility] Progress Note-Physicianon Progress Note-Physician Assessment/Plan 68-year-old male [...] therapy. Awaiting precertification for placement in a fci facility. Ordered: [facility] Care/Day Moderate 35 Minutes 69412 2. Parkinson disease (G20.A1: Parkinson's disease without dyskinesia, without mention of fluctuations) Continue on Parkinson's medications. Seen by neurologist?no further recommendations. Patient may benefit from deep brain stimulator evaluation as outpatient. [facility] Moderate 35 Minutes [address]42 3. Neuroforaminal stenosis of lumbar spine (M48.061: Spinal stenosis, lumbar region without neurogenic claudication) Supportive care. Ordered: [facility] Care/Day Moderate 35 Minutes 92180 4. Unable to care for self (Z78.9: Other specified health status) Secondary to physical deconditioning. Seen by physical therapist and recommends fci facility. Ordered: [facility] Care/Day Moderate 35 Minutes 32379 5. Anxiety and depression (F41.9: Anxiety disorder, unspecified) Continue on buspirone and propranolol. 6. Hypertension (I10: Essential (primary) hypertension) Blood pressure controlled. Continue on propranolol. 7. Obesity (E66.9: Obesity, unspecified) Recommend therapeutic lifestyle modification changes. 8. Encounter for deep vein thrombosis (DVT) prophylaxis (Z29.9: Encounter for prophylactic measures, unspecified) Heparin. Disposition: To fci facility in am. I discussed the diagnosis and plan of care with the patient at the bedside. Moderate level of MDM based on addressing above issues. This documentation was transcribed using voice recognition software. Several attempts were made to ensure accuracy. However inadvertent computerized dock supervisor errors may be present. Josse Goel. Hospitalist. [...] q6hr, PRN pimavanseri (more content not included)... Normal [facility] Comment on above: Result Comment: Elec tronically Signed By: TONY LAUREN, Josse\.br\Date and Time Signed: 09/25/23 09:33 EDT Interdisciplinary Note - Skip e Manageron 09-24-2023 Interdisciplinary Note - Fabricator [employer] CRM to room to discuss DC planning. [...] possible medicaid or LTC policy for patient Normal [facility] Comment on above: Result Comment: Elec tronically Signed By: Adele Vasquez\.radha\Date and Time Signed: 09/24/23 08:18 EDT Monitor Recordon 09-24-2023 Monitor Record [id number]# 1.00TIFF Normal [facility] Monitor Record [id number]# 1.00TIFF Normal [facility] Progress Note-Physicianon Progress Note-Physician Assessment/Plan 68-year-old male [...] to recommendations. Seen by physical therapist. Recommend fci facility. Awaiting precertification. [facility]Day Moderate 35 Minutes [address]90 2. Parkinson disease (G20.A1: Parkinson's disease without dyskinesia, without mention of fluctuations) Continue on Parkinson's medications. Seen by neurologist?no further recommendations. Patient may benefit from deep brain stimulator evaluation as outpatient. Ordered: [facility] Hospital Care/Day Moderate 35 Minutes 38692 3. Neuroforaminal stenosis of lumbar spine (M48.061: Spinal stenosis, lumbar region without neurogenic claudication) Supportive care. Ordered: [facility] Hospital Care/Day Moderate 35 Minutes [address]336 4. Unable to care for self (Z78.9: Other specified health status) Secondary to physical deconditioning. Seen by physical therapist and recommends fci facility. Ordered: [facility] Hospital Care/Day Moderate 35 Minutes 295[address] 5. Anxiety and depression (F41.9: Anxiety disorder, unspecified) Continue on buspirone and propranolol. Ordered: [facility] Hospital Care/Day Moderate 35 Minutes 55480 6. Hypertension (I10: Essential (primary) hypertension) Blood pressure controlled. Continue on propranolol. 7. Obesity (E66.9: Obesity, unspecified) Recommend therapeutic lifestyle modification changes. 8. Encounter for deep vein thrombosis (DVT) prophylaxis (Z29.9: Encounter for prophylactic measures, unspecified) Heparin. Disposition: To fci facility pending precertification. I discussed the diagnosis and plan of care with the patient at the bedside. Moderate level of MDM based on addressing above issues. This documentation was transcribed using voice recognition software. Several attempts were made to ensure accuracy. However inadvertent computerized dock supervisor errors may be present. Josse Goel. Hospitalist. Orders: potassium chloride, 40 mEq = 2 tab(s), Tab-ER, Oral, Once, Stop date 09/23/23 8:00:00 EDT, Routine, Start date 09/23/23 8:00:00 EDT, 09/23/23 7:08:00 EDT Referral to [facility] Subjective Seen and examined. Complains of [...] 5 mg= (more content not included)... Normal [facility] Comment on above: Result Comment: Elec tronically Signed By: TONY LAUREN, Paulinofo\.br\Date and Time Signed: 09/24/23 08:31 EDT BMPOrdered By: SYSTEM SYSTEM on 09-23-2023 Anion gap [Moles/Vol] 10 mmol/L Normal 6-16 Rem isol Chem Comment on above: Performed By: #### 2 118882, 5409985, 1107364, 3779780, 61237563, 08774666, 2809167, 38252890 ####[facility] [address] [place] [address] Calcium [Mass/Vol] 8.7 mg/dL Low 8.9-11.1 Remiso l Chem Comment on above: Performed By: #### 2 872718, 2793680, 2645081, 3654111, 61501178, 27792554, 9385627, 30380888 ####[facility] [address] [place] [address] Chloride [Moles/Vol] 106 mmol/L Normal 101-111 Shen natalia Chem Comment on above: Performed By: #### 2 311695, 9994476, 3713152, 8319671, 52536726, 49754615, 6571062, 15521355 ####[address] [place] [address] CO2 [Moles/Vol] 27 mmol/L Normal 21-31 Remisol C hem Comment on above: Performed By: #### 2 131373, 0253960, 2423643, 5623996, 64511177, 89301288, 1510553, 05798736 ####[address] [address] Creatinine [Mass/Vol] 0.9 mg/dL Normal 0.5-1.3 Rem isol Chem Comment on above: Performed By: #### 2 478208, 2520156, 6250975, 3368494, 85175289, 60710404, 4109055, 95732624 ####[address] [address] Glucose [Mass/Vol] 123 mg/dL Normal 55-199 Remiso l Chem Comment on above: Performed By: #### 2 943997, 6781232, 5644020, 4333231, 51807539, 01671973, 6257331, 60797816 ####[address] [address] Potassium [Moles/Vol] 3.7 mmol/L Normal 3.5-5.3 Rem isol Chem Comment on above: Performed By: #### 2 149803, 2664277, 0537990, 1833850, 06030272, 69343887, 1403998, 40177488 ####[address] [place] [address] Sodium [Moles/Vol] 139 mmol/L Normal 135-145 Remiso l Chem Comment on above: Performed By: #### 2 959093, 6397494, 3498775, 5845870, 19970204, 96924555, 6597918, 14597428 ####[address] [address] Urea nitrogen [Mass/Vol] 20 mg/dL Normal 5-21 Remisol Chem Comment on above: Performed By: #### 2 173320, 7825811, 4774599, 4243056, 29028198, 48901520, 2535032, 44496512 ####[facility] [address] [place] [address] BMPon 09-23-2023 Urea nitrogen/Creatinine [Mass ratio] 22 No Units High 10-20 [facility] Comment on above: Performed By: #### 2 362533, 8547237, 5654013, 9772316, 23080385, 15156664, 9081453, 72580429 ####[address] [address] CBC w/ Auto DiffOrdered By: SYSTEM SYSTEM on 09-23-2023 Basophils/100 WBC (Bld) 0.3 % Normal 0.0-2.0 Remisol Heme Comment on above: Performed By: #### 2 382793, 9517479, 5466701, 1333662, 54144490, 44010826, 0972021, 18348388 ####[address] [place] [address] Basophils/Leukocytes Auto (Bld) [Pure # fraction] 0.0 E9/L Normal 0.0-0.2 Remisol Heme Comment on above: Performed By: #### 2 176438, 6447234, 9979527, 1099118, 53384760, 59521355, 9433765, 76897816 ####[address] [place] [address] Eosinophils (Bld) [#/Vol] 0.3 E9/L Normal 0.0-0.5 Remisol Heme Comment on above: Performed By: #### 2 519061, 5990549, 4607844, 9345642, 95791161, 32350471, 2078783, 79530778 ####[address] [place] [address] Eosinophils/100 WBC (Bld) 4.8 % Normal 0.0-8.0 Remisol Heme Comment on above: Performed By: #### 2 900742, 6246547, 3791667, 6955641, 31858899, 09498847, 9874090, 58183268 ####Thomas [address] [address] Erythrocyte distribution width (RBC) [Ratio] 13.3 % Normal 10.9-14.2 Remisol Heme Comment on above: Performed By: #### 2 107156, 8859307, 1155196, 3639620, 40139292, 82611760, 0613399, 02167770 ####William [address] [address] Hematocrit (Bld) [Volume fraction] 39.5 % Normal 37.7-49.0 Remisol Heme Comment on above: Performed By: #### 2 752274, 8905137, 3305911, 3812733, 43904430, 97800700, 4144377, 48527897 ####William [address] [address] Hemoglobin (Bld) [Mass/Vol] 13.4 g/dL Low 13.5-17.5 Remisol Heme Comment on above: Performed By: #### 2 497252, 1508134, 8283790, 2850799, 60487671, 45520082, 0915888, 49559257 ####Thomas [address] [address] Lymphocytes (Bld) [#/Vol] 1.5 E9/L Normal 1.0-4.0 Remisol Heme Comment on above: Performed By: #### 2 951676, 8693546, 3048841, 7250326, 26754581, 98545906, 3171098, 27722476 ####[address] [address] Lymphocytes/100 WBC (Bld) 26.3 % Normal 14.0-50.0 Remisol Heme Comment on above: Performed By: #### 2 971981, 1260995, 1790626, 6927154, 01194474, 83307178, 8156830, 08000809 ####[place] MCH (RBC) [Entitic mass] 32.6 pg Normal 27.0-34.0 Remisol Heme Comment on above: Performed By: #### 2 915991, 5220765, 6484341, 7137731, 48332613, 53359672, 7030129, 90487321 ####[place] [address] MCHC (RBC) [Mass/Vol] 34.0 g/dL Normal 31.4-36.0 Rem isol Heme Comment on above: Performed By: #### 2 887603, 6670350, 3039052, 7874186, 54490404, 63055065, 8496924, 51493847 ####[address] [address] MCV (RBC) [Entitic vol] 96.0 fL Normal 80.0-100.0 Remisol Heme Comment on above: Performed By: #### 2 650975, 7457071, 8714156, 9664226, 77147434, 79573070, 0107051, 23469410 ####[address] [address] Monocytes (Bld) [#/Vol] 0.5 E9/L Normal 0.2-1.0 Remisol Heme Comment on above: Performed By: #### 2 068494, 8077453, 9923222, 6338025, 98018401, 46560823, 5468631, 02837954 ####[address] [address] Neutrophils (Bld) [#/Vol] 3.4 E9/L Normal 2.0-7.5 Remisol Heme Comment on above: Performed By: #### 2 865924, 8261460, 1029853, 4326284, 43773163, 06211554, 8288380, 09186687 ####[place] [address] [place] [address] Neutrophils/100 WBC (Bld) 59.3 % Normal 36.0-75.0 Remisol Heme Comment on above: Performed By: #### 2 822204, 9394575, 3293217, 7064617, 13282676, 93937537, 4863110, 39431625 ####William [address] [address] Platelet mean volume (Bld) [Entitic vol] 7.5 fL Normal 6.4-10.8 Remisol Heme Comment on above: Performed By: #### 2 667090, 6000272, 5076937, 9245148, 57404539, 32934309, 9383469, 92944212 ####William [address] [address] Platelets (Bld) [#/Vol] 195.0 E9/L Normal 150.0-500.0 Remisol Heme Comment on above: Performed By: #### 2 428297, 2958692, 8190720, 4802512, 75659913, 69944823, 5458734, 27606282 ####William [address] [address] RBC (Bld) [#/Vol] 4.1 E12/L Low 4.3-5.9 Remisol Heme Comment on above: Performed By: #### 2 291039, 4722156, 6587229, 6475474, 92996427, 91580587, 7051385, 26622098 ####William [address] [address] WBC corrected for nucl RBC Auto (Bld) [#/Vol] 5.7 E9/L Normal 4.0-11.0 Remisol Heme Comment on above: Performed By: #### 2 402306, 4093130, 4369803, 1652884, 42601072, 68990018, 2110446, 15721373 ####William [address] [place] [address] CHEMISTRYOrdered By: SYSTEM SYSTEM on 09-23-2023 Total CK 173 [iU]/d Normal 14 - 261 Int._Unit/L Remisol Chem TSH Qn 1.73 m[IU]/L Normal 0.34 - 5.60 mcIU/mL Remisol Chem Urea nitrogen/Creatinine [Mass ratio] 22 mg/mg High 10 - 20 Remisol Chem CKon 09-23-2023 Total CK 173 Int._Unit/L Normal 14-261 [facility] Comment on above: Performed By: #### 2 906026, 7875437, 9750797, 2734511, 87643379, 45845651, 7009133, 91485569 ####[facility] [address] [place] [address] CRPOrdered By: SYSTEM SYSTEM on 09-23-2023 CRP [Mass/Vol] 0.2 mg/dL Normal <=1.9 Remisol Ch em Comment on above: Performed By: #### 2 212723, 9327241, 6685600, 0673914, 37865218, 61488182, 0473621, 39352295 ####[facility] [address] [place] [address] Consultation Noteon 09-23-19 24 Consultation Note Chief [...] a movement disorder outpatient consultation at [facility], as he might be a candidate for [...] q4hr hydrALAZIN (more content not included)... Normal [facility] Comment on above: Result Comment: Elec tronically Signed By: Nedra Montalvo RN\.br\Date and Time Signed: 09/23/23 07:10 EDT\.br\Electronically Co-Signed By: Jack Ga DObr\Date and Time Co-Signed: 09/23/23 10:27 EDT ED Clinical Summaryon 2023 ED Clinical Summary [address] [address] ED Clinical Summary Person Information Name: ELVER MENA/[place] Age: 68 Years : 1955 Sex: Male Language: Emirati PCP: Isabelle Julian DO Marital Status: Phone: [phone] Visit Id: Visit Reason: Medical problem - minor; TREMORS Speciality: Acuity: 3 Enc Type: Inpatient Med Service: Emergency Arrival: 09/22/2023 22:39:13 Discharge: LOS: 000 02:27 Checkin: 09/22/2023 22:39:13 Checkout: 09/23/2023 01:06:36 Dispo Type: Admitted as IP to this [facility] EVENTS: Event Name Event Status Request Date/Time [...] 09/23/2023 00:37:25 Consult Request 09/23/2023 00:51:41 ADDRESS: [address] [place] [address] S [facility] [id number] PHYS DOC NOTES: MEDICAL INFORMATION: Prescriptions Given: [...] disease; Unable to care for self Normal [facility] ED Note-Physicianon 09-23-19 24 ED Note-Physician Basic Information Time Seen: Juan MARQUEZ, Baldo Mcknight. 09/22/2023 22:41 Chief Complaint Pt. arrived by [...] Patient seen and evaluated by the physician cafeteria assistant. Attending physician was present in the emergency department and supervised care. This visit was performed by both the physician and an APC. I performed all aspects of the MDM as documented. This report was transcribed using voice recognition software. Every effort was made to ensure accuracy, however, inadvertently computerized dock supervisor mistakes may be present. Appropriate healthcare PPE [...] repair. Medications (more content not included)... Normal [facility] Comment on above: Result Comment: Elec tronically Signed By: Baldo Martinez PA-C\.br\Date and Time Signed: 09/23/23 00:20 EDT\.br\Electronically Co-Signed By: Rick Sanchez DO\.br\Date and Time Co-Signed: 09/23/23 02:51 EDT ED Patient Education Noteon 09-23-2023 ED Patient Education Note Normal [facility] ED Patient Summaryon 024 ED Patient Summary [address] [address] Patient Discharge Instructions Person Information Name: ELVER MENA Age: 68 Years Arrival Date: 09/22/2023 22:39:13 Discharge Diagnosis: Parkinson disease; Unable to care for self Primary Care Physician: Isabelle Julian DO Provider Information Primary Provider: Rick Sanchez DO Advanced Supervisor Grinding:None The exam and treatment you received in the Emergency Department were for an urgent problem and are not intended as complete care. It is important that you follow up with a doctor, nurse practitioner, or physician?s cafeteria assistant for ongoing care. If your symptoms [...] opioids can be used to help relieve vbpstvvj-cb-blfsst pain and are often prescribed following a [...] be struggling with addiction, tell your health managed care director and ask for guidance or call [facility] National Helpline at 3-018-923-ECFL. z Source: [place] Department of Health and Human Services/Center for Disease Control & Prevention [facility] Medications Given: Medication Dose Route No (more content not included)... Normal [facility] EMS Documentationon 09-23-19 EMS Documentation Please click on link to see report Normal [facility] Comment on above: Result Comment: Miss cruz Attachment - attachment exceeds size limitation [email or web address] Can be viewed in source system HEMATOLOGYOrdered By: SYSTEM SYSTEM on 09-23-2023 Monocytes/100 WBC (Bld) 9.3 % Normal 4.0 - 14.0 % Remisol Heme Interdisciplinary Note - Skip e Manageron 09-23-2023 Interdisciplinary Note - Fabricator [employer] CRM to room to discuss DC planning. [...] white board updated. CRM following TCU accepted [facility] Comment on above: Result Comment: Elec [...] level of assist with all I/ADL tasks. [facility] Interdisciplinary Note - Soc ial Workeron 09-23-2023 Interdisciplinary Note - Quality Improvement Coordinator (Rn) This SW responded to a consult on regarding a positive SDOH for transportation. It was stated that the patient has trouble getting to medical appointments and obtaining medication, as well as, trouble getting to work or other necessities. Patient is admitted for tremors / worse Parkinson symptoms. Patient stated that after speaking to neuro that he would like to go to a movement center at the [facility] to assist with his Parkinson symptoms. SW informed CRM of this, as the patient stated that he saw neuro after speaking to CRM. Patient stated that in terms of transportation [...] time. SW will remain available as needed. [facility] MagnesiumOrdered By: SYSTEM SYSTEM on 09-23-2023 Magnesium [Mass/Vol] 2.0 mg/dL Normal 1.3-2.4 Shen natalia Chem Comment on above: Performed By: #### 2 707612, 8037047, 5768388, 9129857, 84402172, 14608697, 7281954, 37647740 ####[facility] [address] [place] [address] Message from Medicareon Message from Medicare [id number]# 1.00TIFF Normal [facility] Monitor Recordon 09-23-2023 Monitor Record [id number]# 1.00TIFF Normal [facility] Monitor Record [id number]# 1.00TIFF Normal [facility] Progress Note-Physicianon Progress Note-Physician Assessment/Plan 68-year-old male [...] therapy evaluation pending. Neurology consult pending. Ordered: [facility] Care/Day Moderate 35 Minutes 71299 2. Parkinson disease (G20.A1: Parkinson's disease without dyskinesia, without mention of fluctuations) Neurology consult pending. Continue on Parkinson's medications?Sinemet, Requip, entacapone, Pimavanserine Ordered: [facility] Care/Day Moderate 35 Minutes 78951 3. Neuroforaminal stenosis of lumbar spine (M48.061: Spinal stenosis, lumbar region without neurogenic claudication) Supportive care. Neurology to follow. Ordered: [facility] Care/Day Moderate 35 Minutes 13323 4. Unable to care for self (Z78.9: Other specified health status) Secondary to physical deconditioning. Physical therapy evaluation pending. Patient likely will benefit from inpatient physical therapy before safely discharged home. Ordered: [facility] Care/Day Moderate 35 Minutes 10393 5. Anxiety and depression (F41.9: Anxiety disorder, unspecified) Continue on BuSpar, propranolol. Ordered: [facility] Care/Day Moderate 35 Minutes 92807 6. Hypertension (I10: Essential (primary) hypertension) Blood [...] made to ensure accuracy. However inadvertent computerized dock supervisor errors may be present. Josse Goel. Hospitalist. [...] 04:47:00) Lymph Auto: 26.3 % (09/23/23 04:47:00) Leake Auto: 9.3 % (09/23/23 04:47:00) Eos Auto: 4.8 % (09/23/23 04:47:00) Basophil Auto: 0.3 % (09/23/23 04:47:00) Neutro Absolute: 3.4 E9/L (09/23/23 04:47:00) Lymph Absolute: 1.5 E9/L (09/23/23 04:47:00) Leake Absolute: 0.5 E9/L (09/23/23 04:47:00) Eos Absolute: 0.3 E9/L (09/23/23 04:47:00) Basophil Absolute: 0 E9/L (09/23/23 04:47:00) Glucose Lvl: 123 mg/dL (09/23/23 04:47:00) BUN: 20 mg/dL (09/23/23 04:47:00) Creatinine: 0.9 mg/dL (09/23/23 04:47:00) eGFR: 93 mL/min/1.73 m2 (09/23/23 04:47:00) BUN/Creat Ratio: 22 High (09/23/23 04:47:00) Sodi (more content not included)... Normal [facility] Comment on above: Result Comment: Elec tronically Signed By: TONY LAUREN, Josse\.br\Date and Time Signed: 09/23/23 08:43 EDT TSH With T4fr Reflexon 09-22 TSH Qn 1.73 m[IU]/L Normal 0.34-5.60 [facility] Comment on above: Performed By: #### 2 909300, 0013900, 4965087, 8507094, 59998592, 32766117, 4201205, 74266378 ####[facility] [address] [place] [address] Troponin 1 Hr.Ordered By: Raynforest SYSTEM on 09-23-2023 Troponin 4.20 pg/mL Low 15.90-38.40 Remisol Chem Comment on above: Interpretive Data: T he 95% CI (Confidence Interval) PPV (Positive Predictive Value) for myocardial infarction in females is 38 pg/mL, in males 51 pg/mL. The results should be used in conjunction with clinical conditions of myocardial infarction. (Access High Sensitivity Troponin I Instructions For Use, In*Situ Architecture, December 2017) Result Comment: The 95% CI (Confidence Interval) PPV (Positive Predictive Value) for myocardial infarction in females is 38 pg/mL, in males 51 pg/mL. The results should be used in conjunction with clinical conditions of myocardial infarction. (Access High Sensitivity Troponin I Instructions For Use, In*Situ Architecture, December 2017) Performed By: #### 1 [id number] ####[facility] [address] [place] [address] Performed By: #### 2 531277, 8140668, 60853206, 83398919 ####[facility] [address] [place] [address] Troponin 3 Hr.Ordered By: Raynforest SYSTEM on 09-23-2023 Troponin 5.40 pg/mL Low 15.90-38.40 Remisol Chem Comment on above: Interpretive Data: T he 95% CI (Confidence Interval) PPV (Positive Predictive Value) for myocardial infarction in females is 38 pg/mL, in males 51 pg/mL. The results should be used in conjunction with clinical conditions of myocardial infarction. (Access High Sensitivity Troponin I Instructions For Use, In*Situ Architecture, December 2017) Result Comment: The 95% CI (Confidence Interval) PPV (Positive Predictive Value) for myocardial infarction in females is 38 pg/mL, in males 51 pg/mL. The results should be used in conjunction with clinical conditions of myocardial infarction. (orderbolt High Sensitivity Troponin I Instructions For Use, In*Situ Architecture, December 2017) Performed By: #### 1 [id number] ####[facility] [address] [place] [address] Troponin 6 Hr.Ordered By: Raynforest SYSTEM on 09-23-2023 Troponin 5.00 pg/mL Low 15.90-38.40 Remisol Chem Comment on above: Interpretive Data: T he 95% CI (Confidence Interval) PPV (Positive Predictive Value) for myocardial infarction in females is 38 pg/mL, in males 51 pg/mL. The results should be used in conjunction with clinical conditions of myocardial infarction. (Access High Sensitivity Troponin I Instructions For Use, In*Situ Architecture, December 2017) Result Comment: The 95% CI (Confidence Interval) PPV (Positive Predictive Value) for myocardial infarction in females is 38 pg/mL, in males 51 pg/mL. The results should be used in conjunction with clinical conditions of myocardial infarction. (orderbolt High Sensitivity Troponin I Instructions For Use, In*Situ ArchitectureDecember 2017) Performed By: #### 2 972629, 6914288, 9921184, 7909508, 37637411, 33174307, 3318091, 62709663 ####[facility] [address] [place] [address] UA with Cult Rflxon 09-23-19 Type of Urine collection method Random Urine Normal [facility] Comment on above: Performed By: #### 4 [id number] ####[facility] [address] [place] [address] XR Chest Single Viewon 09-22 XR Chest [...] mGy = na DAP = na Normal [facility] eGFROrdered By: SYSTEM [facility] on 09-23-2023 eGFR 93 mL/min/1.73 m2 Normal >=59 Remisol Chem Comment on above: Order Comment: Order added by Discern Expert. Performed By: #### 2 514360, 5225954, 3082163, 2095587, 11174957, 72453738, 4762842, 55710248 ####[address] [place] [address] BMPOrdered By: Kypha SYSTEM on 09-22-2023 Anion gap [Moles/Vol] 9 mmol/L Normal 6-16 Rem isol Chem Comment on above: Performed By: #### 2 427484, 7359096, 39413878, 04519583 ####[address] [place] [address] Calcium [Mass/Vol] 8.9 mg/dL Normal 8.9-11.1 Remiso l Chem Comment on above: Performed By: #### 2 577463, 2205147, 20809168, 25784236 ####[address] [place] [address] Chloride [Moles/Vol] 106 mmol/L Normal 101-111 Shen natalia Chem Comment on above: Performed By: #### 2 918649, 4592596, 09707187, 31048328 ####William [address] [address] CO2 [Moles/Vol] 27 mmol/L Normal 21-31 Remisol C hem Comment on above: Performed By: #### 2 851217, 4834539, 56945499, 96139286 ####William [address] [address] Creatinine [Mass/Vol] 0.9 mg/dL Normal 0.5-1.3 Rem isol Chem Comment on above: Performed By: #### 2 749559, 0134209, 37492404, 58011454 ####William [address] [address] Glucose [Mass/Vol] 118 mg/dL Normal 55-199 Remiso l Chem Comment on above: Performed By: #### 2 526241, 4009037, 55705714, 95843532 ####[address] [address] Potassium [Moles/Vol] 3.8 mmol/L Normal 3.5-5.3 Rem isol Chem Comment on above: Performed By: #### 2 432643, 1261898, 10928601, 75075508 ####William [address] [address] Sodium [Moles/Vol] 138 mmol/L Normal 135-145 Remiso l Chem Comment on above: Performed By: #### 2 874878, 4350272, 38863064, 68568317 ####[address] [address] Urea nitrogen [Mass/Vol] 21 mg/dL Normal 5-21 Remisol Chem Comment on above: Performed By: #### 2 100361, 0952407, 13779696, 14951491 ####[place] [address] [address] BMPon 09-22-2023 Urea nitrogen/Creatinine [Mass ratio] 23 No Units High 10-20 [facility] Comment on above: Performed By: #### 2 402005, 7763788, 09973743, 78812962 ####[address] [address] CBC w/ Auto DiffOrdered By: SYSTEM SYSTEM on 09-22-2023 Basophils/100 WBC (Bld) 0.6 % Normal 0.0-2.0 Remisol Heme Comment on above: Performed By: #### 2 435750, 1208720, 77462861, 45972820 ####[place] [address] Basophils/Leukocytes Auto (Bld) [Pure # fraction] 0.0 E9/L Normal 0.0-0.2 Remisol Heme Comment on above: Performed By: #### 2 732726, 6617510, 30175413, 73899371 ####[address] [address] Eosinophils (Bld) [#/Vol] 0.3 E9/L Normal 0.0-0.5 Remisol Heme Comment on above: Performed By: #### 2 605604, 4600598, 74903221, 08596707 ####[address] [address] Eosinophils/100 WBC (Bld) 3.9 % Normal 0.0-8.0 Remisol Heme Comment on above: Performed By: #### 2 310972, 1093688, 26245401, 53976522 ####[address] [address] Erythrocyte distribution width (RBC) [Ratio] 13.3 % Normal 10.9-14.2 Remisol Heme Comment on above: Performed By: #### 2 529698, 2321906, 97775804, 92173409 ####[place] [address] Hematocrit (Bld) [Volume fraction] 41.6 % Normal 37.7-49.0 Remisol Heme Comment on above: Performed By: #### 2 643041, 8822635, 64396132, 60075637 ####William [address] [address] Hemoglobin (Bld) [Mass/Vol] 14.1 g/dL Normal 13.5-17.5 Remisol Heme Comment on above: Performed By: #### 2 254345, 9458575, 90134345, 13670113 ####[address] [address] Lymphocytes (Bld) [#/Vol] 1.4 E9/L Normal 1.0-4.0 Remisol Heme Comment on above: Performed By: #### 2 172212, 7153969, 37842679, 01760508 ####William [address] [address] Lymphocytes/100 WBC (Bld) 21.0 % Normal 14.0-50.0 Remisol Heme Comment on above: Performed By: #### 2 020037, 0844516, 28640321, 60713945 ####William [address] [address] MCH (RBC) [Entitic mass] 32.8 pg Normal 27.0-34.0 Remisol Heme Comment on above: Performed By: #### 2 047847, 9924138, 47121068, 95333811 ####William [address] [address] MCHC (RBC) [Mass/Vol] 34.0 g/dL Normal 31.4-36.0 Rem isol Heme Comment on above: Performed By: #### 2 756844, 5031060, 53298642, 45234168 ####Thomas [address] [address] MCV (RBC) [Entitic vol] 96.5 fL Normal 80.0-100.0 Remisol Heme Comment on above: Performed By: #### 2 986452, 2715098, 58931586, 84333171 ####Thomas [address] [address] Monocytes (Bld) [#/Vol] 0.5 E9/L Normal 0.2-1.0 Remisol Heme Comment on above: Performed By: #### 2 240130, 8132105, 92352529, 50828380 ####William [address] [address] Neutrophils (Bld) [#/Vol] 4.3 E9/L Normal 2.0-7.5 Remisol Heme Comment on above: Performed By: #### 2 390157, 7209332, 35679695, 46825159 ####Thomas [address] [address] Neutrophils/100 WBC (Bld) 66.4 % Normal 36.0-75.0 Remisol Heme Comment on above: Performed By: #### 2 492573, 7838959, 68798983, 01373636 ####[place] [address] Platelet 203.0 E9/L Normal 150.0-500.0 Remisol Heme Comment on above: Performed By: #### 2 231935, 0861316, 93750323, 37609518 ####Thomas [address] [address] Platelet mean volume (Bld) [Entitic vol] 7.1 fL Normal 6.4-10.8 Remisol Heme Comment on above: Performed By: #### 2 956581, 9354804, 41392539, 10005128 ####Thomas [address] [address] RBC (Bld) [#/Vol] 4.3 E12/L Normal 4.3-5.9 Remisol Heme Comment on above: Performed By: #### 2 679936, 7225779, 45195921, 96454472 ####Thomas [address] [place] [address] WBC corrected for nucl RBC Auto (Bld) [#/Vol] 6.5 E9/L Normal 4.0-11.0 Remisol Heme Comment on above: Performed By: #### 2 445892, 8620361, 10353355, 59554569 ####[facility] [address] [place] [address] CHEMISTRYOrdered By: SYSTEM SYSTEM on 09-22-2023 Urea nitrogen/Creatinine [Mass ratio] 23 mg/mg High 10 - 20 Remisol Chem Consent for Treatmenton Consent for Treatment [id number]#1 .00TIFF Normal [facility] HEMATOLOGYOrdered By: SYSTEM SYSTEM on 09-22-2023 Monocytes/100 WBC (Bld) 8.1 % Normal 4.0 - 14.0 % Remisol Heme Pre-Arrival Noteon Pre-Arrival Note Pre-Arrival Summary Name: , DARWIN Current Date: 09/22/2023 22:39:41 EDT Gender: Male Date of : Age: 68 Pre-Arrival Type: EMS ETA: 09/22/2023 22:33:00 EDT Primary Care Physician: Presenting Problem: tremors Pre-Arrival User: Argentina Aden RN Referring Source: Location: [place] Completion Date/Time: 09/22/2023 22:29:00 [facility] Emergency Department Pre-Hospital Report Form Vital Signs:142/87 84 20 96%-room air Pre-Hospital Report:pt has parkinson's and tremors are worsening, pt lives alone and not able to care for himself Treatment in Route:20g L wrist Response to Treatment: Misc. Issues: Normal [facility] eGFROrdered By: SYSTEM NM[employer] on 09-22-2023 eGFR 93 mL/min/1.73 m2 Normal >=59 Remisol Chem Comment on above: Order Comment: Order added by Discern Expert. Performed By: #### 2 701670, 7804402, 59413013, 55007614 ####[facility] [address] [place] [address] Discharge Instructionson Discharge Instructions [id number]# 1.00TIFF Normal [facility] CHEMISTRYOrdered By: SYSTEM SYSTEM on 09-19-2023 Anion [...] Pending Diagnostic Test Results None Pharmacy Information [facility] Discharge Instructions Follow up appts as writtenPlease consider outpt. OPPT - if you change your mind please discuss with your PCP New Follow Up Appointments after Discharge Follow Up with Isabelle Julian When: Within 2 to 4 days Where: Gregory Haji, Carmelo C, [facility] [address] [place] [address]- [facility] (1) Follow Up with Flo LAUREN, YADI Soriano When: Within 2 to 4 weeks Where: [facility] [address] [place] [address]- Medications What How Much When Instructions Next Dose New acetaminophen (acetaminophen 325 mg Tab) 2 Tablets By Mouth Every 6 hours as needed for Pain 09/18 New cyclobenzaprine (cyclobenzaprine 5 mg Tab) 1 Tablets By Mouth 3 times a day Pickup at [id number] 09/18 Changed busPIRone (busPIRone 5 mg Tab) 2 Tablets By Mouth Every 8 hours Pickup at [facility][id number] 09/18 @ 6pm Changed entacapone (entacapone 200 [...] a day 09/18 @ noon Pharmacy Information [facility] #[id number]: [address] [place], [place] [id number] [phone] What How Much When Comments Stop Taking hydrOXYzine (hydrOXYzine hydrochloride 25 mg Tab) 1 Tablets By Mouth 3 times a day as needed for Anxiety Test Results CBC BMP WBC: 5.8 E9/L (09/17/23 21:22:00) Glucose Lvl: 117 mg/dL (09/17/23 21:22:00) RBC: 4.3 E12/L (09/17/23 21:22:00) BUN: 26 mg/dL High (09/17/23 21:22:00) HGB: 14.4 gm/dL (09/17/23 21:22:00) Creatinine: 1 mg/dL (09/17/23:22:00) Hct: 42.4 % (09/17/23 21:22:00) BUN/Creat Ratio: 26 High (09/17/23 21:22:00) MCV: 97.5 fL (09/17/23 21:22:00) Sodium Lvl: 139 mmol/L (09/19/23 05:49:00) MCH: 33.1 pg (09/17/23 21:22:00) Potassium Lvl: 3.8 mmol/L (09/19/23 05:49:00) MCHC: 34 gm/dL (09/17/23 21:22:00) Chloride: 106 mmol/L (09/19/23 05:49:00) RDW: 13.2 % (09/17/23 21:22:00) CO2: 28 mmol/L (09/19/23 05:49:00) Platelet: 229 E9/L (09/17/23 21:22:00) AGAP: 9 mEq/L (09/19/23 05:49:00) MPV: 7.5 [...] brain cells (more content not included)... Normal [facility] Inpatient Clinical Summaryon 09-19-2023 Inpatient Clinical Summary [address] [address] Clinical Summary Person Information: Name: ELVER MENA Age: 68 Years : 1955 Sex: Male PCP: Isabelle Julian DO Marital Status: Phone: [phone] Race: White Ethnicity: Non- or Language: Emirati Visit Id: Visit Reason: Medical problem - minor; Anxiety; ANXIETY Speciality: Acuity: Enc Type: Inpatient Med Service: Medical Arrival: 09/17/2023 20:56:13 Discharge: Dispo Type: Admitted as IP to this Hosp Address: [address] [place] [id number] Provider Notes: Diagnosis: 1:Parkinsons disease; 2:Unable to [...] day. Care Team Members: Attending Physician: Jesu BENRAL DO Consulting Physician: Bo Rossi MD Referring Physician: Follow up: With: Address: When: [address], [place] [phone] [facility] (1) Within 2 to 4 days With: Address: When: Bo Rossi [address] [phone] Within 2 to 4 weeks Patient Education Information: Parkinson's Disease, Atla-ca-Gfqi Normal [facility] Inpatient Patient Summaryon 09-19-2023 Inpatient Patient Summary [address] [address] Patient Discharge Instructions PERSON INFORMATION [...] Follow up: With: Address: When: Isabelle Julian [facility] Carmelo Santiago C, [facility] [address] [place] [address] Business (1) Within 2 to 4 days With: Address: When: Bo Rossi MD [facility] [address] [place] [id number] Within 2 to 4 weeks In the event that this physician does not participate in your insurance network, please consult with your insurance company to find a nearby participating provider. Comment: IRAJESH KRIS, have received the attached patient education materials/instruction s and have verbalized understanding: Patient Signature Date Clinican/Nurse Signature Date HERE ARE THE MEDICATION CHANGES THAT OCCURRED DURING YOUR HOSPITAL STAY New Medications [email or web address] #[id number], [address] [place], [place] [id number], [phone] cyclobenzaprine (cyclobenzaprine 5 mg Tab) 1 Tablets By Mouth 3 times a day. Refills: 0. Last Dose: ____Next Dose: ____ Other Medications acetaminophen (acetaminophen 325 mg Tab) 2 Tablets By Mouth every 6 hours as needed Pain. Last Dose: ____Next Dose: ____ Medications to Continue Taking That Have Changed [email or web address] #[id number], [address] [facility], [place] [id number], [phone] START: busPIRone (busPIRone 5 mg Tab) 2 [...] Mouth 6 times a day. [facility] (more content not included)... Normal [facility] Interdisciplinary Note - Skip e Manageron 09-19-2023 Interdisciplinary Note - Fabricator [employer] CRM to room to discuss DC planning. Patient is awake, alert and oriented. Patient is here with Anxiety/ worse Parkinson symptoms. Patient signed medicare form. Patient verified PCP, home DME and insurance. Patient is assigned to Karissa SERVICE SUPERINTENDENT, see notes. Per Karissa med adjustments with neuro today. patient was evaluated by PT/OT with SNF recs. Patient choice is TCU. Patient was provided CRM contact, white board updated. CRM following [facility] Comment on above: Result Comment: Elec tronically Signed By: Adele Vasquez\.br\Date and Time Signed: 09/19/23 07:17 EDT Interdisciplinary Note - Fab[employer]ator [employer] CRM spoke with patient in room. Patient [...] TCU. Discussed H/H agencies and he prefers [facility] and okay to use [facility] if needed. Will dc today. Patient denies any other needs at discharge. friend will transport. Reviewed Medicare rights, he denies any questions. Gave him a copy of signed form. [address] [facility] H/H had no opening until Friday, [facility] and patient is aware but does not want to wait for acceptance. CRM will call him with once known if [facility] accepts. 1203- [facility] accepts and RN made aware. Patient was already discharged. CRM attempted to landon patient to let him know [facility] H/H accepted, no answer and left a voice message with this information and CRM contact #. Normal [facility] Comment on above: Result Comment: Elec tronically Signed By: Suha Pinedo RN\.br\Date and Time Signed: 09/19/23 13:35 EDT Lyteson 09-19-2023 Anion gap [Moles/Vol] 9 mmol/L Normal 6-16 [facility] Comment on above: Performed By: #### 2 859438 ####[facility] [address] [place] [address] Chloride [Moles/Vol] 106 mmol/L Normal 101-111 [facility] Comment on above: Performed By: #### 2 281474 ####[facility] [address] [place] [address] CO2 [Moles/Vol] 28 mmol/L Normal 21-31 [facility] Comment on above: Performed By: #### 2 747998 ####[facility] [address] [place] [address] Potassium [Moles/Vol] 3.8 mmol/L Normal 3.5-5.3 [facility] Comment on above: Performed By: #### 2 133199 ####William [facility] [address] [place] [address] Sodium [Moles/Vol] 139 mmol/L Normal 135-145 [facility] Comment on above: Performed By: #### 2 060108 ####[facility] [address] [place] [address] CHEMISTRYOrdered By: SYSTEM SYSTEM on 09-18-2023 Folate [Mass/Vol] 19.2 ng/mL Normal >=6.7ng/mL Remisol Chem Consultation Noteon 09-18-19 Consultation Note Chief Complaint worsening parkinsons symptoms [...] sensation in all 4 extremities. Cerebellar exam: Mgigzu-ko-lzsv reveals no ataxia. Gait is deferred. Assessment/Plan [...] deep vein thrombosis (DVT) prophylaxis (Z79.899: Other intermediate (current) drug therapy) Problem List/Past Medical History [...] mg T (more content not included)... Normal [facility] Comment on above: Result Comment: Elec tronically Signed By: Marta Delarosa RN\.br\Date and Time Signed: 09/18/23 11:18 EDT\.br\Electronically Co-Signed By: Bo Rossi MD\.br\Date and Time Co-Signed: 09/18/23 12:33 EDT ED Clinical Summaryon 2023 ED Clinical Summary [address] [address] ED Clinical Summary Person Information Name: ELVER MENA [facility]ie/[facility] Age: 68 Years : 1955 Sex: Male Language: Emirati PCP: Isabelle Julian DO Marital Status: Phone: [phone] Visit Id: Visit Reason: Medical problem - minor; Anxiety; ANXIETY Speciality: Acuity: 3 Enc Type: Inpatient Med Service: Emergency Arrival: 09/17/2023 20:56:13 Discharge: LOS: 000 03:30 Checkin: 09/17/2023 20:56:13 Checkout: 09/18/2023 00:26:26 Dispo Type: Admitted as IP to this [facility] EVENTS: Event Name Event Status Request Date/Time [...] 23:04:04 Meds Admin Request 09/17/2023 23:16:18 AD[address]: [address] [facility] [facility] [facility] [id number] [facility] DOC NOTES: MEDICAL INFORMATION: Prescriptions Given: Medications [...] disease; 2:Unable to care for self Normal [facility] ED Note-Physicianon 09-18-19 ED Note-Physician Basic Information [...] History Pancreas: (more content not included)... Normal [facility] Comment on above: Result Comment: Elec tronically Signed By: Sabrina Bermudez PA-C\.br\Date and Time Signed: 09/17/23 22:54 EDT\.br\Electronically Co-Signed By: Sabrina Bermudez PA-C\.br\Date and Time Co-Signed: 09/17/23 22:54 EDT\.br\Electronically Co-Signed By: Dokken DO, Kaylinn A\.br\Date and Time Co-Signed: 09/18/23 02:12 EDT ED Patient Education Noteon 09-18-2023 ED Patient Education Note Normal [facility] ED Patient Summaryon 024 ED Patient Summary [place] [id number] Patient Discharge Instructions Person Information Name: ELVER MNEA Age: 68 Years Arrival Date: 09/17/2023 20:56:13 Discharge Diagnosis: 1:Parkinsons disease; 2:Unable to care for self Primary Care Physician: Isabelle Julian DO Provider Information Primary Provider: Marisela Rachel DO Advanced Supervisor Grinding:None The exam and treatment you received in the Emergency Department were for an urgent problem and are not intended as complete care. It is important that you follow up with a doctor, nurse practitioner, or physician?s cafeteria assistant for ongoing care. If your symptoms [...] opioids can be used to help relieve simryyck-xu-lvmjjk pain and are often prescribed following a [...] be struggling with addiction, tell your health managed care director and ask for guidance or call [employer]?S National Helpline at 6-886-996-HELP. v Source: [place] Department of Health and Human Services/Center for Disease Control & Prevention [facility] Medications Given: Medication Dose Rout (more content not included)... Normal [facility] Folateon 09-18-2023 Folate [Mass/Vol] 19.2 ng/mL Normal >=6.7 [facility] Comment on above: Performed By: #### 2 [id number] ####[facility] [address] [place] [address] MRI Spine Lumbar w/o Contras ton 09-18-2023 [...] KENNY Technologist: QUYNH Technical Comments None Normal [facility] MRI Spine Thoracic w/o Contr svetlana 09-18-2023 [...] FINAL REPORT Dictated: 09/18/2023 3:00 pm Clifton Neley MD Signed (Electronic Signature): 09/18/2023 3:00 pm Signed by: Clifton Neely MD Transcribed by: KENNY Technologist: QUYNH Technical Comments None Normal [facility] Message from Medicareon 050 Message from Medicare [id number] [id number]# 1.00TIFF Normal [facility] Progress Note-Physicianon Progress Note-Physician Assessment/Plan 1. Parkinsons [...] deep vein thrombosis (DVT) prophylaxis (Z79.899: Other intermediate (current) drug therapy) -Lovenox Orders: ropinirole, 1 mg = 1 tab(s), Tab, Oral, 6x/Day, Routine, Start date 09/18/23 12:00:00 EDT, 09/18/23 10:07:00 EDT Communication Order Physician to Nursing -Plan discussed w/ patient, nursing staff and CRM. This report was transcribed using voice recognition software. Every effort was made to ensure accuracy, however, inadvertently computerized dock supervisor mistakes may be present. Subjective No acute [...] flat. affect, Lab Results WBC: 5.8 E9/L (09/17/23 21:22:00) RBC: 4.3 E12/L (09/17/23:22:00) HGB: 14.4 gm/dL (09/17/23:22:00) Hct: 42.4 % (09/17/23:22:00) MCV: 97.5 fL (09/17/23:22:00) MCH: 33.1 pg (09/17/23:22:00) MCHC: 34 gm/dL (09/17/23::00) RDW: 13.2 % (09/17/23:22:00) Platelet: 229 E9/L (09/17/23:22:00) MPV: 7.5 fL (09/17/23::) Neutro Auto: 56.8 % (09/17/23::00) Lymph Auto: 26.4 % (09/17/23:22:00) Leake Auto: 11 % (09/17/23::00) Eos Auto: 5.2 % (09/17/23::00) Basophil Auto: 0.6 % (09/17/23:22:00) Neutro Absolute: 3.3 E9/L (09/17/23::00) Lymph Absolute: 1.5 E9/L (09/17/23::00) Leake Absolute: 0.6 E9/L (09/17/23:22:00) Eos Absolute: 0.3 E9/L (09/17/23:22:00) Basophil Absolute: 0 E9/L (09/17/23::00) Glucose Lvl: 117 mg/dL (09/17/23:22:00) BUN: 26 mg/dL High (09/17/23:22:00) Creatinine: 1 mg/dL (09/17/23:22:00) eGFR: 82 mL/min/1.73 m2 (09/17/23:22:00) BUN/Creat Ratio: 26 High (09/17/23 21:22:00) Sodium Lvl: 136 mmol/L (09/17/23:22:00) Potassium Lvl: 4.8 mmol/L (05/01/24 21:22:00) Chloride: 103 mmol/L (09/17/23 21:22:00) CO2: 28 mmol/L (09/17/23 21:22:00) AGAP: 10 mEq/L (09/17/23 21:22:00) Calcium Lvl: 9.1 mg/dL (09/17/23 21:22:00) Magnesium: 2.3 mg/dL (09/17/23 21:22:00) Vitamin B12 Lvl: 482 pg/mL (09/17/23 21:22:00) Diagnostic Results No qualifying data available. Attestation Case reviewed/discussed w/ Dr. Hall who is in agreement with POC. Problem List/Past Medical Hist (more content not included)... Normal [facility] Comment on above: Result Comment: Elec tronically Signed By: Karissa MCCANN\.br\Date and Time Signed: 09/18/23 10:18 EDT\.br\Electronically Co-Signed By: Charli Hall DO\.br\Date and Time Co-Signed: 09/18/23 11:48 EDT RAD - MRI Screening Formon 0 09-18-2023 RAD - MRI Screening Form [id number]#1 .00TIFF Normal [facility] BMPOrdered By: SYSTEM SYSTEM on 09-17-2023 Anion gap [Moles/Vol] 10 mmol/L Normal 6-16 Rem isol Chem Comment on above: Performed By: #### 2 891383, 9502478, 4032577, 7674375, 24604978 ####[facility] [address] [place] [address] Calcium [Mass/Vol] 9.1 mg/dL Normal 8.9-11.1 Remiso l Chem Comment on above: Performed By: #### 2 992347, 2800384, 9126889, 8753116, 25557154 ####[facility] [address] [place] [address] Chloride [Moles/Vol] 103 mmol/L Normal 101-111 Shen natalia Chem Comment on above: Performed By: #### 2 423859, 3951314, 7814314, 1635288, 88715842 ####[facility] [address] [place] [address] CO2 [Moles/Vol] 28 mmol/L Normal 21-31 Remisol C hem Comment on above: Performed By: #### 2 363314, 9554634, 8579912, 2767748, 57864261 ####[address] [address] Creatinine [Mass/Vol] 1.0 mg/dL Normal 0.5-1.3 Rem isol Chem Comment on above: Performed By: #### 2 399879, 5687101, 9095438, 6214650, 02890343 ####[address] [address] Glucose [Mass/Vol] 117 mg/dL Normal 55-199 Remiso l Chem Comment on above: Performed By: #### 2 128575, 5257048, 8575293, 3596976, 92113839 ####[address] [address] Potassium [Moles/Vol] 4.8 mmol/L Normal 3.5-5.3 Rem isol Chem Comment on above: Performed By: #### 2 260378, 5099682, 8347550, 8645425, 63830245 ####[place] [address] [place] [address] Sodium [Moles/Vol] 136 mmol/L Normal 135-145 Remiso l Chem Comment on above: Performed By: #### 2 845994, 1479879, 7614340, 9213731, 11577568 ####[place] [address] [place] [address] Urea nitrogen [Mass/Vol] 26 mg/dL High 5-21 Remisol Chem Comment on above: Performed By: #### 2 406834, 0369365, 6710416, 1181124, 12590107 ####[address] [address] BMPon 09-17-2023 Urea nitrogen/Creatinine [Mass ratio] 26 No Units High 10-20 [facility] Comment on above: Performed By: #### 2 859541, 3889014, 6401063, 8860468, 51200163 ####[facility] [address] [place] [address] CBC w/ Auto DiffOrdered By: SYSTEM SYSTEM on 09-17-2023 Basophils/100 WBC (Bld) 0.6 % Normal 0.0-2.0 Remisol Heme Comment on above: Performed By: #### 2 682789, 9486858, 6633543, 9430717, 25642961 ####[address] [address] Basophils/Leukocytes Auto (Bld) [Pure # fraction] 0.0 E9/L Normal 0.0-0.2 [facility] Heme Comment on above: Performed By: #### 2 727658, 7426164, 6364626, 8064837, 71628126 ####[address] [address] Eosinophils (Bld) [#/Vol] 0.3 E9/L Normal 0.0-0.5 [facility]e Comment on above: Performed By: #### 2 823086, 1422685, 5338729, 9051781, 21842325 ####[address] [address] Eosinophils/100 WBC (Bld) 5.2 % Normal 0.0-8.0 [facility]e Comment on above: Performed By: #### 2 061259, 5532618, 0125534, 9577432, 02728919 ####[address] [address] Erythrocyte distribution width (RBC) [Ratio] 13.2 % Normal 10.9-14.2 [facility] Comment on above: Performed By: #### 2 702464, 9740378, 4150010, 6343336, 53063146 ####[address] [place] [address] Hematocrit (Bld) [Volume fraction] 42.4 % Normal 37.7-49.0 [facility] Comment on above: Performed By: #### 2 550918, 5684525, 8926655, 6896258, 02407101 ####[address] [address] Hemoglobin (Bld) [Mass/Vol] 14.4 g/dL Normal 13.5-17.5 [facility]e Comment on above: Performed By: #### 2 403938, 6262021, 6584929, 6565968, 84411139 ####[address] [address] Lymphocytes (Bld) [#/Vol] 1.5 E9/L Normal 1.0-4.0 [facility] Heme Comment on above: Performed By: #### 2 934480, 5227430, 9725676, 2036414, 64899052 ####[address] [address] Lymphocytes/100 WBC (Bld) 26.4 % Normal 14.0-50.0 [facility]e Comment on above: Performed By: #### 2 596938, 2513898, 4735245, 3749101, 89166177 ####[address] [address] MCH (RBC) [Entitic mass] 33.1 pg Normal 27.0-34.0 [facility]e Comment on above: Performed By: #### 2 441411, 5831310, 9753014, 5749099, 95801346 ####[address] [address] MCHC (RBC) [Mass/Vol] 34.0 g/dL Normal 31.4-36.0 Rem isol Heme Comment on above: Performed By: #### 2 601978, 2073625, 5099871, 3657199, 75418829 ####[facility] [address] [address] MCV (RBC) [Entitic vol] 97.5 fL Normal 80.0-100.0 [facility]e Comment on above: Performed By: #### 2 938658, 7031217, 7697418, 4359360, 93623513 ####[address] [address] Monocytes (Bld) [#/Vol] 0.6 E9/L Normal 0.2-1.0 [facility] Comment on above: Performed By: #### 2 790864, 8332614, 2615709, 2254193, 89994098 ####[address] [address] Neutrophils (Bld) [#/Vol] 3.3 E9/L Normal 2.0-7.5 [facility] Comment on above: Performed By: #### 2 356879, 5292324, 7563153, 9909016, 31760441 ####[place] [address] Neutrophils/100 WBC (Bld) 56.8 % Normal 36.0-75.0 [facility] Comment on above: Performed By: #### 2 527668, 2404505, 8165292, 3322950, 46374593 ####[place] [address]857 Platelet 229.0 E9/L Normal 150.0-500.0 [facility] Comment on above: Performed By: #### 2 354417, 1792854, 5598588, 1376865, 91420099 ####[address] [address] Platelet mean volume (Bld) [Entitic vol] 7.5 fL Normal 6.4-10.8 [facility] Comment on above: Performed By: #### 2 369816, 5054711, 1588212, 1617492, 46044757 ####[address] [address] RBC (Bld) [#/Vol] 4.3 E12/L Normal 4.3-5.9 [facility]e Comment on above: Performed By: #### 2 183014, 2935394, 8004435, 9897774, 58067593 ####[facility] [address] [place] [address] WBC corrected for nucl RBC Auto (Bld) [#/Vol] 5.8 E9/L Normal 4.0-11.0 [facility]e Comment on above: Performed By: #### 2 184726, 5587322, 6217544, 9262831, 40491719 ####[facility] [address] [place] [address] CHEMISTRYOrdered By: SYSTEM SYSTEM on 09-17-2023 Cobalamin (Vitamin B12) [Mass/Vol] 482 pg/mL Normal 50 - 1500 pg/mL Remisol Chem Magnesium [Mass/Vol] 2.3 mg/dL Normal 1.3 - 2 .4 mg/dL Remisol Chem Urea nitrogen/Creatinine [Mass ratio] 26 mg/mg High 10 - 20 Remisol Chem Consent for Treatmenton Consent for Treatment [id number] [id number]#1 .00TIFF Normal [facility] ED Note-Nursingon 09-17-2023 ED Note-Nursing Pt medicated for hillary n and muscle stiffness at this time. Dr. Bernal at bedside speaking with pt. Pt denies any other needs at this time. Normal [facility] HEMATOLOGYOrdered By: SYSTEM SYSTEM on 09-17-2023 Monocytes/100 WBC (Bld) 11.0 % Normal 4.0 - 14.0 % Remisol Heme Magnesiumon 09-17-2023 Magnesium [Mass/Vol] 2.3 mg/dL Normal 1.3-2.4 [facility] Comment on above: Performed By: #### 2 407731, 4396928, 3227649, 2544897, 13972955 ####[facility] [address] [place] [address] Pre-Arrival Noteon Pre-Arrival Note Pre-Arrival Summary Name: , Current Date: 09/17/2023 20:57:01 EDT Gender: Male Date of : Age: 58 Pre-Arrival Type: EMS ETA: 09/17/2023 21:16:00 EDT Primary Care Physician: Presenting Problem: parkinsons, med prob evaluation Pre-Arrival User: Lucas Tamayo RN Referring Source: Location: Completion Date/Time: 09/17/2023 20:47:00 [facility] Emergency Department Pre-Hospital Report Form Vital Signs: 159/73, hr85, 98%. sx progressingg Pre-Hospital Report: Treatment in Route: Response to Treatment: Misc. Issues: Normal [facility] Vit B12on 09-17-2023 Cobalamin (Vitamin B12) [Mass/Vol] 482 pg/mL Normal 50-1500 [facility] Comment on above: Performed By: #### 2 204844, 0738940, 0383563, 1757541, 72860823 ####[facility] [address] [place] [address] eGFROrdered By: [employer] on 09-17-2023 eGFR 82 mL/min/1.73 m2 Normal >=59 Remisol Chem Comment on above: Order Comment: Order added by Discern Expert. Performed By: #### 2 747819, 1967682, 9562698, 1922980, 22561232 ####[facility] [address] [place] [address] Office Visit (Cardiology)on 09-24-2022 Follow-up visit Diagnoses/Problems [...] negative for complaint. Vitals Vital Signs Recorded: [id number] 09:47AM Heart Rate66, L Radial Byhkkrjo158, LUE, Sitting Vhhutgxup19, LUE, Sitting Height5 ft 9 in Vhgqcy659 lb BMI Tjbqyaapzo08.39 kg/m2 BSA Calculated2.06 Tobacco Useb) No PHQ-2 [...] Screening.on 023 Adult depression screening assessment No [facility] [address] DO Work Phone: Fall risk assessment a) No falls within the last year [facility] [address] DO Work Phone: Tobacco use status [facility] b) No [facility] 600 DO Work Phone: Office Visit (Cardiology)on [...] Weight Tips; Status:Complete - Retrospective Authorization; Done: [id number] SocHx: Never a smoker Tobacco Use Screening; Status:Complete; Done: 12Oct2021 Patient Instructions By signing my name below, I, Renee Li LPN, Scribe, attest that this documentation has been prepared under the direction and in the presence of Dr. Charli Barrett MD. All medical record entries made by the Brendaniblou were at my direction and personally dictated [...] Recorded: 12Oct2021 08:50AM Heart Rate67, L Radial Jknpksjc125, LUE, Sitting Tjonxaaje03, LUE, Sitting Height5 ft 9 in Seraaa330 lb BMI Pzfkzlwonf86.9 kg/m2 BSA Calculated2.13 Tobacco Useb) No PHQ-2 [...] Oct 12 2021 9:23AM EST (Author) Normal [employer] Tobacco Screening.on 022 Adult depression screening assessment No [facility] [address] DO Work Phone: Fall risk assessment a) No falls within the last year [facility] [address] DO Work Phone: Tobacco use status [facility] b) No [facility] 600 DO Work Phone: Social History Date Type Detail Facility Start: 1955 Sex Assigned At Not on file C [facility] Consumes alcohol Consumes alcohol [facility] [address] DO Work Phone: Comment on above: 1 beer daily; Tobacco smoking status [facility] Tobacco smoking consumption unknown [facility] Tobacco [facility] Comment on above: denies Tobacco smoking status No Smoking Status Entered [facility] Sex Assigned At Male [facility] Vital Signs Date Time Vital Sign Value Performing Clinician Lala beckett 10-10-2023 16:08-0400 Diastolic blood pressure 90 mm[Hg] Rick Sanchez [facility] 10-10-2023 16:08-0400 Heart rate 80 /min Rick Daniel [facility] 10-10-2023 16:08-0400 Mean blood pressure 103 mm[Hg] Rick Daniel [facility] 10-10-2023 16:08-0400 Respiratory rate 16 /min Rick Daniel [facility] 10-10-2023 16:08-0400 SaO2% (BldA) [Mass fraction] 98 % Rick Daniel [facility] 10-10-2023 16:08-0400 Systolic blood pressure 130 mm[Hg] Rick Daniel [facility] 10-10-2023 15:00-0400 Diastolic blood pressure 67 mm[Hg] Rick Daniel [facility] 10-10-2023 15:00-0400 Heart rate 78 /min Rick Daniel [facility] 10-10-2023 15:00-0400 Mean blood pressure 86 mm[Hg] Rick Daniel [facility] 10-10-2023 15:00-0400 SaO2% (BldA) [Mass fraction] 97 % Rick Daniel [facility] 10-10-2023 15:00-0400 Systolic blood pressure 125 mm[Hg] Rick Daniel [facility] 10-10-2023 14:00-0400 Diastolic blood pressure 69 mm[Hg] Rick Daniel [facility] 10-10-2023 14:00-0400 Heart rate 76 /min Rick Daniel [facility] 10-10-2023 14:00-0400 Mean blood pressure 90 mm[Hg] Rick Daniel [facility] 10-10-2023 14:00-0400 Systolic blood pressure 131 mm[Hg] Rick Sanchez [facility] 10-10-2023 12:51-0400 gluc 112 mg/dL Rick Sanchez [facility] 10-10-2023 12:51-0400 gluc Rick Sanchez [facility] 10-10-2023 12:35-0400 Body temperature 98.24 [degF] Rick Sanchez [facility] 10-10-2023 12:35-0400 Heart rate 80 /min Rick Sanchez [facility] 09-26-2023 10:35-0400 Hourly Rounding Alberto ISAAC [facility] 09-26-2023 10:35-0400 Promise to Return Alberto ISAAC [facility] 09-26-2023 09:35-0400 Hourly Rounding Alberto ISAAC [facility] 09-26-2023 09:35-0400 Promise to Return Alberto ISAAC [facility] 09-26-2023 08:35-0400 Hourly Rounding Alberto ISAAC [facility] 09-26-2023 08:35-0400 Promise to Return Alberto ISAAC [facility] 09-26-2023 08:04-0400 Heart rate 81 /min Alberto ISAAC [facility] 09-26-2023 08:04-0400 SaO2% (BldA) [Mass fraction] 96 % Alberto ISAAC [facility] 09-26-2023 08:02-0400 Diastolic blood pressure 62 mm[Hg] Alberto ISAAC [facility] 09-26-2023 08:02-0400 Mean blood pressure 84 mm[Hg] Alberto ISAAC [facility] 09-26-2023 08:02-0400 Systolic blood pressure 127 mm[Hg] Alberto ISAAC [facility] 09-26-2023 08:02-0400 Body temperature 97.34 [degF] Albertochavez LOCKWOODSLIN [facility] 09-26-2023 00:20-0400 Body temperature 97.34 [degF] Albertochavez LOCKWOODSLIN [facility] 09-26-2023 00:20-0400 Diastolic blood pressure 76 mm[Hg] Alberto ISAAC [facility] 09-26-2023 00:20-0400 Heart rate 69 /min Albertochavez LOCKWOODSLIN [facility] 09-26-2023 00:20-0400 Mean blood pressure 95 mm[Hg] Albertochavez LOCKWOODSLIN [facility] 09-26-2023 00:20-0400 SaO2% (BldA) [Mass fraction] 96 % Alberto ISAAC [facility] 09-26-2023 00:20-0400 Systolic blood pressure 133 mm[Hg] Alberto ISAAC [facility] 09-25-2023 19:56-0400 Heart rate 78 /min Alberto ISAAC [facility] 09-25-2023 19:56-0400 SaO2% (BldA) [Mass fraction] 96 % Alberto ISAAC [facility] 09-25-2023 19:53-0400 Body temperature 97.34 [degF] Albreto ISAAC [facility] 09-25-2023 19:53-0400 Diastolic blood pressure 66 mm[Hg] Alberto ISAAC [facility] 09-25-2023 19:53-0400 Mean blood pressure 86 mm[Hg] Alberto ISAAC [facility] 09-25-2023 19:53-0400 Systolic blood pressure 127 mm[Hg] Alberto ISAAC [facility] 09-25-2023 16:00-0400 Body temperature 97.88 [degF] Albertochavez LOCKWOODSLIN [facility] 09-25-2023 16:00-0400 Respiratory rate 22 /min Albertochavez L[facility]WO[facility] 09-25-2023 00:00-0400 Body temperature 98.06 [degF] Albertochavez LOCKWOODSLIN [facility] 09-25-2023 00:00-0400 Heart rate 71 /min Alberto ISAAC [facility] 09-25-2023 00:00-0400 Respiratory rate 20 /min Alberto ISAAC [facility] 09-24-2023 19:56-0400 Blood Pressure Location Alberto ISAAC [facility] 09-24-2023 19:56-0400 Heart rate 72 /min Alberto ISAAC [facility] 09-24-2023 19:56-0400 Respiratory rate 19 /min Alberto ISAAC [facility] 09-24-2023 17:04-0400 Body temperature 97.52 [degF] Alberto GRAY [facility] 09-24-2023 11:11-0400 Mean blood pressure 80 mm[Hg] Alberto GRAY [facility] 09-23-2023 06:30-0400 Heart rate 76 /min Alberot GRAY [facility] 09-23-2023 06:30-0400 Mean blood pressure 99 mm[Hg] Alberto GRAY [facility] 09-22-2023 23:30-0400 Respiratory rate 21 /min Alberto GRAY [facility] 09-19-2023 08:35-0400 Hourly Rounding Ronobir DOLORES [facility] 09-19-2023 08:35-0400 Promise to Return Ronobir DOLORES [facility] 09-19-2023 08:21-0400 SaO2% (BldA) [Mass fraction] 95 % Ronobir DOLORES [facility] 09-19-2023 08:00-0400 Hourly Rounding Ronobir DOLORES [facility] 09-19-2023 07:56-0400 Heart rate 75 /min Ronobir DOLORES [facility] 09-19-2023 07:56-0400 SaO2% (BldA) [Mass fraction] 97 % Ronobir DOLORES [facility] 09-19-2023 07:56-0400 Diastolic blood pressure 69 mm[Hg] Ronobir DOLORES [facility] 09-19-2023 07:56-0400 Mean blood pressure 88 mm[Hg] Ronobir DOLORES [facility] 09-19-2023 07:56-0400 Systolic blood pressure 124 mm[Hg] Ronobir DOLORES [facility] 09-19-2023 07:54-0400 Body temperature 98.24 [degF] Ronobir DOLORES [facility] 09-19-2023 07:35-0400 Hourly Rounding Ronobir DOLORES [facility] 09-19-2023 07:35-0400 Promise to Return Ronobir DOLORES [facility] 09-19-2023 06:40-0400 Promise to Return Ronobir DOLORES [facility] 09-18-2023 23:54-0400 Blood Pressure Location Ronobir DOLORES [facility] 09-18-2023 23:54-0400 Body temperature 98.42 [degF] Ronobir DOLORES [facility] 09-18-2023 23:54-0400 Diastolic blood pressure 61 mm[Hg] Ronobir DOLORES [facility] 09-18-2023 23:54-0400 Heart rate 72 /min Ronobir DOLORES [facility] 09-18-2023 23:54-0400 Mean blood pressure 75 mm[Hg] Ronobir DOLORES [facility] 09-18-2023 23:54-0400 SaO2% (BldA) [Mass fraction] 96 % Ronobir DOLORES [facility] 09-18-2023 23:54-0400 Systolic blood pressure 103 mm[Hg] Ronobir DOLORES [facility] 09-18-2023 19:37-0400 Heart rate 67 /min Ronobir DOLORES [facility] 09-18-2023 19:36-0400 Diastolic blood pressure 68 mm[Hg] Ronobir DOLORES [facility] 09-18-2023 19:36-0400 Mean blood pressure 87 mm[Hg] Ronobir DOLORES [facility] 09-18-2023 19:36-0400 Systolic blood pressure 123 mm[Hg] Ronobir DOLORES [facility] 09-18-2023 19:36-0400 Body temperature 97.52 [degF] Ronobir DOLORES [facility] 09-18-2023 11:00-0400 Body temperature 98.06 [degF] Ronobir DOLORES [facility] 09-18-2023 03:25-0400 Heart rate 71 /min Ronobir DOLORES [facility] 09-18-2023 03:25-0400 Mean blood pressure 83 mm[Hg] Ronobir DOLORES [facility] 09-18-2023 03:25-0400 Respiratory rate 18 /min Ronobir DOLORES [facility] 09-18-2023 01:30-0400 Heart rate 67 /min Ronobir DOLORES [facility] 09-18-2023 01:30-0400 Respiratory rate 18 /min Ronobir DOLORES [facility] 09-18-2023 01:23-0400 Mean blood pressure 106 mm[Hg] Ronobir DOLORES [facility] 09-18-2023 01:23-0400 Body temperature 97.88 [degF] Ronobir DOLORES [facility] 09-18-2023 00:06-0400 Mean blood pressure 92 mm[Hg] Ronobir DOLORES [facility] 09-18-2023 00:06-0400 Respiratory rate 21 /min Ronobir DOLORES [facility] 09-17-2023 23:30-0400 Respiratory rate 13 /min Ronobir DOLORES [facility] 09-17-2023 20:57-0400 Heart rate 75 /min Ronobir DOLORES [facility] 09-17-2023 20:57-0400 Respiratory rate 18 /min Amanobir DOLORES [facility] 09-24-2022 09:47-0400 Body height 175.26 cm Referring Provider Unknown [facility] 600 DO Work Phone: 09-24-2022 09:47-0400 Body mass index (BMI) [Ratio] 29.39 kg/m2 Referring Provider Unknown [facility] 600 DO Work Phone: 09-24-2022 09:47-0400 Body surface area Derived from formula 2.06 m2 Referring Provider Unknown [facility] 600 DO Work Phone: 09-24-2022 09:47-0400 Body weight 90.27 kg Referring Provider Unknown [facility] 600 DO Work Phone: 09-24-2022 09:47-0400 Diastolic blood pressure 76 mm[Hg] Referring Provider Unknown [facility] 600 DO Work Phone: 09-24-2022 09:47-0400 Heart rate 66 /min Referring Provider Unknown [facility] 600 DO Work Phone: 09-24-2022 09:47-0400 Systolic blood pressure 122 mm[Hg] Referring Provider Unknown [facility] 600 DO Work Phone: 10-12-2021 08:50-0400 Body height 175.26 cm Charli Barrett Work Phone: [facility] 600 DO Work Phone: 10-12-2021 08:50-0400 Body mass index (BMI) [Ratio] 31.9 kg/m2 Charli Barrett Work Phone: [facility] 600 DO Work Phone: 10-12-2021 08:50-0400 Body surface area Derived from formula 2.13 m2 Charli Barrett Work Phone: [facility] 600 DO Work Phone: 10-12-2021 08:50-0400 Body weight 97.98 kg Charli Barrett Work Phone: [facility] 600 DO Work Phone: 10-12-2021 08:50-0400 Diastolic blood pressure 60 mm[Hg] hCarli Barrett Work Phone: [facility] 600 DO Work Phone: 10-12-2021 08:50-0400 Heart rate 67 /min Charli Barrett Work Phone: [facility] 600 DO Work Phone: 10-12-2021 08:50-0400 Systolic blood pressure 122 mm[Hg] Charli Barrett Work Phone: [facility] 600 DO Work Phone: Functional Status Date Assessment Result Facility 10-10-2023 Functional Status N/A [facility] 09-23-2023 Functional Status N/A [facility] 09-22-2023 Functional Status [facility] 09-17-2023 Functional Status N/A [facility] Clinical Notes 06-21-2021 to 10-10-2023 Note Date [...] Extra SST Tube UA with Cult Rflx [facility]05-10-2024 Evaluation + Plan noteExtracted from: Title:Discharge Note Author:TONY LAUREN, Josse Tucker ate:09/26/23 Stable Discharge To, Anticipated II - [facility] Discharge Diet(s): Regular (09/25/23 [...] Julian Within 3 to 5 days [address] [place] [address]- Business (1) Additional Instructions: After D/C from SNF , will need referral to [facility] to consider deep brain stimulation Flo LAUREN, YADI Soriano [facility] [address] [place] [address]- Additional Instructions: Managing Anxiety, Adult Extracted from: Title:APSO Note Author:TONY LAUREN, Josse [...] therapy. Awaiting precertification for placement in a fci facility. Ordered: [facility] Hospital Care/Day Moderate 35 Minutes [id number] 2. Parkinson disease (G20.A1: Parkinson's disease without dyskinesia, without mention of fluctuations) Continue on Parkinson's medications. Seen by neurologist no further recommendations. Patient may benefit from deep brain stimulator evaluation as outpatient. Ordered: [facility] Hospital Care/Day Moderate 35 Minutes [id number] 3. Neuroforaminal stenosis of lumbar spine (M48.061: Spinal stenosis, lumbar region without neurogenic claudication) Supportive care. Ordered: [facility] Hospital Care/Day Moderate 35 Minutes 14859 4. Unable to care for self (Z78.9: Other specified health status) Secondary to physical deconditioning. Seen by physical therapist and recommends fci facility. Ordered: [facility] Hospital Care/Day Moderate 35 Minutes 63795 5. Anxiety and depression (F41.9: Anxiety disorder, unspecified) Continue on buspirone and propranolol. 6. Hypertension (I10: Essential (primary) hypertension) Blood pressure controlled. Continue on propranolol. 7. Obesity (E66.9: Obesity, unspecified) Recommend therapeutic lifestyle modification changes. 8. Encounter for deep vein thrombosis (DVT) prophylaxis (Z29.9: Encounter for prophylactic measures, unspecified) Heparin. Disposition: To fci facility in am. I discussed the diagnosis and plan of care with the patient at the bedside. Moderate level of MDM based on addressing above issues. This documentation was transcribed using voice recognition software. Several attempts were made to ensure accuracy. However inadvertent computerized dock supervisor errors may be present. Josse Goel. Hospitalist. [...] to recommendations. Seen by physical therapist. Recommend fci facility. Awaiting precertification. Ordered: [facility] Care/Day Moderate 35 Minutes 14725 2. Parkinson disease (G20.A1: Parkinson's disease without dyskinesia, without mention of fluctuations) Continue on Parkinson's medications. Seen by neurologist no further recommendations. Patient may benefit from deep brain stimulator evaluation as outpatient. Ordered: [facility] Care/Day Moderate 35 Minutes 97978 3. Neuroforaminal stenosis of lumbar spine (M48.061: Spinal stenosis, lumbar region without neurogenic claudication) Supportive care. Ordered: [facility] Care/Day Moderate 35 Minutes 72564 4. Unable to care for self (Z78.9: Other specified health status) Secondary to physical deconditioning. Seen by physical therapist and recommends fci facility. Ordered: [facility] Care/Day Moderate 35 Minutes 77525 5. Anxiety and depression (F41.9: Anxiety disorder, unspecified) Continue on buspirone and propranolol. [facility] Moderate 35 Minutes 72560 6. Hypertension (I10: Essential (primary) hypertension) Blood pressure controlled. Continue on propranolol. 7. Obesity (E66.9: Obesity, unspecified) Recommend therapeutic lifestyle modification changes. 8. Encounter for deep vein thrombosis (DVT) prophylaxis (Z29.9: Encounter for prophylactic measures, unspecified) Heparin. Disposition: To fci facility pending precertification. I discussed the diagnosis and plan of care with the patient at the bedside. Moderate level of MDM based on addressing above issues. This documentation was transcribed using voice recognition software. Several attempts were made to ensure accuracy. However inadvertent computerized dock supervisor errors may be present. Josse Goel. Hospitalist. [...] therapy evaluation pending. Neurology consult pending. [facility] Moderate 35 Minutes 68475 2. Parkinson disease (G20.A1: Parkinson's disease without dyskinesia, without mention of fluctuations) Neurology consult pending. Continue on Parkinson's medications Sinemet, Requip, entacapone, Pimavanserine Ordered: [facility]/Day Moderate 35 Minutes 76955 3. Neuroforaminal stenosis of lumbar spine (M48.061: Spinal stenosis, lumbar region without neurogenic claudication) Supportive care. Neurology to follow. Or[facility]/Day Moderate 35 Minutes 70440 4. Unable to care for self (Z78.9: Other specified health status) Secondary to physical deconditioning. Physical therapy evaluation pending. Patient likely will benefit from inpatient physical therapy before safely discharged home. Or[facility]/Day Moderate 35 Minutes 82504 5. Anxiety and depression (F41.9: Anxiety disorder, unspecified) Continue on BuSpar, propranolol. Ordered: [facility] Hospital Care/Day Moderate 35 Minutes 65728 6. Hypertension (I10: Essential (primary) hypertension) Blood [...] made to ensure accuracy. However inadvertent computerized dock supervisor errors may be present. Josse Goel. Hospitalist. [...] a movement disorder outpatient consultation at the [facility], as he might be a candidate for [...] initial intent on patient go to a fci facility on the date of discharge was [...] Patient is now open to consideration of fci facility. Will reconsult physical and Occupational Therapy, [...] accepts previous recommendations on recent hospitalization for fci facility prior to dramatic improvement on a [...] 2 midnight stay Extracted from: Title:ED Note Author:Juan MARQUEZ, Baldo Bhat te:09/23/23 Parkinson disease (G20.A1: P arkinson's disease [...] Scheduled Provider:Johnathon SIEGEL MD Location:Extended Care Appointment Type:[facility]05-10-2024 Hospital Discharge instructions Patient Education 09/26/2023 08:47:45 [...] health careprovider. Avoid caffeine, alcohol, and certain ysjv-hfk-wvwfkvj cold medicines. These may make you feel worse. Ask your pharmacist which medicines to avoid. General instructions Take kysj-phb-uzxmhev and prescription medicines only as told by [...] Depression Association of [place] (ADAA): www.adaa.org National [place] on Mental Illness ([place]): www.wilton.org Contact a [...] department or: Call your local emergency services (177 in the [place] Call a suicide crisis helpline, such as the National Suicide Prevention Lifeline at or 412 in the U.S. This is open 24 hours a day in the [place] Text the Crisis Text Line at 155446 (in the [place].). Summary Taking steps to [...] provider. Document Revised: 11/28/2021 Document Reviewed: 08/26/2021 [email or web address] Patient Education 2022 RRsat. Follow Up Care 09/22/2023 22:39:40 With:Isabelle Iesha Address: [address] [place] [address]- Business (1) When:3 to 5 days Comments:After D/C from SNF , will need referral to [facility] to consider deep brain stimulation With:Bo Rossi MD, NEU Address: [facility] [address] [place] [address]- When:2 to 4 weeks [facility]05-10-2024 NoteSpoke to Albina MARIANO @ TCU. Discharge summary, med rec, and SBAR faxed down to facility. Originals copies to accompany patient when transferred down to facility. Patient has one specific med from home with him to be taken down. Celeste updated on POC.[facility] 09-26-2023 NoteAdmission and Discharge Information Admit Date/Time:09/23/2023 [...] at home. He was subsequently admitted to [facility] with inability to care for self at home, bilateral lower extremity weakness, increased tremors secondary to Parkinson's disease and lumbarneuroforaminal stenosis. He was seen in consultation by the neurologist who recommended outpatient visit at [facility] to consider deep brain stimulation to help control his Parkinson's tremors. Patient is already on maximum oral medical therapy for Parkinson's disease. He participated well in physical therapy and was found to have need for placement in a fci facility. Arrangements have been made for this. He was seen prior to discharge and remained in an improved and stable condition for discharge and was subsequently discharged to TCU. He will follow-up with the neurologist and eventually be referred to [facility] neurology for deep brain stimulation. He will also follow-up with his PCP. Discharge time: 32 minutes. I spent 32 minutes in seeing, evaluating, educating patient on his conditions, coordinating care plan, medication reconciliation, speaking with water resource consultant, nursing staff and case management. Services Consulted Consult to Neurology - Ordered -- 09/23/23 3:35:00 EDT, increasing weakness (B/L LEs) advanced parkinsons, Consult and Co-manage Consult to Engineering Programmer - Completed -- 09/23/23 0:51:00 EDT, PLACEMENT, [...] Discharge Disposition Discharge To, Anticipated II - [facility] Discharge Diet Discharge Diet(s): [...] Julian Within 3 to 5 days [address] , [address] [address]- Business (1) Additional Instructions: After D/C from SNF , will need referral to [facility] to consider deep brain stimulation Flo LAUREN, YADI Soriano Within 2 to 4 weeks [place] [address] [facility] [place] [address]- Additional Instructions: Patient Education Managing Anxiety, [place]Comment on above:Result Comment: Electronically Signed By: TONY LAUREN, Josse\.br\Date and Time Signed: 09/26/23 09:06 [id number] NoteConsult for placement received. Patient is being followed by CRM for appropriate d/c planning. Patient agreeable to SNF and referral was sent to TCU. TCU has accepted. SW will remain available.[place] [address]-07-2024 NotePT Evaluation done this date. Pt. with 03/11 on AM-PAC today. Max Ax2 with bed mobility and transfers with use of gait belt for sit to stand. Attempted sidestepping but pt. with significant difficulty doing this. Recommend SNF.[facility]05-07-2024 NoteBasic Information Admit Date/Time:09/23/2023 00:34 Chief Complaint [...] for patient to be mated to a fci facility. However it is noted per review of the chartthe patient had a miraculous recovery on his date of discharge which was 18 September after reassessmentwas no longer felt to require a fci facility that home health was to be [...] hand grasp strength (more content not included)... [facility]:Result Comment: Electronically Signed By: Alberto GRAY DO\.br\Date and Time Signed: 09/23/23 03:34 EDT 09-19-2023 [...] physical therapy if patient would be agreeable. assistant branch manager aware and will set up. -I [...] be reviewed and discussed with PCP or manager international MD once the hospital nut dehydrator operator is able to reach him/her.I spent [...] made to ensure accuracy, however, inadvertently computerized dock supervisor mistakes may be present. Significant Findings MRI [...] thoracic canal and whitney (more content not included)...[facility] above:Result Comment: Electronically Signed By: Karissa MCCANN\.br\Date and Time Signed: 09/19/23 11:34 EDT\.br\Electronically Co-Signed By: Ford MCCANN.br\Date and Time Co-Signed: 09/19/23 11:35 EDT\.br\Electronically Co- [...] 4 days [address], [facility] [address] [place] [address]- Business (1) Additional Instructions: Bo Rossi MD, NEU Within 2 to 4 weeks [place] [address] [place] [address]- Additional Instructions: Parkinson's Disease, Zelt-fm-Goto Extracted from: Title:APSO Note- Neurology Author:Sterling Montalvo [...] deep vein thrombosis (DVT) prophylaxis (Z79.899: Other intermediate (current) drug therapy) Extracted from: Title:APSO Note [...] deep vein thrombosis (DVT) prophylaxis (Z79.899: Other intermediate (current) drug therapy) -Lovenox Orders: ropinirole, 1 mg = 1 tab(s), Tab, Oral, 6x/Day, Routine, Start date 09/18/23 12:00:00 EDT, 09/18/23 10:07:00 EDT Communication Order Physician to Nursing -Plan discussed w/ patient, nursing staff and CRM. This report was transcribed using voice recognition software. Every effort was made to ensure accuracy, however, inadvertently computerized dock supervisor mistakes may be present. Extracted from: Title:Consult Note-neurology Author:Noelle Delarosa RN Date:09/18/23 The patient is a [...] deep vein thrombosis (DVT) prophylaxis (Z79.899: Other computer terminal operator (current) drug therapy) Extracted from: Title:Admission H [...] deep vein thrombosis (DVT) prophylaxis (Z79.899: Other intermediate (current) drug therapy) SCD, enoxaparin Orders: acetaminophen, [...] Tube Saline Lock Insert Vitamin B12 Level [facility]05-03-2024 Hospital Discharge instructions Patient Education 09/19/2023 11:03:51 Parkinson's Disease, Povt-pj-Itsb Parkinson's Disease Parkinson's disease causes problems with [...] Follow these instructions at home: Medicines Take cyyz-tgo-znnszca and prescription medicines only as told by [...] therapist. Where to find more information National [place] of Neurological Disorders and Stroke: www.ninds.nih.gov Parkinson's [...] right away. Call your local emergency services (990 inthe [place] Do not wait to see if the symptoms will go away. Do not drive yourself to the hospital. Get help right away if you feel like you may hurt yourself or others, or have thoughts about takingyour own life. Go to your nearest emergency room or: Call your local emergency services (853 in the [place].S[place] Call the DirectRM Suicide Prevention Lifeline at or 865 in the U.S. This is open 24 hours a day. Text the Crisis Text Line at 734853. Summary Parkinson's disease causes problems with movements. [...] provider. Document Revised: 11/28/2021 Document Reviewed: 08/20/2021 [email or web address] Patient Education 2022 RRsat. Follow Up Care 09/17/2023 20:57:00 With:Bo Rossi MD, NEU Address: [facility] [address] [place] [address]- When:2 to 4 weeks Comments:Call for followup appointment due to the Doctor's office is closed on Friday. With:Isabelle Julian Address: [address] [place] [address]- Business (1) When:2 to 4 days [facility]05-03-2024 NoteBasic Information Patient is a 68-year-old male [...] deep vein thrombosis (DVT) prophylaxis (Z79.899: Other intermediate (current) drug therapy) Subjective Review of Systems [...] sensation in all 4 extremities. Cerebellar exam: Njmfqf-hn-biai reveals no ataxia. Gait is deferred. [3] Lab Results Sodium Lvl: 139 mmol/L (09/19/23 05:49:00) Potassium Lvl: 3.8 mmol/L (09/19/23 05 (more content not included)...[facility] above:Result Comment: Electronically Signed By: Katia MARIANO, Nedra Collier\.br\Date and Time Signed: 09/19/23 07:22 EDT\.br\Electronically Co-Signed By: Flo LAUREN, Bo\.br\Date and Time Co- Signed: 09/18/2409:10 [id number] NoteOT ampac six clicks score 16/24 = SNF. Patient requires CGA/MIN a w/ transfers and standing adls/Iadls. Inpatient OT services to follow daily to progress as tolerates as pt lives alone.[facility]05-02-2024 NotePT Evaluation Completed with an AMPAC score of 14/24. Pt was able to perform bed mobility with Min A and transfers sit to stand with Min A as well. Pt was able to ambulate, but had difficulty with increased freezing episodes. Will follow daily. Re[facility] NoteBasic Information Admit Date/Time:09/17/2023 22:56 Chief Complaint [...] 5.8 E9/L (09/17/23 21:22:00) RBC: 4.3 E12/L (09/17/23 21:22:00) HGB: 14.4 gm/dL (09/17/23 21:22:00) Hct: 42.4 % (09/17/23 21:22:00) MCV: 97.5 fL (09/17/23 21:22:00) MCH: 33.1 pg (09/17/23 21:22:00) MCHC: 34 gm/dL (09/17/23 21:22:00) RDW: 13.2 % (09/17/23:22:00) Platelet: 229 E9/L (09/17/23:22:00) MPV: 7.5 fL (09/17/23::00) Neutro Auto: 56.8 % (09/17/23:22:00) Lymph Auto: 26.4 % (09/17/23:22:00) Leake Auto: 11 % (09/17/23:22:00) Eos Auto: 5.2 % (09/17/23:22:00) Basophil Auto: 0.6 % (09/17/23:22:00) Neutro Absolute: 3.3 E9/L (09/17/23::00) Lymph Absolute: 1.5 E9/L (09/17/23::00) Leake Absolute: 0.6 E9/L (09/17/23:22:00) Eos Absolute: 0.3 E9/L (09/17/23::00) Basophil Absolute: 0 E9/L (09/17/23::00) Glucose Lvl: [...] mg/dL (09/17/23:22:00) Vitamin B12 Lvl: 482 pg/mL (09/17/23 21:22:00) Assessment/Plan 1. Parkinsons disease (G20: Parkinson's disease) [...] deep vein thrombosis (DVT) prophylaxis (Z79.899: Other intermediate (current) drug therapy) SCD, enoxaparin Orders: acetaminophen, 650 mg = 2 tab(s), Tab, Oral, q6hr PRN Pain, Routine, (more content not included)...[facility] SystemComment on above:Result Comment: Electronically Signed By: Jesu BERNAL DO.br\Date and Time Signed: 09/18/23 01:10 [id number] NoteHNO ID: [id number] Author: Jessica Bacon PA-C Service: ? Author Type: Physician Operator/Assistant Foreman Type: Progress Notes Filed: 03/07/2022 12:09 PM Note Text: [facility] NOTE NAME: ALBER MENA NO.: [id number] DATE OF SERVICE: 03/06/2022 [facility] DATE OF : 1955 CHIEF COMPLAINT: Skilled follow up visit for discharge. SUBJECTIVE FINDINGS: The patient was seen in his room sitting up in his reclining chair at [facility]. He feels that his tremors are [...] DICTATED BY: Jessica Bacon PA-C PG/Clarence JOB# [id number] cc:Denny??efrain Gerard [facility]10-19-2022 History of Present illness Narrative* Jessica Bacon PA-C - 03/06/2022 12:00 AM EDT [facility] NOTE NAME: ALBER MENA NO.: [id number] DATE OF SERVICE: 03/06/2022 Ajith Gerard DATE OF : 1955 CHIEF COMPLAINT: Skilled follow up visit for discharge. SUBJECTIVE FINDINGS: The patient was seen in his room sitting up in his reclining chair at [facility]. He feels that his tremors are [...] DICTATED BY: Jessica Bacon PA-C PG/Clarence JOB# [id number] cc:[facility] documented in [facility] encounterMer[facility]22 NoteHNO ID: [id number] Author: Jessica Bacon PA-C Service: ? Author Type: Physician Operator/Assistant Foreman Type: Progress Notes Filed: 03/05/2022 12:19 PM Note Text: [facility] NOTE NAME: ALBER MENA NO.: [id number] DATE OF SERVICE: 03/04/2022 [facility] DATE OF : 1955 CHIEF COMPLAINT: Skilled follow up for Parkinson's disease and weakness. SUBJECTIVE FINDINGS: The patient was seen in his room sitting up in his recliner at [facility]. He had no new complaints for [...] SYSTEMS: See above. MEDICATIONS: Reviewed in the usp record. CODE STATUS: Full code. PHYSICAL EXAMINATION: [...] DICTATED BY: Jessica Bacon PA-C PG/Acusis JOB# [id number] cc:Denny??[place] [facility]10-17-2022 History of Present illness Narrative* Jessica Bacon PA-C - 03/04/2022 12:00 AM EDT [facility] NOTE NAME: ALBER MENA NO.: [id number] DATE OF SERVICE: 03/04/2022 Ajith Gerard DATE OF : 1955 CHIEF COMPLAINT: Skilled follow up for Parkinson's disease and weakness. SUBJECTIVE FINDINGS: The patient was seen in his room sitting up in his recliner at [facility]. He had no new complaints for me [...] SYSTEMS: See above. MEDICATIONS: Reviewed in the usp record. CODE STATUS: Full code. PHYSICAL EXAMINATION: [...] DICTATED BY: Jessica Bacon PA-C PG/Acusis JOB# [id number] cc:Admiral efrain Gerard documented in this encounterMercy Health [facility] Hospital10-14-2022 NoteHNO ID: [id number] Author: Jessica Bacon PA-C Service: ? Author Type: Physician Operator/Assistant Foreman Type: Progress Notes Filed: 03/04/2022 11:49 AM Note Text: [facility] NOTE NAME: ALBER MENA NO.: [id number] DATE OF SERVICE: 03/01/2022 Ajith Gerard DATE [...] any urinary issues. MEDICATIONS: Reviewed in the usp record. CODE STATUS: Full code. PHYSICAL EXAMINATION: [...] DICTATED BY: Jessica Bacon PA-C PG/Clarence JOB# [id number] cc:Denny??efrain Gerard [facility]10-14-2022 History of Present illness Narrative* Jessica Bacon PA-C - 03/01/2022 12:00 AM EDT [facility] NOTE NAME: ALBER MENA NO.: [id number] DATE OF SERVICE: 03/01/2022 Ajith Gerard DATE [...] any urinary issues. MEDICATIONS: Reviewed in the usp record. CODE STATUS: Full code. PHYSICAL EXAMINATION: [...] DICTATED BY: Jessica Bacon PA-C PG/Clarence JOB# [id number] cc:Admiral efrain Stewardlou documented in this encounterMercy Health [facility] Hospital10-12-2022 NoteHNO ID: [id number] Author: Shane Dubose Service: ? Author Type: Physician Type: Progress Notes Filed: 02/28/2022 5:28 PM Note Text: [facility] NOTE NAME: ALBER MENA NO.: [id number] DATE OF SERVICE: 02/27/2022 micah Gerard DATE OF : 1955 New patient history and physical HISTORY OF PRESENT ILLNESS: The patient is a 66-year-old male who is admitted to us from [facility] with a diagnosis of inability to walk [...] abuse alcohol. 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 He has been living at home [...] home. DICTATED BY: MD TAM Lucia/Clarence JOB# [id number] cc:Denny??efrain [facility]ard [facility] History of Present illness Narrative* Shane Dubose - 02/27/2022 12:00 AM EDT [facility] NOTE NAME: ALBER MENA NO.: [id number] DATE OF SERVICE: 02/27/2022 'efrain Gerard DATE OF : 1955 New patient history and physical HISTORY OF PRESENT ILLNESS: The patient is a 66-year-old male who is admitted to us from [facility] with a diagnosis of inability to walk [...] abuse alcohol. 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 DICTATED BY: MD TAM Lucia/Clarence JOB# [id number] cc:Admiral efrain Gerard documented in this encounterCleveland [id number] NoteHNO ID: [id number] Author: Aaron Sheets APRN.SENIOR MECHANICAL ESTIMATOR Service: ? Author Type: Nurse Specialist Type: Progress Notes Filed: 07/19/2021 8:39 AM Note Text: [facility] NOTE NAME: ALBER MENA NO.: [id number] DATE OF SERVICE: 07/17/2021 [facility] DATE OF : 1955 REASON FOR VISIT: The patient is a resident of [facility]. This is a skilled visit for Parkinson's [...] flareups of Parkinson's disease. DICTATED BY: KIM Huggins JOB# [id number] cc:[facility]02-22-2022 NoteHNO ID: [id number] Author: Aaron Sheets APRN.SENIOR MECHANICAL ESTIMATOR Service: ? Author Type: Nurse Specialist Type: Progress Notes Filed: 07/12/2021 7:19 AM Note Text: [facility] NOTE NAME: ALBER MENA NO.: [id number] DATE OF SERVICE: 07/10/2021 [facility] DATE OF : 1955 REASON FOR VISIT: The patient is a resident of [facility]. This is a skilled visit for Parkinson's [...] continue with therapy services. DICTATED BY: KIM Huggins/Clarence JOB# [id number] cc:[facility]02-16-2022 NoteHNO ID: [id number] Author: Jessica Bacon PA-C Service: ? Author Type: Physician Operator/Assistant Foreman Type: Progress Notes Filed: 07/05/2021 12:39 PM Note Text: [facility] NOTE NAME: ALBER MENA NO.: [id number] DATE OF SERVICE: 07/04/2021 [facility] DATE OF : 1955 CHIEF COMPLAINT: Skilled followup visit for Parkinson's disease, anxiety, and other medical issues. SUBJECTIVE FINDINGS: The patient was seen in his room, sitting up in bed, at [facility]. The patient continued with significant tremors of [...] see above. MEDICATIONS: Medications reviewed in the [facility] record. CODE STATUS: Code status is full [...] ongoing therapies. DICTATED BY: Jessica Bacon PA-C PG/Acusis JOB# [id number] cc:[facility]02-11-2022 NoteHNO ID: [id number] Author: Aaron Sheets APRN.SENIOR MECHANICAL ESTIMATOR Service: ? Author Type: Nurse Specialist Type: Progress Notes Filed: 07/04/2021 12:19 PM Note Text: [facility] NOTE NAME: ALBER MENA NO.: [id number] DATE OF SERVICE: 06/29/2021 [facility] DATE OF : 1955 REASON FOR VISIT: The patient is a resident of [facility]. This is a skilled visit for Parkinson's. [...] therapy services. DICTATED BY: KIM Huggins JOB# [id number] cc[facility] NoteHNO ID: [id number] Author: Aaron Sheets APRN.SENIOR MECHANICAL ESTIMATOR Service: ? Author Type: Nurse Specialist Type: Progress Notes Filed: 07/01/2021 8:39 AM Note Text: [facility] NOTE NAME: VIKKI MENAMINDI NO.: [id number] DATE OF SERVICE: 06/26/2021 [facility] DATE OF : 1955 REASON FOR VISIT: The patient is a resident of [facility]. This is a skilled visit for Parkinson's [...] therapy services. DICTATED BY: KIM Huggins JOB# [id number] cc:[facility]02-03-2022 NoteHNO ID: [id number] Author: Shane Dubose Service: ? Author Type: Physician Type: Progress Notes Filed: 06/25/2021 5:29 PM Note Text: [facility] NOTE NAME: ALBER MENA NO.: [id number] DATE OF SERVICE: 06/21/2021 [facility] DATE OF : 1955 NEW PATIENT HISTORY AND PHYSICAL HISTORY OF PRESENT ILLNESS: Patient is a 66-year-old male, who was admitted to us from [facility] with a diagnoses of symptomatic Parkinson's disease [...] use. 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 He has been living at home [...] therapy. DICTATED BY: MD TAM Lucia/Clarence JOB# [id number] cc:[facility] Present illness NarrativePatient returns in follow-up [...] watch for and encouraged tocall if they arise.[facility] 600 DO Work Phone: History of Present illness [...] did advocate the merits of weight loss. [facility] 600 DO Work Phone: Hospital course Narrative No data available for this section [facility] No data available for this section [facility] Progress note No data available for this section [facility] Chief Complaint ELVER MENA is being seen [...] or prosecute any alcohol or drug abuse patient.[facility] the event this information is protected by the Federal Confidentiality of Alcohol and Drug Abuse Patient Records regulations: The Federal rules restrict any use of the information to criminally investigate or prosecute any alcohol or drug abuse patient.[facility] Hospital[facility] the event this information is protected by the Federal Confidentiality of Alcohol and Drug Abuse Patient Records regulations: The Federal rules restrict any use of the information to criminally investigate or prosecute any alcohol or drug abuse patient.[facility] Hospital[facility] the event this information is protected by the Federal Confidentiality of Alcohol and Drug Abuse Patient Records regulations: The Federal rules restrict any use of the information to criminally investigate or prosecute any alcohol or drug abuse patient.[facility] Care Teams (unrecognized sec tion and content) Cooking Appliance Repair Technician Relationship Specialty Start Date End Date Catracho Mcfadden MD PCP - General Family Medicine 05/19/15 (unrecognized sect ion and content) No Status Records FoundNo Status Records FoundNo Status Records FoundNo Status Records FoundNo Status Records FoundNo Status Records FoundNo Status Records FoundNo Status Records Found INFORMATION SOURCE (unrecogn ized section and content) DATE CREATED AUTHOR 03/09/2022 [facility] DATE CREATED AUTHOR AUTHOR'S ORGANIZ ATION 09/25/2022 [facility] DATE CREATED AUTHOR AUTHOR'S ORGANIZ ATION 09/26/2022 [employer] [facility] DATE CREATED AUTHOR AUTHOR'S ORGANIZ ATION 10/12/2023 [facility] DATE CREATED AUTHOR AUTHOR'S ORGANIZ ATION 11/11/2023 [facility] DATE CREATED AUTHOR AUTHOR'S ORGANIZ ATION 11/14/2023 [facility] DATE CREATED AUTHOR AUTHOR'S ORGANIZ ATION 12/19/2023 [facility] FOR RECORDS PERTAINING TO PATIENTS WHO ARE [...] BE BASED ON THE PRIMARY CLINICAL RECORDS. [facility] [employer] [facility]. provides no warranty or guarantee of the accuracy or completeness of information in this document.
[2023-12-20] MEDS: CARBIDOPA/LEVODOPA CR 25-100 MG TABLET 2 TAB PO ×2 (15:01→19:22)
[2023-12-20] MEDS: ENTACAPONE 200 MG TABLET PO ×2 (15:01→19:22)
[2023-12-20] MEDS: ROPINIROLE HCL 1 MG TABLET PO ×2 (15:01→19:22)
--- NOTE | 2023-12-20 15:07 | PM.HP ---
HPI H&P: HPI History of Present Illness Chief complaint: CHEST PAIN ICU OVER FLOW Narrative: 68 y o male who is a long-term assisted resident because of severe Parkinson disease presented to ER earlier today with acute onset midsternal, sharp, pleuritic chest pain with radiation to right shoulder. Pain is persistent, worsens with inspiration and has no associated symptoms including shortness of breath, palpitations, diaphoresis. Patient denies any recent injury, illness. Patient was worked up for acute coronary syndrome. He has normal chest x-ray, no significant finding on EKG. He has negative troponin x 2. He also had a CTA chest that was negative for pulmonary embolism but did show atherosclerotic plaque in coronary vasculature. Patient continues to have midsternal and right-sided chest pain but is comfortable and is in no acute distress Opioid HPI Opioid Management Most Recent Pain and Opioid Data: Last Pain Scale 7 10/27/23 14:19 Last ED Pain Assessment 12/20/23 09:44 Last ORT Total Score 0 12/20/23 14:07 Last ORT Risk Category Low Risk 12/20/23 14:07 Review of Systems ROS Status of ROS 10 or more systems reviewed and unremarkable except as noted in history and below [facility] Medical History (Updated 12/20/23 @ 15:12 by Shaikh Bryson MD) Unsteady gait ?R26.81 - Unsteadiness on feet (ICD-10) High blood pressure ?I10 - Essential (primary) hypertension (ICD-10) Parkinson disease ?G20.A1 - Parkinson's disease without dyskinesia, without mention of fluctuations (ICD-10) Anxiety ?F41.9 - Anxiety disorder, unspecified (ICD-10) Depression ?F32.A - Depression, unspecified (ICD-10) GERD (gastroesophageal reflux disease) ?K21.9 - Gastro-esophageal reflux disease without esophagitis (ICD-10) Surgical History (Updated 10/25/23 @ 17:31 by Saloni Rodriguez) H/O hernia repair ?Z98.890 - Other specified postprocedural states (ICD-10) ?Z87.19 - Personal history of other diseases of the digestive system (ICD-10) History of bowel resection ?Z90.49 - Acquired absence of other specified parts of digestive tract (ICD-10) Family History (Updated 10/25/23 @ 17:32 by Saloni Rodriguez) Father Family history of myocardial infarction Family history of hypertension Family history of cancer Family history of COPD (chronic obstructive pulmonary disease) Family history of CHF (congestive heart failure) Mother Family history of stroke Family history of hypertension Social History (Updated 10/25/23 @ 17:34 by Saloni Rodriguez) Within the past year, how often did you have a drink containing alcohol: 2-4 times a month Within the past year, how often did you have six or more drinks on one occasion: never Smoking status: Former smoker Non-prescribed substance use: denies use Previous occupational history: disabled Highest level of school completed/degree received: high school graduate Are you now , , , , never or living with a partner: Little interest or pleasure in doing things: not at all Feeling down, depressed, or hopeless: not at all Feel stressed/tense/nervous/anxious/difficulty sleeping: only a little Life stressor details: increased tremors are very bothersome Meds Home Medications and Allergies Home Medications ?Medication ?Instructions ?Recorded ?Confirmed ?Type buspirone 5 mg tablet 10 mg PO TID 10/25/23 12/20/23 History carbidopa ER 25 mg-levodopa 100 mg 2 tab PO Q4H 10/25/23 12/20/23 History tablet,extended release entacapone 200 mg tablet 200 mg PO Q4H 10/25/23 12/20/23 History escitalopram oxalate 5 mg tablet 5 mg PO DAILY 10/25/23 12/20/23 History (Lexapro) meclizine 25 mg tablet 25 mg PO Q8H PRN dizziness 10/25/23 12/20/23 History pimavanserin 34 mg capsule 34 mg PO Q24H 10/25/23 12/20/23 History (Nuplazid) propranolol 80 mg capsule,24 60 mg PO BID 10/25/23 12/20/23 History hr,extended release ropinirole 1 mg tablet 1 mg PO Q4H 10/25/23 12/20/23 History baclofen 5 mg tablet 5 mg PO TID 12/20/23 12/20/23 History famotidine 20 mg tablet 20 mg PO DAILY 12/20/23 12/20/23 History quetiapine 25 mg tablet (Seroquel) 25 mg PO BID 12/20/23 12/20/23 History Allergies Allergy/AdvReac Type Severity Reaction Status Date / Time No Known Drug Allergies Allergy Verified 10/25/23 12:31 Exam Constitutional Vital Signs, click to edit/add: Last Vital Signs Temp 98.1 F 12/20/23 14:07 Pulse 57 L 12/20/23 14:10 Resp 28 H 12/20/23 14:10 BP 110/60 12/20/23 14:07 Pulse Ox 98 12/20/23 14:10 O2 Del Method Room Air 12/20/23 14:07 Documenting provider has reviewed patient's vital signs: yes Common normals: no apparent distress and oriented x3 General appearance: cooperative and ill appearing HENMT Common normals: normocephalic and head/scalp atraumatic Head and scalp: normocephalic and atraumatic Eye Common normals: conjunctivae normal and no scleral icterus Conjunctiva: conjunctiva(e) normal Chest Chest: tenderness sternum, costochondral junction, costal cartilage and sternoclavicular joint Respiratory Common normals: normal respiratory effort and clear to auscultation bilaterally Effort & inspection: able to speak in complete sentences Auscultation: clear to auscultation bilaterally Cardio Common normals: regular rate, S1 normal heart sound and S2 normal heart sound Rate: regular rate Heart sounds: S1 normal and S2 normal GI Common normals: Normal to inspection, nondistended, normoactive bowel sounds present, soft to palpation, non-tender and no hepatosplenomegaly Palpation: soft and no hepatosplenomegaly Extremity Common normals: no clubbing, cyanosis or edema Neuro Common normals: oriented x3, moves all extremities and no focal motor deficits Other: Very tremulous because of Parkinson Psych Common normals: mental status grossly normal, denies hallucinations, denies homicidal ideation and denies suicidal ideation Results Labs Labs: Short CBC 12/20/23 Range/Units 09:00 WBC 6.2 (4.0-11.0) 10^3/uL Hgb 13.4 L (14.0-18.0) g/dL Hct 40.0 L (42.0-54.0) % Plt Count 256 (150-450) 10^3/uL BMP 12/20/23 09:00 Sodium 140 Potassium 3.9 Chloride 103 Carbon Dioxide 29.7 BUN 22.0 H Creatinine 0.81 Glucose 137 H Calcium 9.0 Assessment and Plan Assessment and Plan (1) Chest pain: Assessment and Plan: Patient presents with midsternal chest pain with radiation to right side of his chest. Persistent, pleuritic, worsens with inspiration. Tenderness on palpation. Likely noncardiac. Continue with telemetry monitoring. Trend troponin. Start on aspirin and Lipitor as evidence of multivessel coronary calcification on CTA. Check A1c, lipid panel. Qualifiers: Chest pain type: intercostal pain Qualified Code(s): R07.82 - Intercostal pain (2) Parkinson disease: Assessment and Plan: Severe Parkinson with unsteady gait, orthostatic hypotension and dyskinesia. Continue with patient's home medications. Monitor. Physical therapy and Occupational Therapy evaluate Qualifiers: Dyskinesia presence: with dyskinesia Fluctuating manifestations: with fluctuating manifestations Qualified Code(s): G20.B2 - Parkinson's disease with dyskinesia, with fluctuations (3) Depression: Assessment and Plan: Mood is stable continue with home medications. Qualifiers: Depression Type: major depressive disorder Major depression recurrence: recurrent Active/Remission status: in full remission Qualified Code(s): F33.42 - Major depressive disorder, recurrent, in full remission (4) GERD (gastroesophageal reflux disease): Assessment and Plan: Continue with famotidine. Qualifiers: Esophagitis presence: without esophagitis Qualified Code(s): K21.9 - Gastro-esophageal reflux disease without esophagitis (5) Anxiety: Assessment and Plan: Continue with home medications. Monitor.
[2023-12-20] MEDS: OXYCODONE HCL 5 MG TABLET PO (16:07)
[2023-12-20] MEDS: ENOXAPARIN SODIUM 40 MG/0.4 ML SYRINGE SUBQ (16:07)
[2023-12-20 16:19] LABS: Chol HDL Ratio 5.1; Cholesterol 178 mg/dL (<=200); HDL Cholesterol 35 mg/dL (40-60); Triglycerides 170 mg/dL (<=150); Troponin I High Sensitivity 16.5 pg/mL (4.0-76.1)
[2023-12-20 16:42] LABS: Estimated Average Glucose 117 mg/dL; Glycohemoglobin A1C 5.7 % (4.5-6.2)
[2023-12-20] MEDS: MORPHINE SULFATE 2 MG/ML SYRINGE IV (19:28)
[2023-12-20] MEDS: BUSPIRONE HCL 10 MG TABLET PO (21:06)
[2023-12-20] MEDS: ACETAMINOPHEN 325 MG TABLET 650 MG PO (21:06)
[2023-12-20] MEDS: ATORVASTATIN CALCIUM 40 MG TABLET PO (21:06)
[2023-12-20] MEDS: PROPRANOLOL HCL 60 MG CAP.24H PO (21:06)
[2023-12-20] MEDS: BACLOFEN 10 MG TABLET 5 MG PO (21:06)
[2023-12-20] MEDS: ESCITALOPRAM 10 MG TABLET 5 MG PO (21:07)
[2023-12-20] MEDS: QUETIAPINE FUMARATE 25 MG TABLET PO (21:07)
[2023-12-21] VITALS (7 sets, daily range): BP systolic 100–142; BP diastolic 60–70; PULSE 53–64; TEMP 36.4; O2SAT 93
[2023-12-21] MEDS: ENTACAPONE 200 MG TABLET PO ×3 (00:20→08:13)
[2023-12-21] MEDS: ROPINIROLE HCL 1 MG TABLET PO ×3 (00:20→08:13)
[2023-12-21] MEDS: CALCIUM CARBONATE 500 MG (200MG ELEMENTAL) TAB CHEW PO (00:21)
[2023-12-21] MEDS: CARBIDOPA/LEVODOPA CR 25-100 MG TABLET 2 TAB PO ×3 (00:21→08:14)
[2023-12-21] MEDS: OXYCODONE HCL 5 MG TABLET PO (00:21)
[2023-12-21] MEDS: BACLOFEN 10 MG TABLET 5 MG PO (05:01)
[2023-12-21] MEDS: BUSPIRONE HCL 10 MG TABLET PO (05:01)
[2023-12-21] MEDS: ASPIRIN 81 MG TABLET.DR PO (08:13)
[2023-12-21] MEDS: FAMOTIDINE 20 MG TABLET PO (08:14)
[2023-12-21] MEDS: QUETIAPINE FUMARATE 25 MG TABLET PO (08:14)
--- NOTE | 2023-12-21 09:18 | PM.DS1 ---
DS: Providers Provider Date of admission: 12/20/23 13:55 Primary care physician: ANDREA MCGUIRE DO Admitting clinician: Shaikh Bryson Attending physician on admission: Shaikh Bryson Consults: 12/20/23 Consult to Surgical Nurse Routine Reason for consult:: Advanced Directives 12/20/23 13:25 Occupational Therapy Eval and Treat Routine Reason for consultation: Ambulatory dysfunction/weakness Physical Therapy Eval and Treat Routine Reason for consultation: Ambulatory dysfunction/weakness Attending physician on discharge: Shaikh Bryson Discharging clinician: Shaikh Bryson Anticipated date of discharge: 12/21/23 DS: Diagnosis Discharge Diagnosis (1) Chest pain: Assessment and plan: Negative troponins. No significant finding on EKG. Chest pain is now resolved. Will need outpatient follow-up and workup for underlying coronary artery disease. Will discharge on oral aspirin as evidence of multivessel calcification on CTA Qualifiers: Chest pain type: intercostal pain Qualified Code(s): R07.82 - Intercostal pain (2) Parkinson disease: Assessment and plan: Continue with patient's home medications. Follow-up with neurology as needed Qualifiers: Dyskinesia presence: with dyskinesia Fluctuating manifestations: with fluctuating manifestations Qualified Code(s): G20.B2 - Parkinson's disease with dyskinesia, with fluctuations (3) Depression: Assessment and plan: Continue with home medication. Stable mood. Qualifiers: Depression Type: major depressive disorder Major depression recurrence: recurrent Active/Remission status: in full remission Qualified Code(s): F33.42 - Major depressive disorder, recurrent, in full remission (4) GERD (gastroesophageal reflux disease): Assessment and plan: Continue with famotidine Qualifiers: Esophagitis presence: without esophagitis Qualified Code(s): K21.9 - Gastro-esophageal reflux disease without esophagitis (5) Anxiety: Assessment and plan: Continue with home occasions DS: Summary Hospital Course Hospital Course: 68 y o male who is a long-term [facility] resident because of severe Parkinson disease presented to ER acute onset midsternal, sharp, pleuritic chest pain with radiation to right shoulder. Pain was persistent, worsened with inspiration and had no associated symptoms including shortness of breath, palpitations, diaphoresis. Patient denies any recent injury, illness. Patient was admitted for observation. His chest pain is resolved now. He had normal EKG and negative cardiac enzymes. He also had a CTA chest that showed multivessel coronary calcifications. Since patient is chest pain-free and has no evidence of acute coronary syndrome, he can be discharged safely with outpatient follow-up. He will need workup for ischemic heart disease as outpatient.. Will discharge patient on low-dose aspirin because of atherosclerotic disease noted on CTA. Instructed to return to ED if his chest pain recurs. He will need follow-up with PCP in 1 to 2 weeks Status at Discharge Functional status at discharge: independent ambulation Overall status at discharge: patient is back to baseline Time Spent with Patient Time attestation: Total time spent providing and/or coordinating discharge services: Exam Constitutional Vital Signs, click to edit/add: Last Vital Signs Temp 97.6 F 12/21/23 08:16 Pulse 56 L 12/21/23 08:16 Resp 18 12/21/23 08:16 BP 100/60 12/21/23 08:16 Pulse Ox 93 L 12/21/23 08:16 O2 Del Method Room Air 12/21/23 08:16 Documenting provider has reviewed patient's vital signs: yes Common normals: no apparent distress and oriented x3 General appearance: cooperative and ill appearing Respiratory Common normals: normal respiratory effort and clear to auscultation bilaterally Effort & inspection: able to speak in complete sentences Auscultation: clear to auscultation bilaterally Cardio Common normals: regular rate, S1 normal heart sound and S2 normal heart sound Rate: regular rate Heart sounds: S1 normal and S2 normal Extremity Common normals: no clubbing, cyanosis or edema Neuro Common normals: oriented x3, moves all extremities and no focal motor deficits Other: Very tremulous because of Parkinson Psych Common normals: mental status grossly normal, denies hallucinations, denies homicidal ideation and denies suicidal ideation DS: Data Data Completed and Pending Labs on day of discharge: Labs from last 24 hours 12/20/23 12/20/23 12/20/23 13:47 10:33 09:00 WBC 6.2 RBC 4.02 L Hgb 13.4 L Hct 40.0 L MCV 99.5 H MCH 33.3 MCHC 33.5 RDW 12.9 Plt Count 256 MPV 9.3 L Neut % (Auto) 65.2 Lymph % (Auto) 20.9 [place] % (Auto) 10.5 Eos % (Auto) 2.8 Baso % (Auto) 0.3 Neut # (Auto) 4.0 Lymph # (Auto) 1.3 [place] # (Auto) 0.7 Eos # (Auto) 0.2 Baso # (Auto) 0.0 Abs Immat Gran (auto) 0.02 Imm/Tot Granulo (auto) 0.3 Sodium 140 Potassium 3.9 Chloride 103 Carbon Dioxide 29.7 Anion Gap 11.2 BUN 22.0 H Creatinine 0.81 Est GFR ( Amer) >60 Est GFR (Non-Af Amer) >60 BUN/Creatinine Ratio 27.2 Glucose 137 H Estimat Average Glucose 117 Hemoglobin A1c 5.7 Calcium 9.0 Troponin I High Sens 16.5 15.9 16.6 Triglycerides 170 H Cholesterol 178 LDL Cholesterol, Calc 109.0 VLDL Cholesterol 34.0 HDL Cholesterol 35 L Cholesterol/HDL Ratio 5.1 Discharge Plan Discharge Disposition: Xfer SNF Condition: Fair Discharge Medications: Continued carbidopa-levodopa 25-100 mg tablet extended release 2 tab PO Q4H buspirone 5 mg tablet 10 mg PO TID entacapone 200 mg tablet 200 mg PO Q4H meclizine 25 mg tablet 25 mg PO Q8H PRN (Reason: dizziness) Nuplazid 34 mg capsule 34 mg PO Q24H propranolol 80 mg capsule,extended release 24 hr 60 mg PO BID ropinirole 1 mg tablet 1 mg PO Q4H escitalopram oxalate [Lexapro] 5 mg tablet 5 mg PO DAILY famotidine 20 mg tablet 20 mg PO DAILY baclofen 5 mg tablet 5 mg PO TID quetiapine [Seroquel] 25 mg tablet 25 mg PO BID Print Language: [place] Forms: Portal Instructions Follow Up Appointments: F/u with PCP in one week
--- NOTE | 2023-12-23 09:12 | SWNOTE1 ---
Pt was admitted over the weekend, SW was not able to assist with Advanced Directives at that time.
== END 2023-12-21 11:33 ==
LOC: ER 12:49 → ICU 14:06 → MS 16:54
PROVIDERS: Admitting Provider Internal Medicine; Emergency Provider Emergency Medicine; PCP Family Medicine; Visit Provider Internal Medicine
DX: R07.82 Intercostal pain (principal); G20.B2 Parkinson's disease with dyskinesia, with fluctuations; F33.42 Major depressive disorder, recurrent, in full remission; K21.9 Gastro-esophageal reflux disease without esophagitis; F41.9 Anxiety disorder, unspecified; I95.1 Orthostatic hypotension; I70.90 Unspecified atherosclerosis; Z79.899 Other long term (current) drug therapy; Z87.891 Personal history of nicotine dependence
CPT/HCPCS: 36415; 71045; 71275; 80048; 80061; 83036; 84484; 85025; 93005; 94761; 96372; 96374; 99285; G0378; J1650; J2270; Q9967